=== PATIENT | male | born 1955 | race African-American/Black ===

== ENCOUNTER 2017-06-19 03:17 | Inpatient (IN) | payer SELFPAY ==
[2017-06-19 04:22] LABS: #Lymphocytes 0.8 thou/uL (1.20-3.40); #Monocytes 0.4 thou/uL (0.11-0.59); %Eosinophils 0.3 % (0.0-10.0); %Lymphocytes 8.3 % (21.0-51.0); %Monocytes 4.1 % (0.0-10.0); %Neutrophils 87.2 % (42.0-75.0); ALT (SGPT) 41 U/L (8-55); AST (SGOT) 44 U/L (5-34); Alkaline Phosphatase 149 U/L (40-150); Anion Gap 12 mmol/L (10-20); BUN (Urea Nitrogen) 23 mg/dL (8.4-25.7); Bilirubin, Total 0.5 mg/dL (0.2-1.2); CK (CPK) 186 U/L (30-200); Calc. Creatinine Clearance 0 mL/min (70-130); Calcium 9.4 mg/dL (7.8-10.44); Carbon Dioxide 27 mmol/L (23-31); Chloride 103 mmol/L (98-107); Estimated GFR-MDRD 59; Globulin 3.4 g/dL (2.4-3.5); Glucose 117 mg/dL (80-115); Lipase 28 U/L (8-78); MDiff Complete? YES; Macrocytosis MODERATE=16-30 cells (100X) (0-5/hpf); Mean Corpuscular HGB CONC 33.3 g/dL (32.0-36.0); Mean Platelet Volume 7.5 fL (7.4-10.4); PLT Morphology Comment Appears Adequate; Platelet Count 161 thou/uL (130-400); Protein, Total 7.4 g/dL (5.8-8.1); Red Blood Cell (RBC) Count 4.29 mill/uL (4.70-6.10); Sodium 138 mmol/L (136-145); White Blood Cell (WBC) Count 9.2 thou/uL (4.8-10.8)
[2017-06-19 04:25] LABS: CKMB 5.1 ng/mL (0-6.6); Troponin I 0.044 ng/mL (< 0.028)
--- NOTE | 2017-06-19 07:33 | RAD ---
SINGLE VIEW OF THE CHEST: COMPARISON: 09/21/15. HISTORY: Chest pain and hypertension. FINDINGS: A single view of the chest shows a normal-size cardiomediastinal silhouette. Increased interstitial lung markings are stable. There is no evidence of consolidation, mass, or pleural effusion. IMPRESSION: Stable chronic interstitial lung disease without acute cardiopulmonary process. POS: OFF
[2017-06-19] MEDS ORDERED: Furosemide 40 MG/4 ML VIAL ONE (08:06)
[2017-06-19] MEDS ORDERED: Acetaminophen 325 MG TAB PO PRN (08:38)
[2017-06-19] MEDS ORDERED: Acetaminophen 650 MG Suppository PR PRN (08:38)
[2017-06-19] MEDS ORDERED: Nitroglycerin 0.4 MG TAB (25 Tab Bottle) PO PRN (08:38)
[2017-06-19] MEDS ORDERED: Enoxaparin Sodium 40 MG/0.4 ML SYRINGE SC SCH (09:00)
[2017-06-19] MEDS ORDERED: Enoxaparin Sodium 40 MG/0.4 ML SYRINGE ONE (09:53)
[2017-06-19 10:31] LABS: Troponin I 0.053 ng/mL (< 0.028)
[2017-06-19] MEDS ORDERED: hydrALAZINE 20 MG/ML VIAL ONE (10:52)
--- NOTE | 2017-06-19 11:31 | HP ---
PRIMARY CARE PHYSICIAN: None. CHIEF COMPLAINT: Chest pain. HISTORY OF PRESENT ILLNESS: Mr. Treviño is a pleasant 62-year-old gentleman who was seen at [facility] on 06/19/2017. He reports that he was watching television with a friend and then subsequently rode his bike home. He reports that it was an approximately 8 minute ride. While riding, he had palpitations. He also reports left-sided chest discomfort that was sharp, nonradiatin g, 5/10, on and off, no known aggravating or relieving factors, not accompanied by shortness of breat h, but accompanied by lightheadedness and nausea. He denies any cough, fevers or chills. He denies any abdominal pain. He denies any similar pain in the past. REVIEW OF SYSTEMS: The following complete review of systems was negative, unless otherwise mentioned in the HPI or below: Constitutional: Weight loss or gain, ability to conduct usual activities. Skin: Rash, itching. Eyes: Double vision, pain. ENT/Mouth: Nose bleeding, neck stiffness, pain, tenderness. Cardiovascular: Palpitations, dyspnea on exertion, orthopnea. Respiratory: Shortness of breath, wheezing, cough, hemoptysis, fever or night sweats. Gastrointestinal: Poor appetite, abdominal pain, heartburn, nausea, vomiting, constipation, or diarr hea. Genitourinary: Urgency, frequency, dysuria, nocturia. Musculoskeletal: Pain, swelling. Neurologic/Psychiatric: Anxiety, depression. Allergy/Immunologic: Skin rash, bleeding tendency. PAST MEDICAL HISTORY: Significant for hypertension. He reports that he is on 2 different medication s for hypertension, but he is unable to recall their names. He is also unable to tell me who prescri bed his medications. PAST SURGICAL HISTORY: Significant for tonsillectomy. SOCIAL HISTORY: The patient drinks alcohol on 4 days out of 7 days in the week. He smokes half pack of cigarettes a day. He denies any cocaine use. He reports occasional marijuana use. FAMILY HISTORY: His father from heart attack when he was 44 years old. ALLERGIES: No known drug allergies. CURRENT MEDICATIONS: Unknown. PHYSICAL EXAMINATION: GENERAL: Mr. Treviño is awake and alert, not in acute distress. VITAL SIGNS: Blood pressure is 187/135, pulse is 85, he is breathing at rate of 15 and saturating 10 0% on room air. He is afebrile. EYES: No scleral icterus. No conjunctival pallor. ENT: Moist mucosal membranes, no oropharyngeal erythema or exudates. NECK: Supple, nontender, normal range of movement. Trachea is midline. RESPIRATORY: Accessory muscles of breathing are not active. Chest wall movements are symmetrical bi laterally. LUNGS: Clear to auscultation without wheezes, rhonchi or crepitations. CARDIOVASCULAR: S1 and S2 are heard, regular. Peripheral pulses are palpable. No carotid bruit, no pericardial rub. ABDOMEN: Soft, nontender, bowel sounds are heard, no hepatomegaly, no splenomegaly. SKIN: No rashes or subcutaneous nodules. MUSCULOSKELETAL: Power is 5/5 in all 4 extremities. He has bilateral lower extremity edema. NEUROLOGIC: Cranial nerves II through XII are intact. Deep tendon reflexes are 2+. PSYCHIATRIC: Normal mood and normal affect, patient is oriented to person, place, and time. LABORATORY DATA: Mr. Gates's labs and investigations were reviewed. I reviewed his electrocardiogram , which shows T-wave inversions and ST depressions in the lateral leads. He also has T-wave flatteni ng in the inferior leads. I also reviewed his chest x-ray, which does not show any pulmonary infiltr ates. Laboratory investigation show normal white count, normal hemoglobin, normal platelet count, no rmal electrolytes, elevated creatinine of 1.47, last known creatinine 1.60 on 09/21/2015, unremarkab le liver profile except for a slightly elevated AST of 44, indeterminate troponin I of 0.044 and elev ated BNP of 2565. ASSESSMENT AND PLAN: Mr. Treviño is a pleasant 62-year-old gentleman who was seen at [facility] on 06/19/2017. His problem list includes: 1. Chest pain: Mr. Treviño is presenting with chest pain. We will admit him to the hospital to rule out acute coronary syndrome. We will cycle cardiac enzymes. We will monitor on telemetry. We will start him on aspirin. 2. Congestive heart failure: Chronicity is unclear. Type of congestive heart failure is also uncle ar. We will request 2D echocardiogram to evaluate cardiac function. The patient has received Lasix, we will continue. 3. Acute hypoxic respiratory failure: His room air oxygen saturations were 82%. We will provide fu rosemide for congestive heart failure and oxygen as needed. 4. Tobacco abuse: Patient has been counseled regarding tobacco cessation. We will start him on yary otine replacement therapy. 5. Hypertension: The patient's blood pressure is high in the emergency room. We will start him on p.r.n. antihypertensives and monitor vital signs and titrate antihypertensives as needed. Many thanks for allowing me to participate in your patient's care. Please feel free to contact me wi th any questions or concerns. LEVEL OF RISK: High. LEVEL OF COMPLEXITY: High.
[2017-06-19 13:26] LABS: Troponin I 0.054 ng/mL (< 0.028)
[2017-06-19] MEDS: Aspirin 325 MG TAB PO SCH (14:15)
[2017-06-19] MEDS: Nicotine 14 MG PATCH TD SCH (17:08)
[2017-06-19] MEDS ORDERED: FLU VACC QS2017-18 36 mo. & older 0.5 ML SYRINGE IM ONE (18:00)
[2017-06-19] MEDS ORDERED: Communication Order-Pharmacy FS SCH (18:00)
--- NOTE | 2017-06-19 18:16 | CON ---
DATE OF CONSULTATION: 06/19/2017. CARDIOLOGY CONSULTATION REASON FOR CONSULTATION: Chest pain and shortness of breath. HISTORY OF PRESENT ILLNESS: Mr. Treviño is a very pleasant 62-year-old gentleman who comes to the hospital for chest pain. He was at a friend 's house watching TV and he states he rides his bike everywhere for miles at a time. Yesterday, when he was riding home, which was about an 8-minute ride, he had a sudden onset of palpitations and left-sided chest pain. He decided to stop, felt really worried about it and decided to come in for further evaluation. Here in the hospital, he was admitted for his chest pain. He had ST changes as well as mildly elevated troponin, so Cardiology was consulted for this. His BNP was 2500. He received 1 dose of IV Lasix and he is breathing much better now. He has not had any more pain since the episode with his bike. PAST MEDICAL HISTORY: Hypertension. PAST SURGICAL HISTORY: Tonsillectomy. SOCIAL HISTORY: Drinks alcohol on 4 out of 7 days, smokes half a pack of cigarettes a day, occasional marijuana use. FAMILY HISTORY: Father from an CA at age 45. OUTPATIENT MEDICATIONS: Two blood pressure medications, but he is unsure of the names. He tells me he has not seen a physician in a long, long time. REVIEW OF SYSTEMS: A 12-point review of systems was done and is all negative unless stated in the history of present illness below: He tells me that for the last 6 months, he had a couple of episodes where he was riding his bike and felt presyncopal. He also has been noticing increased shortness of breath in the last 6 months while riding his bicycle and has had to slow down some. PHYSICAL EXAMINATION: VITAL SIGNS: Temperature 98.0, pulse 105, respiratory rate 18, satting 95% on room air, blood pressure 140/95. GENERAL: Awake, alert, oriented x3, in no distress. HEENT: Normocephalic, atraumatic. NECK: Supple. LUNGS: Clear. CARDIOVASCULAR: S1, S2. No S3 or S4. Grade 3/6 systolic murmur at right upper sternal border, no rubs. ABDOMEN: Soft, positive bowel sounds. EXTREMITIES: No edema. SKIN: Warm and dry. LABORATORY WORK: Reviewed. White count of 9.2, hemoglobin of 15, hematocrit of 45, platelet count of 161,000. Coags, D-dimer was high at 0.89. Chemistry, creatinine was 1.47, GFR was 59, otherwise unremarkable. Troponins were 0.04, 0.05, 0.05. BNP was 2565. Albumin of 4, lipase of 28. Chest x-ray was reviewed. He had chronic interstitial lung disease without an acute cardiopulmonary process. Echocardiogram was reviewed and shows normal LV function at 50%-55%. There is inferolateral and anterolateral hypokinesis with grade 2/3 diastolic dysfunction and LVH. There are mildly elevated pulmonary pressures and aortic valve is heavily calcified with severe aortic valve stenosis, valve area of 0.48 cm2, max velocity of 4.9 meters per second and a mean gradient of 55.8 mmHg. EKG was reviewed, normal sinus rhythm, anterolateral ischemic changes. ASSESSMENT: 1. Critical aortic valve stenosis. 2. Possible coronary artery disease, anterolateral changes on both EKG and echo. 3. Acute on chronic diastolic heart failure, most likely related to severe aortic stenosis. 4. Tobacco abuse. 5. Alcohol use. PLAN: 1. He has critical aortic valve stenosis and would require aortic valve replacement for therapies. At this time, I spoke with him at length about possibly doing this and he is willing to do whatever needs to be done to get his heart better. 2. We will plan on doing a left heart catheterization. I spoke with him at length about the risks and benefits of the procedure. The risks include, but not limited to stroke, CA, , bleeding and need for blood transfusion, limb loss, organ loss and he agrees to proceed. We will get that done in preparation for possible surgery in the next coming weeks. 3. I would hold off on any more Lasix at this time. We will do very gentle hydration overnight and plan on doing this catheterization early in the morning for evaluation of possible bypass on top of his valve needs. 4. Thank you for letting us to participate in the care of your patient. We will follow. SHANEL
[2017-06-20 05:40] LABS: #Eosinphils 0.1 thou/uL (0.0-0.7); #Lymphocytes 1.4 thou/uL (1.20-3.40); #Monocytes 0.4 thou/uL (0.11-0.59); #Neutrophils 3.3 thou/uL (1.40-6.50); %Basophils 0.8 % (0.0-1.0); %Eosinophils 2.6 % (0.0-10.0); %Lymphocytes 27.4 % (21.0-51.0); %Monocytes 7.1 % (0.0-10.0); %Neutrophils 62.1 % (42.0-75.0); Hemoglobin 14.3 g/dL (14.0-18.0); Mean Corpuscular Hemoglobin 34.4 pg (27.0-31.0); Platelet Count 170 thou/uL (130-400); RBC Distribution Width 13.1 % (11.5-14.5); Red Blood Cell (RBC) Count 4.16 mill/uL (4.70-6.10); White Blood Cell (WBC) Count 5.3 thou/uL (4.8-10.8)
[2017-06-20] MEDS ORDERED: Sodium Chloride 0.9% 1,000 ML IV SCH ×2 (06:00→11:45)
[2017-06-20 06:29] LABS: Anion Gap 12 mmol/L (10-20); BUN (Urea Nitrogen) 29 mg/dL (8.4-25.7); Calc. Creatinine Clearance 48 mL/min (70-130); Calcium 9.3 mg/dL (7.8-10.44); Carbon Dioxide 27 mmol/L (23-31); Chloride 104 mmol/L (98-107); Estimated GFR-MDRD 54; Glucose 104 mg/dL (80-115); Potassium 4.1 mmol/L (3.5-5.1); Sodium 139 mmol/L (136-145)
[2017-06-20] MEDS ORDERED: Lidocaine 1% (PF) 30 ML VIAL ONE (10:28)
[2017-06-20] MEDS ORDERED: Verapamil 5 MG/2 ML VIAL ONE (11:07)
[2017-06-20] MEDS ORDERED: Heparin 10,000 UNITS/1 ML VIAL ONE (11:07)
[2017-06-20] MEDS ORDERED: Nitroglycerin 100MG/250ML BOT 250 ML ONE (11:07)
[2017-06-20] MEDS ORDERED: Fentanyl 100 MCG/2 ML VIAL ONE (11:13)
[2017-06-20] MEDS ORDERED: Midazolam HCl 2 mg/2 ml Vial ONE (11:13)
[2017-06-20] MEDS ORDERED: Acetaminophen/Codeine 30-300mg Tablet PO PRN (11:33)
[2017-06-20] MEDS ORDERED: traMADol HCl 50 MG TAB PO PRN (11:33)
[2017-06-20] MEDS ORDERED: Sodium Chloride 0.9% 200 ML IV SCH (11:45)
[2017-06-20] MEDS: Nicotine 14 MG PATCH TD SCH (12:02)
[2017-06-20] MEDS: Aspirin 325 MG TAB PO SCH (12:03)
[2017-06-20] MEDS: hydrALAZINE 20 MG/ML VIAL SLOW IVP PRN (12:18)
--- NOTE | 2017-06-20 12:48 | PDOC.PN ---
- Subjective Encounter Start Date: 06/20/17 Encounter Start Time: 07:00 Pt seen for followup re: CHF exacerbation. Denies chest pain. Shortness of breath is better. - Objective MAR Reviewed: Yes Vital Signs & Weight: Vital Signs (12 hours) Temp Pulse Resp BP BP Pulse Ox 06/20/17 12:18 90 182/128 H 06/20/17 11:33 90 18 182/128 H 06/20/17 08:00 98.4 F 99 16 06/20/17 07:50 98.4 F 99 16 187/120 H 94 L 06/20/17 04:25 97.8 F 102 H 16 169/109 H 95 Weight Weight 154 lb 15.759 oz I&O: 06/19/17 06/20/17 06/21/17 06:59 06:59 06:59 Intake Total 850 Output Total 1250 Balance -400 Result Diagrams: 06/20/17 05:25 06/20/17 05:25 EKG Reviewed by me: Yes (Tele: NSR) Phys Exam - Physical Examination Constitutional: NAD HEENT: PERRLA, moist MMs, sclera anicteric, oral pharynx no lesions Neck: no nodes, no JVD, supple, full ROM Respiratory: no wheezing, no rales, no rhonchi, clear to auscultation bilateral Cardiovascular: RRR, no rub Gastrointestinal: soft, non-tender, no distention, positive bowel sounds Musculoskeletal: edema present Neurological: moves all 4 limbs Psychiatric: normal affect Dx/Plan (1) CHF exacerbation Code(s): I50.9 - HEART FAILURE, UNSPECIFIED Status: Acute (2) Critical aortic valve stenosis Code(s): I35.0 - NONRHEUMATIC AORTIC (VALVE) STENOSIS Status: Chronic (3) HTN (hypertension) Code(s): I10 - ESSENTIAL (PRIMARY) HYPERTENSION Status: Chronic (4) CKD (chronic kidney disease) Code(s): N18.9 - CHRONIC KIDNEY DISEASE, UNSPECIFIED Status: Chronic - Plan * . Cath today. Likely for surgery next week. Monitor vital signs, titrate antihypertensives as needed. CKD stable. Review of Systems - Review of Systems Constitutional: negative: fever, chills, sweats, weakness, malaise Respiratory: SOB with Excertion. negative: Cough, Dry, Shortness of Breath, Hemoptysis, Pleuritic Pain, Sputum, Wheezing Cardiovascular: negative: chest pain, palpitations, orthopnea, paroxysmal nocturnal dyspnea, edema, light headedness Gastrointestinal: negative: Nausea, Vomiting, Abdominal Pain, Diarrhea, Constipation, Melena, Hematochezia Genitourinary: negative: Dysuria, Frequency, Incontinence, Hematuria, Retention - Medications/Allergies Allergies/Adverse Reactions: Allergies Allergy/AdvReac Type Severity Reaction Status Date / Time No Known Drug Allergies Allergy Verified 06/19/17 08:38 Medications: Current Medications Acetaminophen (Tylenol) 650 mg PO Q4H PRN PRN Reason: Headache/Fever or Pain Acetaminophen (Tylenol) 650 mg [place] Q4H PRN PRN Reason: Headache/Fever or Pain Acetaminophen/Codeine Phosphate (Tylenol #3) 1 tab PO Q4H PRN PRN Reason: Mild Pain (1-3) Aspirin (Aspirin) 325 mg PO DAILY [facility] Last Admin: 06/20/17 12:03 Dose: 325 mg Hydralazine HCl (Apresoline) 10 mg SLOW IVP Q6H PRN PRN Reason: SBP Greater Than 170 Last Admin: 06/20/17 12:18 Dose: 10 mg Sodium Chloride (Normal Saline 0.9%) 1,000 mls @ 50 mls/hr IV .Q20H [facility] Stop: 06/20/17 16:45 Last Admin: 06/20/17 12:03 Dose: 1,000 mls Nicotine (Nicoderm Patch) 14 mg TD Q24HR [facility] Last Admin: 06/20/17 12:02 Dose: 14 mg Tramadol HCl (Ultram) 50 mg PO Q6H PRN PRN Reason: Moderate Pain (4-6)
[2017-06-20] MEDS ORDERED: Iopamidol 370 76% 100 ML VIAL ONE (12:57)
[2017-06-20] MEDS ORDERED: hydrALAZINE 20 MG/ML VIAL SLOW IVP SCH (13:00)
--- NOTE | 2017-06-20 15:50 | CON ---
DATE OF CONSULTATION: 06/20/2017 REASON FOR CONSULTATION: Evaluate patient for aortic valve replacement. ATTENDING PHYSICIAN: Dr. Iglesia Sotelo. CONSULTING PHYSICIAN: Same. Chart reviewed/patient examined/films reviewed. HISTORY OF PRESENT ILLNESS: Mr. Treviño is a 62-year-old gentleman who was admitted with fatigue, shor tness of breath and increasing levels of chest pain with exercise. He came through the emergency dep artment. He had ST changes laterally. Troponin was mildly elevated. Echocardiogram shows severe ao rtic stenosis with an aortic valve area of 0.48 cm and a gradient of 50 cm. Ejection fraction is 55% . He was taken for cardiac catheterization today which shows no significant coronary disease. I hav e been asked to see him to discuss aortic valve replacement. PAST MEDICAL HISTORY: Hypertension. PAST SURGICAL HISTORY: Tonsillectomy. CURRENT MEDICATIONS: Current medications at home are 2 unknown antihypertensives. ALLERGIES: None. SOCIAL HISTORY: The patient occasionally smokes and uses marijuana. REVIEW OF SYSTEMS: Ten point review of systems is performed and is negative except as above. PHYSICAL EXAMINATION: GENERAL: Well-developed, well-nourished man, in no distress, resting comfortably in bed without ches t pain or shortness of breath post-catheterization. VITAL SIGNS: Height 5 feet 11 inches, weight 154 pounds, pulse is 90 and regular, blood pressures 14 9/91, temperature is 98.4. HEENT: Sclerae nonicteric. Pupils equal, round bilaterally. NECK: Supple without adenopathy. There are transmitted bruits bilaterally. CHEST: Clear bilaterally. HEART: Rhythm is regular. He has a harsh systolic murmur. ABDOMEN: Soft and nontender. EXTREMITIES: No edema. VASCULAR: Palpable carotid, radial, femoral, dorsalis pedis pulses bilaterally. PSYCHIATRIC: The patient is awake, alert, and oriented to person, place, and time. ASSESSMENT AND PLAN: This is a pleasant 62-year-old gentleman with severe aortic stenosis by echocar diogram which is symptomatic. His coronaries are clean. I have discussed aortic valve replacement w ith him. We will get a CT scan of his chest to further evaluate his aorta and aortic valve annulus. He may be a minimally invasive candidate. We will also get a carotid ultrasound since he has transm itted bruits.
--- NOTE | 2017-06-20 17:38 | CT ---
EXAM: CHEST CT WITHOUT CONTRAST 06/20/17 HISTORY: Aortic valve replacement. Evaluate the size of the aorta. COMPARISON: None. TECHNIQUE: Noncontrast chest CT is performed in the axial plane. Coronal reformatted images are submitted for in terpretation. FINDINGS: Limited evaluation of the mediastinal structures due to the lack of IV contrast. No mediastinal mass, lymphadenopathy, or hematoma. Heart size is within normal limits. No significant pericardial fluid. Visualized upper solid organs are grossly unremarkable. Note, there appears to be atrophy of the left kidney which is presumed to be chronic. There is contrast in the right intrarenal collecting system secondary to recent cardiac catheterization. Extensive emphysematous changes with large bulla in both upper lobes. Linear areas in the left and ri ght lower lobe may represent scar or atelectasis. Trachea and central bronchi are patent. There is ca lcification of the aortic valve. Atherosclerosis of the aortic arch is noted. Based upon the coronal reformatted images, the root of the aorta measures 3.6 cm in the mediolateral dimension. On the axial images, the root of the aorta measures 3.2 x 3.0 cm. the ascending thoracic aorta measures 3.7 x 3.2 cm. Descending thoracic aorta measures 3.0 x 2.8 cm. There are no lytic or blastic lesions in the os seous structures. IMPRESSION: 1. Extensive emphysematous/bullous change. 2. Aorta dimensions as above. POS: [facility]
--- NOTE | 2017-06-20 18:22 | ULT ---
CAROTID DOPPLER: 06/20/17 Ultrasound doppler study is performed of the extracranial carotid arteries. Color doppler with spectr al analysis and velocity recordings obtained. HISTORY: Syncope. Ultrasound images show mild echogenic plaque and mild intimal thickening bilaterally. Velocity recordings are within normal range. No evidence of hemodynamically significant stenosis. The vertebral arteries show antegrade flow. IMPRESSION: 1. Mild intimal thickening with echogenic plaque seen in the bulbs bilaterally. 2. No evidence of significant stenosis. POS: [facility]
[2017-06-21] MEDS: Aspirin 325 MG TAB PO SCH (09:14)
[2017-06-21] MEDS: Nicotine 14 MG PATCH TD SCH (09:14)
--- NOTE | 2017-06-21 11:57 | PRG ---
DATE OF SERVICE: 06/21/2017 SUBJECTIVE: Mr. Treviño is resting comfortably, no complaints. OBJECTIVE: VITAL SIGNS: Blood pressure is variable, earlier 148/72, then 164/115; and his pulse 68. LUNGS: Clear. CARDIAC: Normal S1, normal S2 with a soft murmur. ASSESSMENT: 1. Aortic stenosis. 2. Hypertension. PLAN: Proceed to valve replacement early next week.
--- NOTE | 2017-06-21 12:11 | PDOC.PN ---
- Subjective Encounter Start Date: 06/21/17 Encounter Start Time: 07:00 Pt seen for followup re: CHF exacerbation. No complaints today. - Objective MAR Reviewed: Yes Vital Signs & Weight: Vital Signs (12 hours) Temp Pulse Resp BP BP Pulse Ox 06/21/17 08:00 97.5 F L 68 16 93 L 06/21/17 07:13 98.2 F 94 18 164/115 H 93 L 06/21/17 04:00 97.5 F L 68 16 148/72 H 96 06/21/17 00:16 98.2 F 16 148/101 H 96 Weight Weight 154 lb 15.759 oz I&O: 06/20/17 06/21/17 06/22/17 06:59 06:59 06:59 Intake Total 850 Output Total 1250 1350 Balance -400 -1350 Result Diagrams: 06/20/17 05:25 06/20/17 05:25 EKG Reviewed by me: Yes (Tele: NSR) Phys Exam - Physical Examination Constitutional: NAD HEENT: moist MMs Neck: supple Respiratory: clear to auscultation bilateral Cardiovascular: RRR Gastrointestinal: soft Neurological: moves all 4 limbs Psychiatric: normal affect Dx/Plan (1) CHF exacerbation Code(s): I50.9 - HEART FAILURE, UNSPECIFIED Status: Acute (2) Critical aortic valve stenosis Code(s): I35.0 - NONRHEUMATIC AORTIC (VALVE) STENOSIS Status: Chronic (3) HTN (hypertension) Code(s): I10 - ESSENTIAL (PRIMARY) HYPERTENSION Status: Chronic (4) CKD (chronic kidney disease) Code(s): N18.9 - CHRONIC KIDNEY DISEASE, UNSPECIFIED Status: Chronic - Plan out of bed/ambulate * . Awaiting surgery for aortic valve stenosis. Cath report noted. Carotid dopplers showed minimal disease. Monitor vital signs, titrate antihypertensives as needed. Continue nicotine replacement treatment. Review of Systems - Review of Systems Respiratory: negative: Cough, Dry, Shortness of Breath, Hemoptysis, SOB with Excertion, Pleuritic Pain, Sputum, Wheezing Cardiovascular: negative: chest pain, palpitations, orthopnea, paroxysmal nocturnal dyspnea, edema, light headedness - Medications/Allergies Allergies/Adverse Reactions: Allergies Allergy/AdvReac Type Severity Reaction Status Date / Time No Known Drug Allergies Allergy Verified 06/19/17 08:38 Medications: Current Medications Acetaminophen (Tylenol) 650 mg PO Q4H PRN PRN Reason: Headache/Fever or Pain Acetaminophen (Tylenol) 650 mg IN Q4H PRN PRN Reason: Headache/Fever or Pain Acetaminophen/Codeine Phosphate (Tylenol #3) 1 tab PO Q4H PRN PRN Reason: Mild Pain (1-3) Aspirin (Aspirin) 325 mg PO DAILY [facility] Last Admin: 06/21/17 09:14 Dose: 325 mg Hydralazine HCl (Apresoline) 10 mg SLOW IVP Q6H PRN PRN Reason: SBP Greater Than 170 Last Admin: 06/20/17 12:18 Dose: 10 mg Nicotine (Nicoderm Patch) 14 mg TD Q24HR [facility] Last Admin: 06/21/17 09:14 Dose: 14 mg Tramadol HCl (Ultram) 50 mg PO Q6H PRN PRN Reason: Moderate Pain (4-6)
[2017-06-22 05:12] LABS: #Eosinphils 0.2 thou/uL (0.0-0.7); #Lymphocytes 1.3 thou/uL (1.20-3.40); #Monocytes 0.6 thou/uL (0.11-0.59); #Neutrophils 2.8 thou/uL (1.40-6.50); %Basophils 0.3 % (0.0-1.0); %Eosinophils 3.5 % (0.0-10.0); %Lymphocytes 26.6 % (21.0-51.0); %Monocytes 12.9 % (0.0-10.0); %Neutrophils 56.7 % (42.0-75.0); Mean Corpuscular HGB CONC 32.8 g/dL (32.0-36.0); Mean Corpuscular Hemoglobin 34.4 pg (27.0-31.0); Platelet Count 173 thou/uL (130-400); RBC Distribution Width 13.1 % (11.5-14.5); Red Blood Cell (RBC) Count 4.08 mill/uL (4.70-6.10)
[2017-06-22 05:15] LABS: Anion Gap 10 mmol/L (10-20); BUN (Urea Nitrogen) 33 mg/dL (8.4-25.7); Calc. Creatinine Clearance 57 mL/min (70-130); Calcium 8.7 mg/dL (7.8-10.44); Carbon Dioxide 24 mmol/L (23-31); Chloride 108 mmol/L (98-107); Estimated GFR-MDRD 66; Glucose 96 mg/dL (80-115); Potassium 4.6 mmol/L (3.5-5.1); Sodium 137 mmol/L (136-145)
[2017-06-22] MEDS: Sodium Chloride 0.9% 1,000 ML IV SCH ×2 (07:53→09:00)
[2017-06-22] MEDS: hydrALAZINE 20 MG/ML VIAL SLOW IVP PRN (08:59)
[2017-06-22] MEDS: Aspirin 325 MG TAB PO SCH (08:59)
[2017-06-22] MEDS: Enoxaparin Sodium 40 MG/0.4 ML SYRINGE SC SCH (08:59)
[2017-06-22] MEDS: Nicotine 14 MG PATCH TD SCH (08:59)
--- NOTE | 2017-06-22 11:46 | PDOC.PN ---
- Subjective Encounter Start Date: 06/22/17 Encounter Start Time: 07:00 Pt seen for followup re: CHF. No complaints, feels well. - Objective MAR Reviewed: Yes Vital Signs & Weight: Vital Signs (12 hours) Temp Pulse Resp BP BP Pulse Ox 06/22/17 11:20 98.4 F 108 H 20 151/97 H 95 06/22/17 08:59 90 178/120 H 06/22/17 08:00 98.3 F 90 18 178/120 H 97 06/22/17 04:00 97.7 F 102 H 16 167/107 H 98 06/22/17 00:00 97.5 F L 108 H 18 152/99 H 97 Weight Weight 154 lb 15.759 oz I&O: 06/21/17 06/22/17 06/23/17 06:59 06:59 06:59 Intake Total 1080 120 Output Total 1350 5 150 Balance -1350 1075 -30 Result Diagrams: 06/22/17 04:22 06/22/17 04:22 EKG Reviewed by me: Yes (Tele: NSR) Phys Exam - Physical Examination Constitutional: NAD HEENT: moist MMs Neck: supple Respiratory: clear to auscultation bilateral Cardiovascular: RRR Gastrointestinal: soft Musculoskeletal: edema present Neurological: moves all 4 limbs Psychiatric: normal affect Dx/Plan (1) CHF exacerbation Code(s): I50.9 - HEART FAILURE, UNSPECIFIED Status: Acute (2) Critical aortic valve stenosis Code(s): I35.0 - NONRHEUMATIC AORTIC (VALVE) STENOSIS Status: Chronic (3) HTN (hypertension) Code(s): I10 - ESSENTIAL (PRIMARY) HYPERTENSION Status: Chronic (4) CKD (chronic kidney disease) Code(s): N18.9 - CHRONIC KIDNEY DISEASE, UNSPECIFIED Status: Chronic - Plan out of bed/ambulate * . Creatinine improved, stop IV fluids. Discharge plan depends on CV surgery plan for aortic valve replacement ( Inpatient vs. outpatient). Add amlodipine. Monitor vital signs. Continue Nicotine patch. Review of Systems - Review of Systems Constitutional: negative: fever, chills, sweats, weakness, malaise Cardiovascular: negative: chest pain, palpitations, orthopnea, paroxysmal nocturnal dyspnea, edema, light headedness Gastrointestinal: negative: Nausea, Vomiting, Abdominal Pain, Diarrhea, Constipation, Melena, Hematochezia - Medications/Allergies Allergies/Adverse Reactions: Allergies Allergy/AdvReac Type Severity Reaction Status Date / Time No Known Drug Allergies Allergy Verified 06/19/17 08:38 Medications: Current Medications Acetaminophen (Tylenol) 650 mg PO Q4H PRN PRN Reason: Headache/Fever or Pain Acetaminophen (Tylenol) 650 mg [place] Q4H PRN PRN Reason: Headache/Fever or Pain Acetaminophen/Codeine Phosphate (Tylenol #3) 1 tab PO Q4H PRN PRN Reason: Mild Pain (1-3) Aspirin (Aspirin) 325 mg PO DAILY [facility] Last Admin: 06/22/17 08:59 Dose: 325 mg Enoxaparin Sodium (Lovenox) 40 mg SC 0900 [facility] Last Admin: 06/22/17 08:59 Dose: 40 mg Hydralazine HCl (Apresoline) 10 mg SLOW IVP Q6H PRN PRN Reason: SBP Greater Than 170 Last Admin: 06/22/17 08:59 Dose: 10 mg Sodium Chloride (Normal Saline 0.9%) 1,000 mls @ 50 mls/hr IV .Q20H [facility] Last Admin: 06/22/17 09:00 Dose: 1,000 mls Nicotine (Nicoderm Patch) 14 mg TD Q24HR [facility] Last Admin: 06/22/17 08:59 Dose: 14 mg Tramadol HCl (Ultram) 50 mg PO Q6H PRN PRN Reason: Moderate Pain (4-6)
[2017-06-22] MEDS ORDERED: Amlodipine 5 MG TAB PO SCH (12:30)
[2017-06-23 05:31] LABS: #Eosinphils 0.1 thou/uL (0.0-0.7); #Lymphocytes 1.1 thou/uL (1.20-3.40); #Monocytes 0.4 thou/uL (0.11-0.59); #Neutrophils 2.4 thou/uL (1.40-6.50); %Basophils 0.4 % (0.0-1.0); %Eosinophils 3.1 % (0.0-10.0); %Lymphocytes 26.4 % (21.0-51.0); %Monocytes 10.6 % (0.0-10.0); %Neutrophils 59.5 % (42.0-75.0); Hemoglobin 15.1 g/dL (14.0-18.0); Mean Corpuscular HGB CONC 33.6 g/dL (32.0-36.0); Mean Corpuscular Hemoglobin 35.2 pg (27.0-31.0); Platelet Count 184 thou/uL (130-400); White Blood Cell (WBC) Count 4.1 thou/uL (4.8-10.8)
[2017-06-23 05:40] LABS: Anion Gap 10 mmol/L (10-20); BUN (Urea Nitrogen) 27 mg/dL (8.4-25.7); Calc. Creatinine Clearance 53 mL/min (70-130); Carbon Dioxide 23 mmol/L (23-31); Chloride 108 mmol/L (98-107); Estimated GFR-MDRD 66; Glucose 152 mg/dL (80-115); Potassium 4.4 mmol/L (3.5-5.1); Sodium 137 mmol/L (136-145)
[2017-06-23] MEDS: Enoxaparin Sodium 40 MG/0.4 ML SYRINGE SC SCH (08:24)
[2017-06-23] MEDS: Nicotine 14 MG PATCH TD SCH (08:25)
[2017-06-23] MEDS: Aspirin 325 MG TAB PO SCH (08:25)
[2017-06-23] MEDS ORDERED: Amlodipine 5 MG TAB PO SCH (09:00)
[2017-06-23] MEDS: Sodium Chloride 0.9% 1,000 ML IV SCH (12:20)
[2017-06-23] MEDS ORDERED: Communication Order-Pharmacy FS ONE (12:35)
[2017-06-23] MEDS ORDERED: Diazepam 5 MG TAB PO PRN (12:35)
--- NOTE | 2017-06-23 12:59 | PDOC.PN ---
- Subjective Encounter Start Date: 06/23/17 Encounter Start Time: 07:00 Pt seen for followup re: CHF. Feels well, no complaints. - Objective Vital Signs & Weight: Vital Signs (12 hours) Temp Pulse Resp BP BP Pulse Ox 06/23/17 11:38 98.1 F 106 H 16 131/104 H 99 06/23/17 08:25 103 H 158/115 H 06/23/17 08:00 98 F 105 H 18 158/115 H 95 06/23/17 03:46 98.4 F 96 14 168/108 H 96 06/23/17 02:41 97 Weight Weight 143 lb 4.8 oz I&O: 06/22/17 06/23/17 06/24/17 06:59 06:59 06:59 Intake Total 1080 3312 240 Output Total 5 1300 Balance 1072011 240 Result Diagrams: 06/23/17 05:10 06/23/17 05:10 Phys Exam - Physical Examination Constitutional: NAD HEENT: moist MMs Neck: supple Respiratory: clear to auscultation bilateral Cardiovascular: RRR Gastrointestinal: soft Musculoskeletal: edema present Neurological: moves all 4 limbs Dx/Plan (1) CHF exacerbation Code(s): I50.9 - HEART FAILURE, UNSPECIFIED Status: Acute (2) Critical aortic valve stenosis Code(s): I35.0 - NONRHEUMATIC AORTIC (VALVE) STENOSIS Status: Chronic (3) HTN (hypertension) Code(s): I10 - ESSENTIAL (PRIMARY) HYPERTENSION Status: Chronic (4) CKD (chronic kidney disease) Code(s): N18.9 - CHRONIC KIDNEY DISEASE, UNSPECIFIED Status: Chronic - Plan * . DC IV fluids, renal function improved. Monitor vital signs, titrate antihypertensives as needed. For aortic valve surgery tomorrow. Review of Systems - Review of Systems Respiratory: negative: Cough, Dry, Shortness of Breath, Hemoptysis, SOB with Excertion, Pleuritic Pain, Sputum, Wheezing Cardiovascular: negative: chest pain, palpitations, orthopnea, paroxysmal nocturnal dyspnea, edema, light headedness Gastrointestinal: negative: Nausea, Vomiting, Abdominal Pain, Diarrhea, Constipation, Melena, Hematochezia - Medications/Allergies Allergies/Adverse Reactions: Allergies Allergy/AdvReac Type Severity Reaction Status Date / Time No Known Drug Allergies Allergy Verified 06/19/17 08:38 Medications: Current Medications Acetaminophen (Tylenol) 650 mg PO Q4H PRN PRN Reason: Headache/Fever or Pain Stop: 06/24/17 08:59 Acetaminophen (Tylenol) 650 mg [place] Q4H PRN PRN Reason: Headache/Fever or Pain Stop: 06/24/17 08:59 Acetaminophen/Codeine Phosphate (Tylenol #3) 1 tab PO Q4H PRN PRN Reason: Mild Pain (1-3) Stop: 06/24/17 08:59 Amlodipine Besylate (Norvasc) 5 mg PO DAILY [facility] Stop: 06/24/17 08:59 Last Admin: 06/23/17 08:25 Dose: 5 mg Aspirin (Aspirin) 325 mg PO DAILY [facility] Stop: 06/24/17 08:59 Last Admin: 06/23/17 08:25 Dose: 325 mg Diazepam (Valium) 5 mg PO HSPRN PRN PRN Reason: Insomnia Enoxaparin Sodium (Lovenox) 40 mg SC 0900 [facility] Stop: 06/24/17 08:59 Last Admin: 06/23/17 08:24 Dose: 40 mg Hydralazine HCl (Apresoline) 10 mg SLOW IVP Q6H PRN PRN Reason: SBP Greater Than 170 Stop: 06/24/17 08:59 Last Admin: 06/22/17 08:59 Dose: 10 mg Nicotine (Nicoderm Patch) 14 mg TD Q24HR [facility] Stop: 06/24/17 08:59 Last Admin: 06/23/17 08:25 Dose: 14 mg Tramadol HCl (Ultram) 50 mg PO Q6H PRN PRN Reason: Moderate Pain (4-6) Stop: 06/24/17 08:59
--- NOTE | 2017-06-23 17:21 | PDOC.CTH ---
Cardiology Progress Note - Subjective He is doing well. He is scheduled to have valve replacement tomorrow. - Objective Vital Signs Temp Pulse Resp BP BP Pulse Ox 06/23/17 16:00 98.0 F 108 H 16 143/114 H 98 06/23/17 11:38 98.1 F 106 H 16 131/104 H 99 06/23/17 08:25 103 H 158/115 H 06/23/17 08:00 98 F 105 H 18 158/115 H 95 Weight 143 lb 4.8 oz 06/22/17 06/23/17 06/24/17 06:59 06:59 06:59 Intake Total 1080 3312 480 Output Total 5 1300 Balance 1075 2012 480 - Physical Examination General/Neuro: alert & oriented x3, NAD Neck: no JVD present Lungs: CTA, unlabored respirations Heart: RRR Abdomen: NT/ND Extremities: other: (no edema.) - Telemetry Telemetry Rhythm: NSR - Labs Result Diagrams: 06/23/17 05:10 06/23/17 05:10 Troponin/CKMB CK-MB (CK-2) 5.1 ng/mL (0-6.6) 06/19/17 03:51 Troponin I 0.054 ng/mL (< 0.028) H 06/19/17 12:54 - Assessment/Plan 1. Critical AV stenosis. 2. Normal coronaries. 3. Emphysematous changes on CT chest. 4. Tobacco abuse. PLAN: - Proceed with AVR tomorrow. - Will follow.
[2017-06-24] MEDS ORDERED: Dexmedetomidine 200 MCG/2 ML VIAL ONE (05:47)
[2017-06-24] MEDS ORDERED: Vecuronium 10 MG VIAL ONE ×3 (05:47→15:53)
[2017-06-24] MEDS ORDERED: Midazolam HCl 5 mg/5 ml Vial ONE (05:47)
[2017-06-24] MEDS ORDERED: Fentanyl 100 MCG/2 ML VIAL ONE ×3 (05:47→15:45)
[2017-06-24] MEDS ORDERED: Heparin 30,000 UNITS in Sodium Chloride 0.9% 1,000 ML SC SCH (06:30)
[2017-06-24] MEDS ORDERED: Albumin 5% 500 ML ONE (06:40)
[2017-06-24] MEDS ORDERED: Iothalamate Meglumine 60% 50 ML VIAL FS ONE ×2 (06:40→08:40)
[2017-06-24] MEDS ORDERED: CEFAZOLIN/Water 2 GM/20 ML SYRINGE ONE (06:58)
[2017-06-24] MEDS: Nicotine 14 MG PATCH TD SCH (10:16)
[2017-06-24] MEDS ORDERED: Bupivacaine HCl 0.5%/Epinephrine 1:200,000/PF 30 ml Vial ONE (12:18)
--- NOTE | 2017-06-24 12:59 | OP ---
DATE OF PROCEDURE: 06/24/2017 PREOPERATIVE DIAGNOSES: Aortic stenosis. POSTOPERATIVE DIAGNOSES: Aortic stenosis. PROCEDURE: MICS Aortic valve replacement with #25 Intuity bioprosthetic valve via a right anterior thoracotomy. SURGEONS: Dr. Dale Ortez/Dr. Marco Floyd/Dr. Duran Judd. ANESTHESIA: General endotracheal, Dr. Earnest Min. PUMP TIME: 76 minutes. CROSS-CLAMP TIME: 57 minutes. LOW CORE TEMPERATURE: 32 degrees Celsius. BALLISTICS TESTER: Cayla Mann. DRAINS: 24-English chest tubes x2. DRIPS: None. TRANSFUSIONS: None. PROCEDURE IN DETAIL: After consent was obtained, the patient was brought to the operating room and placed in supine position on the operating room table. Appropriate anesthetic monitor was placed and general endotracheal anesthesia induced. Chest, abdomen, and legs were prepped and draped in usual sterile fashion. A transverse incision was made over the left groin. Common femoral vein and artery were carefully dissected free from the surrounding tissues. 4- 0 Prolene pursestrings were placed in both the artery and vein for later cannulation. Right anterior thoracotomy was made in the second interspace. Dissection down through the muscle fibers of the pectoralis was made with electrocautery. The third rib was carefully dissected free from surrounding tissues. The right internal mammary artery and vein were divided between clips. The third rib was divided at its costal cartilage. The Denny soft tissue retractor was then placed. Thoracotomy retractor was then placed to further open the thoracotomy. Incision was made along the right border of the pericardium exposing the aorta , right atrium and right ventricle. Pericardial stay sutures were placed. The patient was systemically heparinized. A 24 fr drain was brought through a separate stab incision to infuse CO2. After adequate heparinization, the venous cannula was placed over a Bentsen guidewire through the left femoral vein using fluoroscopic guidance into the superior vena cava. The arterial cannula was then placed into the left femoral artery in a similar fashion. Pursestrings were secured with Rumel tourniquets. The patient underwent retrograde prime. After adequate heparinization, the patient was placed on cardiopulmonary bypass. Aortic cross-clamp was applied and antegrade sanguinous cardioplegic arrest obtained. One liter of antegrade [place] cardioplegia was given. A transverse hockey stick aortotomy was performed. The aortic valve was inspected. It was a three leaflet valve. The right and left valve leaflets were fused. The valve was heavily calcified and immobile. The valve leaflets were debrided. Annulus was decalcified. Valve was measured to be 25. A 25 Intuity was then washed. 2-0 Ethibond simple sutures were placed at the ileana of each valve cusp. These sutures were then passed through the valve sewing ring. The valve was seated. The valve was held in place with Rumel tourniquets. The Rumel tourniquets and sutures were all noted at the exit point above the annulus. The valve balloon was inflated to 5 atmospheres for 10 seconds. Balloon was deflated and the balloon deployment device removed. Valve was inspected. There was no fuzzy cloth above the annulus. The valve was seated nicely with good apposition in the LVOT. The aortotomy was closed in 2-layer fashion with running 4-0 Prolene suture. De -airing maneuvers were performed of both through the aortic root and through the pulmonary sump drain. After adequate deairing, the ventricular pacing wires were placed and brought to the skin and the patient was paced. The aortic cross-clamp was removed. CO2 infusion was terminated. This drain was left in the right chest. A second 24 English drain was placed within the pericardium. The patient was warmed and weaned from cardiopulmonary bypass. After resumption of sinus rhythm, good hemodynamics and temperature greater than 36.5, bypass was discontinued. Decannulation from the groin was performed and pursestring sutures secured. Hemostasis was ensured in the groins. Protamine was administered. Groin incision was closed in layers. After adequate hemostasis had been obtained, the 3rd rib was reapproximated with 0 Vicryl suture. Pericostal sutures were placed. The pectoralis was reapproximated and then wound closed in layers. Dermabond was applied to the skin. The patient was transferred to the intensive care unit in stable, but critical condition. Needle, sponge, and instrument counts were all reported correct at the end of the procedure. [facility]
[2017-06-24 13:10] LABS: CO2 Tension 48.8 mmHg (35.0-45.0)
[2017-06-24 13:11] LABS: Actual Bicarbonate (HCO3a) 23.5 mEq/L (22-26); Base Excess (BEa) -3.1 mEq/L (0 (+/-) 2.5); Calcium, Ionized 1.2 mmol/L (1.12-1.30); Hematocrit-ABG 35.4 % (42.0-52.0); Hemoglobin (Hb) 11.7 g/dL (14.0-18.0); O2 Tension (PaO2) 69.8 mmHg (80.0-100.0); Puncture Site LINE
[2017-06-24] MEDS ORDERED: Potassium Chloride 20 MEQ/100 ML PREMIX BAG IVPB PRN (13:30)
[2017-06-24] MEDS ORDERED: Bisacodyl 10 MG SUPP PR PRN (13:30)
[2017-06-24] MEDS ORDERED: Mag-Al 1200 mg/1200 mg/30 ML UDCUP PO PRN (13:30)
[2017-06-24] MEDS ORDERED: Norepinephrine 8 MG/0.9% NS 250 ML IVPB PRN (13:30)
[2017-06-24] MEDS ORDERED: Promethazine HCl 25 MG/ML VIAL IM PRN (13:30)
[2017-06-24] MEDS ORDERED: Bisacodyl 5 MG TAB PO PRN (13:30)
[2017-06-24] MEDS ORDERED: Hetastarch 6% 500 ML 500 ML IVPB PRN (13:30)
[2017-06-24] MEDS ORDERED: Post-Op Insulin Drip Protocol IVPB ONE (13:30)
[2017-06-24] MEDS ORDERED: Acetaminophen 325 MG TAB PO PRN (13:30)
[2017-06-24] MEDS ORDERED: Nitroglycerin 50 MG/250 ML BOT 250 ML IVPB PRN (13:30)
[2017-06-24] MEDS ORDERED: HYDROcodone/Acetaminophen 5/325 mg Tablet PO PRN (13:30)
[2017-06-24] MEDS ORDERED: Ondansetron HCl/PF 4 MG/2 ML Vial IVP PRN (13:30)
[2017-06-24] MEDS ORDERED: Fentanyl 100 MCG/2 ML VIAL SLOW IVP PRN ×2 (13:30)
[2017-06-24] MEDS ORDERED: Guaifenesin DM 100-10/5 ML UDCUP PO PRN (13:30)
[2017-06-24] MEDS ORDERED: D5 1/2 NS w/20 mEq KCL 1,000 ML IV SCH (13:30)
[2017-06-24] MEDS ORDERED: Magnesium 2 GM/NS 0.9% 100 ML 2 GM in Premix Bag 1 BAG IVPB SCH ×2 (13:30→13:45)
[2017-06-24] MEDS ORDERED: Dextrose 5% in Water 1,000 ML IV PRN (13:41)
[2017-06-24] MEDS ORDERED: Dextrose 50% Abboject 50 ML SYRINGE SLOW IVP PRN (13:41)
[2017-06-24] MEDS ORDERED: Ketorolac Tromethamine 30 MG/ML VIAL IVP SCH (13:45)
[2017-06-24 13:49] LABS: INR-International Normal Ratio 1.5; PTT 36.1 SEC (22.9-36.1); Prothrombin Time 18.6 SEC (12.0-14.7)
[2017-06-24 13:53] LABS: Anion Gap 7 mmol/L (10-20); BUN (Urea Nitrogen) 23 mg/dL (8.4-25.7); Calc. Creatinine Clearance 62 mL/min (70-130); Calcium 7.6 mg/dL (7.8-10.44); Carbon Dioxide 24 mmol/L (23-31); Chloride 112 mmol/L (98-107); Estimated GFR-MDRD 79; Glucose 137 mg/dL (80-115); Potassium 5.2 mmol/L (3.5-5.1); Sodium 138 mmol/L (136-145)
[2017-06-24 13:59] LABS: #Lymphocytes 1.4 thou/uL (1.20-3.40); #Monocytes 0.8 thou/uL (0.11-0.59); #Neutrophils 12.4 thou/uL (1.40-6.50); %Basophils 0.1 % (0.0-1.0); %Eosinophils 0.3 % (0.0-10.0); %Lymphocytes 9.4 % (21.0-51.0); %Monocytes 5.3 % (0.0-10.0); %Neutrophils 84.9 % (42.0-75.0); Hemoglobin 12.1 g/dL (14.0-18.0); Mean Corpuscular HGB CONC 33.1 g/dL (32.0-36.0); Mean Corpuscular Hemoglobin 34.4 pg (27.0-31.0); Platelet Count 109 thou/uL (130-400); RBC Distribution Width 13.2 % (11.5-14.5); Red Blood Cell (RBC) Count 3.53 mill/uL (4.70-6.10); White Blood Cell (WBC) Count 14.6 thou/uL (4.8-10.8)
[2017-06-24 14:07] LABS: PLT Morphology Comment Appears Decreased; RBC Morphology Normal
[2017-06-24 14:19] LABS: Hemoglobin 11.6 g/dL (14.0-18.0)
[2017-06-24] MEDS ORDERED: Morphine 2 MG/ML SYRINGE SLOW IVP PRN (14:19)
[2017-06-24] MEDS ORDERED: Lorazepam 2 MG/ML VIAL SLOW IVP PRN (14:19)
[2017-06-24] MEDS ORDERED: Fentanyl BOLUS 250 ML IVPB PRN (14:19)
[2017-06-24] MEDS ORDERED: DISCONTINUE PREVIOUS NARCOTIC PAIN MEDICATIONS AND BENZODIAZEPINES FS SCH (14:19)
[2017-06-24] MEDS ORDERED: Propofol 1,000 MG/100 ML VIAL IV PRN (14:19)
[2017-06-24] MEDS ORDERED: fentaNYL Citrate/PF 2,000 MCG in Sodium Chloride 0.9% 60 ML IV SCH (14:20)
[2017-06-24 14:23] LABS: Actual Bicarbonate (HCO3a) 21.4 mEq/L (22-26); Base Excess (BEa) -3.8 mEq/L (0 (+/-) 2.5); CO2 Tension 39.1 mmHg (35.0-45.0); O2 Tension (PaO2) 69.5 mmHg (80.0-100.0); pH, Arterial 7.36 (7.35-7.45)
[2017-06-24 14:24] LABS: ALV-art Gradient 309.425 (0-20); Calcium, Ionized 1.1 mmol/L (1.12-1.30); Hematocrit-ABG 32.8 % (42.0-52.0); Hemoglobin (Hb) 10.9 g/dL (14.0-18.0); Puncture Site LINE
[2017-06-24] MEDS: CEFAZOLIN/Water 2 GM/20 ML SYRINGE SLOW IVP SCH ×2 (14:26→22:55)
[2017-06-24] MEDS ORDERED: Protamine Sulfate 50 MG/5 ML VIAL SLOW IVP SCH (14:30)
[2017-06-24] MEDS: Insulin Regular 300 UNITS/3 ML VIAL SC PRN ×2 (14:39→19:59)
[2017-06-24] MEDS ORDERED: DOBUTamine 500 mg/250 ml 0 ML ONE (15:45)
[2017-06-24] MEDS ORDERED: Phenylephrine HCL 10 MG/ML VIAL ONE (15:45)
[2017-06-24] MEDS ORDERED: Midazolam HCl 2 mg/2 ml Vial ONE (15:45)
[2017-06-24] MEDS ORDERED: Nitroglycerin 50 MG/250 ML BOT 250 ML ONE (15:45)
[2017-06-24] MEDS ORDERED: Norepinephrine 8 MG/0.9% NS 0 ML ONE (15:45)
[2017-06-24] MEDS ORDERED: Protamine Sulfate 250 MG/25 ML VIAL ONE (15:53)
[2017-06-24] MEDS ORDERED: Magnesium 5 GM/10 ML VIAL ONE (15:53)
[2017-06-24] MEDS ORDERED: Heparin 5,000 UNITS/ML VIAL ONE (15:53)
[2017-06-24] MEDS ORDERED: Sodium Bicarb 50 MEQ/50 ML VIAL ONE (15:53)
[2017-06-24] MEDS ORDERED: Lidocaine 2% PF 100 mg/5 ml Syringe ONE (15:53)
[2017-06-24] MEDS ORDERED: Norepinephrine 4 MG/4 ML VIAL ONE (15:53)
[2017-06-24] MEDS ORDERED: Calcium Chloride 1 GM/10 ML Abboject SYRINGE ONE (15:53)
[2017-06-24] MEDS ORDERED: Lidocaine 1% PF 5 ML VIAL ONE (15:53)
[2017-06-24] MEDS ORDERED: Nitroglycerin 50 MG/250 ML BOT ONE (15:53)
[2017-06-24] MEDS ORDERED: DOPamine 400 MG/10 ML VIAL ONE (15:53)
[2017-06-24] MEDS ORDERED: PHENYLEPHRINE-NS 100 MCG/ML 10 ML SYRINGE ONE (15:53)
[2017-06-24] MEDS ORDERED: Aminocaproic Acid 5 GM/20 ML VIAL ONE (15:53)
[2017-06-24] MEDS ORDERED: Heparin 30,000 units/30 ml VIAL ONE (15:53)
[2017-06-24] MEDS ORDERED: Potassium Chloride 60 MEQ/30 ML VIAL ONE (15:53)
--- NOTE | 2017-06-24 16:01 | RAD ---
PORTABLE CHEST: Date: 06-24-17 History: Post op sternotomy open heart. FINDINGS: Supine film obtained. ET and NG tube are in place. There is now evidence of prosthetic stent in the a ortic outflow at the aortic valve. There are bilateral perihilar infiltrates suggesting bilateral edema. No confluent consolidation. Roseanne us changes in both upper lungs have been previously noted on chest CT. Drainage catheters are noted. There are two jugular catheters on the right, one overlying the upper SVC and the other overlying the mid SVC in the upper chest. IMPRESSION: Post-operative changes. Bilateral perihilar densities may represent edema. POS: OFF
[2017-06-24] MEDS ORDERED: Rocuronium Bromide 50 MG/5 ML VIAL ONE (17:06)
--- NOTE | 2017-06-24 17:34 | PDOC.EVN ---
Event Note - Event Note Event Note: Pt was in surgery most of the day. Could not assess patient.
[2017-06-24 19:04] LABS: #Lymphocytes 0.8 thou/uL (1.20-3.40); #Monocytes 0.7 thou/uL (0.11-0.59); #Neutrophils 12.5 thou/uL (1.40-6.50); %Basophils 0.1 % (0.0-1.0); %Eosinophils 0.1 % (0.0-10.0); %Neutrophils 88.8 % (42.0-75.0); Hemoglobin 11.1 g/dL (14.0-18.0); Mean Corpuscular Hemoglobin 33.2 pg (27.0-31.0); Mean Platelet Volume 6.5 fL (7.4-10.4); Platelet Count 163 thou/uL (130-400); RBC Distribution Width 14.7 % (11.5-14.5); Red Blood Cell (RBC) Count 3.33 mill/uL (4.70-6.10)
[2017-06-24] MEDS ORDERED: Furosemide 40 MG/4 ML VIAL ONE (19:15)
[2017-06-24 19:17] LABS: Actual Bicarbonate (HCO3a) 23.2 mEq/L (22-26); Base Excess (BEa) -4.8 mEq/L (0 (+/-) 2.5); O2 Tension (PaO2) 57.2 mmHg (80.0-100.0); pH, Arterial 7.22 (7.35-7.45)
[2017-06-24 19:18] LABS: Calcium, Ionized 1.1 mmol/L (1.12-1.30); Hematocrit-ABG 35.3 % (42.0-52.0); Hemoglobin (Hb) 10.7 g/dL (14.0-18.0); Puncture Site LINE
[2017-06-24 19:24] LABS: Anion Gap 11 mmol/L (10-20); BUN (Urea Nitrogen) 23 mg/dL (8.4-25.7); Calc. Creatinine Clearance 55 mL/min (70-130); Calcium 7.8 mg/dL (7.8-10.44); Carbon Dioxide 23 mmol/L (23-31); Chloride 109 mmol/L (98-107); Estimated GFR-MDRD 69; Glucose 198 mg/dL (80-115); Potassium 6.3 mmol/L (3.5-5.1); Sodium 137 mmol/L (136-145)
[2017-06-24] MEDS ORDERED: Furosemide 40 MG/4 ML VIAL SLOW IVP SCH (19:45)
[2017-06-24] MEDS: Ketorolac Tromethamine 30 MG/ML VIAL IVP SCH ×2 (19:53→23:55)
--- NOTE | 2017-06-24 20:12 | RAD ---
CHEST ONE VIEW 06/24/17 HISTORY: Chest surgery. COMPARISON: Earlier exam on the same date. FINDINGS: The cardiac silhouette is magnified and upper limits of normal in size. Pulmonary vasculature is slig htly engorged but improved compared to the previous exam. Mediastinum is midline with postoperative c hanges. two right thoracostomy tubes overlie the right hemithorax. They have changed in position sinc e the prior study, each coiled over the mid right chest on the current exam. Small residual right pne umothorax is suspected. Bibasilar infiltrates are less pronounced than on the prior study. Postoperat rashid changes of mediastinum are apparent. Nasogastric tube is no longer visible. IMPRESSION: 1. Additional postoperative changes of mediastinum. 2. Improved aeration of the lung bases. 3. Right thoracostomy tubes have changed in position. Nasogastric tube has now been placed. Smal l residual right pneumothorax. POS: [facility]
[2017-06-24] MEDS ORDERED: DOPamine 400 MG/D5W 250 ML 250 ML IVPB PRN (20:26)
[2017-06-24] MEDS: Vancomycin HCl 1 GM in Premix Bag 1 BAG IVPB SCH (20:31)
[2017-06-24] MEDS: Famotidine/PF 20 mg/2ml Vial SLOW IVP SCH (20:32)
[2017-06-24 20:36] LABS: pH, Arterial 7.36 (7.35-7.45)
[2017-06-24 20:37] LABS: Actual Bicarbonate (HCO3a) 22.9 mEq/L (22-26); Base Excess (BEa) -2.4 mEq/L (0 (+/-) 2.5); CO2 Tension 41.5 mmHg (35.0-45.0); Calcium, Ionized 1.1 mmol/L (1.12-1.30); Hematocrit-ABG 33.7 % (42.0-52.0); Hemoglobin (Hb) 10.6 g/dL (14.0-18.0); O2 Tension (PaO2) 101.1 mmHg (80.0-100.0); Puncture Site LINE
[2017-06-24 20:38] LABS: ALV-art Gradient 310.475 (0-20)
[2017-06-24] MEDS: Sodium Chloride 0.9% 1,000 ML IV SCH (20:49)
--- NOTE | 2017-06-24 23:43 | OP ---
DATE OF PROCEDURE: 06/24/2017 PREOPERATIVE DIAGNOSIS: Post-aortic valve replacement, bleeding. POSTOPERATIVE DIAGNOSIS: Post-aortic valve replacement, bleeding. PROCEDURES: 1) Re-exploration via right anterior thoracotomy of the operative site without being able to localize source of the bleeding; therefore, sternotomy was performed with bleeding localized at the pacing wire site. 2) Therapeutic bronchoscopy SURGEON: Dale Ortez M.D. ANESTHESIA: General endotracheal. ESTIMATED BLOOD LOSS: 300 mL. DESCRIPTION OF PROCEDURE: The patient was urgently brought back from the Intensive Care Unit to the operating room. The patient was placed under general anesthesia. Chest was prepped and draped in usual sterile fashion. The right chest anterior thoracotomy was reopened. The ribs were re-spread. There was a very small amount of blood within the pericardium at this time. There is no blood within the pleural space. We could not get good single lung isolation so the double lumen tube was interrogated with bronchoscopy. Positioning was adequate, but there was a large amount of thick secretions and plugging bilaterally. The double lumen tube was exchanged for a single lumen tube. Therapeutic bronchoscopy was performed clearing all bronchi of secretions and plugs. Thoracoscope was inserted and all the port sites were inspected and there was no bleeding. Lung was packed and retracted with a egg beater retractor to ecpose the chest wall. I reinspect the pericardium and there was probably 100 mL of blood within the pericardium at this time. The aortic cannulation site for cardioplegia was hemostatic. The aortic suture line was hemostatic. I could not see the pacing wire site; therefore, sternotomy was performed. The sternum was spread and the pericardium opened anteriorly. One of the pacing wires was bleeding with a small arterial bleed which was controlled with 5-0 Prolene suture. The patient was given 10 units of platelets and 4 units of FFP. There was no further bleeding from within the pericardium. The anterior pericardium was reapproximated with 2-0 Vicryl. Sternum was closed with #7 wire. The sternal incision was then closed in layers. The thoracotomy was then reopened. There was no further bleeding noted. The rib was reapproximated with 0 Vicryl suture. Wound was then closed in layers and Dermabond applied to the skin. The patient tolerated the procedure remarkably well, and was transferred back to the Intensive Care Unit in stable, but guarded condition. [facility]
--- NOTE | 2017-06-25 01:41 | CON ---
DATE OF CONSULTATION: 06/24/2017 PULMONARY CONSULTATION HISTORY OF PRESENT ILLNESS: Mr. Treviño is a 62-year-old male with isolated aortic stenosis. He under went aortic valve replacement, was transferred to the Critical Care Unit mechanically ventilated. He was still sedated from anesthetics when I evaluated him. PAST MEDICAL HISTORY: 1. Remarkable for hypertension. 2. Cardiac catheterization showing no significant coronary disease. 3. History of tonsillectomy. SOCIAL HISTORY: He is a smoker, occasionally uses marijuana. He is not a daily drinker. ALLERGIES: He has no drug allergies reported. FAMILY HISTORY: Negative for lung disease in early age. REVIEW OF SYSTEMS: Not obtainable because of mechanical ventilation. PHYSICAL EXAMINATION: VITAL SIGNS: We have seen just after 3:00, his blood pressure was 115/58, heart rate was 86, respira tory rate per mechanical ventilation, oximetry is 100%. HEENT: His pupils are equal. Sclerae is anicteric. Extraocular movements appear to be full. NECK: Supple. LUNGS: Clear anteriorly. HEART: Regular rhythm. ABDOMEN: Soft, without guarding or masses. EXTREMITIES: Without clubbing, cyanosis, or edema. NEUROLOGIC: He was sedated, so good neurological exam cannot be performed. LABORATORY AND X-RAY FINDINGS: White count 14.6, hemoglobin 12.1, platelets 109,000. Repeat hemoglo bin 30 minutes later is 11.6 (he drained 500 mL of blood out of his chest tube.) Sodium 138, potassium 5.2, chloride 112, bicarbonate 24, BUN 23, creatinine 1.14. A pH was 7.36, CO2 is 39, pO2 is 69. He ended up going back to the OR for bleeding. He was transferred back to the Critical Care Unit. F irst blood gas showed pH 7.22, CO2 of 58, pO2 of 57. His ventilator will have to be adjusted. His potassium should correct dramatically with hyperventilation. He will not wean as per protocol to night. We will reassess him in the morning, hopefully he will have no bleeding issues. CRITICAL CARE TIME: Forty minutes.
[2017-06-25 02:36] LABS: #Lymphocytes 0.9 thou/uL (1.20-3.40); #Monocytes 0.8 thou/uL (0.11-0.59); #Neutrophils 8.2 thou/uL (1.40-6.50); %Basophils 0.1 % (0.0-1.0); %Eosinophils 0.2 % (0.0-10.0); %Monocytes 7.9 % (0.0-10.0); %Neutrophils 82.9 % (42.0-75.0); Hemoglobin 9.8 g/dL (14.0-18.0); Mean Corpuscular HGB CONC 33.5 g/dL (32.0-36.0); Mean Corpuscular Hemoglobin 33.4 pg (27.0-31.0); Mean Corpuscular Volume 99.8 fl (80.0-94.0); Mean Platelet Volume 7.7 fL (7.4-10.4); Platelet Count 148 thou/uL (130-400); RBC Distribution Width 14.9 % (11.5-14.5); Red Blood Cell (RBC) Count 2.92 mill/uL (4.70-6.10); White Blood Cell (WBC) Count 9.9 thou/uL (4.8-10.8)
[2017-06-25 02:59] LABS: Anion Gap 11 mmol/L (10-20); BUN (Urea Nitrogen) 24 mg/dL (8.4-25.7); Calc. Creatinine Clearance 52 mL/min (70-130); Carbon Dioxide 25 mmol/L (23-31); Chloride 108 mmol/L (98-107); Estimated GFR-MDRD 64; Glucose 125 mg/dL (80-115); Potassium 4.1 mmol/L (3.5-5.1); Sodium 140 mmol/L (136-145)
[2017-06-25] MEDS: Ketorolac Tromethamine 30 MG/ML VIAL IVP SCH ×4 (05:10→23:56)
[2017-06-25] MEDS: CEFAZOLIN/Water 2 GM/20 ML SYRINGE SLOW IVP SCH (06:01)
[2017-06-25] MEDS: Vancomycin HCl 1 GM in Premix Bag 1 BAG IVPB SCH (06:03)
[2017-06-25 07:23] LABS: Actual Bicarbonate (HCO3a) 23.5 mEq/L (22-26); Base Excess (BEa) -0.8 mEq/L (0 (+/-) 2.5); CO2 Tension 37.5 mmHg (35.0-45.0); Hematocrit-ABG 30.3 % (42.0-52.0); O2 Tension (PaO2) 89.5 mmHg (80.0-100.0); pH, Arterial 7.42 (7.35-7.45)
[2017-06-25 07:24] LABS: ALV-art Gradient 111.425 (0-20); Calcium, Ionized 1.1 mmol/L (1.12-1.30); Hemoglobin (Hb) 9.7 g/dL (14.0-18.0); Puncture Site RB
[2017-06-25] MEDS: NS IVPB SCH (08:58)
[2017-06-25] MEDS: MAGNESIUM IVPB SCH (08:58)
[2017-06-25] MEDS: Aspirin 325 MG TAB PO SCH (08:59)
[2017-06-25] MEDS: HYDROcodone/Acetaminophen 5/325 mg Tablet PO PRN ×2 (08:59→20:22)
[2017-06-25] MEDS: Famotidine/PF 20 mg/2ml Vial SLOW IVP SCH ×2 (09:00→20:23)
--- NOTE | 2017-06-25 09:18 | RAD ---
PORTABLE CHEST: History: Respiratory distress post CABG. Comparison: 06-24-17 FINDINGS: Heart size appears slightly enlarged. Post op sternotomy changes are seen. There is valve replacement noted. Right sided central line is noted. Endotracheal tube is in satisfactory position. Right chest tubes are in place. Bullous emphysematous change is seen in the right upper lobe and to a lesser ext ent the left upper lobe. Perihilar parenchymal markings are stable. IMPRESSION: Essentially stable exam. POS: OFF
[2017-06-25] MEDS: Insulin Regular 300 UNITS/3 ML VIAL SC PRN (12:31)
--- NOTE | 2017-06-25 15:33 | PRG ---
DATE OF SERVICE: 06/25/2017 SUBJECTIVE: Ton Treviño is extubated per protocol this morning and he did well. PHYSICAL EXAMINATION: VITAL SIGNS: Heart rate 72, blood pressure 136/86, respiratory rate is 15, oximetry is 100%. LUNGS: Clear. HEART: Regular rhythm. ABDOMEN: Soft. IMAGING DATA: Chest radiograph shows hyperinflation with bullous changes at his apices. IMPRESSION: 1. Status post aortic valve replacement. 2. Bullous emphysema. I have explained to him that if he does not start taking care of him, he will not be around very long. He wanted to know if we put a big valve or small valve in his heart. Also wanted to know if I was the surgeon. I will defer these questions to Dr. Ortez. He is stable curre ntly at this time. He has had no recurrent bleeding issues.
--- NOTE | 2017-06-25 17:24 | PDOC.CTH ---
Cardiology Progress Note - Subjective He is doing well. He had his surgery yesterday , minimally invasive AVR. He is in good spirits and with no complaints except sore chest. - Objective Vital Signs Temp Pulse Resp BP Pulse Ox 06/25/17 12:24 108 H 17 97 06/25/17 08:00 100.2 F H 102 H 22 H 97 06/25/17 06:44 102 H 130/85 06/25/17 06:00 24 H 06/25/17 05:36 98.5 F Weight 147 lb 12.8 oz 06/24/17 06/25/17 06/26/17 06:59 06:59 06:59 Intake Total 2430 1774.4 1060 Output Total 1250 4650 560 Balance 1180 -2875.6 500 - Physical Examination General/Neuro: alert & oriented x3, NAD Neck: no JVD present Lungs: unlabored respirations Heart: RRR Abdomen: NT/ND Extremities: other: (no edema) - Telemetry Telemetry Rhythm: S Tach - Labs Result Diagrams: 06/25/17 02:30 06/25/17 02:30 Troponin/CKMB CK-MB (CK-2) 5.1 ng/mL (0-6.6) 06/19/17 03:51 Troponin I 0.054 ng/mL (< 0.028) H 06/19/17 12:54 - Assessment/Plan 1. Critical AV stenosis, s/p AVR, bioprosthetic. 2. Normal coronaries. 3. Emphysematous changes on CT chest. 4. Tobacco abuse. PLAN: - Aspirin for life. - Continue post op care. - Tobacco cessation counseling.
--- NOTE | 2017-06-25 17:25 | PDOC.PN ---
- Subjective Encounter Start Date: 06/25/17 Encounter Start Time: 09:00 Pt seen for followup re: CHF. Awake and alert. Reports chest soreness but no other complaints. - Objective MAR Reviewed: Yes Vital Signs & Weight: Vital Signs (12 hours) Temp Pulse Resp BP Pulse Ox 06/25/17 12:24 108 H 17 97 06/25/17 08:00 100.2 F H 102 H 22 H 97 06/25/17 06:44 102 H 130/85 06/25/17 06:00 24 H 06/25/17 05:36 98.5 F Weight Weight 147 lb 12.8 oz Most Recent Monitor Data Heart Rate from ECG 101 NIBP 136/83 NIBP BP-Mean 98 Respiration from ECG 17 SpO2 97 I&O: 06/24/17 06/25/17 06/26/17 06:59 06:59 06:59 Intake Total 2430 1774.4 1060 Output Total 1250 4650 560 Balance 1180 -2875.6 500 Result Diagrams: 06/25/17 02:30 06/25/17 02:30 Additional Labs: Accuchecks 06/25/17 06/25/17 06/25/17 16:24 12:32 10:41 POC Glucose 117 H 171 H 115 H 06/25/17 06/24/17 00:04 19:18 POC Glucose 114 H 155 H EKG Reviewed by me: Yes (Tele: NSR) Phys Exam - Physical Examination Constitutional: NAD HEENT: moist MMs Neck: supple Respiratory: clear to auscultation bilateral Cardiovascular: RRR Gastrointestinal: soft Musculoskeletal: edema present Neurological: moves all 4 limbs Psychiatric: normal affect Deviation from normal: chest dressings Dx/Plan (1) CHF exacerbation Code(s): I50.9 - HEART FAILURE, UNSPECIFIED Status: Acute (2) Critical aortic valve stenosis Code(s): I35.0 - NONRHEUMATIC AORTIC (VALVE) STENOSIS Status: Chronic (3) HTN (hypertension) Code(s): I10 - ESSENTIAL (PRIMARY) HYPERTENSION Status: Chronic (4) CKD (chronic kidney disease) Code(s): N18.9 - CHRONIC KIDNEY DISEASE, UNSPECIFIED Status: Chronic - Plan out of bed/ambulate * . Monitor vital signs, titrate antihypertensives as needed. Monitor volume status. Review of Systems - Review of Systems Respiratory: negative: Cough, Dry, Shortness of Breath, Hemoptysis, SOB with Excertion, Pleuritic Pain, Sputum, Wheezing Cardiovascular: chest pain. negative: palpitations, orthopnea, paroxysmal nocturnal dyspnea, edema, light headedness - Medications/Allergies Allergies/Adverse Reactions: Allergies Allergy/AdvReac Type Severity Reaction Status Date / Time No Known Drug Allergies Allergy Verified 06/19/17 08:38 Medications: Current Medications Acetaminophen (Tylenol) 650 mg PO Q6H PRN PRN Reason: Headache/Fever Or Mild Pain Hydrocodone Bitart/Acetaminophen ([place] 5/325) 1 tab PO Q4H PRN PRN Reason: Moderate Pain (4-6) Hydrocodone Bitart/Acetaminophen ([place] 5/325) 2 tab PO Q4H PRN PRN Reason: Severe Pain (7-10) Last Admin: 06/25/17 08:59 Dose: 2 tab Al Hydroxide/Mg Hydroxide (Maalox) 30 ml PO Q4H PRN PRN Reason: Indigestion Albuterol/Ipratropium (Duoneb) 3 ml NEB [id number] [facility] Last Admin: 06/25/17 12:24 Dose: 3 ml Aspirin (Aspirin) 325 mg PO DAILY [facility] Last Admin: 06/25/17 08:59 Dose: 325 mg Bisacodyl (Dulcolax) 10 mg PO Q12H PRN PRN Reason: Constipation Bisacodyl (Dulcolax) 10 mg AK Q12H PRN PRN Reason: Constipation Dextrose/Water (Dextrose 50%) 25 gm SLOW IVP PRN PRN PRN Reason: PER HYPOGLYCEMIC PROTOCOL Famotidine (Pepcid) 20 mg SLOW IVP Q12HR [facility] Last Admin: 06/25/17 09:00 Dose: 20 mg Glucagon (Glucagon) 1 mg SC PRN PRN PRN Reason: PER HYPOGLYCEMIC PROTOCOL Guaifenesin/Dextromethorphan (Robitussin Dm) 15 ml PO Q4H PRN PRN Reason: Cough Hydralazine HCl (Apresoline) 10 mg SLOW IVP Q6H PRN PRN Reason: To Maintain SBP< 140mmHG Norepinephrine Bitartrate (Levophed) 250 mls @ 0 mls/hr IVPB PRN PRN; Protocol ; Titrate PRN Reason: To maintain SBP > 90 mmHG Last Admin: 06/24/17 14:15 Dose: 250 mls Magnesium Sulfate 1 gm/ Device 50 mls @ 100 mls/hr IVPB QAM MARY LOU Stop: 06/26/17 09:59 Last Admin: 06/25/17 08:58 Dose: 50 mls Nicardipine HCl 25 mg/ Sodium (Chloride) 260 mls @ 0 mls/hr IVPB INF PRN; Protocol; Titrate PRN Reason: To Maintain SBP< 140mmHG Nitroglycerin/Dextrose (Nitroglycerin 50 Mg/250 Ml Bot) 250 mls @ 0 mls/hr IVPB PRN PRN; Protocol; Titrate PRN Reason: To Maintain SBP< 140mmHG Last Admin: 06/24/17 20:37 Dose: 250 mls Insulin Human Regular 100 (units/ Sodium Chloride) 101 mls @ 0 mls/hr IVPB INF MARY LOU; As Directed PRN Reason: Protocol Dextrose/Water (D5w) 1,000 mls @ 0 mls/hr IV INF PRN; As Directed PRN Reason: PRN HYPOGLYCEMIC PROTOCOL Fentanyl Citrate (Fentanyl Bolus) 250 mls @ 0 mls/hr IVPB PRN PRN; As Directed PRN Reason: Breakthrough pain Stop: 07/24/17 14:19 Fentanyl Citrate 2,000 mcg/ (Sodium Chloride) 100 mls @ 0 mls/hr IV INF MARY LOU; Per Protocol PRN Reason: Protocol Stop: 07/24/17 14:20 Sodium Chloride (Normal Saline 0.9%) 1,000 mls @ 40 mls/hr IV .Q24H [facility] Last Admin: 06/24/17 20:49 Dose: 1,000 mls Dopamine HCl/Dextrose (Dopamine/D5w) 250 mls @ 0 mls/hr IVPB PRN PRN; As Directed PRN Reason: Blood Pressure Insulin Human Regular (Humulin R) 0 units SC Q4H PRN; Protocol PRN Reason: POST OP SLIDING SCALE Last Admin: 06/25/17 12:31 Dose: 4 unit Ketorolac Tromethamine (Toradol) 15 mg IVP Q6HR [facility] Stop: 06/27/17 18:01 Last Admin: 06/25/17 12:26 Dose: 15 mg Lorazepam (Ativan) 2 mg SLOW IVP Q2H PRN PRN Reason: Anxiety to achieve [place] 2-3 Stop: 07/24/17 14:19 Morphine Sulfate (Morphine) 2 mg SLOW IVP Q15MIN PRN PRN Reason: Severe Pain (7-10) Last Admin: 06/25/17 03:15 Dose: 2 mg Morphine Sulfate (Morphine) 2 mg SLOW IVP Q2H PRN PRN Reason: Breakthrough pain Stop: 07/24/17 14:19 Discontinue Previous Narcotic Pain Medications And Benzodiazepines 1 each FS .ONE MARY LOU Stop: 07/24/17 14:19 Ondansetron HCl (Zofran) 4 mg IVP Q6H PRN PRN Reason: Nausea/Vomiting Potassium Chloride (Kcl) 20 meq IVPB PRN PRN PRN Reason: K level </= 4.0 Promethazine HCl (Phenergan) 6.25 mg IM Q4H PRN PRN Reason: Nausea/Vomiting Propofol (Diprivan) 1,000 mg IV INF PRN; Protocol PRN Reason: TO ACHIEVE SAWYER SCORE 2-3 Stop: 07/24/17 14:19
[2017-06-25] MEDS ORDERED: BEER 1 CAN PO SCH (18:45)
--- NOTE | 2017-06-25 18:48 | EKG ---
Test Reason : S/P AVR Blood Pressure : / mmHG Vent. Rate : 101 BPM Atrial Rate : 101 BPM P-R Int : 138 ms QRS Dur : 152 ms QT Int : 444 ms P-R-T Axes : 034 -56 124 degrees QTc Int : 575 ms Sinus tachycardia Left axis deviation Left bundle branch block peaked T waves suggest lyte disorder Abnormal ECG When compared with ECG of 19-JUN-2017 10:38, (Unconfirmed) Left bundle branch block is now Present Confirmed by DR. Austyn CLINTON ([id number]) on 06/25/2017 6:48:04 PM Referred By: QUINTEN ALLISON Confirmed By:DR. Austyn CLINTON
--- NOTE | 2017-06-25 18:56 | EKG ---
Test Reason : STAT Blood Pressure : / mmHG Vent. Rate : 071 BPM Atrial Rate : 047 BPM P-R Int : 000 ms QRS Dur : 170 ms QT Int : 504 ms P-R-T Axes : 067 -55 128 degrees QTc Int : 547 ms Predominantly paced rhythm LBBB pattern Abnormal ECG When compared with ECG of 24-JUN-2017 13:47, (Unconfirmed) Electronic demand pacing is now Present Fusion complexes are now Present Premature ventricular complexes are now Present T wave inversion now evident in Anterior leads Confirmed by DR. Austyn CLINTON ([id number]) on 06/25/2017 6:56:22 PM Referred By: ESTEFANY Confirmed By:DR. Austyn CLINTON
[2017-06-25] MEDS: Sodium Chloride 0.9% 1,000 ML IV SCH (21:35)
[2017-06-26] MEDS: HYDROcodone/Acetaminophen 5/325 mg Tablet PO PRN (00:36)
[2017-06-26 05:04] LABS: #Eosinphils 0.1 thou/uL (0.0-0.7); #Lymphocytes 0.7 thou/uL (1.20-3.40); #Monocytes 0.5 thou/uL (0.11-0.59); #Neutrophils 4.6 thou/uL (1.40-6.50); %Basophils 0.3 % (0.0-1.0); %Eosinophils 1.5 % (0.0-10.0); %Lymphocytes 12.4 % (21.0-51.0); %Neutrophils 76.9 % (42.0-75.0); Mean Corpuscular HGB CONC 32.9 g/dL (32.0-36.0); Mean Corpuscular Hemoglobin 33.5 pg (27.0-31.0); Mean Platelet Volume 7.6 fL (7.4-10.4); Platelet Count 123 thou/uL (130-400); RBC Distribution Width 14.8 % (11.5-14.5)
[2017-06-26 05:15] LABS: Anion Gap 7 mmol/L (10-20); BUN (Urea Nitrogen) 25 mg/dL (8.4-25.7); Calc. Creatinine Clearance 58 mL/min (70-130); Calcium 8.2 mg/dL (7.8-10.44); Carbon Dioxide 28 mmol/L (23-31); Chloride 105 mmol/L (98-107); Estimated GFR-MDRD 72; Glucose 119 mg/dL (80-115); Sodium 136 mmol/L (136-145)
[2017-06-26] MEDS: Ketorolac Tromethamine 30 MG/ML VIAL IVP SCH ×4 (05:32→23:50)
[2017-06-26] MEDS: Potassium Chloride 20 MEQ TAB PO SCH (07:45)
[2017-06-26] MEDS: Aspirin 325 MG TAB PO SCH (07:45)
[2017-06-26] MEDS: Furosemide 40 MG TAB PO SCH ×2 (07:45→13:09)
[2017-06-26] MEDS: NS IVPB SCH (07:46)
[2017-06-26] MEDS: Famotidine 20 MG TAB PO SCH ×2 (07:46→21:04)
[2017-06-26] MEDS: MAGNESIUM IVPB SCH (07:46)
[2017-06-26] MEDS: BEER 1 CAN PO SCH ×3 (08:56→18:53)
--- NOTE | 2017-06-26 09:00 | RAD ---
PORTABLE AP CHEST RADIOGRAPH: Date: 06-26-17 History: Post open heart surgery. Follow up evaluation. Comparison: 06-25-17 FINDINGS: Endotracheal tube has been removed. Post-surgical change related to median sternotomy and cardiac jair ve replacement are again noted. The right and left thoracotomy tubes are unchanged in position. There is linear and parenchymal changes at the right lung base which are stable from prior study and could be related to atelectasis. No obvious pneumothorax is present. Cardiac silhouette is magnified by pr ojection but does appear enlarged. Other prominent increased interstitial densities are seen in the l eft hilar region, but markings in the left perihilar region have improved. Right internal jugular vei n central venous catheters are again seen and unchanged. Subcutaneous emphysema along the right later al chest is again present. IMPRESSION: Interval removal of endotracheal tube with mild improvement in the patchy parenchymal changes in the left perihilar region. Chest is otherwise stable. POS: [facility]
[2017-06-26] MEDS ORDERED: Morphine 4 MG/ML Carpuject SLOW IVP PRN (11:00)
--- NOTE | 2017-06-26 11:16 | PRG ---
DATE OF SERVICE: 06/26/2017 SUBJECTIVE: Mr. Treviño has done well overnight. OBJECTIVE: VITAL SIGNS: His heart is 105, blood pressure is 125/80, respiratory rate is 14 and oximetry is 97%. LUNGS: Clear. HEART: Regular rhythm. S1 and S2 are audible. ABDOMEN: Soft. LABORATORY DATA: White count 6, hemoglobin 9 and platelets 123,000. Electrolytes were unremarkable. Intake and output is positive 1599. He was given Lasix this morning. His chest tube drainage is decreasing. It is anticipated that maybe the chest tubes will come out later today. IMPRESSION AND PLAN: 1. Status post aortic valve replacement. 2. Blood loss anemia. 3. Severe bullous emphysema. He is doing amazingly well in spite of having a sternotomy given the s everity of his upper lobe lung disease. We will continue with chest tube drainage for Cardiothoracic Surgery and removal of tubes and then eventual ambulation. Not convinced he will be compliant with smoking cessation or alcohol cessation.
[2017-06-26] MEDS: hydrALAZINE 20 MG/ML VIAL SLOW IVP PRN (16:52)
--- NOTE | 2017-06-26 17:41 | PDOC.PN ---
- Subjective Encounter Start Date: 06/26/17 Encounter Start Time: 09:00 Pt seen for followup re: CHF. No complaints. - Objective MAR Reviewed: Yes Vital Signs & Weight: Vital Signs (12 hours) Temp Pulse Resp Pulse Ox 06/26/17 16:52 114 H 06/26/17 16:00 100 06/26/17 13:18 114 H 20 97 06/26/17 12:00 98.3 F 06/26/17 08:03 98 06/26/17 08:01 103 H 22 H 98 06/26/17 08:00 98.3 F 103 H 22 H 97 Weight Weight 161 lb 2.526 oz Most Recent Monitor Data Heart Rate from ECG 106 NIBP 137/88 NIBP BP-Mean 99 Respiration from ECG 14 SpO2 98 I&O: 06/25/17 06/26/17 06/27/17 06:59 06:59 06:59 Intake Total 1774.4 3189.7 630 Output Total 4650 1590 470 Balance -2875.6 1599.7 160 Result Diagrams: 06/26/17 04:20 06/26/17 04:20 Additional Labs: Accuchecks 06/24/17 06/24/17 06/24/17 17:31 16:11 11:56 POC Glucose 161 H 143 H 151 H 06/24/17 06/24/17 06/24/17 11:31 10:48 10:20 POC Glucose 158 H 133 H 146 H 06/24/17 09:39 POC Glucose 118 H EKG Reviewed by me: Yes (Tele: NSR) Phys Exam - Physical Examination Constitutional: NAD HEENT: moist MMs Neck: supple Respiratory: clear to auscultation bilateral Cardiovascular: RRR Gastrointestinal: soft Neurological: moves all 4 limbs Psychiatric: normal affect Deviation from normal: chest dressings Dx/Plan (1) CHF exacerbation Code(s): I50.9 - HEART FAILURE, UNSPECIFIED Status: Acute (2) Critical aortic valve stenosis Code(s): I35.0 - NONRHEUMATIC AORTIC (VALVE) STENOSIS Status: Chronic (3) HTN (hypertension) Code(s): I10 - ESSENTIAL (PRIMARY) HYPERTENSION Status: Chronic (4) CKD (chronic kidney disease) Code(s): N18.9 - CHRONIC KIDNEY DISEASE, UNSPECIFIED Status: Chronic - Plan * . s/p aortic valve replacement. Currently in CCU. Cardiology, CTVS and PCCM following Review of Systems - Review of Systems Respiratory: negative: Cough, Dry, Shortness of Breath, Hemoptysis, SOB with Excertion, Pleuritic Pain, Sputum, Wheezing Cardiovascular: negative: chest pain, palpitations, orthopnea, paroxysmal nocturnal dyspnea, edema, light headedness - Medications/Allergies Allergies/Adverse Reactions: Allergies Allergy/AdvReac Type Severity Reaction Status Date / Time No Known Drug Allergies Allergy Verified 06/19/17 08:38 Medications: Current Medications Acetaminophen (Tylenol) 650 mg PO Q6H PRN PRN Reason: Headache/Fever Or Mild Pain Hydrocodone Bitart/Acetaminophen ([place] 5/325) 1 tab PO Q4H PRN PRN Reason: Moderate Pain (4-6) Hydrocodone Bitart/Acetaminophen ([place] 5/325) 2 tab PO Q4H PRN PRN Reason: Severe Pain (7-10) Last Admin: 06/26/17 00:36 Dose: 2 tab Al Hydroxide/Mg Hydroxide (Maalox) 30 ml PO Q4H PRN PRN Reason: Indigestion Albuterol/Ipratropium (Duoneb) 3 ml NEB [id number] [facility] Last Admin: 06/26/17 13:18 Dose: 3 ml Aspirin (Aspirin) 325 mg PO DAILY [facility] Last Admin: 06/26/17 07:45 Dose: 325 mg Beer (Beer) 2 each PO TID-WM [facility] Last Admin: 06/26/17 11:56 Dose: Not Given Bisacodyl (Dulcolax) 10 mg PO Q12H PRN PRN Reason: Constipation Bisacodyl (Dulcolax) 10 mg [place] Q12H PRN PRN Reason: Constipation Dextrose/Water (Dextrose 50%) 25 gm SLOW IVP PRN PRN PRN Reason: PER HYPOGLYCEMIC PROTOCOL Famotidine (Pepcid) 20 mg PO BID [facility] Last Admin: 06/26/17 07:46 Dose: 20 mg Furosemide (Lasix) 40 mg PO 0900,1400 [facility] Last Admin: 06/26/17 13:09 Dose: 40 mg Glucagon (Glucagon) 1 mg [place] PRN PRN PRN Reason: PER HYPOGLYCEMIC PROTOCOL Guaifenesin/Dextromethorphan (Robitussin Dm) 15 ml PO Q4H PRN PRN Reason: Cough Hydralazine HCl (Apresoline) 10 mg SLOW IVP Q6H PRN PRN Reason: To Maintain SBP< 140mmHG Last Admin: 06/26/17 16:52 Dose: 10 mg Hydralazine HCl (Apresoline) 10 mg SLOW IVP Q6H PRN PRN Reason: to keep sbp <160 Dextrose/Water (D5w) 1,000 mls @ 0 mls/hr IV INF PRN; As Directed PRN Reason: PRN HYPOGLYCEMIC PROTOCOL Sodium Chloride (Normal Saline 0.9%) 1,000 mls @ 40 mls/hr IV .Q24H [facility] Last Admin: 06/25/17 21:35 Dose: Not Given Dopamine HCl/Dextrose (Dopamine/D5w) 250 mls @ 0 mls/hr IVPB PRN PRN; As Directed PRN Reason: Blood Pressure Insulin Human Regular (Humulin R) 0 units [place] Q4H PRN; Protocol PRN Reason: POST OP SLIDING SCALE Last Admin: 06/25/17 12:31 Dose: 4 unit Ketorolac Tromethamine (Toradol) 15 mg IVP Q6HR [facility] Stop: 06/27/17 18:01 Last Admin: 06/26/17 16:51 Dose: 15 mg Ondansetron HCl (Zofran) 4 mg IVP Q6H PRN PRN Reason: Nausea/Vomiting Potassium Chloride (Kcl) 20 meq IVPB PRN PRN PRN Reason: K level </= 4.0 Last Admin: 06/26/17 05:33 Dose: 20 meq Potassium Chloride (K-Dur) 20 meq PO [facility] Last Admin: 06/26/17 07:45 Dose: 20 meq Promethazine HCl (Phenergan) 6.25 mg IM Q4H PRN PRN Reason: Nausea/Vomiting
--- NOTE | 2017-06-26 19:27 | PDOC.CTH ---
Cardiology Progress Note - Subjective His doing better today. He is passing gas. - Objective Vital Signs Temp Pulse Resp Pulse Ox 06/26/17 18:08 109 H 20 99 06/26/17 16:52 114 H 06/26/17 16:00 100 06/26/17 13:18 114 H 20 97 06/26/17 12:00 98.3 F 06/26/17 08:03 98 06/26/17 08:01 103 H 22 H 98 06/26/17 08:00 98.3 F 103 H 22 H 97 Weight 161 lb 2.526 oz 06/25/17 06/26/17 06/27/17 06:59 06:59 06:59 Intake Total 1774.4 3189.7 630 Output Total 4650 1590 470 Balance -2875.6 1599.7 160 - Physical Examination General/Neuro: alert & oriented x3, NAD Neck: no JVD present Lungs: unlabored respirations Heart: RRR Abdomen: NT/ND Extremities: other: (no edema) - Telemetry Telemetry Rhythm: NSR - Labs Result Diagrams: 06/26/17 04:20 06/26/17 04:20 Troponin/CKMB CK-MB (CK-2) 5.1 ng/mL (0-6.6) 06/19/17 03:51 Troponin I 0.054 ng/mL (< 0.028) H 06/19/17 12:54 - Assessment/Plan 1. Critical AV stenosis, s/p AVR, bioprosthetic. 2. Normal coronaries. 3. Emphysematous changes on CT chest. 4. Tobacco abuse. 5. Alcohol withdrawal. PLAN: - Aspirin for life. - Continue post op care. - Tobacco cessation counseling.
[2017-06-26] MEDS: Sodium Chloride 0.9% 1,000 ML IV SCH (21:06)
[2017-06-27] MEDS: hydrALAZINE 20 MG/ML VIAL SLOW IVP PRN (03:06)
[2017-06-27 04:28] LABS: #Eosinphils 0.1 thou/uL (0.0-0.7); #Lymphocytes 1.1 thou/uL (1.20-3.40); #Monocytes 0.5 thou/uL (0.11-0.59); #Neutrophils 4.1 thou/uL (1.40-6.50); %Basophils 0.3 % (0.0-1.0); %Eosinophils 1.8 % (0.0-10.0); %Lymphocytes 18.9 % (21.0-51.0); %Monocytes 9.1 % (0.0-10.0); %Neutrophils 69.9 % (42.0-75.0); Hemoglobin 9.2 g/dL (14.0-18.0); Mean Corpuscular HGB CONC 32.8 g/dL (32.0-36.0); Mean Corpuscular Hemoglobin 32.8 pg (27.0-31.0); Platelet Count 141 thou/uL (130-400); RBC Distribution Width 14.3 % (11.5-14.5); Red Blood Cell (RBC) Count 2.79 mill/uL (4.70-6.10); White Blood Cell (WBC) Count 5.8 thou/uL (4.8-10.8)
[2017-06-27 04:48] LABS: Anion Gap 11 mmol/L (10-20); BUN (Urea Nitrogen) 33 mg/dL (8.4-25.7); Calc. Creatinine Clearance 61 mL/min (70-130); Calcium 8.7 mg/dL (7.8-10.44); Carbon Dioxide 25 mmol/L (23-31); Chloride 104 mmol/L (98-107); Estimated GFR-MDRD 68; Glucose 106 mg/dL (80-115); Potassium 4.2 mmol/L (3.5-5.1); Sodium 136 mmol/L (136-145)
[2017-06-27] MEDS: Ketorolac Tromethamine 30 MG/ML VIAL IVP SCH ×3 (05:32→18:00)
--- NOTE | 2017-06-27 08:55 | RAD ---
FRONTA LRADIOGRAPH CHEST: DATE: 06/27/17. COMPARISON: 06/26/17. HISTORY: Reevaluate chest following open heart surgery. FINDINGS: Metallic material overlies the medial aspect of the cardiac silhouette on the left, evidence of aorti c valve surgery. Stable midline sternotomy wires. There is small volume subcutaneous emphysema asso ciated with the right chest wall. Right-sided drainage catheter present on the prior exam has been r emoved. No discrete pneumothorax. There is perihilar interstitial prominence, right greater than left, with focal areas of airspace dis ease/volume loss in right lung base. These opacities were similar when compared to prior imaging. IMPRESSION: Bilateral perihilar interstitial opacity with airspace disease in the right lung base, nonspecific. Followup advised. POS: [facility]
[2017-06-27] MEDS: Furosemide 40 MG TAB PO SCH ×2 (09:06→13:27)
[2017-06-27] MEDS: Famotidine 20 MG TAB PO SCH ×2 (09:06→20:27)
[2017-06-27] MEDS: Aspirin 325 MG TAB PO SCH (09:06)
[2017-06-27] MEDS: Potassium Chloride 20 MEQ TAB PO SCH (09:07)
[2017-06-27] MEDS: BEER 1 CAN PO SCH ×4 (09:25→16:24)
[2017-06-27] MEDS ORDERED: Guaifenesin DM 100-10/5 ML UDCUP PO PRN (12:04)
[2017-06-27] MEDS ORDERED: Zolpidem Tartrate 5 MG TAB PO PRN (12:04)
[2017-06-27] MEDS ORDERED: diphenhydrAMINE 25 MG CAP PO PRN (12:04)
[2017-06-27] MEDS ORDERED: Bisacodyl 10 MG SUPP PR PRN (12:04)
[2017-06-27] MEDS ORDERED: Mineral Oil ENEMA PR PRN (12:04)
[2017-06-27] MEDS ORDERED: Mag-Al 1200 mg/1200 mg/30 ML UDCUP PO PRN (12:04)
[2017-06-27] MEDS ORDERED: Artificial Tears 18 DROP/0.9 ML EA EYE PRN (12:04)
[2017-06-27] MEDS ORDERED: Bisacodyl 5 MG TAB PO PRN (12:04)
--- NOTE | 2017-06-27 12:12 | PDOC.CTH ---
Cardiology Progress Note - Subjective He is doing better, Chest tubes are out and he is doing well. - Objective Vital Signs Temp Pulse Resp BP BP Pulse Ox 06/27/17 12:00 98.5 F 109 H 14 146/84 H 96 06/27/17 08:00 98.3 F 106 H 23 H 92 L 06/27/17 07:42 93 L 06/27/17 07:40 106 H 23 H 93 L 06/27/17 07:00 98.2 F 06/27/17 03:06 115 H 167/101 H 06/27/17 03:00 99.4 F Weight 154 lb 8.705 oz 06/26/17 06/27/17 06/28/17 06:59 06:59 06:59 Intake Total 3189.7 1290 360 Output Total 1590 1605 200 Balance 1599.7 -315 160 - Physical Examination General/Neuro: alert & oriented x3, NAD Neck: no JVD present Lungs: unlabored respirations Heart: RRR Abdomen: NT/ND Extremities: other: (no edema) - Telemetry Telemetry Rhythm: NSR - Labs Result Diagrams: 06/27/17 04:12 06/27/17 04:12 Troponin/CKMB CK-MB (CK-2) 5.1 ng/mL (0-6.6) 06/19/17 03:51 Troponin I 0.054 ng/mL (< 0.028) H 06/19/17 12:54 - Assessment/Plan 1. Critical AV stenosis, s/p AVR, bioprosthetic. 2. Normal coronaries. 3. Emphysematous changes on CT chest. 4. Tobacco abuse. 5. Alcohol withdrawal. PLAN: - Aspirin for life. - Tobacco cessation counseling. - Increase PT as tolerated.
[2017-06-27] MEDS ORDERED: Aspirin 325 mg Enteric Coated Tablet PO SCH (12:15)
[2017-06-27] MEDS ORDERED: Metoprolol Tartrate 25 MG TAB PO SCH ×3 (12:15→21:00)
--- NOTE | 2017-06-27 12:18 | PRG ---
DATE OF SERVICE: 06/27/2017 SUBJECTIVE: Mr. Treviño says he is feeling better. His tubes are out. OBJECTIVE: VITAL SIGNS: Heart rate is 110, blood pressure 145/76, respiratory rate is 18. GENERAL: He is in no distress. LUNGS: Clear. HEART: Regular rhythm. ABDOMEN: Soft and nontender. He has not had a bowel movement yet. LABORATORY AND IMAGING DATA: Chest radiograph shows haziness in both lung bases. White count 5.8, hemoglobin 9.2 and platelets 141. Sodium 136, potassium 4.2, chloride 104, bicarbonate 25, BUN 33 and creatinine 1.29. Intake and output is negative 315. IMPRESSION: 1. Status post aortic valve replacement. 2. Status post postop bleeding, but no localizable source of bleeding with exploration through the i nitial operative site. It was eventually determined that pacing wire insertion sites were bleeding. 3. History of heavy alcohol use. 4. Bullous emphysema with no bronchospasm at this time, is very impressive chest CT. 5. History of hypertension. 6. History of marijuana use, admitted. PLAN: Continue with cardiac rehabilitation and physical therapy as well as wound care. He appears t o be stable at this time.
--- NOTE | 2017-06-27 12:45 | PDOC.PN ---
- Subjective Encounter Start Date: 06/27/17 Encounter Start Time: 10:20 Pt seen for followup re: CHF. No complaints. - Objective Vital Signs & Weight: Vital Signs (12 hours) Temp Pulse Resp BP BP Pulse Ox 06/27/17 12:00 98.5 F 109 H 14 146/84 H 96 06/27/17 08:00 98.3 F 106 H 23 H 92 L 06/27/17 07:42 93 L 06/27/17 07:40 106 H 23 H 93 L 06/27/17 07:00 98.2 F 06/27/17 03:06 115 H 167/101 H 06/27/17 03:00 99.4 F Weight Weight 154 lb 8.705 oz Most Recent Monitor Data Heart Rate from ECG 111 NIBP 125/76 NIBP BP-Mean 89 Respiration from ECG 15 SpO2 92 I&O: 06/26/17 06/27/17 06/28/17 06:59 06:59 06:59 Intake Total 3189.7 1290 360 Output Total 1590 1605 200 Balance 1599.7 -315 160 Result Diagrams: 06/27/17 04:12 06/27/17 04:12 Phys Exam - Physical Examination Constitutional: NAD HEENT: moist MMs Neck: supple Respiratory: clear to auscultation bilateral Cardiovascular: RRR Gastrointestinal: soft Musculoskeletal: edema present Neurological: moves all 4 limbs Lymphatic: no nodes Psychiatric: normal affect Skin: no rash Dx/Plan (1) CHF exacerbation Code(s): I50.9 - HEART FAILURE, UNSPECIFIED Status: Acute (2) Critical aortic valve stenosis Code(s): I35.0 - NONRHEUMATIC AORTIC (VALVE) STENOSIS Status: Chronic (3) HTN (hypertension) Code(s): I10 - ESSENTIAL (PRIMARY) HYPERTENSION Status: Chronic (4) CKD (chronic kidney disease) Code(s): N18.9 - CHRONIC KIDNEY DISEASE, UNSPECIFIED Status: Chronic - Plan out of bed/ambulate * . Pt transfered to tele floor. Monitor on telemetry. Review of Systems - Review of Systems Cardiovascular: negative: chest pain, palpitations, orthopnea, paroxysmal nocturnal dyspnea, edema, light headedness, other Gastrointestinal: negative: Nausea, Vomiting, Abdominal Pain, Diarrhea, Constipation, Melena, Hematochezia - Medications/Allergies Allergies/Adverse Reactions: Allergies Allergy/AdvReac Type Severity Reaction Status Date / Time No Known Drug Allergies Allergy Verified 06/19/17 08:38 Medications: Current Medications Acetaminophen (Tylenol) 650 mg PO Q6H PRN PRN Reason: Headache/Fever Or Mild Pain Hydrocodone Bitart/Acetaminophen ([place] 5/325) 1 tab PO Q4H PRN PRN Reason: Moderate Pain (4-6) Hydrocodone Bitart/Acetaminophen ([place] 5/325) 2 tab PO Q4H PRN PRN Reason: Severe Pain (7-10) Last Admin: 06/26/17 00:36 Dose: 2 tab Al Hydroxide/Mg Hydroxide (Maalox) 30 ml PO Q4H PRN PRN Reason: Indigestion Albuterol/Ipratropium (Duoneb) 3 ml NEB [id number] [facility] Last Admin: 06/27/17 07:40 Dose: 3 ml Albuterol/Ipratropium (Duoneb) 3 ml NEB [id number] PRN PRN Reason: Respiratory Distress Artificial Tears (Tears Naturale) 0 drop EA EYE PRN PRN PRN Reason: Dry Eyes Aspirin (Ecotrin) 325 mg PO DAILY [facility] Aspirin (Ecotrin) 325 mg PO NOW [facility] Stop: 06/27/17 14:15 Beer (Beer) 2 each PO TID-[facility] Last Admin: 06/27/17 11:28 Dose: Not Given Bisacodyl (Dulcolax) 10 mg PO Q12H PRN PRN Reason: Constipation Bisacodyl (Dulcolax) 10 mg [place] Q12H PRN PRN Reason: Constipation Diphenhydramine HCl (Benadryl) 25 mg PO Q6H PRN PRN Reason: Itching & Insomnia or Seth Delvis Famotidine (Pepcid) 20 mg PO BID [facility] Last Admin: 06/27/17 09:06 Dose: 20 mg Furosemide (Lasix) 40 mg PO 0900,1400 [facility] Last Admin: 06/27/17 09:06 Dose: 40 mg Guaifenesin/Dextromethorphan (Robitussin Dm) 15 ml PO Q4H PRN PRN Reason: Cough Hydralazine HCl (Apresoline) 10 mg SLOW IVP Q6H PRN PRN Reason: To Maintain SBP< 140mmHG Last Admin: 06/27/17 03:06 Dose: 10 mg Hydralazine HCl (Apresoline) 10 mg SLOW IVP Q6H PRN PRN Reason: to keep sbp <160 Ketorolac Tromethamine (Toradol) 15 mg IVP Q6HR [facility] Stop: 06/27/17 18:01 Last Admin: 06/27/17 11:34 Dose: 15 mg Metoprolol Tartrate (Lopressor) 12.5 mg PO BID [facility] Metoprolol Tartrate (Lopressor) 12.5 mg PO NOW [facility] Stop: 06/27/17 14:15 Mineral Oil (Fleet Mineral Oil) 133 ml [place] DAILYPRN PRN PRN Reason: Constipation Ondansetron HCl (Zofran) 4 mg IVP Q6H PRN PRN Reason: Nausea/Vomiting Potassium Chloride (Kcl) 20 meq IVPB PRN PRN PRN Reason: K level </= 4.0 Last Admin: 06/26/17 05:33 Dose: 20 meq Potassium Chloride (K-Dur) 20 meq PO [facility] Last Admin: 06/27/17 09:07 Dose: 20 meq Promethazine HCl (Phenergan) 6.25 mg IM Q4H PRN PRN Reason: Nausea/Vomiting Sodium Chloride (Flush - Normal Saline) 10 ml IVF PRN PRN PRN Reason: Saline Flush Zolpidem Tartrate (Ambien) 5 mg PO HSPRN PRN PRN Reason: Insomnia
[2017-06-28] MEDS: hydrALAZINE 20 MG/ML VIAL SLOW IVP PRN ×4 (04:27→23:52)
[2017-06-28] MEDS: Aspirin 325 mg Enteric Coated Tablet PO SCH (08:59)
[2017-06-28] MEDS: Famotidine 20 MG TAB PO SCH ×2 (08:59→21:11)
[2017-06-28] MEDS: Potassium Chloride 20 MEQ TAB PO SCH (08:59)
[2017-06-28] MEDS: Metoprolol Tartrate 50 MG TAB PO SCH ×2 (08:59→21:11)
[2017-06-28] MEDS: Furosemide 40 MG TAB PO SCH ×2 (08:59→14:40)
[2017-06-28] MEDS: BEER 1 CAN PO SCH ×3 (09:16→16:37)
--- NOTE | 2017-06-28 13:18 | PDOC.PN ---
- Subjective Encounter Start Date: 06/28/17 Encounter Start Time: 09:00 Pt seen for followup re: CHF exacerbation. Denies chest pain, shortness of breath, fevers or chills. - Objective MAR Reviewed: Yes Vital Signs & Weight: Vital Signs (12 hours) Temp Pulse Resp BP BP Pulse Ox 06/28/17 11:28 98.7 F 98 18 164/96 H 92 L 06/28/17 08:55 98.1 F 105 H 18 163/89 H 90 L 06/28/17 08:00 98.1 F 105 H 18 90 L 06/28/17 07:08 102 H 20 92 L 06/28/17 04:27 101 H 181/93 H 06/28/17 04:00 99.0 F 74 18 134/66 97 Weight Weight 154 lb 12.8 oz Most Recent Monitor Data Heart Rate from ECG 111 NIBP 125/76 NIBP BP-Mean 89 Respiration from ECG 15 SpO2 92 I&O: 06/27/17 06/28/17 06/29/17 06:59 06:59 06:59 Intake Total 1290 360 Output Total 1605 200 Balance -315 160 Result Diagrams: 06/27/17 04:12 06/27/17 04:12 EKG Reviewed by me: Yes (Tele: NSR) Phys Exam - Physical Examination Constitutional: NAD HEENT: moist MMs Neck: supple Respiratory: clear to auscultation bilateral Cardiovascular: RRR Gastrointestinal: soft Neurological: moves all 4 limbs Psychiatric: normal affect Skin: no rash Dx/Plan (1) CHF exacerbation Code(s): I50.9 - HEART FAILURE, UNSPECIFIED Status: Acute (2) Critical aortic valve stenosis Code(s): I35.0 - NONRHEUMATIC AORTIC (VALVE) STENOSIS Status: Chronic (3) HTN (hypertension) Code(s): I10 - ESSENTIAL (PRIMARY) HYPERTENSION Status: Chronic (4) CKD (chronic kidney disease) Code(s): N18.9 - CHRONIC KIDNEY DISEASE, UNSPECIFIED Status: Chronic - Plan out of bed/ambulate * . Continue aspirin, beta oj, furosemide. Review of Systems - Review of Systems Cardiovascular: negative: chest pain, palpitations, orthopnea, paroxysmal nocturnal dyspnea, edema, light headedness, other Skin: negative: Rash, Lesions, Dion, Bruising - Medications/Allergies Allergies/Adverse Reactions: Allergies Allergy/AdvReac Type Severity Reaction Status Date / Time No Known Drug Allergies Allergy Verified 06/19/17 08:38 Medications: Current Medications Acetaminophen (Tylenol) 650 mg PO Q6H PRN PRN Reason: Headache/Fever Or Mild Pain Last Admin: 06/28/17 04:27 Dose: 650 mg Hydrocodone Bitart/Acetaminophen ([place] 5/325) 1 tab PO Q4H PRN PRN Reason: Moderate Pain (4-6) Hydrocodone Bitart/Acetaminophen ([place] 5/325) 2 tab PO Q4H PRN PRN Reason: Severe Pain (7-10) Last Admin: 06/26/17 00:36 Dose: 2 tab Al Hydroxide/Mg Hydroxide (Maalox) 30 ml PO Q4H PRN PRN Reason: Indigestion Albuterol/Ipratropium (Duoneb) 3 ml NEB [id number] [facility] Last Admin: 06/28/17 07:08 Dose: 3 ml Albuterol/Ipratropium (Duoneb) 3 ml NEB [id number] PRN PRN Reason: Respiratory Distress Aspirin (Ecotrin) 325 mg PO DAILY [facility] Last Admin: 06/28/17 08:59 Dose: 325 mg Beer (Beer) 2 each PO TID-WM [facility] Last Admin: 06/28/17 09:16 Dose: Not Given Bisacodyl (Dulcolax) 10 mg PO Q12H PRN PRN Reason: Constipation Bisacodyl (Dulcolax) 10 mg [place] Q12H PRN PRN Reason: Constipation Diphenhydramine HCl (Benadryl) 25 mg PO Q6H PRN PRN Reason: Itching & Insomnia or Seth Delvis Last Admin: 06/27/17 21:40 Dose: 25 mg Famotidine (Pepcid) 20 mg PO BID [facility] Last Admin: 06/28/17 08:59 Dose: 20 mg Furosemide (Lasix) 40 mg PO 0900,1400 [facility] Last Admin: 06/28/17 08:59 Dose: 40 mg Guaifenesin/Dextromethorphan (Robitussin Dm) 15 ml PO Q4H PRN PRN Reason: Cough Hydralazine HCl (Apresoline) 10 mg SLOW IVP Q6H PRN PRN Reason: To Maintain SBP< 140mmHG Last Admin: 06/28/17 12:02 Dose: 10 mg Hydralazine HCl (Apresoline) 10 mg SLOW IVP Q6H PRN PRN Reason: to keep sbp <160 Metoprolol Tartrate (Lopressor) 50 mg PO BID [facility] Last Admin: 06/28/17 08:59 Dose: 50 mg Mineral Oil (Fleet Mineral Oil) 133 ml [place] DAILYPRN PRN PRN Reason: Constipation Ondansetron HCl (Zofran) 4 mg IVP Q6H PRN PRN Reason: Nausea/Vomiting Potassium Chloride (K-Dur) 20 meq PO QAM-WM [facility] Last Admin: 06/28/17 08:59 Dose: 20 meq Promethazine HCl (Phenergan) 6.25 mg IM Q4H PRN PRN Reason: Nausea/Vomiting Sodium Chloride (Flush - Normal Saline) 10 ml IVF PRN PRN PRN Reason: Saline Flush Zolpidem Tartrate (Ambien) 5 mg PO HSPRN PRN PRN Reason: Insomnia
--- NOTE | 2017-06-28 15:01 | PDOC.CTH ---
<Nichole Elizondo - Last Filed: 06/28/17 15:07> Cardiology Progress Note - Subjective The pt seen and examined. No overnight events. No cardiac complaints. - Objective Vital Signs Temp Pulse Resp BP BP Pulse Ox 06/28/17 14:36 97 18 94 L 06/28/17 11:28 98.7 F 98 18 164/96 H 92 L 06/28/17 08:55 98.1 F 105 H 18 163/89 H 90 L 06/28/17 08:00 98.1 F 105 H 18 90 L 06/28/17 07:08 102 H 20 92 L 06/28/17 04:27 101 H 181/93 H 06/28/17 04:00 99.0 F 74 18 134/66 97 Weight 154 lb 12.8 oz 06/27/17 06/28/17 06/29/17 06:59 06:59 06:59 Intake Total 1290 360 Output Total 1605 200 Balance -315 160 - Physical Examination General/Neuro: alert & oriented x3 Neck: no JVD present Lungs: CTA (diminished at bases) Heart: RRR Abdomen: soft Extremities: other: (No edema) - Telemetry Telemetry Rhythm: SR 90s - Labs Result Diagrams: 06/27/17 04:12 06/27/17 04:12 Troponin/CKMB CK-MB (CK-2) 5.1 ng/mL (0-6.6) 06/19/17 03:51 Troponin I 0.054 ng/mL (< 0.028) H 06/19/17 12:54 - Assessment/Plan 1. Critical AV stenosis, s/p AVR w/ bioprosthetic on 06/24/17 - Stable; on ASA 325mg; cont. to monitor 2. Acute on Chronic diastolic HF - Grade 2/3 diastolic HF; stable with Lasix, BBlocker, but no TERA due to hx of CKD 3. HTN - Metoprolol was increased from 25mg to 50mg BID; cont to monitor 4. CKD - stable 5. Tobacco abuse - Smoking cessation education given 6. Alcohol withdrawal - stable; on beer 2 can/day MAR reviewed Review of Systems - Review of Systems Constitutional: reports: no symptoms reported EENTM: reports: no symptoms reported Respiratory: reports: no symptoms reported Cardiac (ROS): reports: no symptoms reported ABD/GI: reports: no symptoms reported : reports: no symptoms reported Musculoskeletal: reports: no symptoms reported Skin: reports: no symptoms reported <Vernell Arora - Last Filed: 06/28/17 16:12> Cardiology Progress Note - Objective Vital Signs Temp Pulse Resp BP BP Pulse Ox 06/28/17 14:36 97 18 94 L 06/28/17 11:28 98.7 F 98 18 164/96 H 92 L 06/28/17 08:55 98.1 F 105 H 18 163/89 H 90 L 06/28/17 08:00 98.1 F 105 H 18 90 L 06/28/17 07:08 102 H 20 92 L 06/28/17 04:27 101 H 181/93 H Weight 154 lb 12.8 oz 06/27/17 06/28/17 06/29/17 06:59 06:59 06:59 Intake Total 1290 360 Output Total 1605 200 Balance -315 160 - Labs Result Diagrams: 06/27/17 04:12 06/27/17 04:12 Troponin/CKMB CK-MB (CK-2) 5.1 ng/mL (0-6.6) 06/19/17 03:51 Troponin I 0.054 ng/mL (< 0.028) H 06/19/17 12:54 - Assessment/Plan Pt. seen and eval. by me. I agree with the A/P by the RELAY WORKER. Chest clear. RRR.
--- NOTE | 2017-06-28 23:02 | PRG ---
DATE OF SERVICE: 06/28/2017 SERVICE: Pulmonary Medicine. INTERVAL HISTORY: The patient is doing fantastic from a respiratory standpoint. He is on room air. He denies any shortness of breath, fevers or chills. He has a little bit of a cough, but does not b ring up anything. Otherwise, he feels much improved. PHYSICAL EXAMINATION: VITAL SIGNS: T-max 99.9, pulse 107, blood pressure 172/93, respirations 18, saturations 99% on room air. GENERAL: The patient is awake and alert, in no apparent distress. LUNGS: Decent air entry. There is no prolonged expiratory phase, wheezing, rhonchi or crackles. HEART: Normal rate, regular. ABDOMEN: Soft, nontender, nondistended. Bowel sounds are positive. MUSCULOSKELETAL: No cyanosis or clubbing. No pitting in the bilateral lower extremities. NEUROLOGIC: Grossly nonfocal. LABORATORY DATA: WBC 5.8, hemoglobin 9.2, platelets 141,000 and improving. Neutrophil count has ret urned to normal. Basic metabolic profile is essentially unremarkable from the second with a creatini ne of 1.29. ASSESSMENT: 1. Alcohol abuse. 2. Emphysema, with severe bullous disease, but no acute exacerbation. 3. Alcohol abuse. 4. Marijuana abuse. 5. Aortic valve replacement with postoperative bleed and exploration without identified source. PLAN: Supportive care will be continued. We will continue mobilizing the patient as tolerated. Fro m my perspective, the patient remains stable. We will watch for increasing signs of sepsis. If he r uns a true fever, lucia culture, and chest x-ray will be performed. We will continue to follow intermi ttently during this hospital stay. Dr. Cardenas will resume care on Friday. Please call sooner if any acute issues.
[2017-06-29] MEDS: Metoprolol Tartrate 50 MG TAB PO SCH ×2 (09:45→20:57)
[2017-06-29] MEDS: Famotidine 20 MG TAB PO SCH ×2 (09:45→20:57)
[2017-06-29] MEDS: Aspirin 325 mg Enteric Coated Tablet PO SCH (09:46)
[2017-06-29] MEDS: Potassium Chloride 20 MEQ TAB PO SCH (09:46)
[2017-06-29] MEDS: Furosemide 40 MG TAB PO SCH (09:49)
[2017-06-29] MEDS: BEER 1 CAN PO SCH ×3 (10:26→16:29)
--- NOTE | 2017-06-29 11:28 | PDOC.PN ---
- Subjective Encounter Start Date: 06/29/17 Encounter Start Time: 08:40 Patient seen and examined. No new complaints. No overnight events - Objective MAR Reviewed: Yes Vital Signs & Weight: Vital Signs (12 hours) Temp Pulse Resp BP BP Pulse Ox 06/29/17 06:33 101 H 20 93 L 06/29/17 06:04 96.8 F L 103 H 18 169/99 H 95 06/29/17 00:55 102 H 18 94 L 06/28/17 23:52 98 166/102 H 06/28/17 23:30 99.0 F 98 17 166/102 H 90 L Weight Weight 142 lb 6.4 oz Most Recent Monitor Data Heart Rate from ECG 111 NIBP 125/76 NIBP BP-Mean 89 Respiration from ECG 15 SpO2 92 I&O: 06/28/17 06/29/17 06/30/17 06:59 06:59 06:59 Intake Total 360 1920 Output Total 200 3600 Balance 160 -1680 Result Diagrams: 06/27/17 04:12 06/27/17 04:12 EKG Reviewed by me: Yes Phys Exam - Physical Examination Constitutional: NAD HEENT: PERRLA, moist MMs, sclera anicteric Neck: no JVD, supple Respiratory: no wheezing, no rales, no rhonchi Cardiovascular: RRR, no significant murmur, no rub Gastrointestinal: soft, non-tender, no distention, positive bowel sounds Musculoskeletal: no edema, pulses present Neurological: non-focal, normal sensation Psychiatric: normal affect, A&O x 3 Skin: no rash, normal turgor Dx/Plan (1) Acute on chronic diastolic (congestive) heart failure Code(s): I50.33 - ACUTE ON CHRONIC DIASTOLIC (CONGESTIVE) HEART FAILURE Status : Acute (2) S/P aortic valve replacement with porcine valve Code(s): Z95.3 - PRESENCE OF XENOGENIC HEART VALVE Status: Acute (3) Alcohol abuse Code(s): F10.10 - ALCOHOL ABUSE, UNCOMPLICATED Status: Chronic (4) CKD (chronic kidney disease) stage 2, GFR 60-89 ml/min Code(s): N18.2 - CHRONIC KIDNEY DISEASE, STAGE 2 (MILD) Status: Chronic (5) Critical aortic valve stenosis Code(s): I35.0 - NONRHEUMATIC AORTIC (VALVE) STENOSIS Status: Chronic (6) HTN (hypertension) Code(s): I10 - ESSENTIAL (PRIMARY) HYPERTENSION Status: Chronic (7) Macrocytic anemia Code(s): D53.9 - NUTRITIONAL ANEMIA, UNSPECIFIED Status: Chronic (8) Tobacco abuse Code(s): Z72.0 - TOBACCO USE Status: Chronic (9) Acute kidney failure Status: Resolved - Plan cont current plan of care * currently pt is stable and euvolemic * medication reviewed as below * symptomatic treatment * will repeat labs tomorrow * possible discharge tomorrow. Review of Systems - Review of Systems ENT: negative: Ear Pain, Ear Discharge, Nose Pain, Nose Discharge, Nose Congestion, Mouth Pain, Mouth Swelling, Throat Pain, Throat Swelling, Other Respiratory: negative: Cough, Dry, Shortness of Breath, Hemoptysis, SOB with Excertion, Pleuritic Pain, Sputum, Wheezing Cardiovascular: negative: chest pain, palpitations, orthopnea, paroxysmal nocturnal dyspnea, edema, light headedness, other Gastrointestinal: negative: Nausea, Vomiting, Abdominal Pain, Diarrhea, Constipation, Melena, Hematochezia, Other Genitourinary: negative: Dysuria, Frequency, Incontinence, Hematuria, Retention , Other Musculoskeletal: negative: Neck Pain, Shoulder Pain, Arm Pain, Back Pain, Hand Pain, Leg Pain, Foot Pain, Other - Medications/Allergies Allergies/Adverse Reactions: Allergies Allergy/AdvReac Type Severity Reaction Status Date / Time No Known Drug Allergies Allergy Verified 06/19/17 08:38 Medications: Current Medications Acetaminophen (Tylenol) 650 mg PO Q6H PRN PRN Reason: Headache/Fever Or Mild Pain Last Admin: 06/28/17 04:27 Dose: 650 mg Hydrocodone Bitart/Acetaminophen ([place] 5/325) 1 tab PO Q4H PRN PRN Reason: Moderate Pain (4-6) Hydrocodone Bitart/Acetaminophen ([place] 5/325) 2 tab PO Q4H PRN PRN Reason: Severe Pain (7-10) Last Admin: 06/26/17 00:36 Dose: 2 tab Al Hydroxide/Mg Hydroxide (Maalox) 30 ml PO Q4H PRN PRN Reason: Indigestion Albuterol/Ipratropium (Duoneb) 3 ml NEB [id number] PRN PRN Reason: Respiratory Distress Aspirin (Ecotrin) 325 mg PO DAILY MARY LOU Last Admin: 06/29/17 09:46 Dose: 325 mg Atorvastatin Calcium (Lipitor) 20 mg PO HS [facility] Beer (Beer) 2 each PO TID-WM [facility] Last Admin: 06/29/17 10:26 Dose: 2 each Bisacodyl (Dulcolax) 10 mg PO Q12H PRN PRN Reason: Constipation Bisacodyl (Dulcolax) 10 mg MA Q12H PRN PRN Reason: Constipation Famotidine (Pepcid) 20 mg PO BID [facility] Last Admin: 06/29/17 09:45 Dose: 20 mg Guaifenesin/Dextromethorphan (Robitussin Dm) 15 ml PO Q4H PRN PRN Reason: Cough Hydralazine HCl (Apresoline) 10 mg SLOW IVP Q6H PRN PRN Reason: to keep sbp <160 Last Admin: 06/28/17 23:52 Dose: 10 mg Lisinopril (Zestril) 5 mg PO BID [facility] Metoprolol Tartrate (Lopressor) 50 mg PO BID [facility] Last Admin: 06/29/17 09:45 Dose: 50 mg Mineral Oil (Fleet Mineral Oil) 133 ml [place] DAILYPRN PRN PRN Reason: Constipation Ondansetron HCl (Zofran) 4 mg IVP Q6H PRN PRN Reason: Nausea/Vomiting Sodium Chloride (Flush - Normal Saline) 10 ml IVF PRN PRN PRN Reason: Saline Flush
--- NOTE | 2017-06-29 12:19 | PDOC.CTH ---
<Nichole Elizondo - Last Filed: 06/29/17 12:20> Cardiology Progress Note - Subjective The pt seen and examined. No overnight events. No cardiac complaints. Per RN , the pt has coughed up bright bloody sputum for about 3 days, which is less this AM. Also he has not walked or exercised with PTs at all since he underwent the surgery. - Objective Vital Signs Temp Pulse Resp BP Pulse Ox 06/29/17 08:05 99.2 F 107 H 16 97 06/29/17 08:00 99.2 F 107 H 16 166/101 H 97 06/29/17 06:33 101 H 20 93 L 06/29/17 06:04 96.8 F L 103 H 18 169/99 H 95 06/29/17 00:55 102 H 18 94 L Weight 142 lb 6.4 oz 06/28/17 06/29/17 06/30/17 06:59 06:59 06:59 Intake Total 360 1920 Output Total 200 3600 Balance 160 -1680 - Physical Examination General/Neuro: alert & oriented x3 Neck: no JVD present Lungs: CTA Heart: RRR Abdomen: soft Extremities: other: - Telemetry Telemetry Rhythm: ST 100s - Labs Result Diagrams: 06/27/17 04:12 06/27/17 04:12 Troponin/CKMB CK-MB (CK-2) 5.1 ng/mL (0-6.6) 06/19/17 03:51 Troponin I 0.054 ng/mL (< 0.028) H 06/19/17 12:54 - Assessment/Plan 1. Critical AV stenosis, s/p AVR w/ bioprosthetic on 06/24/17 - Stable; on ASA 325mg; cont. to monitor 2. Acute on Chronic diastolic HF - Grade 2/3 diastolic HF; stable with TERA and BBlocker. Lasix was d/jaron today. cont. to monitor. 3. HTN - Increase Lisinopril from 5mg to 10mg BID; cont to monitor 4. CKD - stable 5. Tobacco abuse - Smoking cessation education given 6. Alcohol withdrawal - stable; on beer 2 can/day MAR reviewed Review of Systems - Review of Systems Constitutional: reports: no symptoms reported EENTM: reports: no symptoms reported Respiratory: reports: no symptoms reported Cardiac (ROS): reports: no symptoms reported ABD/GI: reports: no symptoms reported : reports: no symptoms reported Musculoskeletal: reports: other <Vernell Arora - Last Filed: 07/01/17 11:09> Cardiology Progress Note - Objective Admit Weight 154 lb 15.759 oz Weight 142 lb 4.8 oz 06/30/17 07/01/17 07/02/17 06:59 06:59 06:59 Intake Total 2280 Output Total 1100 Balance 1180 - Labs Result Diagrams: 06/30/17 04:59 06/30/17 04:59 Troponin/CKMB CK-MB (CK-2) 5.1 ng/mL (0-6.6) 06/19/17 03:51 Troponin I 0.054 ng/mL (< 0.028) H 06/19/17 12:54 - Assessment/Plan Pt. seen and eval. by me. I agree with the A/P by the [employer].Doing well s/p AVR.
[2017-06-29] MEDS ORDERED: Lisinopril 5 MG TAB PO SCH ×2 (12:30→21:00)
[2017-06-29] MEDS: hydrALAZINE 20 MG/ML VIAL SLOW IVP PRN (16:25)
[2017-06-29] MEDS: Lisinopril 10 MG TAB PO SCH (20:57)
[2017-06-29] MEDS ORDERED: Atorvastatin Calcium 20 MG TAB PO SCH (21:00)
[2017-06-30 05:29] LABS: #Eosinphils 0.2 thou/uL (0.0-0.7); #Lymphocytes 1.3 thou/uL (1.20-3.40); #Monocytes 0.9 thou/uL (0.11-0.59); #Neutrophils 4.3 thou/uL (1.40-6.50); %Eosinophils 2.4 % (0.0-10.0); %Lymphocytes 18.8 % (21.0-51.0); %Monocytes 13.9 % (0.0-10.0); %Neutrophils 64.9 % (42.0-75.0); Hemoglobin 10.4 g/dL (14.0-18.0); Mean Corpuscular HGB CONC 32.8 g/dL (32.0-36.0); Mean Corpuscular Hemoglobin 32.6 pg (27.0-31.0); Mean Corpuscular Volume 99.5 fl (80.0-94.0); Mean Platelet Volume 6.4 fL (7.4-10.4); Platelet Count 290 thou/uL (130-400); RBC Distribution Width 14.1 % (11.5-14.5); Red Blood Cell (RBC) Count 3.17 mill/uL (4.70-6.10); White Blood Cell (WBC) Count 6.7 thou/uL (4.8-10.8)
[2017-06-30 06:08] LABS: Anion Gap 11 mmol/L (10-20); BUN (Urea Nitrogen) 30 mg/dL (8.4-25.7); Calc. Creatinine Clearance 52 mL/min (70-130); Carbon Dioxide 24 mmol/L (23-31); Chloride 106 mmol/L (98-107); Estimated GFR-MDRD 65; Glucose 102 mg/dL (80-115); Potassium 4.1 mmol/L (3.5-5.1); Sodium 137 mmol/L (136-145)
--- NOTE | 2017-06-30 06:35 | DIS ---
DIAGNOSES: 1. Aortic stenosis. 2. Hypertension. 3. Multi-substance abuse. PROCEDURES: 1. Cardiac catheterization. 2. Aortic valve replacement with a #25 Intuity bioprosthetic valve via a right anterior thoracotomy. DESCRIPTION OF HOSPITAL STAY: Mr. Treviño was admitted with severe shortness of breath, fatigue, and c hest pain. He was worked up appropriately undergoing cardiac catheterization revealing no significan t coronary artery disease. Echocardiogram revealed severe aortic stenosis. He was taken to the oper ating room and underwent the above procedure on 06/19/2017. He had to be returned that evening for b leeding which was coming from a pacemaker wire. The remainder of his hospital stay has been spent re covering from surgery. At the time of discharge he is ambulatory, tolerating a regular diet, having good bowel and bladder function. Incisions are clean and dry without infection. DISCHARGE MEDICATIONS: 1. Aspirin 325 mg every day. 2. Lopressor 50 mg b.i.d. 3. Lisinopril 10 mg b.i.d. 4. Lipitor 20 mg at bedtime. 5. [place] 5/325 1-2 q.6 hours p.r.n. pain. FOLLOWUP: Follow up is with me in 2-[address] Sotelo in a month.
[2017-06-30] MEDS ORDERED: Furosemide 40 MG TAB PO SCH (07:30)
[2017-06-30] MEDS: BEER 1 CAN PO SCH ×2 (09:04→13:02)
[2017-06-30] MEDS: Famotidine 20 MG TAB PO SCH (09:06)
[2017-06-30] MEDS: Lisinopril 10 MG TAB PO SCH (09:06)
[2017-06-30] MEDS: Aspirin 325 mg Enteric Coated Tablet PO SCH (09:06)
[2017-06-30] MEDS: Metoprolol Tartrate 50 MG TAB PO SCH (09:06)
--- NOTE | 2017-06-30 10:23 | PDOC.PN ---
- Subjective Encounter Start Date: 06/30/17 Encounter Start Time: 08:30 Patient seen and examined. No new complaints. No overnight events - Objective MAR Reviewed: Yes Vital Signs & Weight: Vital Signs (12 hours) Temp Pulse Resp BP Pulse Ox 06/30/17 09:00 99.0 F 108 H 16 156/87 H 100 06/30/17 03:48 98.9 F 99 16 156/88 H 96 Weight Weight 142 lb 4.8 oz Most Recent Monitor Data Heart Rate from ECG 111 NIBP 125/76 NIBP BP-Mean 89 Respiration from ECG 15 SpO2 92 I&O: 06/29/17 06/30/17 07/01/17 06:59 06:59 06:59 Intake Total 1920 2280 Output Total 3600 1100 Balance -1680 1180 Result Diagrams: 06/30/17 04:59 06/30/17 04:59 EKG Reviewed by me: Yes Phys Exam - Physical Examination Constitutional: NAD HEENT: PERRLA, moist MMs, sclera anicteric Neck: no JVD, supple Respiratory: no wheezing, no rales, no rhonchi Cardiovascular: RRR, no significant murmur, no rub Gastrointestinal: soft, non-tender, no distention, positive bowel sounds Musculoskeletal: no edema, pulses present Neurological: non-focal, normal sensation, moves all 4 limbs Psychiatric: normal affect, A&O x 3 Skin: no rash, normal turgor Dx/Plan (1) Acute on chronic diastolic (congestive) heart failure Code(s): I50.33 - ACUTE ON CHRONIC DIASTOLIC (CONGESTIVE) HEART FAILURE Status : Acute (2) S/P aortic valve replacement with porcine valve Code(s): Z95.3 - PRESENCE OF XENOGENIC HEART VALVE Status: Acute (3) Alcohol abuse Code(s): F10.10 - ALCOHOL ABUSE, UNCOMPLICATED Status: Chronic (4) CKD (chronic kidney disease) stage 2, GFR 60-89 ml/min Code(s): N18.2 - CHRONIC KIDNEY DISEASE, STAGE 2 (MILD) Status: Chronic (5) Critical aortic valve stenosis Code(s): I35.0 - NONRHEUMATIC AORTIC (VALVE) STENOSIS Status: Chronic (6) HTN (hypertension) Code(s): I10 - ESSENTIAL (PRIMARY) HYPERTENSION Status: Chronic (7) Macrocytic anemia Code(s): D53.9 - NUTRITIONAL ANEMIA, UNSPECIFIED Status: Chronic (8) Tobacco abuse Code(s): Z72.0 - TOBACCO USE Status: Chronic (9) Acute kidney failure Status: Resolved - Plan cont current plan of care * medication reviewed as below * Symptomatic treatment * see discharge eva for details.. Review of Systems - Review of Systems ENT: negative: Ear Pain, Ear Discharge, Nose Pain, Nose Discharge, Nose Congestion, Mouth Pain, Mouth Swelling, Throat Pain, Throat Swelling, Other Respiratory: negative: Cough, Dry, Shortness of Breath, Hemoptysis, SOB with Excertion, Pleuritic Pain, Sputum, Wheezing Cardiovascular: negative: chest pain, palpitations, orthopnea, paroxysmal nocturnal dyspnea, edema, light headedness, other Gastrointestinal: negative: Nausea, Vomiting, Abdominal Pain, Diarrhea, Constipation, Melena, Hematochezia, Other Genitourinary: negative: Dysuria, Frequency, Incontinence, Hematuria, Retention , Other Musculoskeletal: negative: Neck Pain, Shoulder Pain, Arm Pain, Back Pain, Hand Pain, Leg Pain, Foot Pain, Other - Medications/Allergies Allergies/Adverse Reactions: Allergies Allergy/AdvReac Type Severity Reaction Status Date / Time No Known Drug Allergies Allergy Verified 06/19/17 08:38 Medications: Current Medications Acetaminophen (Tylenol) 650 mg PO Q6H PRN PRN Reason: Headache/Fever Or Mild Pain Last Admin: 06/28/17 04:27 Dose: 650 mg Hydrocodone Bitart/Acetaminophen ([place] 5/325) 1 tab PO Q4H PRN PRN Reason: Moderate Pain (4-6) Hydrocodone Bitart/Acetaminophen ([place] 5/325) 2 tab PO Q4H PRN PRN Reason: Severe Pain (7-10) Last Admin: 06/26/17 00:36 Dose: 2 tab Al Hydroxide/Mg Hydroxide (Maalox) 30 ml PO Q4H PRN PRN Reason: Indigestion Albuterol/Ipratropium (Duoneb) 3 ml NEB [id number] PRN PRN Reason: Respiratory Distress Aspirin (Ecotrin) 325 mg PO DAILY MARY LOU Last Admin: 06/30/17 09:06 Dose: 325 mg Atorvastatin Calcium (Lipitor) 20 mg PO HS MARYL OU Last Admin: 06/29/17 20:57 Dose: 20 mg Beer (Beer) 2 each PO TID-WM [facility] Last Admin: 06/30/17 09:04 Dose: 2 each Bisacodyl (Dulcolax) 10 mg PO Q12H PRN PRN Reason: Constipation Bisacodyl (Dulcolax) 10 mg [place] Q12H PRN PRN Reason: Constipation Famotidine (Pepcid) 20 mg PO BID [facility] Last Admin: 06/30/17 09:06 Dose: 20 mg Guaifenesin/Dextromethorphan (Robitussin Dm) 15 ml PO Q4H PRN PRN Reason: Cough Hydralazine HCl (Apresoline) 10 mg SLOW IVP Q6H PRN PRN Reason: to keep sbp <160 Last Admin: 06/29/17 16:25 Dose: 10 mg Lisinopril (Zestril) 10 mg PO BID [facility] Last Admin: 06/30/17 09:06 Dose: 10 mg Metoprolol Tartrate (Lopressor) 50 mg PO BID [facility] Last Admin: 06/30/17 09:06 Dose: 50 mg Mineral Oil (Fleet Mineral Oil) 133 ml [place] DAILYPRN PRN PRN Reason: Constipation Ondansetron HCl (Zofran) 4 mg IVP Q6H PRN PRN Reason: Nausea/Vomiting Sodium Chloride (Flush - Normal Saline) 10 ml IVF PRN PRN PRN Reason: Saline Flush
--- NOTE | 2017-06-30 11:39 | DIS ---
DATE OF ADMISSION: 06/19/2017 DATE OF DISCHARGE: 06/30/2017 PRIMARY CARE PHYSICIAN: [facility] call admission. DISCHARGE DISPOSITION: Home. PRIMARY DISCHARGE DIAGNOSES: Critical aortic stenosis, status post aortic valve replacement with bio prosthetic valve, acute on chronic diastolic congestive heart failure, acute kidney failure. SECONDARY DISCHARGE DIAGNOSES: Tobacco abuse disorder, macrocytic anemia, hypertension, critical aor tic valve stenosis, chronic kidney disease stage 3, alcohol abuse. PRIMARY PROCEDURE/OPERATION: Cardiac catheterization, aortic valve replacement with bioprosthetic va lve. RADIOLOGIC INVESTIGATION: Chest x-ray, CT chest, carotid Doppler, echocardiography. SIGNIFICANT LABORATORY DATA: Hemoglobin 10.4, INR 1.5, creatinine 1.34. DISCHARGE MEDICATIONS: Aspirin 325 mg p.o. daily, Lipitor 20 mg p.o. bedtime, [place] 5 one or two tab lets q.4 hourly p.r.n., lisinopril 10 mg p.o. b.i.d., metoprolol 50 mg p.o. b.i.d.. CONTRAINDICATIONS: None. CODE STATUS: FULL CODE. INPATIENT CONSULTANTS: Dr. Pérez Hunter did the surgery. Dr. Sotelo was following while in [facility]. TEST RESULTS PENDING ON DISCHARGE: None. ALLERGIES: No known drug allergy. DISCHARGE PLAN: Post hospital, patient will follow up with Dr. Pérez Hunter in 2-3 weeks. The ifeanyi ent will follow up with [facility] on 07/04/2017 at 10:20 a.m. The patient will make appointment with Dr. Sotelo as instructed and the patient will follow with cardiac rehabilitation. HOSPITAL COURSE: A 62-year-old male who was admitted by Dr. Smith on 06/19/2017. Please see his H&P for further detail. This patient was having chest pain and patient had serial cardiac enzymes while in hospital. He has underlying chronic diastolic heart failure as well as chronic aortic stenosis o n this admission, he was found with critical aortic stenosis required aortic valve replacement with b ioprosthetic valve. Before valve replacement, patient underwent cardiac catheterization and subseque ntly patient underwent aortic valve replacement. On admission, the patient also had acute hypoxic re spiratory failure that was improved with treatment of CHF. While in hospital, we provided counseling to avoid tobacco and alcohol abuse. At this point, patient did very well after surgery and he is no w euvolemic on room air and tolerating p.o. well and ambulatory. Patient will follow up with consult ant as above. The patient is seen and examined at bedside today. Please see my progress note from mandy kelley for further detail.
[2017-06-30 13:01] VITALS: BP 149/90; TEMP 98.8
[2017-06-30 14:58] VITALS: BMI 19.5
--- NOTE | 2017-07-05 18:19 | EKG ---
Test Reason : CP, HYPOXIA Blood Pressure : / mmHG Vent. Rate : 101 BPM Atrial Rate : 101 BPM P-R Int : 132 ms QRS Dur : 088 ms QT Int : 394 ms P-R-T Axes : 067 011 -58 degrees QTc Int : 510 ms Sinus tachycardia Possible Left atrial enlargement Abnormal ECG Confirmed by LEILANI HOOKS ([id number]), associate editor ALF GERARD ([id number]) on 07/05/2017 6:18:45 PM Referred By: Confirmed By:LEILANI HOOKS
[2017-07-16 10:51] LABS: CO2 Tension 43.2 mmHg (35.0-45.0); pH, Arterial 7.34 (7.35-7.45)
[2017-07-16 10:52] LABS: Actual Bicarbonate (HCO3a) 22.7 mEq/L (22-26); Base Excess (BEa) -3.1 mEq/L (0 (+/-) 2.5); Hematocrit-ABG 39.9 % (42.0-52.0); Hemoglobin (Hb) 13.4 g/dL (14.0-18.0); O2 Tension (PaO2) 548.1 mmHg (80.0-100.0)
[2017-07-16 10:53] LABS: Analyzer IN Cardio OR; Calcium, Ionized 1.1 mmol/L (1.12-1.30); Puncture Site ALINE
[2017-07-16 10:54] LABS: Actual Bicarbonate (HCO3a) 22.4 mEq/L (22-26); Base Excess (BEa) -3.6 mEq/L (0 (+/-) 2.5); CO2 Tension 44.2 mmHg (35.0-45.0); Calcium, Ionized 1.1 mmol/L (1.12-1.30); Hematocrit-ABG 38.7 % (42.0-52.0); Hemoglobin (Hb) 12.9 g/dL (14.0-18.0); O2 Tension (PaO2) 350.8 mmHg (80.0-100.0); pH, Arterial 7.32 (7.35-7.45)
[2017-07-16 10:55] LABS: Analyzer IN Cardio OR; Puncture Site ALINE
[2017-07-16 10:55] LABS: Actual Bicarbonate (HCO3a) 21.2 mEq/L (22-26); CO2 Tension 43.2 mmHg (35.0-45.0); Hematocrit-ABG 37.7 % (42.0-52.0); O2 Tension (PaO2) 82.5 mmHg (80.0-100.0); pH, Arterial 7.31 (7.35-7.45)
[2017-07-16 10:56] LABS: Hemoglobin (Hb) 12.7 g/dL (14.0-18.0)
[2017-07-16 10:57] LABS: Analyzer IN Cardio OR; Puncture Site ALINE
[2017-07-16 10:57] LABS: Actual Bicarbonate (HCO3a) 23.9 mEq/L (22-26); Base Excess (BEa) -2.5 mEq/L (0 (+/-) 2.5); CO2 Tension 48.8 mmHg (35.0-45.0); Hematocrit-ABG 28.5 % (42.0-52.0); Hemoglobin (Hb) 9.6 g/dL (14.0-18.0); O2 Tension (PaO2) 315.7 mmHg (80.0-100.0); pH, Arterial 7.31 (7.35-7.45)
[2017-07-16 10:58] LABS: Analyzer IN Cardio OR; Calcium, Ionized 0.9 mmol/L (1.12-1.30); Puncture Site ALINE
[2017-07-16 10:58] LABS: Analyzer IN Cardio OR
[2017-07-16 11:00] LABS: Actual Bicarbonate (HCO3v) 26 mEq/L (22-26); Base Excess -1.4 mEq/L (0 (+/- 2.5)); Hematocrit-VBG 27.6 % (39-50); Hemoglobin (Hb) 9.6 g/dL (13.1-17.2); Potassium - ABG Lab 6.1 mmol/L (3.70-5.30); Sodium 135.9 mmol/L (133-146); pH (venous) 7.25 (7.35-7.45)
[2017-07-16 11:01] LABS: Actual Bicarbonate (HCO3a) 22.2 mEq/L (22-26); Base Excess (BEa) -3.5 mEq/L (0 (+/-) 2.5); CO2 Tension 42.9 mmHg (35.0-45.0); Hematocrit-ABG 27.9 % (42.0-52.0); Hemoglobin (Hb) 9.5 g/dL (14.0-18.0); O2 Tension (PaO2) 415.3 mmHg (80.0-100.0); pH, Arterial 7.33 (7.35-7.45)
[2017-07-16 11:01] LABS: Calcium, Ionized 0.96 mmol/L (1.16-1.32); Chloride (ABG LAB) 104 mmol/L (98-106)
[2017-07-16 11:02] LABS: Analyzer IN Cardio OR; Puncture Site ALINE
[2017-07-16 11:02] LABS: Actual Bicarbonate (HCO3v) 23 mEq/L (22-26); Analyzer IN Cardio OR; Base Excess -3.5 mEq/L (0 (+/- 2.5)); pH (venous) 7.31 (7.35-7.45)
[2017-07-16 11:03] LABS: Calcium, Ionized 1.26 mmol/L (1.16-1.32); Chloride (ABG LAB) 107 mmol/L (98-106); Hematocrit-VBG 24.4 % (39-50); Hemoglobin (Hb) 8.3 g/dL (13.1-17.2); Potassium - ABG Lab 5.8 mmol/L (3.70-5.30); Sodium 138.2 mmol/L (133-146)
[2017-07-16 11:04] LABS: Actual Bicarbonate (HCO3a) 23.8 mEq/L (22-26); Base Excess (BEa) -3.4 mEq/L (0 (+/-) 2.5); CO2 Tension 53.4 mmHg (35.0-45.0); Hemoglobin (Hb) 10.4 g/dL (14.0-18.0); O2 Tension (PaO2) 100.7 mmHg (80.0-100.0); pH, Arterial 7.27 (7.35-7.45)
[2017-07-16 11:05] LABS: Analyzer IN Cardio OR; Calcium, Ionized 1.2 mmol/L (1.12-1.30); Puncture Site ALINE
[2017-07-16 11:41] LABS: pH, Arterial 7.19 (7.35-7.45)
[2017-07-16 11:42] LABS: Actual Bicarbonate (HCO3a) 22.6 mEq/L (22-26); Base Excess (BEa) -5.9 mEq/L (0 (+/-) 2.5); CO2 Tension 60.3 mmHg (35.0-45.0); Hematocrit-ABG 31.2 % (42.0-52.0); Hemoglobin (Hb) 10.4 g/dL (14.0-18.0); O2 Tension (PaO2) 140.8 mmHg (80.0-100.0)
[2017-07-16 11:43] LABS: Base Excess (BEa) -5.9 mEq/L (0 (+/-) 2.5); CO2 Tension 47.2 mmHg (35.0-45.0); O2 Tension (PaO2) 296.4 mmHg (80.0-100.0); pH, Arterial 7.27 (7.35-7.45)
[2017-07-16 11:43] LABS: Analyzer IN Cardio OR; Calcium, Ionized 1.1 mmol/L (1.12-1.30); Puncture Site ALINE
[2017-07-16 11:44] LABS: Analyzer IN Cardio OR; Hematocrit-ABG 32.6 % (42.0-52.0); Hemoglobin (Hb) 10.8 g/dL (14.0-18.0); Puncture Site ALINE
== END 2017-06-30 16:45 | disposition home or self-care (01) | DRG 216 ==
LOC: ERS 03:17 → ERHOLD 09:18 → 2SE 13:01 → CCU 06-24 07:30 → 2NO 06-27 10:59
PROVIDERS: ADMIT Internal Medicine; ATTEND Internal Medicine
PROC: B2111ZZ Fluoroscopy of Multiple Coronary Arteries using Low Osmolar Contrast (ICD-10-PCS; 2017-06-20)
PROC: 02RF08Z Replacement of Aortic Valve with Zooplastic Tissue, Open Approach (ICD-10-PCS; principal; 2017-06-24)
PROC: 0W3D0ZZ Control Bleeding in Pericardial Cavity, Open Approach (ICD-10-PCS; 2017-06-24)
PROC: 0WCQ8ZZ Extirpation of Matter from Respiratory Tract, Via Natural or Artificial Opening Endoscopic (ICD-10-PCS; 2017-06-24)
PROC: 30233N1 Transfusion of Nonautologous Red Blood Cells into Peripheral Vein, Percutaneous Approach (ICD-10-PCS; 2017-06-24)
DX: I35.0 Nonrheumatic aortic (valve) stenosis (principal); J96.01 Acute respiratory failure with hypoxia; I50.33 Acute on chronic diastolic (congestive) heart failure; N17.9 Acute kidney failure, unspecified; J43.9 Emphysema, unspecified; N18.3 Chronic kidney disease, stage 3 (moderate); D50.0 Iron deficiency anemia secondary to blood loss (chronic); D53.9 Nutritional anemia, unspecified; F12.10 Cannabis abuse, uncomplicated; I13.0 Hypertensive heart and chronic kidney disease with heart failure and stage 1 through stage 4 chronic kidney disease, or unspecified chronic kidney disease; F10.230 Alcohol dependence with withdrawal, uncomplicated; I97.618 Postprocedural hemorrhage of a circulatory system organ or structure following other circulatory system procedure; F17.210 Nicotine dependence, cigarettes, uncomplicated; D63.1 Anemia in chronic kidney disease; F19.10 Other psychoactive substance abuse, uncomplicated
CPT/HCPCS: 36415; 36416; 36430; 71045; 71250; 76000; 80048; 80053; 82553; 82805; 83690; 83880; 84484; 85025; 85379; 85610; 85730; 86850; 86900; 86901; 93005; 93010; 93306; 93454; 93798; 93880; 94002; 94003; 94150; 94640; 94760; 96372; 96374; 96375; 99152; 99406; C1769; J0360; J0670; J1250; J1265; J1642; J1644; J1650; J1815; J1885; J1940; J2001; J2250; J2270; J2370; J2720; J3010; J3370; J3475; J3480; J7050; J7620; P9016; P9035; P9045; P9059; Q9961; S0017; S0028

== ENCOUNTER 2017-11-06 21:00 | Emergency (ER) | payer SELFPAY ==
[~2017-11-06 21:00] MED LIST: ISOVUE-370 76%-LOCM 1 ML ONE
--- NOTE | 2017-11-06 21:43 | RAD ---
FRONTAL RADIOGRAPH CHEST 11/06/17 COMPARISON: 06/27/17 HISTORY: Right sided chest pain. FINDINGS: There are severe upper lobe emphysematous changes, right greater than left. No consolidation or alveo lar edema. Heart and mediastinal contours are stable. The marked paucity of lung markings within both upper lobes, right greater than left, limits assessme nt for subtle pneumothorax. No obvious pneumothorax is seen. IMPRESSION: Prominent upper lobe emphysematous changes as described above, limiting assessment for subtle pneumot horax. No large pneumothorax, pleural fluid or focal consolidation seen. POS: [facility]
[2017-11-06 21:51] LABS: #Basophils 0.1 thou/uL (0.0-0.2); #Eosinphils 0.1 thou/uL (0.0-0.7); #Lymphocytes 1.2 thou/uL (1.20-3.40); #Monocytes 0.4 thou/uL (0.11-0.59); #Neutrophils 3.1 thou/uL (1.40-6.50); %Basophils 1.1 % (0.0-1.0); %Eosinophils 2.3 % (0.0-10.0); %Lymphocytes 25.2 % (21.0-51.0); %Monocytes 7.6 % (0.0-10.0); %Neutrophils 63.8 % (42.0-75.0); Mean Corpuscular HGB CONC 32.1 g/dL (32.0-36.0); Mean Corpuscular Hemoglobin 31.6 pg (27.0-31.0); Mean Corpuscular Volume 98.3 fL (78.0-98.0); Mean Platelet Volume 7.1 fL (7.4-10.4); Platelet Count 169 thou/uL (130-400); RBC Distribution Width 15.7 % (11.5-14.5); Red Blood Cell (RBC) Count 4.45 mill/uL (4.70-6.10); White Blood Cell (WBC) Count 4.9 thou/uL (4.8-10.8)
[2017-11-06 22:18] LABS: ALT (SGPT) 8 U/L (8-55); AST (SGOT) 16 U/L (5-34); Albumin 3.7 g/dL (3.4-4.8); Alkaline Phosphatase 119 U/L (40-150); Anion Gap 12 mmol/L (10-20); BUN (Urea Nitrogen) 21 mg/dL (8.4-25.7); Bilirubin, Total 0.4 mg/dL (0.2-1.2); CK (CPK) 56 U/L (30-200); Calc. Creatinine Clearance 0 mL/min (70-130); Carbon Dioxide 24 mmol/L (23-31); Chloride 109 mmol/L (98-107); Estimated GFR-MDRD 49; Glucose 116 mg/dL (80-115); Potassium 3.9 mmol/L (3.5-5.1); Protein, Total 6.7 g/dL (5.8-8.1); Sodium 141 mmol/L (136-145)
[2017-11-06 22:19] LABS: CKMB 1.6 ng/mL (0-6.6); Troponin I Less than 0.010 ng/mL (< 0.028)
--- NOTE | 2017-11-06 23:47 | CT ---
CT ANGIOGRAM CHEST 11/06/17 COMPARISON: 06/20/17. HISTORY: Right sided chest pain. TECHNIQUE: Serial axial CT imaging obtained at 2.5 mm intervals from thoracic inlet through upper abdomen with I V contrast using a CT angiogram protocol. Coronal and sagittal 3D reformatted imaging obtained. FINDINGS: Midline sternotomy wires are present. No lymphadenopathy is seen within the axillary, mediastinal or hilar regions. There is marked atrophy of the left kidney, only partially imaged. Upper abdomen is gr ossly unremarkable otherwise. No significant pleural, pericardial or mediastinal fluid. There is athe rosclerotic calcification of the aortic arch. There is a mechanical aortic valve present. There is no filling defect seen to suggest the presence of acute pulmonary embolism. There is severe emphysematous changes within bilateral lungs with an upper lobe predominance, right g reater than left. There is no pneumothorax noted on either side. No focal area of pulmonary parenchymal consolidation. No discrete pulmonary parenchymal mass lesion or nodule noted. Review of the osseous structures demon strates no worrisome lytic or blastic lesion. IMPRESSION: No evidence of acute pulmonary embolism. POS: [facility]
[2017-11-06] MEDS ORDERED: Ketorolac Tromethamine 30 MG/ML VIAL ONE (23:59)
== END 2017-11-07 00:31 | disposition home or self-care (01) ==
LOC: ERS 21:00
DX: R07.89 Other chest pain (principal); I10 Essential (primary) hypertension; F17.210 Nicotine dependence, cigarettes, uncomplicated
CPT/HCPCS: 36415; 71045; 71275; 80053; 82553; 84484; 85025; 93005; 96372; J1885

== ENCOUNTER 2018-06-06 16:18 | Emergency (ER) | payer SELFPAY ==
[2018-06-06] MEDS ORDERED: Nitroglycerin 0.4 MG TAB 1 EACH ONE (16:31)
--- NOTE | 2018-06-06 16:41 | RAD ---
CHEST ONE VIEW: 06/06/18 HISTORY: Chest pain. COMPARISON: Radiograph 11/06/17. FINDINGS: There is extensive scarring in both lower lobes. Large bulla in the upper lobes. No pneumothorax. IMPRESSION: No acute intrathoracic abnormality. POS: [facility]
[2018-06-06 16:57] LABS: #Basophils 0.1 thou/uL (0.0-0.2); #Eosinphils 0.1 thou/uL (0.0-0.7); #Lymphocytes 1.6 thou/uL (1.20-3.40); #Monocytes 0.4 thou/uL (0.11-0.59); %Eosinophils 1.1 % (0.0-10.0); %Lymphocytes 22.5 % (21.0-51.0); %Monocytes 5.2 % (0.0-10.0); %Neutrophils 70.3 % (42.0-75.0); Hemoglobin 17.2 g/dL (14.0-18.0); Mean Corpuscular HGB CONC 34.4 g/dL (32.0-36.0); Mean Corpuscular Hemoglobin 35.4 pg (27.0-31.0); Mean Platelet Volume 6.8 fL (7.4-10.4); Platelet Count 191 thou/uL (130-400); RBC Distribution Width 12.8 % (11.5-14.5); Red Blood Cell (RBC) Count 4.86 mill/uL (4.70-6.10); White Blood Cell (WBC) Count 7.1 thou/uL (4.8-10.8)
[2018-06-06 17:19] LABS: ALT (SGPT) 9 U/L (8-55); AST (SGOT) 18 U/L (5-34); Albumin 4.3 g/dL (3.4-4.8); Alkaline Phosphatase 110 U/L (40-150); Anion Gap 18 mmol/L (10-20); BUN (Urea Nitrogen) 16 mg/dL (8.4-25.7); Bilirubin, Total 0.7 mg/dL (0.2-1.2); CK (CPK) 141 U/L (30-200); Calc. Creatinine Clearance 0 mL/min (70-130); Calcium 9.8 mg/dL (7.8-10.44); Carbon Dioxide 23 mmol/L (23-31); Chloride 104 mmol/L (98-107); Estimated GFR-MDRD 68; Globulin 3.5 g/dL (2.4-3.5); Glucose 89 mg/dL (80-115); Lipase 21 U/L (8-78); Potassium 3.8 mmol/L (3.5-5.1); Protein, Total 7.8 g/dL (5.8-8.1); Sodium 141 mmol/L (136-145)
--- NOTE | 2018-06-06 18:12 | CT ---
CT ANGIOGRAM CHEST WITH CONTRAST: 06/06/18 HISTORY: Elevated D-dimer. Chest pain. Palpitations. COMPARISON: CT angiogram chest 11/06/17. TECHNIQUE: CT angiogram chest performed after the intravenous administration of contrast. 3D rendering provided. FINDINGS: There is no proximal segmental pulmonary arterial filling defect. Prior aortic valve replacement. Severe bulla formation in the upper lobes. Severe background emphysema. No suspicious pulmonary mass. Scarring in both lower lobes. No pneumothorax or effusion. No pericardial effusion. No aneurysmal dilatation of the aorta. There is stranding around the left kidney which is small, a finding which is relatively similar to th e 2018 examination. No thoracic spine compression fracture. Sternum and manubrium are intact with multiple midline sterno shabnam wires. Similar appearance to the peripheral lucency of the cortex with peripheral sclerosis rimma uring 8 mm right lateral 6th rib. Likely a small bone cyst or due to prior trauma. No suspicious lyti c or blastic lesions. IMPRESSION: 1. No proximal segmental pulmonary arterial filling defect. 2. No significant inflammatory process of the chest. 3. Emphysema. 4. Atrophic left kidney. POS: [facility]
== END 2018-06-06 20:38 | disposition home or self-care (01) ==
LOC: ERS 16:18
DX: I16.0 Hypertensive urgency (principal); R07.9 Chest pain, unspecified; F17.210 Nicotine dependence, cigarettes, uncomplicated; I10 Essential (primary) hypertension; Z91.19 Patient's noncompliance with other medical treatment and regimen
CPT/HCPCS: 36415; 71045; 71275; 80053; 82550; 83690; 83880; 84484; 85025; 85379; 93005; 96360; Q9966

== ENCOUNTER 2018-06-07 04:08 | Emergency (ER) | payer SELFPAY ==
[2018-06-07] MEDS ORDERED: Ketorolac Tromethamine 60 MG/2 ML VIAL ONE (05:54)
== END 2018-06-07 07:51 | disposition home or self-care (01) ==
LOC: ERS 04:08
DX: R07.89 Other chest pain (principal); I10 Essential (primary) hypertension; F17.210 Nicotine dependence, cigarettes, uncomplicated
CPT/HCPCS: 36415; 84484; 93005; 96372; J1885

== ENCOUNTER 2018-06-08 10:09 | Observation (INO) | payer SELFPAY ==
--- NOTE | 2018-06-08 11:12 | RAD ---
PA AND LATERAL VIEWS OF CHEST: Date: 06/08/18 HISTORY: Chest pain. FINDINGS: Comparison made with exam of 06/06/18. There are changes of median sternotomy and valvular replacement are again seen. The heart size is nor mal. The aorta is tortuous. The lungs are expanded with stable chronic changes. No focal areas of con solidation, pneumothoraces, or pleural effusions are seen. No acute osseous abnormalities are identif ied. IMPRESSION: No radiographic evidence of acute cardiopulmonary process. POS: [facility]
[2018-06-08 11:40] LABS: #Eosinphils 0.1 thou/uL (0.0-0.7); #Lymphocytes 1.1 thou/uL (1.20-3.40); #Monocytes 0.3 thou/uL (0.11-0.59); #Neutrophils 2.6 thou/uL (1.40-6.50); %Basophils 0.5 % (0.0-1.0); %Eosinophils 1.6 % (0.0-10.0); %Lymphocytes 26.2 % (21.0-51.0); %Monocytes 8.2 % (0.0-10.0); %Neutrophils 63.5 % (42.0-75.0); Hemoglobin 14.3 g/dL (14.0-18.0); Mean Corpuscular HGB CONC 32.6 g/dL (32.0-36.0); Mean Platelet Volume 6.6 fL (7.4-10.4); Platelet Count 184 thou/uL (130-400); RBC Distribution Width 12.9 % (11.5-14.5); Red Blood Cell (RBC) Count 4.21 mill/uL (4.70-6.10); White Blood Cell (WBC) Count 4.1 thou/uL (4.8-10.8)
[2018-06-08 12:06] LABS: ALT (SGPT) 9 U/L (8-55); AST (SGOT) 18 U/L (5-34); Albumin 3.6 g/dL (3.4-4.8); Alkaline Phosphatase 87 U/L (40-150); Anion Gap 10 mmol/L (10-20); BUN (Urea Nitrogen) 19 mg/dL (8.4-25.7); Bilirubin, Total 0.6 mg/dL (0.2-1.2); CK (CPK) 115 U/L (30-200); Calc. Creatinine Clearance 0 mL/min (70-130); Calcium 8.9 mg/dL (7.8-10.44); Carbon Dioxide 26 mmol/L (23-31); Chloride 105 mmol/L (98-107); Estimated GFR-MDRD 60; Glucose 73 mg/dL (80-115); Protein, Total 6.6 g/dL (5.8-8.1); Sodium 137 mmol/L (136-145)
[2018-06-08] MEDS ORDERED: Aspirin Chewable 81 MG TAB ONE (13:30)
--- NOTE | 2018-06-08 13:41 | PDOC.FPRHP ---
- History of Present Illness Chief Complaint: Chest Pain History of Present Illness: Mr Treviño is a 63yo male with pmh of HFpEF, Severe aortic valve stenosis s/p porcine valve replacement presenting with chest pain. He reports the CP has been present on and off since his Aortic valve replacement surgery and is sharp in nature. Located over scar over right 2nd intercoastal space. It only lasts a few seconds when it occurs, does not radiate, not a/w SOB or diaphoresis. Denies orthopnea, Paroxysmal nocturnal dysnea. He is very active and walks long distances without pain. Reports pain does occur when walking up stairs. Relieved with rest. Has been out of his medications for ~2 months. Does not know what meds he takes. Hx of father with valvular disease and IN. Normal CTA . ED Course: ASA - Allergies/Adverse Reactions Allergies Allergy/AdvReac Type Severity Reaction Status Date / Time No Known Drug Allergies Allergy Verified 06/08/18 15:50 - Home Medications Medication Instructions Recorded Confirmed Type Amlodipine [Norvasc] 5 mg PO DAILY #0 tab 06/09/18 Rx Aspirin [Ecotrin Regular Strength] 325 mg PO DAILY tab 06/09/18 Rx Atorvastatin Calcium [Lipitor] 20 mg PO HS tab 06/09/18 Rx Carvedilol [Coreg] 6.25 mg PO BID-WM tab 06/09/18 Rx - History PMHx: HTN, Tobacco abuse, alcohol abuse, CKD, HFpEF PSHx: Porcine aortic valve replacement 05/2017, tonsillectomy FHx: Father of [place] age 45 Social: Smokes 2-3 cigarettes per day. Hx of 46yr hx <1ppd. Drinks alcohol on weekends, beer and liquor - never daily drinker. Uses marijuana. - Review of Systems General: denies: fever/chills, weight/appetite/sleep changes, fatigue Eyes: denies: eye pain, vision changes ENT: denies: nasal congestion, rhinorrhea Respiratory: denies: cough, congestion, shortness of breath Cardiovascular: reports: chest pain Gastrointestinal: denies: diarrhea, constipation Genitourinary: denies: dysuria, polyuria Skin: denies: rashes, lesions Musculoskeletal: denies: pain, swelling Neurological: denies: weakness - Vital signs BP: 177/111 HR: 74 RR: 15 Tmax: 97.9 Pox: 98% on RA Wt: 74.84kg - Physical Exam Constitutional: NAD, awake, alert and oriented, well developed HEENT: normocephalic and atraumatic, no scleral icterus, MMM, other (poor dentition) Neck: supple, trachea midline, no JVD, no bruits Chest: other (sternotomy scar and transvere incision scar over right 2nd intercoastal space) Heart: RRR, no murmurs/rubs/gallops Lungs: CTAB, no respiratory distress, no wheezing Abdomen: soft, non-tender, bowel sounds present Musculoskeletal: normal structure, normal tone, ROM grossly normal Neurological: no focal deficit Skin: no rash/lesions, capillary refill <2 seconds Psychiatric: normal mood and affect, good judgment and insight, intact recent and remote memory FMR H&P: Results - Labs Result Diagrams: 06/08/18 11:20 06/08/18 11:20 Lab results: WBC 4.1 thou/uL (4.8-10.8) L 06/08/18 11:20 Hgb 14.3 g/dL (14.0-18.0) 06/08/18 11:20 Hct 43.9 % (42.0-52.0) 06/08/18 11:20 MCV 104.0 fL (78.0-98.0) H 06/08/18 11:20 Plt Count 184 thou/uL (130-400) 06/08/18 11:20 Neutrophils % 63.5 % (42.0-75.0) 06/08/18 11:20 Sodium 137 mmol/L (136-145) 06/08/18 11:20 Potassium 4.0 mmol/L (3.5-5.1) 06/08/18 11:20 Chloride 105 mmol/L (98-107) 06/08/18 11:20 Carbon Dioxide 26 mmol/L (23-31) 06/08/18 11:20 BUN 19 mg/dL (8.4-25.7) 06/08/18 11:20 Creatinine 1.44 mg/dL (0.7-1.3) H 06/08/18 11:20 Glucose 73 mg/dL (80-115) L 06/08/18 11:20 Calcium 8.9 mg/dL (7.8-10.44) 06/08/18 11:20 Total Bilirubin 0.6 mg/dL (0.2-1.2) 06/08/18 11:20 AST 18 U/L (5-34) 06/08/18 11:20 ALT 9 U/L (8-55) 06/08/18 11:20 Alkaline Phosphatase 87 U/L (40-150) 06/08/18 11:20 Creatine Kinase 115 U/L (30-200) 06/08/18 11:20 Serum Total Protein 6.6 g/dL (5.8-8.1) 06/08/18 11:20 Albumin 3.6 g/dL (3.4-4.8) 06/08/18 11:20 - EKG Interpretation EKG: EKG shows normal sinus rhythm, Rate (beats per minute): 72, Similar to old EKG, T waves, T wave abnormality, consider lateral ischemia, [place], left, possible L atrial enlargement, no change from 06/07/18. - Radiology Interpretation Chest x-ray Status: report reviewed by me Additional comment: No acute process FMR H&P: A/P - Problem List (1) Atypical chest pain Current Visit: Yes Status: Acute Code(s): R07.89 - OTHER CHEST PAIN (2) Acute on chronic diastolic (congestive) heart failure Current Visit: No Status: Acute Code(s): I50.33 - ACUTE ON CHRONIC DIASTOLIC (CONGESTIVE) HEART FAILURE (3) S/P aortic valve replacement with porcine valve Current Visit: No Status: Acute Code(s): Z95.3 - PRESENCE OF XENOGENIC HEART VALVE (4) CKD (chronic kidney disease) stage 2, GFR 60-89 ml/min Current Visit: No Status: Chronic Code(s): N18.2 - CHRONIC KIDNEY DISEASE, STAGE 2 (MILD) (5) HTN (hypertension) Current Visit: No Status: Chronic Code(s): I10 - ESSENTIAL (PRIMARY) HYPERTENSION (6) Tobacco abuse Current Visit: No Status: Chronic Code(s): Z72.0 - TOBACCO USE - Plan Mr Treviño is a 63yo male with pmh of HFpEF, Severe aortic valve stenosis s/p bioprosthetic valve replacement and CAD s/p CABG 03/2019 presenting with chest pain. Atypical Chest Pain - Trop neg x1, will continue to trend - CXR wnl, EKG no ST segment changes - Cath normal - HEART score: 3 - FLP in AM - CT on 06/06 with no acute inflammatory process, no evidence of PE - ASA daily - Admit to tele obs Severe Aortic Stenosis s/p bioprosthetic Valve replacement - Per op report 05/2017 pt had incision over 2nd right intercoastal space (where pain is present) - Afterwards there was postop complication of bleeding where he went to the OR and ultimately needed sternotomy to control bleed. - Reported hx of CABG but he had nml cath 05/2017, this may have been confused by his sternotomy scar HFpEF - Echo 05/2017: EF 2/3 diastolic dysfunction - Ordered Echo - Currently on no medications, noncompliance - Strict I&Os, daily weights, HH diet - Will restart medications and switch from metoprolol to Coreg due to pts HTN HTN - Will start Amlodipine for HTN, holding off on starting Lisinopril due to high risk for loss to f/u, no way to monitor labs - Will start Coreg in place of Lopressor - Labetalol PRN for SBP >180 CKD2, stable - Continue to monitor Tobacco Abuse - Encourage cessation Alcohol Abuse - Encourage cessation - No concern for withdrawal based on hx Marijuana abuse - Encourage cessation Code Status: FULL DVT ppx: Lovenox PCP: None FMR H&P: Upper Level - Pertinent findings PHYSICAL EXAM: GEN: NAD CARDIO: RRR, no MRG LUNGS: lungs CTAB, no wheezes, ronchi MSK: MAEW, no edema, pulses present and strong. CXR: no acute abnormality CT 06/06: Bullous lung parenchymal changes related to emphysema, No chest wall abnormality seen outside of scarring. - Plan Date/Time: 06/08/18 1340 Earnest Walls, have evaluated this patient and agree with findings/plan as outlined by manager internet retails sales resident. Pertinent changes/additions are listed here. 63 y/o M with CAD 2018 admitted for chest pain. 1. Atypical chest pain Pain reproducible on R upper ribs consistent with his history and in the same area as his incision from surgery in 2018. Troponin negative x1, trend x3; EKG w/o acute changes, and pain has now resolved in the ED. Will Rx NSAIDS PRN. Cath in May 2017, and will hold off on stress test. 2. HTN Has not been taking medications, will start CCB.BB as he has poor f/u, but would benefit from TERA therapy. Asymptomatic. 3. Hx/o aortic valve replacement- no acute issues, admits to not following up with physician after surgery in 2018. 4. COPD No acute issues, not reportedly on any medications. Smoker and counseled on cessation. 5. Hx/o ETOH Abuse: Drinks on weekends. Will monitor for signs or symptoms of withdrawal. 6. Cannabis/Tobacco Abuse Counseled to discontinue use. 7. HFpEF: ECHO 05/2018, will repeat. Dispo: anticipate discharge in 1day. Addendum - Attending - Attending Attestation Date/Time: 06/09/18 8508 I personally evaluated the patient and discussed the management with Dr. Lopez on 06/08/2018 I agree with the History, Examination, Assessment and Plan documented above with any addition or exceptions noted below- Mr Treviño is a 63yo male with pmh of HFpEF, Severe aortic valve stenosis s/p biosynthetic valve replacement presenting with chest pain. He reports the CP has been present on and off since his Aortic valve replacement surgery and is sharp in nature. Located over scar over right 2nd intercoastal space. It only lasts a few seconds when it occurs, does not radiate, not a/w SOB or diaphoresis. Denies orthopnea, Paroxysmal nocturnal dysnea. He is very active and walks long distances without pain. PMH/ PSH/Meds/SH reviewed and agree with resident's documentation. Afebrile P75 BP172/99 94%RA Exam repeated by me and agree with resident's findings including reproducible chest pain over right chest wall near sternum. LABS: trop I neg x 2. EKG- NSR, no ST changes. A/P: 1) Atypical chest pain- place in obs. Serial cardiac enzymes. 2) HTN- restart BP medications.
[2018-06-08] MEDS ORDERED: Labetalol HCl 100 MG/20 ML VIAL SLOW IVP PRN (15:47)
[2018-06-08 15:53] VITALS: BMI 23.0
[2018-06-08 16:28] LABS: Troponin I Less than 0.010 ng/mL (< 0.028)
[2018-06-08] MEDS: Carvedilol 6.25 MG TAB PO SCH (16:41)
[2018-06-08 19:41] LABS: Troponin I Less than 0.010 ng/mL (< 0.028)
[2018-06-08] MEDS ORDERED: Lisinopril 10 MG TAB PO SCH (21:00)
[2018-06-08] MEDS ORDERED: Metoprolol Tartrate 50 MG TAB PO SCH (21:00)
[2018-06-08] MEDS ORDERED: Atorvastatin Calcium 20 MG TAB PO SCH (21:00)
[2018-06-09 06:04] LABS: Cardiac Risk 3.1 (Less than 4.5)
--- NOTE | 2018-06-09 06:34 | PDOC.FM ---
- Subjective Subjective: Feeling well this morning. Denies chest pain, shortness of breath. Lives with sister. Unemployed. Reports noncompliance is due to inability to afford copay for PCP and medications. - Objective MAR Reviewed: Yes Vital Signs & Weight: Vital Signs (12 hours) Temp Pulse Resp BP BP Pulse Ox 06/09/18 02:58 98 F 76 16 160/99 H 93 L 06/08/18 19:15 98.5 F 82 12 123/78 93 L Weight Weight 74.843 kg I&O: 06/07/18 06/08/18 06/09/18 06:59 06:59 06:59 Intake Total 400 Output Total 200 Balance 200 Result Diagrams: 06/08/18 11:20 06/08/18 11:20 Phys Exam - Physical Examination Constitutional: NAD HEENT: moist MMs Neck: supple Respiratory: no wheezing, clear to auscultation bilateral Cardiovascular: RRR, no significant murmur Gastrointestinal: soft, non-tender, positive bowel sounds Musculoskeletal: no edema, pulses present Neurological: non-focal, moves all 4 limbs Psychiatric: normal affect, A&O x 3 Skin: cap refill <2 seconds Dx/Plan (1) Atypical chest pain Code(s): R07.89 - OTHER CHEST PAIN Status: Acute (2) Acute on chronic diastolic (congestive) heart failure Code(s): I50.33 - ACUTE ON CHRONIC DIASTOLIC (CONGESTIVE) HEART FAILURE Status : Acute (3) S/P aortic valve replacement with porcine valve Code(s): Z95.3 - PRESENCE OF XENOGENIC HEART VALVE Status: Acute (4) CKD (chronic kidney disease) stage 2, GFR 60-89 ml/min Code(s): N18.2 - CHRONIC KIDNEY DISEASE, STAGE 2 (MILD) Status: Chronic (5) HTN (hypertension) Code(s): I10 - ESSENTIAL (PRIMARY) HYPERTENSION Status: Chronic (6) Tobacco abuse Code(s): Z72.0 - TOBACCO USE Status: Chronic - Plan Plan: Mr Treviño is a 63yo male with pmh of HFpEF, Severe aortic valve stenosis s/p bioprosthetic valve replacement and CAD s/p CABG 03/2019 presenting with chest pain. Atypical Chest Pain - Trop neg x3 - CXR wnl, EKG no ST segment changes - Cath no CAD 05/2017 - HEART score: 3 - CT on 06/06 with no acute inflammatory process, no evidence of PE - Continue ASA - FLP wnl - Echo today Severe Aortic Stenosis s/p bioprosthetic Valve replacement - Per op report 05/2017 pt had incision over 2nd right intercoastal space (where pain is present) - Afterwards there was postop complication of bleeding where he went to the OR and ultimately needed sternotomy to control bleed. - Reported hx of CABG but he had nml cath 05/2017, this may have been confused by his sternotomy scar HFpEF - Echo 05/2017: EF 2/3 diastolic dysfunction - Strict I&Os, daily weights, HH diet - Echo today - Continue Coreg HTN - Continue Coreg and Amlodipine - Labetalol PRN for SBP >180 CKD2, stable - Continue to monitor Tobacco Abuse - Encourage cessation Alcohol Abuse - Encourage cessation - No concern for withdrawal based on hx Marijuana abuse - Encourage cessation Medication Noncompliance - CM consulted Code Status: FULL DVT ppx: Lovenox PCP: None Addendum - Attending - Attending Attestation Date/Time: 06/09/18 1900 I personally evaluated the patient and discussed the management with Dr. Demetra Lopez I agree with the History, Examination, Assessment and Plan documented above with any addition or exceptions noted below.Need to optimize BP control Echocardiogram today . Note normal heart catherization within 2 years
[2018-06-09] MEDS ORDERED: Enoxaparin Sodium 40 MG/0.4 ML SYRINGE SC SCH (09:00)
[2018-06-09] MEDS ORDERED: Aspirin 325 mg Enteric Coated Tablet PO SCH (09:00)
[2018-06-09] MEDS ORDERED: Amlodipine 5 MG TAB PO SCH (09:00)
[2018-06-09] MEDS: Carvedilol 6.25 MG TAB PO SCH ×2 (09:33→17:46)
[2018-06-09 16:30] VITALS: TEMP 98.2
[2018-06-09 17:46] VITALS: BP 158/88
--- NOTE | 2018-06-10 11:25 | DIS ---
DATE OF ADMISSION: 06/08/2018 DATE OF DISCHARGE: 06/09/2018 RESIDENT: Aissatou Lopez MD, PGY-1. ADMITTING ATTENDING: Patti Corea MD DISCHARGE ATTENDING: Alok Sinclair MD CONSULT: None. PROCEDURES: 1. Chest x-ray: No evidence of acute cardiopulmonary process. 2. Echo, ejection fraction of 50% to 55%. Grade 1/3 diastolic dysfunction. 3. They actually did do an abdominal ultrasound to look for liver pathology on [place]. PRIMARY DIAGNOSIS: Atypical chest pain. SECONDARY DIAGNOSES: 1. Aortic stenosis, status by bioprosthetic valve replacement. 2. Heart failure with preserved ejection fraction. 3. Hypertension. 4. Chronic kidney disease 2, stable. 5. Tobacco abuse. 6. Alcohol abuse. 7. Marijuana abuse. 8. Medication noncompliance. DISCHARGE MEDICATIONS: 1. Aspirin 325 mg daily. 2. Atorvastatin 40 mg daily. 3. Amlodipine 5 mg daily. 4. Carvedilol 6.25 mg b.i.d. DISCONTINUED MEDICATIONS: None. HISTORY OF PRESENT ILLNESS/HOSPITAL COURSE: Mr. Treviño is a 63-year-old male with past medical history of heart failure and severe aortic valve stenosis, status post porcine valve replacement, presenting with atypical chest pain, nonexertional with EKG showed no ST-segment changes. Troponins were negative x3. Normal CTA performed on 06/06/2018. Catheterization by Dr. Sotelo showed no evidence of CAD. He received aspirin and was chest pain free at admission and continued to be throughout the course of hospitalization. It was found that he had social concerns of homelessness. Case management was consulted and they arranged transportation for him and provided education on the homeless alf in [facility]. For his severe aortic stenosis, this is stable and likely the incision is a source of his pain. He did report having a CABG, but looking through his records, there is no evidence of him having a CABG or stent placement. He does have a sternotomy scar, but this is secondary to a postop complication after his valve placement, where he went to the OR and procedure converted to sternotomy to control bleed. He has heart failure with preserved ejection fraction, echo was performed and the patient showing grade 1/3 diastolic dysfunction. He is noncompliant with his medications those were started this hospitalization, but was switched from metoprolol to Coreg for better control of the patient's hypertension. Hypertension. We did not choose to restart lisinopril because of the patient's lack to follow up for electrolyte evaluations. He was started instead on amlodipine and Coreg in place of the Lopressor he had been taking. His CKD 2 was stable. For his tobacco abuse, alcohol abuse, and marijuana abuse, we encouraged cessation. DISPOSITION: Stable. DISCHARGE INSTRUCTIONS: 1. Location: [facility]. 2. Diet: Heart healthy. 3. Activity: No restrictions. FOLLOWUP: Follow up with [facility] within 1 week of discharge. Job ID: [id number] [facility]
== END 2018-06-09 18:04 | disposition home or self-care (01) ==
LOC: ERS 10:09 → ERHOLD 13:34 → 2SW 15:28
PROVIDERS: ADMIT Family Medicine; ATTEND Family Medicine
DX: R07.89 Other chest pain (principal); I35.0 Nonrheumatic aortic (valve) stenosis; I13.0 Hypertensive heart and chronic kidney disease with heart failure and stage 1 through stage 4 chronic kidney disease, or unspecified chronic kidney disease; N18.2 Chronic kidney disease, stage 2 (mild); I50.30 Unspecified diastolic (congestive) heart failure; Z59.0 Homelessness; Z91.14 Patient's other noncompliance with medication regimen; Z95.4 Presence of other heart-valve replacement
CPT/HCPCS: 36415; 71046; 80053; 80061; 82550; 84484; 85025; 90471; 90686; 90732; 93005; 93306; 96372; G0008; G0009; G0378; J1650

== ENCOUNTER 2018-06-10 02:54 | Observation (INO) | payer SELFPAY ==
[2018-06-10 03:31] LABS: Mean Corpuscular HGB CONC 32.6 g/dL (32.0-36.0); Mean Corpuscular Hemoglobin 33.8 pg (27.0-31.0); Platelet Count 177 thou/uL (130-400); RBC Distribution Width 12.7 % (11.5-14.5); Red Blood Cell (RBC) Count 4.73 mill/uL (4.70-6.10); White Blood Cell (WBC) Count 5.9 thou/uL (4.8-10.8)
[2018-06-10 03:49] LABS: ALT (SGPT) 9 U/L (8-55); AST (SGOT) 16 U/L (5-34); Albumin 3.8 g/dL (3.4-4.8); Alkaline Phosphatase 104 U/L (40-150); Anion Gap 14 mmol/L (10-20); BUN (Urea Nitrogen) 17 mg/dL (8.4-25.7); Bilirubin, Total 0.9 mg/dL (0.2-1.2); Calc. Creatinine Clearance 0 mL/min (70-130); Calcium 9.4 mg/dL (7.8-10.44); Carbon Dioxide 27 mmol/L (23-31); Chloride 102 mmol/L (98-107); Estimated GFR-MDRD 58; Globulin 3.4 g/dL (2.4-3.5); Glucose 99 mg/dL (80-115); Lipase 20 U/L (8-78); Potassium 4.5 mmol/L (3.5-5.1); Protein, Total 7.2 g/dL (5.8-8.1); Sodium 138 mmol/L (136-145)
[2018-06-10 03:51] LABS: Lymphocytes 11 % (21-51); MDiff Complete? YES; Macrocytosis SLIGHT = 6-15 cells (100X) (0-5/hpf); Monocytes 2 % (0-10); Neutrophil 87 % (42-75); Platelet Morphology Comment Appears Adequate
[2018-06-10] MEDS ORDERED: Nitroglycerin 0.4 MG TAB 1 EACH ONE (04:06)
[2018-06-10] MEDS ORDERED: Aspirin 325 MG TAB ONE (04:06)
[2018-06-10] MEDS ORDERED: Ondansetron PF 4 MG/2 ML Vial IVP PRN (06:08)
[2018-06-10] MEDS ORDERED: Ondansetron ODT 4 MG TAB PO PRN (06:09)
--- NOTE | 2018-06-10 06:17 | PDOC.FPRHP ---
- History of Present Illness Chief Complaint: chest pain History of Present Illness: 63 yo M with PMH HFpEF, severe aortic stenosis s/p porcine valve replacement presents with CC chest pain. Patient was discharged yesterday afternoon, went to a friend's house then around midnight began to have R sided chest pain over previous incision again. No aggravating or alleviating factors. No radiation, N/ V, SOB. Pain is intermittent, reproducible to palpation and the same as before. Pain has improved but still mild. Pt has not eaten for >8 hrs. Patient denies any home medications. Says he is unaware where he could follow up in clinic. ED Course: RUQ US negative - Allergies/Adverse Reactions Allergies Allergy/AdvReac Type Severity Reaction Status Date / Time No Known Drug Allergies Allergy Verified 06/10/18 06:18 - Home Medications Medication Instructions Recorded Confirmed Type Amlodipine [Norvasc] 1 tab PO DAILY 06/10/18 06/10/18 History Aspirin 1 tab PO DAILY 06/10/18 06/10/18 History Atorvastatin Calcium [Lipitor] 1 tab PO DAILY 06/10/18 06/10/18 History Carvedilol 6.25 mg PO BID 06/10/18 06/10/18 History - History PMHx: HTN, tobacco abuse, alcohol abuse, CKD, HFpEF PSHx: porcine aortic valve replacement 05/2017, tonsillectomy FHx:father of [place] at age 45 Social: smokes 4 cigarettes a day for 46 years. Drinks approx a pint of vodka a week, uses marijuana occasionally - Review of Systems General: denies: fever/chills, weight/appetite/sleep changes Eyes: denies: eye pain, vision changes ENT: denies: nasal congestion, rhinorrhea Respiratory: denies: cough, congestion, shortness of breath Cardiovascular: reports: chest pain. denies: palpitation, orthopnea Gastrointestinal: denies: nausea, vomiting, diarrhea, constipation, abdominal pain Genitourinary: denies: dysuria, polyuria Skin: denies: rashes, lesions Musculoskeletal: denies: pain, arthritis/arthralgias Neurological: reports: numbness. denies: syncope, seizure Psychological: denies: anxiety, depression - Vital signs BP: [149/97] HR: [71] RR: [18] Tmax: [97.8] Pox: [99]% on [RA] Wt: [74.8 kg] - Physical Exam HEENT: normocephalic and atraumatic, PERRLA, EOMI, conjunctiva clear, no scleral icterus, MMM, oropharynx clear Neck: supple, FROM, trachea midline -Chest: tender to palpation over sternum and scar from valve replacement Heart: RRR, normal S1/S2, no murmurs/rubs/gallops Lungs: CTAB, no respiratory distress, good air movement, no rales/rhonchi, no wheezing Abdomen: soft, non-tender, bowel sounds present Musculoskeletal: normal structure, ROM grossly normal Neurological: no focal deficit, CN II-XII intact Skin: no rash/lesions Heme/Lymphatic: no purpura, no petechia Psychiatric: normal mood and affect -Psychiatric: patient seems unaware of what medical tests have recently been performed on him FMR H&P: Results - Labs Result Diagrams: 06/10/18 03:22 06/10/18 03:22 Lab results: WBC 5.9 thou/uL (4.8-10.8) 06/10/18 03:22 Hgb 16.0 g/dL (14.0-18.0) 06/10/18 03:22 Hct 49.1 % (42.0-52.0) 06/10/18 03:22 MCV 104.0 fL (78.0-98.0) H 06/10/18 03:22 Plt Count 177 thou/uL (130-400) 06/10/18 03:22 Sodium 138 mmol/L (136-145) 06/10/18 03:22 Potassium 4.5 mmol/L (3.5-5.1) 06/10/18 03:22 Chloride 102 mmol/L (98-107) 06/10/18 03:22 Carbon Dioxide 27 mmol/L (23-31) 06/10/18 03:22 BUN 17 mg/dL (8.4-25.7) 06/10/18 03:22 Creatinine 1.48 mg/dL (0.7-1.3) H 06/10/18 03:22 Glucose 99 mg/dL (80-115) 06/10/18 03:22 Lactic Acid 1.2 mmol/L (0.5-2.2) 06/10/18 03:22 Calcium 9.4 mg/dL (7.8-10.44) 06/10/18 03:22 Total Bilirubin 0.9 mg/dL (0.2-1.2) 06/10/18 03:22 AST 16 U/L (5-34) 06/10/18 03:22 ALT 9 U/L (8-55) 06/10/18 03:22 Alkaline Phosphatase 104 U/L (40-150) 06/10/18 03:22 Serum Total Protein 7.2 g/dL (5.8-8.1) 06/10/18 03:22 Albumin 3.8 g/dL (3.4-4.8) 06/10/18 03:22 Lipase 20 U/L (8-78) 06/10/18 03:22 FMR H&P: A/P - Problem List (1) Atypical chest pain Current Visit: Yes Status: Acute Code(s): R07.89 - OTHER CHEST PAIN (2) (HFpEF) heart failure with preserved ejection fraction Current Visit: Yes Status: Acute Code(s): I50.30 - UNSPECIFIED DIASTOLIC ( CONGESTIVE) HEART FAILURE (3) S/P aortic valve replacement with porcine valve Current Visit: Yes Status: Acute Code(s): Z95.3 - PRESENCE OF XENOGENIC HEART VALVE (4) Alcohol abuse Current Visit: Yes Status: Chronic Code(s): F10.10 - ALCOHOL ABUSE, UNCOMPLICATED (5) CKD (chronic kidney disease) stage 2, GFR 60-89 ml/min Current Visit: Yes Status: Chronic Code(s): N18.2 - CHRONIC KIDNEY DISEASE, STAGE 2 (MILD) (6) HTN (hypertension) Current Visit: Yes Status: Chronic Code(s): I10 - ESSENTIAL (PRIMARY) HYPERTENSION (7) Tobacco abuse Current Visit: Yes Status: Chronic Code(s): Z72.0 - TOBACCO USE (8) Marijuana abuse Current Visit: Yes Status: Acute Code(s): F12.10 - CANNABIS ABUSE, UNCOMPLICATED - Plan Atypical chest pain, likely MSK - Heart score 3, Has hx cath in 05/2017 showing no CAD. Patient has had multiple presentations to ED. - tylenol prn pain - trop neg x1, continue to trend. - EKG showed t wave inversions, however unchanged compared to previous admission - plan for stress test today. HTN - patient denies home medications. Hold home carvedilol, continue home amlodipine. HLD - continue home atorvastatin CKD2 - at baseline HFpEF - echo done yesterday ago confirming diagnosis s/p aortic valve replacement 05/2017 Substance abuse - reports tobacco, alcohol, drug use - UDS pending Ppx: Lovenox Diet: NPO Dispo: admit to telemetry for observation, likely d/c home later today FMR H&P: Upper Level - Pertinent history 63 yr old male with PMH of severe aortic stenosis s/p TAVR in 05/2017 who presents with c/o chest pain. Chest pain started at rest and says it feels like his muscle is tightening. The pain is present just beneath his scar from the TAVR. It does not radiate and is not associated with nausea, vomiting, diaphoresis, movement. He states it was made better after he was given medicine here. He was given an aspirin and a dose of nitro SL. He has been seen for similar chest pain the last 3 days and admitted yesterday for it. An ECHO was performed showing grade 1/3 diastolic dysfunction with EF 50-55%. He had a cath 1 year ago in 05/2017 which showed no CAD. At that time he was having symptomatic aortic stenosis and subsequently underwent TAVR. - Pertinent findings Gen: no acute distress, heart: RRR, no M/R/G Lungs: CTAB, no wheezing, rhales, rhonchi Abd: +BS, non tender to palpation Ext: no LE edema EKG: no ST sesgment change, inverted T waves in V5-6. - Plan Date/Time: 06/10/18 0617 I, [Delicia Mathews], have evaluated this patient and agree with findings/plan as outlined by internet database specialist resident. Pertinent changes/additions are listed here. 63 yr old male with PMH of aortic valve stenosis atypical chest pain -trop neg x1 at time of admission -neg cath a year ago however due to patient's high utilization of ER, will stress this AM HFpEF -grade 1 diastolic dysfunction on ECHO yesterday HTN -medication noncompliance likely due to patient's financial status hx of severe aortic stenosis s/p TAVR see internet database specialist note for remainder of chronic medical and social problems PCP: none, CC Code status: FULL Addendum - Attending - Attending Attestation Date/Time: 06/10/18 1780 I personally evaluated the patient and discussed the management with Dr. Hodges I agree with the History, Examination, Assessment and Plan documented above with any addition or exceptions noted below. 63 yo male with recent admission with atypical CP felt to be musculoskeletal after evaluation echocardiogram done and trended troponins and had serial EKGs. Patient s/p TAVR May 2017 Dr Pérez Elizabeth and Heart cath 06/20/2017 Dr Deepak Elizabeth notable for normal Coronary arteries. Patient will be placed back in observation and extend workup with stress test and formal Cardiology consultation . Will use this observation time for further opportunity via consultation with case management associate to attempt to find housing options for this currently homeless gentleman.
[2018-06-10 06:26] VITALS: BMI 21.7
--- NOTE | 2018-06-10 07:51 | ULT ---
PRELIMINARY REPORT/[facility]/EMERGENT[facility] AFTER-HOURS PROCEDURE US Abdomen Limited, Right Upper Quadrant EXAM DATE/TIME: 06/10/2018 3:28 AM CLINICAL HISTORY: 63 years old, male; Pain and signs and symptoms; Nausea and other: Diarrhea; Abdominal pain; Localize d; Right upper quadrant (ruq) TECHNIQUE: Real-time ultrasound of the abdomen with image documentation. Examination was focused on the right up per quadrant. COMPARISON: No relevant prior studies available. FINDINGS: Liver: Normal. No masses. Gallbladder: Normal. No gallstones. There is no gallbladder wall thickening. A negative sonographic M urphy sign is reported. Common bile duct: Normal. No stones. No dilation. Pancreas: Visualized pancreas is unremarkable. Right kidney: Normal. No mass. No hydronephrosis. Measures 11.3 x 4.9 x 4.8 cm. IMPRESSION: No acute findings. Thank you for allowing us to participate in the care of your patient. Dictated and Authenticated by: Bg Smith MD 06/10/2018 4:28 AM Central Time ([place] & [place]) FINAL REPORT GALLBLADDER ULTRASOUND: HISTORY: Right upper quadrant pain. COMPARISON: None. TECHNIQUE: Utilizing a multihertz transducer, sonographic imaging of the right upper quadrant is performed in th e longitudinal and transverse plane. FINDINGS: This report is in agreement with the preliminary report by [facility]. No sonographic evidence of cholelith iasis. POS: SHERIDAN
--- NOTE | 2018-06-10 08:08 | RAD ---
SINGLE VIEW OF THE CHEST: COMPARISON: 06/06/2018. FINDINGS: A single view of the chest shows a normal-size cardiomediastinal silhouette. The patient is status p ost sternotomy. There is no evidence of consolidation, mass, or pleural effusion. A lucency is seen in the right apex which likely represents either emphysematous change or a large bullae in the right apex. IMPRESSION: No evidence of acute cardiopulmonary disease. POS: SHERIDANH
[2018-06-10] MEDS ORDERED: Atorvastatin Calcium 20 MG TAB PO SCH (09:00)
[2018-06-10] MEDS ORDERED: Amlodipine 5 MG TAB PO SCH (09:00)
[2018-06-10] MEDS ORDERED: Aspirin Chewable 81 MG TAB PO SCH (09:00)
[2018-06-10] MEDS ORDERED: ADENOSINE 60 MG/20 ML VIAL ONE (10:49)
--- NOTE | 2018-06-10 12:14 | PDOC.EVN ---
Event Note - Event Note Event Note: Patient with 4 ED visits within 4 days and 2 admissions within 2 days. He had a cath that showed no evidence of CAD 05/2017. CTA was neg 06/06/18 ruling out PE, Aortic dissection. No evidence of tamponade or pericarditis on echo 06/09/18. Pt denies vomiting, melena. No concern for esophageal perforation. Vital signs have been stable. Will obtain stress test today. Physical exam reveals reproducible chest wall pain most consistent with msk pain after heart surgery. Pt with many social concerns including homelessness. Will work with CM today for safe discharge.
[2018-06-10] MEDS: Aspirin Chewable 81 MG TAB PO SCH (12:42)
[2018-06-10] MEDS: Atorvastatin Calcium 20 MG TAB PO SCH (12:42)
[2018-06-10] MEDS: Amlodipine 5 MG TAB PO SCH (12:43)
[2018-06-10] MEDS: Enoxaparin Sodium 40 MG/0.4 ML SYRINGE SC SCH (12:49)
--- NOTE | 2018-06-10 13:03 | NM ---
NUCLEAR MEDICINE MYOCARDIAL PERFUSION EVALUATION: RADIOPHARMACEUTICAL: 31 mCi and 11 mCi Technetium 99m sestamibi IV administered at stress and rest. INDICATION: ACS, chest pain. FINDINGS: Evaluation of the stress and rest imaging reveals no significant ischemia or scar within the left cindy tricular jacobsen. Gated imaging demonstrates wall motion and contractility of the left ventricle. Th ere is a normal LVEF calculated at 61%. IMPRESSION: 1. Normal myocardial perfusion evaluation without evidence of ischemia or scar. 2. Normal left ventricular systolic function. POS: [facility]
[2018-06-10 13:25] LABS: Amphetamine Not Detected (NotDetected); Barbiturates Screen Not Detected (NotDetected); Benzodiazepine Screen Not Detected (NotDetected); Cocaine Metabolite Screen Not Detected (NotDetected); Medtox Control Line Valid? VALID (VALID); Medtox Reader # READER 4; Methadone Not Detected (NotDetected); Methamphetamine Not Detected (NotDetected); Opiate Screen Not Detected (NotDetected); Oxycodone Screen Not Detected (NotDetected); Phencyclidine (PCP) Not Detected (NotDetected); THC/Cannabinoid Screen Detected (NotDetected); Tricyclic Screen Not Detected (NotDetected)
[2018-06-10] MEDS: Acetaminophen 325 MG TAB PO PRN (18:06)
[2018-06-10] MEDS: Atorvastatin Calcium 40 MG TAB PO SCH (21:13)
[2018-06-11] MEDS: Acetaminophen 325 MG TAB PO PRN ×4 (01:27→21:47)
[2018-06-11 01:30] LABS: HIV (1/2) Antibody/Antigen Non-Reactive (NonReactive)
--- NOTE | 2018-06-11 06:28 | PDOC.FM ---
- Subjective Subjective: Fever overnight to 102, spiked 2nd temp of 101 after dose of Tylenol. Denies chills, cough, SOB, palpitations - Objective MAR Reviewed: Yes Vital Signs & Weight: Vital Signs (12 hours) Temp Pulse Resp BP Pulse Ox 06/11/18 04:00 99.9 F H 95 18 123/75 95 06/11/18 00:00 102.0 F H 104 H 18 133/81 96 06/10/18 20:00 98.4 F 96 18 152/95 H 98 Weight Weight 70.76 kg I&O: 06/09/18 06/10/18 06/11/18 06:59 06:59 06:59 Intake Total 1377 Output Total 100 Balance 1277 Result Diagrams: 06/11/18 07:42 06/10/18 03:22 Phys Exam - Physical Examination Constitutional: NAD HEENT: moist MMs no signs of oral abscess Neck: no nodes, supple, full ROM no nuchal rigidity Respiratory: no wheezing, clear to auscultation bilateral Cardiovascular: RRR, no significant murmur Can hear heart valve from replacement Gastrointestinal: soft, non-tender, positive bowel sounds mild RLQ tenderness Musculoskeletal: no edema Neurological: non-focal Lymphatic: no nodes Psychiatric: normal affect, A&O x 3 Skin: no rash, normal turgor Deviation from normal: No sores or lesions Dx/Plan (1) Atypical chest pain Code(s): R07.89 - OTHER CHEST PAIN Status: Acute (2) (HFpEF) heart failure with preserved ejection fraction Code(s): I50.30 - UNSPECIFIED DIASTOLIC (CONGESTIVE) HEART FAILURE Status: Chronic (3) Marijuana abuse Code(s): F12.10 - CANNABIS ABUSE, UNCOMPLICATED Status: Chronic (4) S/P aortic valve replacement with porcine valve Code(s): Z95.3 - PRESENCE OF XENOGENIC HEART VALVE Status: Chronic (5) Alcohol abuse Code(s): F10.10 - ALCOHOL ABUSE, UNCOMPLICATED Status: Chronic (6) CKD (chronic kidney disease) stage 2, GFR 60-89 ml/min Code(s): N18.2 - CHRONIC KIDNEY DISEASE, STAGE 2 (MILD) Status: Chronic (7) HTN (hypertension) Code(s): I10 - ESSENTIAL (PRIMARY) HYPERTENSION Status: Chronic (8) Tobacco abuse Code(s): Z72.0 - TOBACCO USE Status: Chronic - Plan Plan: Mr Treviño is a 63yo male presenting with atypical chest pain Atypical chest pain, likely MSK - Patient with 4 ED visits within 4 days and 2 admissions within 2 days. He had a cath that showed no evidence of CAD 05/2017. CTA was neg 06/06/18 ruling out PE, Aortic dissection. No evidence of tamponade or pericarditis on echo 06/09/18. Pt denies vomiting, melena. No concern for esophageal perforation. Vital signs have been stable. Stress test neg 06/11. Physical exam reveals reproducible chest wall pain most consistent with msk pain after heart surgery. - Trop neg x2, EKG with t-wave inversions, unchanged compared to previous admission - Heart score 3 - Tylenol prn pain Fever - Will obtain RPR, HIV, Hep panel and CBC - Tylenol PRN - Asymptomatic, normal physical exam with exception of mild RLQ tenderness - Fevers again will order CXR, Blood cultures, UA. HFpEF - Echo 06/16/2017: EF 50-55%, 1/3 diastolic dysfunction - Strict I&Os, daily weights, HH diet - Continue Coreg HTN - Continue Coreg and Amlodipine HLD - Continue Atorvastatin CKD2, stable s/p aortic valve replacement 05/2017 - Per op report 05/2017 pt had incision over 2nd right intercoastal space (where pain is present) - Afterwards there was postop complication of bleeding where he went to the OR and ultimately needed sternotomy to control bleed. - Reported hx of CABG but he had nml cath 05/2017, this may have been confused by his sternotomy scar Substance abuse - reports tobacco, alcohol, drug use - UDS positive for cannabis Medication Noncompliance - CM consulted Code Status: FULL DVT ppx: Lovenox Dispo: Discharge today Addendum - Attending - Attending Attestation Date/Time: 06/11/18 [id number] I personally evaluated the patient and discussed the management with Dr. Lopez I agree with the History, Examination, Assessment and Plan documented above with any addition or exceptions noted below.Note fever will continue observation w/u if recurrent temp spike exam no source fever no new murmurs no adenopathy no c/o pain. Note had 2 immunization yesterday.
[2018-06-11 07:55] LABS: #Lymphocytes 0.8 thou/uL (1.20-3.40); #Monocytes 0.8 thou/uL (0.11-0.59); #Neutrophils 6.9 thou/uL (1.40-6.50); %Basophils 0.2 % (0.0-1.0); %Eosinophils 0.5 % (0.0-10.0); %Lymphocytes 8.8 % (21.0-51.0); %Monocytes 9.2 % (0.0-10.0); %Neutrophils 81.2 % (42.0-75.0); Hemoglobin 14.5 g/dL (14.0-18.0); Mean Corpuscular HGB CONC 32.6 g/dL (32.0-36.0); Mean Corpuscular Hemoglobin 33.5 pg (27.0-31.0); Mean Platelet Volume 6.8 fL (7.4-10.4); Platelet Count 164 thou/uL (130-400); RBC Distribution Width 12.6 % (11.5-14.5); Red Blood Cell (RBC) Count 4.33 mill/uL (4.70-6.10); White Blood Cell (WBC) Count 8.5 thou/uL (4.8-10.8)
[2018-06-11 08:36] LABS: Syphilis Antibody Nonreactive (Nonreactive); Syphilis Antibody Index 0.05 S/CO (<1.00 Non-Reactive)
[2018-06-11 08:39] LABS: HBCM Index 0.07 S/CO (0-0.79); HBSAg Index 0.24 S/CO (0-0.99); Hep B Surf Ag Non-Reactive S/CO (NonReactive); Hep C IgG Ab Non-Reactive (NonReactive); Hep C Index 0.08 S/CO (0-0.79); Hepatitis B Core IgM Abs Non-Reactive (NonReactive)
[2018-06-11 08:42] LABS: HBSAB Concentration 46.83 mIU/mL; Hep B Surf AB Reactive (NonReactive)
[2018-06-11] MEDS: Enoxaparin Sodium 40 MG/0.4 ML SYRINGE SC SCH (09:09)
[2018-06-11] MEDS: Aspirin Chewable 81 MG TAB PO SCH (09:09)
[2018-06-11] MEDS: Atorvastatin Calcium 20 MG TAB PO SCH (09:09)
[2018-06-11] MEDS: Amlodipine 5 MG TAB PO SCH (09:09)
[2018-06-11] MEDS: Atorvastatin Calcium 40 MG TAB PO SCH (21:47)
[2018-06-12] MEDS ORDERED: Labetalol HCl 100 MG/20 ML VIAL SLOW IVP PRN (05:53)
--- NOTE | 2018-06-12 05:57 | PDOC.FM ---
- Subjective Subjective: Feeling well this morning. Chest pain free, reports he has mild pain when he presses on his upper right chest. Denies SOB, chills, cough, dysuria. Is going to call his brother to see if he can pick him up later this afternoon. - Objective MAR Reviewed: Yes Vital Signs & Weight: Vital Signs (12 hours) Temp Pulse Resp BP Pulse Ox 06/12/18 04:00 98.4 F 83 16 187/98 H 93 L 06/11/18 22:00 99.0 F 06/11/18 20:00 100.7 F H 94 22 H 131/82 97 06/11/18 18:06 99.1 F Weight Weight 70.76 kg I&O: 06/10/18 06/11/18 06/12/18 06:59 06:59 06:59 Intake Total 1377 1920 Output Total 100 Balance 1277 1920 Result Diagrams: 06/12/18 07:24 06/10/18 03:22 Phys Exam - Physical Examination Constitutional: NAD HEENT: moist MMs Neck: supple Respiratory: no wheezing, clear to auscultation bilateral Cardiovascular: RRR, no significant murmur Gastrointestinal: soft, non-tender Musculoskeletal: no edema Neurological: non-focal, moves all 4 limbs Psychiatric: normal affect, A&O x 3 Skin: no rash Dx/Plan (1) Atypical chest pain Code(s): R07.89 - OTHER CHEST PAIN Status: Acute (2) (HFpEF) heart failure with preserved ejection fraction Code(s): I50.30 - UNSPECIFIED DIASTOLIC (CONGESTIVE) HEART FAILURE Status: Chronic (3) Marijuana abuse Code(s): F12.10 - CANNABIS ABUSE, UNCOMPLICATED Status: Chronic (4) S/P aortic valve replacement with porcine valve Code(s): Z95.3 - PRESENCE OF XENOGENIC HEART VALVE Status: Chronic (5) Alcohol abuse Code(s): F10.10 - ALCOHOL ABUSE, UNCOMPLICATED Status: Chronic (6) CKD (chronic kidney disease) stage 2, GFR 60-89 ml/min Code(s): N18.2 - CHRONIC KIDNEY DISEASE, STAGE 2 (MILD) Status: Chronic (7) HTN (hypertension) Code(s): I10 - ESSENTIAL (PRIMARY) HYPERTENSION Status: Chronic (8) Tobacco abuse Code(s): Z72.0 - TOBACCO USE Status: Chronic - Plan Plan: Mr Treviño is a 63yo male presenting with atypical chest pain Atypical chest pain, likely MSK - Patient with 4 ED visits within 4 days and 2 admissions within 2 days. He had a cath that showed no evidence of CAD 05/2017. CTA was neg 06/06/18 ruling out PE, Aortic dissection. No evidence of tamponade or pericarditis on echo 06/09/18. Pt denies vomiting, melena. No concern for esophageal perforation. Vital signs have been stable. Stress test neg 06/11. Physical exam reveals reproducible chest wall pain most consistent with msk pain after heart surgery. - Trop neg x2, EKG with t-wave inversions, unchanged compared to previous admission - Heart score 3 - Tylenol prn pain Fever - RPR/HIV/Hep panel neg - Tylenol PRN - Asymptomatic, normal physical exam - Likely result of flu/pneumonia vaccine at admission HFpEF - Echo 06/16/2017: EF 50-55%, 1/3 diastolic dysfunction - Strict I&Os, daily weights, HH diet - Continue Coreg HTN - Continue Coreg and Amlodipine HLD - Continue Atorvastatin CKD2, stable s/p aortic valve replacement 05/2017 - Per op report 05/2017 pt had incision over 2nd right intercoastal space (where pain is present) - Afterwards there was postop complication of bleeding where he went to the OR and ultimately needed sternotomy to control bleed. - Reported hx of CABG but he had nml cath 05/2017, this may have been confused by his sternotomy scar Substance abuse - reports tobacco, alcohol, drug use - UDS positive for cannabis Medication Noncompliance - CM consulted Code Status: FULL DVT ppx: Lovenox Dispo: Discharge today Addendum - Attending - Attending Attestation Date/Time: 06/12/18 [id number] I personally evaluated the patient and discussed the management with Dr. Lopez I agree with the History, Examination, Assessment and Plan documented above with any addition or exceptions noted below.
[2018-06-12 08:07] LABS: #Eosinphils 0.1 thou/uL (0.0-0.7); #Monocytes 0.9 thou/uL (0.11-0.59); #Neutrophils 8.6 thou/uL (1.40-6.50); %Basophils 0.2 % (0.0-1.0); %Eosinophils 0.7 % (0.0-10.0); %Lymphocytes 9.5 % (21.0-51.0); %Monocytes 8.5 % (0.0-10.0); %Neutrophils 81.2 % (42.0-75.0); Hemoglobin 14.4 g/dL (14.0-18.0); Mean Corpuscular HGB CONC 32.9 g/dL (32.0-36.0); Mean Corpuscular Hemoglobin 34.2 pg (27.0-31.0); Mean Platelet Volume 6.8 fL (7.4-10.4); Platelet Count 178 thou/uL (130-400); RBC Distribution Width 12.6 % (11.5-14.5); Red Blood Cell (RBC) Count 4.22 mill/uL (4.70-6.10); White Blood Cell (WBC) Count 10.6 thou/uL (4.8-10.8)
[2018-06-12 08:25] LABS: Hepatitis A IgM ABS Negative (Negative); Hepatitis A Total ABS Positive (Negative)
[2018-06-12] MEDS: Aspirin Chewable 81 MG TAB PO SCH (09:03)
[2018-06-12] MEDS: Enoxaparin Sodium 40 MG/0.4 ML SYRINGE SC SCH (09:03)
[2018-06-12] MEDS: Atorvastatin Calcium 20 MG TAB PO SCH (09:03)
[2018-06-12] MEDS: Amlodipine 5 MG TAB PO SCH (09:03)
[2018-06-12 11:51] VITALS: BP 120/75; TEMP 98.4
--- NOTE | 2018-06-16 08:03 | DIS ---
DATE OF ADMISSION: 06/10/2018 DATE OF DISCHARGE: 06/12/2018 RESIDENT: Aissatou Lopez MD, PGY-1. ADMITTING ATTENDING: Alok Sinclair MD DISCHARGE ATTENDING: Alok Sinclair MD CONSULTS: None. PROCEDURES: 1. Chest x-ray, no evidence of acute cardiopulmonary disease. 2. Abdominal ultrasound, no acute finding. PRIMARY DIAGNOSES: 1. Musculoskeletal chest pain. 2. Fever. SECONDARY DIAGNOSES: 1. Heart failure with preserved ejection fraction. 2. Hypertension. 3. Hyperlipidemia. 4. Chronic kidney disease stage 2, stable. 5. Status post aortic valve replacement. 6. Substance abuse. 7. Medication noncompliance. DISCHARGE MEDICATIONS: 1. Amlodipine 10 mg daily. 2. Aspirin 81 mg daily. 3. Atorvastatin 40 mg daily. 4. Carvedilol 6.25 mg b.i.d. DISCONTINUED MEDICATIONS: None. HISTORY OF PRESENT ILLNESS/HOSPITAL COURSE: Mr. Treviño is a 63-year-old male with past medical history of heart failure with preserved ejection fraction, severe aortic stenosis status post valve replacement, presenting with chest pain. This was his fourth presentation to the ED within 4 days and second admission. The patient had normal cath procedure in May 2017 that showed no evidence of coronary artery disease. The patient had a CTA that was negative, 06/16/2018, ruling out pulmonary embolism and aortic dissection. Echocardiogram was performed on June 09, 2018, showing no evidence of tamponade or pericarditis. The patient had no other symptoms such as vomiting or melena, anything to suggest esophageal perforation. Vital signs were stable with exception of mild hypertension. Stress test was negative. Chest wall pain was reproducible over incision scar from prior surgery, 1 year ago. He has multiple social concerns including homelessness, medication noncompliance, and lost to followup. Case Management was consulted, who provided the patient with resources for safe place to stay and recommended following up with [facility] or [facility] for [facility]. The patient also developed fever on the second day of admission. RPR, HIV, hep panel were negative. The patient was given Tylenol p.r.n. Thorough physical exam was unremarkable and patient had received the flu and pneumonia vaccine today prior to the fever. It was felt that this was likely a result of that as he was continued to be asymptomatic and had no leukocytosis. Other medical problems of heart failure with preserved ejection fraction, hypertension, hyperlipidemia, CKD stage 2 were stable with home medication for his substance abuse. UDS was obtained that was positive for cannabis. DISPOSITION: Stable. DISCHARGE INSTRUCTIONS: 1. Location: To his brother's house. 2. Diet: Heart healthy. 3. Activity: No restrictions. 4. Followup: Follow up with [facility] or [facility], a card was provided , within 3 to 7 days. Job ID: [id number]
== END 2018-06-12 13:19 | disposition home or self-care (01) ==
LOC: ERS 02:54 → 2SE 05:55
PROVIDERS: ADMIT Family Medicine; ATTEND Family Medicine
DX: R07.89 Other chest pain (principal); R50.9 Fever, unspecified; E78.5 Hyperlipidemia, unspecified; I13.0 Hypertensive heart and chronic kidney disease with heart failure and stage 1 through stage 4 chronic kidney disease, or unspecified chronic kidney disease; N18.2 Chronic kidney disease, stage 2 (mild); I50.30 Unspecified diastolic (congestive) heart failure; F12.10 Cannabis abuse, uncomplicated; F17.210 Nicotine dependence, cigarettes, uncomplicated; F10.10 Alcohol abuse, uncomplicated; Z91.14 Patient's other noncompliance with medication regimen; Z59.0 Homelessness; Z95.3 Presence of xenogenic heart valve; Z79.82 Long term (current) use of aspirin; Z79.899 Other long term (current) drug therapy
CPT/HCPCS: 36415; 71045; 76705; 78452; 80053; 80306; 83605; 83690; 84484; 85025; 86705; 86706; 86709; 86780; 86803; 87340; 87389; 87804; 90471; 90686; 90732; 93005; 93017; 94760; 96366; 96372; A9500; G0008; G0009; G0378; J0153; J1650

== ENCOUNTER 2018-06-13 16:47 | Emergency (ER) | payer SELFPAY ==
--- NOTE | 2018-06-13 17:10 | RAD ---
PORTABLE CHEST ONE VIEW: 06/13/18 at 3:58 p.m. HISTORY: Sudden onset chest pain. FINDINGS/IMPRESSION: Comparison made with exam of 06/10/18. There are changes of median sternotomy. The heart seize is normal. The aorta is tortuous. Emphysemato us bullous changes in the right lung with scarring are again seen. No lobar consolidation, pneumotho races, or pleural effusions are identified. There is a fracture of the right 6th rib. POS: [facility]
[2018-06-13 17:23] LABS: Hemoglobin 15.8 g/dL (14.0-18.0); Mean Corpuscular HGB CONC 33.5 g/dL (32.0-36.0); Mean Corpuscular Hemoglobin 35.2 pg (27.0-31.0); Mean Platelet Volume 6.8 fL (7.4-10.4); Platelet Count 204 thou/uL (130-400); RBC Distribution Width 12.6 % (11.5-14.5); White Blood Cell (WBC) Count 5.9 thou/uL (4.8-10.8)
[2018-06-13 17:41] LABS: ALT (SGPT) 7 U/L (8-55); AST (SGOT) 15 U/L (5-34); Albumin 3.9 g/dL (3.4-4.8); Alkaline Phosphatase 96 U/L (40-150); Anion Gap 14 mmol/L (10-20); BUN (Urea Nitrogen) 17 mg/dL (8.4-25.7); Bilirubin, Total 0.5 mg/dL (0.2-1.2); CK (CPK) 55 U/L (30-200); Calc. Creatinine Clearance 0 mL/min (70-130); Calcium 9.9 mg/dL (7.8-10.44); Carbon Dioxide 24 mmol/L (23-31); Chloride 104 mmol/L (98-107); Estimated GFR-MDRD 70; Globulin 3.6 g/dL (2.4-3.5); Glucose 88 mg/dL (80-115); Potassium 4.3 mmol/L (3.5-5.1); Protein, Total 7.5 g/dL (5.8-8.1); Sodium 138 mmol/L (136-145)
[2018-06-13 17:50] LABS: #Eosinphils 0.1 thou/uL (0.0-0.7); #Lymphocytes 1.1 thou/uL (1.20-3.40); #Monocytes 0.4 thou/uL (0.11-0.59); #Neutrophils 4.3 thou/uL (1.40-6.50); %Basophils 0.4 % (0.0-1.0); %Eosinophils 1.6 % (0.0-10.0); %Lymphocytes 18.1 % (21.0-51.0); %Monocytes 6.7 % (0.0-10.0); %Neutrophils 73.2 % (42.0-75.0); Platelet Morphology Comment Appears Adequate; RBC Morphology Normal
== END 2018-06-13 18:36 | disposition home or self-care (01) ==
LOC: ERS 16:47
DX: R07.82 Intercostal pain (principal); I10 Essential (primary) hypertension; F17.210 Nicotine dependence, cigarettes, uncomplicated
CPT/HCPCS: 36415; 71045; 80053; 82550; 84484; 85025; 93005

== ENCOUNTER 2018-08-29 19:31 | Emergency (ER) | payer SELFPAY ==
--- NOTE | 2018-08-29 20:01 | RAD ---
Portable frontal chest radiograph: 08/29/2018 COMPARISON: 06/13/2018 HISTORY: Chest pain FINDINGS: There is severe bullous change in bilateral lung apices, right greater than left, similar w hen compared to the prior exam. Stable midline sternotomy wires. Stable increased linear interstitial density in both lung bases. No focal consolidation or alveolar edema. IMPRESSION: Stable appearance of the chest.
[2018-08-29 20:32] LABS: ALT (SGPT) 10 U/L (8-55); AST (SGOT) 15 U/L (5-34); Alkaline Phosphatase 111 U/L (40-150); Anion Gap 13 mmol/L (10-20); BUN (Urea Nitrogen) 10 mg/dL (8.4-25.7); Bilirubin, Total 0.4 mg/dL (0.2-1.2); CK (CPK) 64 U/L (30-200); Calc. Creatinine Clearance 0 mL/min (70-130); Calcium 9.4 mg/dL (7.8-10.44); Carbon Dioxide 24 mmol/L (23-31); Chloride 106 mmol/L (98-107); Estimated GFR-MDRD 53; Globulin 3.1 g/dL (2.4-3.5); Glucose 69 mg/dL (80-115); Potassium 3.2 mmol/L (3.5-5.1); Protein, Total 7.1 g/dL (5.8-8.1); Sodium 140 mmol/L (136-145)
[2018-08-29 20:35] LABS: #Basophils 0.1 thou/uL (0.0-0.2); #Lymphocytes 2.1 thou/uL (1.20-3.40); #Monocytes 0.4 thou/uL (0.11-0.59); %Basophils 1.4 % (0.0-1.0); %Eosinophils 0.8 % (0.0-10.0); %Lymphocytes 37.4 % (21.0-51.0); %Neutrophils 53.3 % (42.0-75.0); Hemoglobin 16.5 g/dL (14.0-18.0); Mean Corpuscular HGB CONC 33.2 g/dL (32.0-36.0); Mean Corpuscular Hemoglobin 34.6 pg (27.0-31.0); Mean Platelet Volume 7.2 fL (7.4-10.4); Platelet Count 164 thou/uL (130-400); RBC Distribution Width 12.8 % (11.5-14.5); Red Blood Cell (RBC) Count 4.76 mill/uL (4.70-6.10); White Blood Cell (WBC) Count 5.6 thou/uL (4.8-10.8)
== END 2018-08-29 23:42 | disposition home or self-care (01) ==
LOC: ERS 19:31
DX: R07.9 Chest pain, unspecified (principal); I10 Essential (primary) hypertension; F17.210 Nicotine dependence, cigarettes, uncomplicated
CPT/HCPCS: 36415; 71045; 80053; 82550; 84484; 85025; 93005

== ENCOUNTER 2018-09-25 18:08 | Emergency (ER) | payer SELFPAY ==
[2018-09-25 18:33] LABS: #Eosinphils 0.1 thou/uL (0.0-0.7); #Lymphocytes 1.8 thou/uL (1.20-3.40); #Monocytes 0.3 thou/uL (0.11-0.59); #Neutrophils 2.4 thou/uL (1.40-6.50); %Basophils 0.9 % (0.0-1.0); %Eosinophils 1.8 % (0.0-10.0); %Lymphocytes 39.7 % (21.0-51.0); %Monocytes 6.4 % (0.0-10.0); %Neutrophils 51.1 % (42.0-75.0); Hemoglobin 14.6 g/dL (14.0-18.0); Mean Corpuscular HGB CONC 33.5 g/dL (32.0-36.0); Mean Corpuscular Hemoglobin 34.6 pg (27.0-31.0); Mean Platelet Volume 6.7 fL (7.4-10.4); Platelet Count 155 thou/uL (130-400); RBC Distribution Width 12.3 % (11.5-14.5); Red Blood Cell (RBC) Count 4.22 mill/uL (4.70-6.10); White Blood Cell (WBC) Count 4.6 thou/uL (4.8-10.8)
--- NOTE | 2018-09-25 18:36 | RAD ---
EXAM: Single view of the chest HISTORY: Chest pain COMPARISON: 08/29/2018 FINDINGS: Single view of the chest shows a normal sized cardiomediastinal silhouette. The patient is status post sternotomy. The patient is status post cardiac valve repair. Emphysematous changes are seen in the lung apices. There is no evidence of consolidation, mass, or pleural effusion. The bones are unremarkable. IMPRESSION: No evidence of acute cardiopulmonary disease
[2018-09-25 18:54] LABS: ALT (SGPT) 10 U/L (8-55); AST (SGOT) 14 U/L (5-34); Albumin 3.6 g/dL (3.4-4.8); Alkaline Phosphatase 87 U/L (40-150); Anion Gap 12 mmol/L (10-20); BUN (Urea Nitrogen) 11 mg/dL (8.4-25.7); Bilirubin, Total 0.8 mg/dL (0.2-1.2); CK (CPK) 55 U/L (30-200); Calc. Creatinine Clearance 0 mL/min (70-130); Calcium 8.7 mg/dL (7.8-10.44); Carbon Dioxide 25 mmol/L (23-31); Chloride 106 mmol/L (98-107); Estimated GFR-MDRD 56; Globulin 2.3 g/dL (2.4-3.5); Glucose 97 mg/dL (80-115); Potassium 3.6 mmol/L (3.5-5.1); Protein, Total 5.9 g/dL (5.8-8.1); Sodium 139 mmol/L (136-145)
[2018-09-25 22:16] LABS: Troponin I 0.011 ng/mL (< 0.028)
== END 2018-09-25 23:10 | disposition home or self-care (01) ==
LOC: ERS 18:08
DX: R07.2 Precordial pain (principal); I10 Essential (primary) hypertension
CPT/HCPCS: 36415; 71045; 80053; 82550; 83880; 84484; 85025; 93005; 94760

== ENCOUNTER 2018-11-02 22:20 | Emergency (ER) | payer SELFPAY ==
[2018-11-02 22:54] LABS: #Eosinphils 0.1 thou/uL (0.0-0.7); #Lymphocytes 1.6 thou/uL (1.20-3.40); #Monocytes 0.3 thou/uL (0.11-0.59); #Neutrophils 2.8 thou/uL (1.40-6.50); %Basophils 0.7 % (0.0-1.0); %Eosinophils 1.6 % (0.0-10.0); %Lymphocytes 33.8 % (21.0-51.0); %Monocytes 6.8 % (0.0-10.0); Hemoglobin 14.5 g/dL (14.0-18.0); Mean Corpuscular HGB CONC 33.6 g/dL (32.0-36.0); Mean Platelet Volume 7.8 fL (7.4-10.4); Platelet Count 143 thou/uL (130-400); RBC Distribution Width 12.3 % (11.5-14.5); Red Blood Cell (RBC) Count 4.16 mill/uL (4.70-6.10); White Blood Cell (WBC) Count 4.9 thou/uL (4.8-10.8)
--- NOTE | 2018-11-02 23:08 | RAD ---
PORTABLE CHEST ONE VIEW: 11/02/2018 10:38 p.m. HISTORY: Chest pain. COMPARISON: 09/25/2018 FINDINGS: Changes of median sternotomy are again seen. The heart size is normal. The aorta is tortuous. Post op changes of aortic valve repair are again seen. Chronic changes in the lung lozano are redemonstra little. No lobar consolidation, pneumothoraces, or pleural effusions are seen. IMPRESSION: No acute process. POS: [facility]
[2018-11-02 23:15] LABS: ALT (SGPT) 12 U/L (8-55); AST (SGOT) 25 U/L (5-34); Albumin 3.7 g/dL (3.4-4.8); Alkaline Phosphatase 92 U/L (40-150); Anion Gap 12 mmol/L (10-20); BUN (Urea Nitrogen) 18 mg/dL (8.4-25.7); Bilirubin, Total 0.5 mg/dL (0.2-1.2); Calc. Creatinine Clearance 0 mL/min (70-130); Calcium 8.8 mg/dL (7.8-10.44); Carbon Dioxide 24 mmol/L (23-31); Chloride 109 mmol/L (98-107); Estimated GFR-MDRD 50; Globulin 2.8 g/dL (2.4-3.5); Glucose 93 mg/dL (80-115); Potassium 4.2 mmol/L (3.5-5.1); Protein, Total 6.5 g/dL (5.8-8.1); Sodium 141 mmol/L (136-145)
== END 2018-11-03 00:05 | disposition home or self-care (01) ==
LOC: ERS 22:20
DX: R07.9 Chest pain, unspecified (principal); I10 Essential (primary) hypertension
CPT/HCPCS: 36415; 71045; 80053; 84484; 85025; 93005

== ENCOUNTER 2018-11-03 02:05 | Emergency (ER) | payer SELFPAY ==
[2018-11-03] MEDS ORDERED: cloNIDine 0.1 MG TAB ONE (05:32)
== END 2018-11-03 07:35 | disposition home or self-care (01) ==
LOC: ERS 02:05
DX: R07.89 Other chest pain (principal); I10 Essential (primary) hypertension
CPT/HCPCS: 36415; 84484; 93005

== ENCOUNTER 2018-11-16 22:13 | Emergency (ER) | payer SELFPAY ==
[2018-11-16] MEDS ORDERED: Bacitracin 1 PK ONE (22:32)
--- NOTE | 2018-11-16 22:57 | RAD ---
Portable chest: HISTORY: Syncope COMPARISON: 11/02/2018 FINDINGS:Chronic lung parenchymal changes again noted. Postop sternotomy changes with prosthetic hear t valve. No significant interval change. IMPRESSION: No acute finding
[2018-11-16] MEDS ORDERED: Adacel (T-DAP) 0.5 ML SYRINGE ONE (23:02)
--- NOTE | 2018-11-16 23:12 | CT ---
CT head without contrast: Multiple axial tomograms obtained through the head without IV enhancement. INDICATIONS: Fall with injury COMPARISON: None FINDINGS: Ventricles have normal size and position. No evidence of intracranial mass, hemorrhage, edema, or infarct. Moderately severe chronic ischemic white matter change. Visualized sinuses and mastoids appear clear. Bony calvarium appears unremarkable. IMPRESSION: No acute finding
== END 2018-11-17 06:40 | disposition home or self-care (01) ==
LOC: ERS 22:13
DX: S00.83XA Contusion of other part of head, initial encounter (principal); F10.129 Alcohol abuse with intoxication, unspecified; I10 Essential (primary) hypertension; F17.210 Nicotine dependence, cigarettes, uncomplicated; Z23 Encounter for immunization; W18.09XA Striking against other object with subsequent fall, initial encounter
CPT/HCPCS: 36415; 70450; 71045; 80307; 90471; 90715; 93005

== ENCOUNTER 2018-12-25 12:29 | Emergency (ER) | payer SELFPAY ==
[2018-12-25] MEDS ORDERED: ISOVUE-370 76%-LOCM 1 ML ONE (12:48)
[2018-12-25 13:25] LABS: #Eosinphils 0.1 thou/uL (0.0-0.7); #Lymphocytes 1.7 thou/uL (1.20-3.40); #Monocytes 0.5 thou/uL (0.11-0.59); #Neutrophils 4.1 thou/uL (1.40-6.50); %Basophils 0.4 % (0.0-1.0); %Eosinophils 1.3 % (0.0-10.0); %Lymphocytes 26.1 % (21.0-51.0); %Monocytes 7.2 % (0.0-10.0); Hemoglobin 15.9 g/dL (14.0-18.0); Mean Corpuscular HGB CONC 34.4 g/dL (32.0-36.0); Mean Corpuscular Hemoglobin 35.7 pg (27.0-31.0); Mean Platelet Volume 7.1 fL (7.4-10.4); Platelet Count 145 thou/uL (130-400); Red Blood Cell (RBC) Count 4.45 mill/uL (4.70-6.10); White Blood Cell (WBC) Count 6.4 thou/uL (4.8-10.8)
--- NOTE | 2018-12-25 13:25 | RAD ---
Chest AP view INDICATION: Chest pain COMPARISON: November 16, 2018 FINDINGS: Lungs:Bullous emphysematous changes stable Cardiac silhouette:Stable post CABG change and aortic valvular replacement. Pulmonary vasculature:Normal Pleural spaces:No pleural effusion or pneumothorax is demonstrated. Upper abdomen:No abnormality seen. Osseous structures: No acute osseous abnormality. Additional findings:None. IMPRESSION: No acute cardiopulmonary abnormality.
[2018-12-25 13:47] LABS: ALT (SGPT) 18 U/L (8-55); AST (SGOT) 19 U/L (5-34); Albumin 3.9 g/dL (3.4-4.8); Alkaline Phosphatase 89 U/L (40-150); Anion Gap 12 mmol/L (10-20); BUN (Urea Nitrogen) 21 mg/dL (8.4-25.7); Bilirubin, Total 0.5 mg/dL (0.2-1.2); Calc. Creatinine Clearance 0 mL/min (70-130); Calcium 9.1 mg/dL (7.8-10.44); Carbon Dioxide 24 mmol/L (23-31); Chloride 103 mmol/L (98-107); Estimated GFR-MDRD 64; Globulin 2.6 g/dL (2.4-3.5); Glucose 83 mg/dL (80-115); Lipase 28 U/L (8-78); Potassium 4.8 mmol/L (3.5-5.1); Protein, Total 6.5 g/dL (5.8-8.1); Sodium 134 mmol/L (136-145)
[2018-12-25 14:04] LABS: Acetaminophen Less than 6.0 mcg/mL (10.0-30.0); Alcohol Less than 10 mg/dL (Less than 10); Salicylate Less than 8.0 mg/dL (15.0-30.0)
[2018-12-25 14:33] LABS: Amphetamine Not Detected (NotDetected); Barbiturates Screen Not Detected (NotDetected); Benzodiazepine Screen Not Detected (NotDetected); Cocaine Metabolite Screen Detected (NotDetected); Medtox Control Line Valid? VALID (VALID); Medtox Reader # READER 4; Methadone Not Detected (NotDetected); Methamphetamine Not Detected (NotDetected); Opiate Screen Not Detected (NotDetected); Oxycodone Screen Not Detected (NotDetected); Phencyclidine (PCP) Not Detected (NotDetected); THC/Cannabinoid Screen Not Detected (NotDetected); Tricyclic Screen Not Detected (NotDetected)
--- NOTE | 2018-12-25 14:44 | CT ---
CTA Angio Chest W WO Con 12/25/2018 2:10 PM Indication: Chest pain with elevated d-dimer Technique: Multiple CTA images were obtained of the thorax with IV contrast. 3D reformatted images were constructed from the raw data. Comparison: June 06, 2018 Findings: Pulmonary arteries: No central or segmental pulmonary embolus is evident. Heart and Great Vessels: There is stable postsurgical change of a aortic valvular replacement. There are vascular consultation involving the thoracic aorta. No enlarged lymph nodes are evident. Lungs:There is stable severe bullous emphysema with areas of subsegmental volume loss involving both lower lobes. Pleural space: Clear. Upper Abdomen: Stable atrophic left kidney. Osseous Structures: No acute osseous abnormality. There is scattered degenerative and osteoarthritic change present. Impression: No central or segmental pulmonary embolus. Stable bullous emphysema.
== END 2018-12-25 16:08 | disposition home or self-care (01) ==
LOC: ERS 12:29
DX: R07.9 Chest pain, unspecified (principal); I10 Essential (primary) hypertension
CPT/HCPCS: 36415; 71045; 71275; 80053; 80306; 80307; 83690; 84484; 85025; 85379; 93005; Q9966

== ENCOUNTER 2018-12-25 19:14 | Observation (INO) | payer SELFPAY ==
[2018-12-25] MEDS ORDERED: Nitroglycerin 2% Ointment 1 INCH/1 GM Packet ONE (19:43)
--- NOTE | 2018-12-25 20:03 | RAD ---
CHEST ONE VIEW: 12/25/18 HISTORY: Chest pain. COMPARISON: 12/25/17 earlier study. Prominent bullous emphysema changes noted bilaterally in the upper lung zones worse on the right side with some linear parenchymal changes in the right mid and lower lung zone probably related to chroni c change and/or subsegmental atelectasis. No confluent pneumonia, overt edema, or pleural effusion. IMPRESSION: Extensive bullous emphysema changes greater on the right side. Chronic lung changes in the mid and lo wer lung zones. Appearance is stable. POS: [facility]
[2018-12-25 20:05] LABS: #Eosinphils 0.1 thou/uL (0.0-0.7); #Lymphocytes 1.6 thou/uL (1.20-3.40); #Monocytes 0.4 thou/uL (0.11-0.59); #Neutrophils 3.3 thou/uL (1.40-6.50); %Basophils 0.9 % (0.0-1.0); %Lymphocytes 29.8 % (21.0-51.0); %Monocytes 7.3 % (0.0-10.0); Hemoglobin 15.4 g/dL (14.0-18.0); Mean Corpuscular HGB CONC 34.8 g/dL (32.0-36.0); Mean Corpuscular Hemoglobin 35.9 pg (27.0-31.0); Platelet Count 137 thou/uL (130-400); Red Blood Cell (RBC) Count 4.28 mill/uL (4.70-6.10); White Blood Cell (WBC) Count 5.4 thou/uL (4.8-10.8)
[2018-12-25 20:24] LABS: ALT (SGPT) 16 U/L (8-55); AST (SGOT) 18 U/L (5-34); Albumin 3.8 g/dL (3.4-4.8); Alkaline Phosphatase 87 U/L (40-150); Anion Gap 10 mmol/L (10-20); BUN (Urea Nitrogen) 22 mg/dL (8.4-25.7); Bilirubin, Total 0.5 mg/dL (0.2-1.2); Calc. Creatinine Clearance 0 mL/min (70-130); Calcium 8.9 mg/dL (7.8-10.44); Carbon Dioxide 23 mmol/L (23-31); Chloride 105 mmol/L (98-107); Estimated GFR-MDRD 64; Globulin 2.5 g/dL (2.4-3.5); Glucose 88 mg/dL (80-115); Potassium 4.4 mmol/L (3.5-5.1); Protein, Total 6.3 g/dL (5.8-8.1); Sodium 134 mmol/L (136-145)
[2018-12-25] MEDS ORDERED: Labetalol HCl 100 MG/20 ML VIAL ONE (20:48)
[2018-12-25 22:34] VITALS: BMI 20.5
[2018-12-25] MEDS ORDERED: Acetaminophen 325 MG TAB PO PRN (22:38)
[2018-12-25] MEDS ORDERED: Ondansetron PF 4 MG/2 ML Vial IVP PRN (22:38)
[2018-12-25] MEDS ORDERED: Ondansetron ODT 4 MG TAB SL PRN (22:38)
[2018-12-25] MEDS ORDERED: Sodium Chloride 0.9% 1,000 ML IV SCH (22:45)
[2018-12-25 23:49] LABS: Troponin I 0.011 ng/mL (< 0.028)
--- NOTE | 2018-12-26 00:25 | PDOC.HHP ---
Hospitalist HPI - History of Present Illness Chest pain History of Present Illness: Mr. Treviño is a 63 year old male with a history of hypertension, and diastolic heart failure. He presents to the ER with complaints of chest pain on the left side of his chest which he characterizes as sharp. It started while he was sitting on the bench at [employer], watching people go by. He rated it a 7/10, and non- radiating. He denies any shortness of breath, nausea vomiting or diaphoresis. He denies any palpiattions, and denies PND or Orthopnea. He says the pain lasted a few minutes. He came to the ER yesterday with similar complaints. UDS was positive for cocoaine. He denies using any. He was treated and released. He admist he has not seen a Physician since his last hospitalization, and never got any prescriptions when he left. He has not been on any medications since then. Hospitalist ROS - Review of Systems Constitutional: denies: fever, chills, sweats, weakness, malaise, other Eyes: denies: pain, vision change, conjunctivae inflammation, eyelid inflammation, redness, other ENT: denies: ear pain, ear discharge, nose pain, nose discharge, nose congestion , mouth pain, mouth swelling, throat pain, throat swelling, other Cardiovascular: reports: chest pain (as per HPI) Gastrointestinal: reports: diarrhea (Occasional diarrhea, no blood no melena). denies: nausea, vomitting, abdominal pain, constipation, melena, hematochezia , other Musculoskeletal: denies: neck pain, shoulder pain, arm pain, back pain, hand pain, leg pain, foot pain, other Skin: denies: rash, lesions, luann, bruising, other Neurological: denies: weakness, numbness, incoordination, change in speech, confusion, seizures, other - Medication Medications: None currently Hospitalist History - Past Medical History Cardiac: reports: CAD, HTN - Past Surgical History Past Surgical History: reports: Tonsillectomy, Other (Porcine Aortic Valve replacement) - Family History Family History: reports: cardiac disorder (Father of [place] at age 55, brother and cousin with CAD) - Social History Smoking Status: Current every day smoker Alcohol: reports: Occassional Drugs: reports: cocaine Living Situation: Alone Domestic Violence: Negative Activity level: wheelchair bound (Full Code ALLERGIES- NKDA) - Exam General Appearance: NAD Eye: PERRL, anicteric sclera ENT: normocephalic atraumatic, no oropharyngeal lesions Neck: supple, symmetric, no JVD, no thyromegaly, no lymphadenopathy, no carotid bruit Heart: RRR, no murmur, no gallops, no rubs, normal peripheral pulses Respiratory: CTAB, no wheezes, no rales, no ronchi, normal chest expansion, no tachypnea, normal percussion Gastrointestinal: soft, non-tender, non-distended, normal bowel sounds, no palpable masses, no hepatomegaly, no splenomegaly, no guarding, no rigidity Extremities: no cyanosis, no clubbing, no edema Skin: normal turgor, no lesions, no rashes Neurological: CN's grossly intact, normal sensation to touch, no weakness, no focal deficits, no new deficit Musculoskeletal: normal tone, normal strength, no muscle wasting Psychiatric: normal affect, normal behavior, A&O x 3 Hospitalist Results - Labs Result Diagrams: 12/25/18 19:57 12/25/18 19:57 Lab results: WBC 5.4 thou/uL (4.8-10.8) 12/25/18 19:57 Hgb 15.4 g/dL (14.0-18.0) 12/25/18 19:57 Hct 44.3 % (42.0-52.0) 12/25/18 19:57 MCV 103.0 fL (78.0-98.0) H 12/25/18 19:57 Plt Count 137 thou/uL (130-400) 12/25/18 19:57 Neutrophils % 60.0 % (42.0-75.0) 12/25/18 19:57 Sodium 134 mmol/L (136-145) L 12/25/18 19:57 Potassium 4.4 mmol/L (3.5-5.1) 12/25/18 19:57 Chloride 105 mmol/L (98-107) 12/25/18 19:57 Carbon Dioxide 23 mmol/L (23-31) 12/25/18 19:57 BUN 22 mg/dL (8.4-25.7) 12/25/18 19:57 Creatinine 1.35 mg/dL (0.7-1.3) H 12/25/18 19:57 Glucose 88 mg/dL (80-115) 12/25/18 19:57 Calcium 8.9 mg/dL (7.8-10.44) 12/25/18 19:57 Total Bilirubin 0.5 mg/dL (0.2-1.2) 12/25/18 19:57 AST 18 U/L (5-34) 12/25/18 19:57 ALT 16 U/L (8-55) 12/25/18 19:57 Alkaline Phosphatase 87 U/L (40-150) 12/25/18 19:57 Troponin I 0.011 ng/mL (< 0.028) 12/25/18 23:19 Serum Total Protein 6.3 g/dL (5.8-8.1) 12/25/18 19:57 Albumin 3.8 g/dL (3.4-4.8) 12/25/18 19:57 Hospitalist H&P A/P - Problem (1) Chest pain Code(s): R07.9 - CHEST PAIN, UNSPECIFIED Status: Acute (2) Cocaine abuse Code(s): F14.10 - COCAINE ABUSE, UNCOMPLICATED Status: Acute (3) HTN (hypertension) Code(s): I10 - ESSENTIAL (PRIMARY) HYPERTENSION Status: Chronic (4) S/P aortic valve replacement with porcine valve Code(s): Z95.3 - PRESENCE OF XENOGENIC HEART VALVE Status: Chronic (5) Chronic diastolic heart failure Code(s): I50.32 - CHRONIC DIASTOLIC (CONGESTIVE) HEART FAILURE Status: Acute (6) Tobacco abuse Code(s): Z72.0 - TOBACCO USE Status: Chronic - Plan Plan: * Chest pain- probable due to cocaine abuse, but will monitor on telemetry overnight, continue to trend troponins, and check an Echo in the AM * Cocaine abuse- patient denies- offered brief counseling * HTN- will need to re-start medications, based on his previous hospitalization , and titrate * Chronic diastolic heart failure- again re-start home medications, and will await Echo results * Likely home tomorrow afternoon- pending Echo
[2018-12-26] MEDS ORDERED: hydrALAZINE 20 MG/ML VIAL SLOW IVP PRN (00:45)
[2018-12-26] MEDS ORDERED: Ondansetron PF 4 MG/2 ML Vial IVP PRN ×2 (00:45)
[2018-12-26] MEDS ORDERED: Ondansetron ODT 4 MG TAB PO PRN ×2 (00:45)
[2018-12-26] MEDS ORDERED: Acetaminophen 325 MG TAB PO PRN (00:45)
[2018-12-26] MEDS ORDERED: Nitroglycerin 0.4 MG TAB (25 Tab Bottle) PO PRN (00:45)
[2018-12-26 02:54] LABS: #Eosinphils 0.2 thou/uL (0.0-0.7); #Lymphocytes 1.7 thou/uL (1.20-3.40); #Monocytes 0.4 thou/uL (0.11-0.59); #Neutrophils 3.3 thou/uL (1.40-6.50); %Basophils 0.5 % (0.0-1.0); %Eosinophils 2.8 % (0.0-10.0); %Lymphocytes 29.8 % (21.0-51.0); %Monocytes 7.4 % (0.0-10.0); %Neutrophils 59.5 % (42.0-75.0); Hemoglobin 15.1 g/dL (14.0-18.0); Mean Corpuscular HGB CONC 34.2 g/dL (32.0-36.0); Mean Corpuscular Hemoglobin 35.8 pg (27.0-31.0); Mean Platelet Volume 7.1 fL (7.4-10.4); Platelet Count 151 thou/uL (130-400); RBC Distribution Width 12.1 % (11.5-14.5); White Blood Cell (WBC) Count 5.6 thou/uL (4.8-10.8)
[2018-12-26 03:18] LABS: Troponin I Less than 0.010 ng/mL (< 0.028)
[2018-12-26 03:21] LABS: Anion Gap 12 mmol/L (10-20); BUN (Urea Nitrogen) 21 mg/dL (8.4-25.7); Calc. Creatinine Clearance 56 mL/min (70-130); Calcium 8.9 mg/dL (7.8-10.44); Carbon Dioxide 22 mmol/L (23-31); Cardiac Risk 2.9 (Less than 4.5); Chloride 108 mmol/L (98-107); Cholesterol 135 mg/dl (< 200 Desired); Estimated GFR-MDRD 69; Glucose 86 mg/dL (80-115); HDL Cholesterol 47 mg/dL (>60 Neg Risk); LDL Cholesterol, Calculated 75 mg/dL; Potassium 4.3 mmol/L (3.5-5.1); Sodium 138 mmol/L (136-145); Triglycerides 66 mg/dL (Less than 150)
[2018-12-26] MEDS: Nitroglycerin 2% Ointment 1 INCH/1 GM Packet TOP SCH ×2 (06:05→14:02)
[2018-12-26] MEDS ORDERED: Carvedilol 6.25 MG TAB PO SCH (08:00)
[2018-12-26] MEDS ORDERED: Enoxaparin Sodium 40 MG/0.4 ML SYRINGE SC SCH (09:00)
[2018-12-26] MEDS ORDERED: Isosorbide Mononitrate (ER) 30 MG TAB PO SCH (09:00)
[2018-12-26 12:01] VITALS: BP 131/87; TEMP 97.2
--- NOTE | 2018-12-26 15:34 | PDOC.EVN ---
Event Note - Event Note Event Note: Disharged home. Discharge summary dictated. #[id number]
--- NOTE | 2018-12-26 16:12 | DIS ---
DATE OF ADMISSION: 12/25/2018 DATE OF DISCHARGE: 12/26/2018 PRIMARY CARE PHYSICIAN: None. DISCHARGE DIAGNOSES: 1. Atypical chest pain. 2. Cocaine abuse. 3. Hypertension. 4. Chronic diastolic heart failure. 5. Status post aortic valve replacement. 6. Noncompliance. 7. Tobacco abuse disorder. HOSPITAL COURSE: A 63-year-old male with known history of hypertension, diastolic heart failure, and cocaine abuse, who was admitted due to acute onset of chest pain. Acute myocardial infarction was ruled out with serial troponin. The patient who is not on any medication currently was restarted on antihypertensives with improvement in blood pressure control. The patient was further evaluated with echocardiogram, which showed preserved systolic function. Of note, the patient had stress test in May 2018, which was negative for reversible ischemia. The patient remained stable with resolution of symptoms and was subsequently discharged to home. He was advised to abstain from tobacco and cocaine. Prescription for antihypertensives and statin was provided for the patient. PHYSICAL EXAMINATION: VITAL SIGNS: Temperature 97.2, pulse 76, respiratory rate 20, SpO2 of 98% on room air, blood pressure is 131/87. GENERAL: Middle-aged male, in no distress. Afebrile. Anicteric. Acyanotic. HEENT: Normocephalic and atraumatic. CARDIOVASCULAR: Regular rhythm and rate with normal heart sounds 1 and 2. RESPIRATORY: Fair air entry bilateral with some transmitted sounds. GI: Full, soft, nontender, nondistended with normal bowel sounds. EXTREMITIES: Grossly normal looking, atraumatic with no edema or erythema. 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 DISCHARGE DISPOSITION: Home. DISCHARGE CONDITION: Improved. FOLLOWUP: The patient was advised to follow up with primary care provider of his choice. Resources of [employer] were provided to the patient to pick from them and follow up with the primary care provider within a week of discharge. DISCHARGE MEDICATIONS: 1. Nitroglycerin 0.4 mg q.5 p.r.n. 2. Lipitor 20 mg p.o. at bedtime. 3. Carvedilol 6.25 mg p.o. b.i.d. 4. Isosorbide mononitrate 30 mg p.o. daily. Job ID: [id number]
[2018-12-26] MEDS ORDERED: Atorvastatin Calcium 20 MG TAB PO SCH (21:00)
== END 2018-12-26 15:43 | disposition home or self-care (01) ==
LOC: ERS 19:14 → 2SW 20:45
PROVIDERS: ADMIT Internal Medicine; ATTEND Internal Medicine
DX: R07.89 Other chest pain (principal); F14.10 Cocaine abuse, uncomplicated; I11.0 Hypertensive heart disease with heart failure; I50.32 Chronic diastolic (congestive) heart failure; I25.10 Atherosclerotic heart disease of native coronary artery without angina pectoris; F17.210 Nicotine dependence, cigarettes, uncomplicated; F12.10 Cannabis abuse, uncomplicated; Z95.1 Presence of aortocoronary bypass graft; Z95.2 Presence of prosthetic heart valve; Z91.19 Patient's noncompliance with other medical treatment and regimen
CPT/HCPCS: 36415; 71045; 80048; 80061; 84484; 85025; 93005; 93306; 94760; 96361; 96372; 96374; 99406; G0378; J1650

== ENCOUNTER 2018-12-28 09:11 | Observation (INO) | payer SELFPAY ==
[2018-12-28] MEDS ORDERED: Metoprolol Tartrate 5 MG/5 ML VIAL ONE (09:38)
[2018-12-28 09:51] LABS: #Monocytes 0.4 thou/uL (0.11-0.59); #Neutrophils 2.7 thou/uL (1.40-6.50); %Basophils 0.3 % (0.0-1.0); %Eosinophils 1.2 % (0.0-10.0); %Lymphocytes 24.8 % (21.0-51.0); %Monocytes 8.6 % (0.0-10.0); %Neutrophils 65.2 % (42.0-75.0); Hemoglobin 16.3 g/dL (14.0-18.0); Mean Corpuscular HGB CONC 33.7 g/dL (32.0-36.0); Mean Corpuscular Hemoglobin 35.5 pg (27.0-31.0); Mean Platelet Volume 7.3 fL (7.4-10.4); Platelet Count 138 thou/uL (130-400); RBC Distribution Width 12.1 % (11.5-14.5); Red Blood Cell (RBC) Count 4.59 mill/uL (4.70-6.10); White Blood Cell (WBC) Count 4.1 thou/uL (4.8-10.8)
--- NOTE | 2018-12-28 09:53 | RAD ---
EXAM: Chest one view: HISTORY: Chest pain COMPARISON: 12/25/2018 FINDINGS: Marked bilateral bullous emphysema changes in the upper lung zones greater on the right side with santos ear interstitial stable subsegmental atelectatic or scarring changes in the mid lung zones. Heart size: Within normal limits. Lungs: Clear of acute process. No evidence for pneumonia, pleural effusion, acute edema, or pneumothorax, or other significant acute process. IMPRESSION: No significant acute intrathoracic disease. Extensive bullous emphysema and chronic changes, stable.
[2018-12-28 10:24] LABS: ALT (SGPT) 17 U/L (8-55); AST (SGOT) 16 U/L (5-34); Albumin 3.6 g/dL (3.4-4.8); Alkaline Phosphatase 85 U/L (40-150); Anion Gap 12 mmol/L (10-20); BUN (Urea Nitrogen) 15 mg/dL (8.4-25.7); Bilirubin, Total 0.3 mg/dL (0.2-1.2); CK (CPK) 38 U/L (30-200); Calc. Creatinine Clearance 0 mL/min (70-130); Calcium 8.9 mg/dL (7.8-10.44); Carbon Dioxide 26 mmol/L (23-31); Chloride 106 mmol/L (98-107); Estimated GFR-MDRD 55; Globulin 2.5 g/dL (2.4-3.5); Glucose 103 mg/dL (80-115); Lipase 26 U/L (8-78); Potassium 4.5 mmol/L (3.5-5.1); Protein, Total 6.1 g/dL (5.8-8.1); Sodium 139 mmol/L (136-145)
[2018-12-28 10:46] LABS: Acetaminophen Less than 6.0 mcg/mL (10.0-30.0); Alcohol Less than 10 mg/dL (Less than 10); Salicylate Less than 8.0 mg/dL (15.0-30.0)
[2018-12-28] MEDS ORDERED: Nitroglycerin 0.4 MG TAB (25 Tab Bottle) SL PRN (11:40)
[2018-12-28] MEDS ORDERED: Ondansetron PF 4 MG/2 ML Vial IVP PRN (11:42)
[2018-12-28] MEDS ORDERED: Ondansetron ODT 4 MG TAB PO PRN (11:42)
[2018-12-28] MEDS ORDERED: Acetaminophen 325 MG TAB PO PRN (11:42)
[2018-12-28 13:03] LABS: Troponin I Less than 0.010 ng/mL (< 0.028)
[2018-12-28 14:14] VITALS: BMI 21.0
[2018-12-28] MEDS: Nicotine 14 MG PATCH TD SCH (14:26)
[2018-12-28] MEDS: cloNIDine 0.1 MG TAB PO PRN ×2 (15:44→23:41)
[2018-12-28] MEDS: Carvedilol 6.25 MG TAB PO SCH (15:44)
[2018-12-28 16:14] LABS: Troponin I Less than 0.010 ng/mL (< 0.028)
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
[2018-12-28] MEDS ORDERED: Atorvastatin Calcium 20 MG TAB PO SCH (21:00)
[2018-12-28] MEDS: Famotidine 20 MG TAB PO SCH (21:19)
[2018-12-29 06:23] LABS: #Basophils 0.1 thou/uL (0.0-0.2); #Eosinphils 0.1 thou/uL (0.0-0.7); #Lymphocytes 1.7 thou/uL (1.20-3.40); #Monocytes 0.5 thou/uL (0.11-0.59); #Neutrophils 2.9 thou/uL (1.40-6.50); %Basophils 1.4 % (0.0-1.0); %Lymphocytes 31.3 % (21.0-51.0); %Neutrophils 55.4 % (42.0-75.0); Mean Corpuscular HGB CONC 34.4 g/dL (32.0-36.0); Mean Corpuscular Hemoglobin 35.9 pg (27.0-31.0); Mean Platelet Volume 7.2 fL (7.4-10.4); Platelet Count 137 thou/uL (130-400); RBC Distribution Width 11.9 % (11.5-14.5); Red Blood Cell (RBC) Count 4.18 mill/uL (4.70-6.10); White Blood Cell (WBC) Count 5.3 thou/uL (4.8-10.8)
[2018-12-29 06:33] LABS: Anion Gap 10 mmol/L (10-20); BUN (Urea Nitrogen) 22 mg/dL (8.4-25.7); Calc. Creatinine Clearance 51 mL/min (70-130); Carbon Dioxide 26 mmol/L (23-31); Chloride 105 mmol/L (98-107); Estimated GFR-MDRD 61; Potassium 4.1 mmol/L (3.5-5.1); Sodium 137 mmol/L (136-145)
[2018-12-29 06:34] LABS: Glucose 115 mg/dL (80-115)
[2018-12-29] MEDS: Carvedilol 6.25 MG TAB PO SCH (07:56)
[2018-12-29] MEDS: Famotidine 20 MG TAB PO SCH (07:56)
[2018-12-29] MEDS ORDERED: Enoxaparin Sodium 40 MG/0.4 ML SYRINGE SC SCH (09:00)
[2018-12-29] MEDS ORDERED: Isosorbide Mononitrate (ER) 30 MG TAB PO SCH (09:00)
[2018-12-29] MEDS: Nicotine 14 MG PATCH TD SCH (11:23)
[2018-12-29 12:19] VITALS: BP 135/95; TEMP 97.9
--- NOTE | 2018-12-30 05:36 | DIS ---
DATE OF ADMISSION: 12/28/2018 DATE OF DISCHARGE: 12/29/2018 ADMISSION DIAGNOSES: 1. Chest pain. 2. Uncontrolled hypertension. 3. Cocaine abuse. 4. Noncompliance. 5. Homeless. DISCHARGE DIAGNOSES: 1. Chest pain. 2. Uncontrolled hypertension. 3. Cocaine abuse. 4. Noncompliance. 5. Homeless. HISTORY OF PRESENT ILLNESS: A 63-year-old black male with a history of hypertension, noncompliance, cocaine abuse, marijuana abuse, comes in with a complaint of left-sided chest pain. On arrival, his blood pressure was more than 200 and was treated with nitroglycerin paste. With a decrease in the blood pressure to the systolics of 160s, the chest pain resolved. The serial troponin on admission was negative. The patient was treated with antihypertensives and his blood pressure was under control. The patient was discharged 2 days ago with a prescription for his antihypertensives, which he has not filled as he has no financial means to afford these medications. Case Management has been consulted to help the patient with the medications and also to give the information for [facility] in the [facility]. The patient is discharged to follow up with the [facility] in the [facility]. PHYSICAL EXAMINATION: HEENT: No abnormalities detected. CVS: Regular rate and rhythm. No murmurs, no rubs. CHEST: CTA, no wheezes, no rhonchi. ABDOMEN: Soft, NT, ND. DISCHARGE INSTRUCTIONS: 1. Please follow up with [facility]. 2. Please take medications as prescribed. 3. Please stop cocaine and marijuana. 4. Heart-healthy diet and exercise. Job ID: [id number]
--- NOTE | 2019-01-02 23:17 | EKG ---
Test Reason : Blood Pressure : / mmHG Vent. Rate : 078 BPM Atrial Rate : 078 BPM P-R Int : 138 ms QRS Dur : 092 ms QT Int : 378 ms P-R-T Axes : 056 -49 132 degrees QTc Int : 430 ms Normal sinus rhythm Possible Left atrial enlargement Left anterior fascicular block Abnormal ECG Confirmed by VICTOR MANUEL ORDONEZ ([id number]), editor managing director ALF GERARD ([id number] on 01/02/2019 11:16:48 PM Referred By: Confirmed By:VICTOR MANUEL ORDONEZ
== END 2018-12-29 12:53 | disposition home or self-care (01) ==
LOC: ERS 09:11 → 2SW 10:27
PROVIDERS: ADMIT Family Medicine; ATTEND Family Medicine
DX: R07.9 Chest pain, unspecified (principal); I16.0 Hypertensive urgency; I11.0 Hypertensive heart disease with heart failure; I50.32 Chronic diastolic (congestive) heart failure; F17.210 Nicotine dependence, cigarettes, uncomplicated; F14.10 Cocaine abuse, uncomplicated; F12.10 Cannabis abuse, uncomplicated; Z91.14 Patient's other noncompliance with medication regimen; Z59.0 Homelessness; Z95.2 Presence of prosthetic heart valve
CPT/HCPCS: 36415; 71045; 80048; 80053; 80307; 82550; 83690; 84484; 85025; 93005; 94760; 96372; 96374; G0378; J1650

== ENCOUNTER 2019-01-02 14:00 | Observation (INO) | payer SELFPAY ==
[2019-01-02 14:17] LABS: #Eosinphils 0.1 thou/uL (0.0-0.7); #Lymphocytes 1.9 thou/uL (1.20-3.40); #Monocytes 0.6 thou/uL (0.11-0.59); #Neutrophils 4.3 thou/uL (1.40-6.50); %Basophils 0.5 % (0.0-1.0); %Eosinophils 1.9 % (0.0-10.0); %Lymphocytes 27.6 % (21.0-51.0); Mean Corpuscular Hemoglobin 35.8 pg (27.0-31.0); Platelet Count 164 thou/uL (130-400); RBC Distribution Width 12.2 % (11.5-14.5); Red Blood Cell (RBC) Count 4.46 mill/uL (4.70-6.10); White Blood Cell (WBC) Count 6.9 thou/uL (4.8-10.8)
--- NOTE | 2019-01-02 14:27 | RAD ---
EXAM: XR Chest 1 View Portable PROVIDED CLINICAL HISTORY: Chest pain COMPARISON: 12/28/2018 FINDINGS: Cardiac and mediastinal silhouette is unchanged in appearance. Median sternotomy changes and cardiac valve replacement are again noted. Prominent emphysematous changes with relative increased density of the mid to lower lung zones is again noted. No definite focal consolidation, pleural fluid or pneu mothorax apparent. IMPRESSION: Stable radiographic chest.
[2019-01-02 14:36] LABS: ALT (SGPT) 20 U/L (8-55); AST (SGOT) 20 U/L (5-34); Albumin 3.9 g/dL (3.4-4.8); Alkaline Phosphatase 91 U/L (40-150); Anion Gap 13 mmol/L (10-20); BUN (Urea Nitrogen) 24 mg/dL (8.4-25.7); Bilirubin, Total 0.3 mg/dL (0.2-1.2); CK (CPK) 39 U/L (30-200); Calc. Creatinine Clearance 0 mL/min (70-130); Calcium 9.5 mg/dL (7.8-10.44); Carbon Dioxide 25 mmol/L (23-31); Chloride 104 mmol/L (98-107); Estimated GFR-MDRD 57; Globulin 2.8 g/dL (2.4-3.5); Glucose 109 mg/dL (80-115); Lipase 33 U/L (8-78); Potassium 4.3 mmol/L (3.5-5.1); Protein, Total 6.7 g/dL (5.8-8.1); Sodium 138 mmol/L (136-145)
[2019-01-02 14:40] LABS: MDiff Complete? YES; Macrocytosis SLIGHT = 6-15 cells (100X) (0-5/hpf); Platelet Morphology Comment Appears Adequate
[2019-01-02] MEDS ORDERED: Aspirin Chewable 81 MG TAB ONE (15:47)
[2019-01-02] MEDS ORDERED: Nitroglycerin 2% Ointment 1 INCH/1 GM Packet ONE (16:04)
[2019-01-02] MEDS ORDERED: Ondansetron PF 4 MG/2 ML Vial IVP PRN (16:36)
[2019-01-02] MEDS ORDERED: Senokot S 8.6-50 MG TAB PO PRN (16:36)
[2019-01-02] MEDS ORDERED: Acetaminophen 325 MG TAB PO PRN (16:36)
[2019-01-02] MEDS ORDERED: Bisacodyl 5 MG TAB PO PRN (16:36)
[2019-01-02] MEDS ORDERED: Ondansetron ODT 4 MG TAB PO PRN (16:36)
[2019-01-02] MEDS ORDERED: hydrALAZINE 20 MG/ML VIAL SLOW IVP PRN (16:38)
[2019-01-02] MEDS ORDERED: Docusate 100 MG CAP PO PRN (16:38)
[2019-01-02] MEDS ORDERED: diphenhydrAMINE 25 MG CAP PO PRN (16:38)
[2019-01-02] MEDS ORDERED: Morphine 2 MG/ML SYRINGE SLOW IVP PRN (16:39)
[2019-01-02] MEDS ORDERED: Nitroglycerin 0.4 MG TAB (25 Tab Bottle) SL PRN (16:39)
--- NOTE | 2019-01-02 16:57 | PDOC.HHP ---
Hospitalist HPI - History of Present Illness Chest pain History of Present Illness: 63 year old with PMHx of CAD with CABG, HTN, HLD, and non compliance presents with chest pain. Started having chest pain last night. No diaphoresis, nausea, vomiting, palpitations, syncope. Patient thinks it may have to do with people in the car with him who were "smoking weed". Denies any illicit substance use. States that he drinks beer occasionally. Has not been taking his medications as directed. 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 Hospitalist ROS - Review of Systems All other systems reviewed; all pertinent +/- noted in HPI/Subj Hospitalist History - Past Medical History Cardiac: reports: CAD, HTN, [place] Pulmonary: reports: heart attack, high cholesterol. 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 denies: Chronic renal failure - Past Surgical History Past Surgical History: reports: CABG, Tonsillectomy, Other (Porcine Aortic Valve replacement) - Family History Family History: reports: hyperlipidemia, hypertension, Other (CAD - dad). denies: diabetes mellitus - Social History Smoking Status: Former smoker Alcohol: reports: Occassional Drugs: reports: cocaine (Currently denies) - Exam General Appearance: NAD Eye: PERRL, anicteric sclera Eye - other findings: EOMI ENT: no oropharyngeal lesions, moist mucosa Neck: supple, symmetric, no JVD Heart: no murmur, no gallops, no rubs Heart - other findings: S1 and S2 present Respiratory: no rales, no ronchi, normal chest expansion, wheezes (mild) Gastrointestinal: soft, non-tender, non-distended, no guarding, no rigidity Extremities: no edema Skin: no lesions, no rashes Neurological: CN's grossly intact, no focal deficits, no new deficit Musculoskeletal: no muscle wasting Psychiatric: normal affect, A&O x 3 Hospitalist Results - Labs Result Diagrams: 01/02/19 14:07 01/02/19 14:07 Lab results: WBC 6.9 thou/uL (4.8-10.8) 01/02/19 14:07 Hgb 16.0 g/dL (14.0-18.0) 01/02/19 14:07 Hct 47.0 % (42.0-52.0) 01/02/19 14:07 MCV 106.0 fL (78.0-98.0) H 01/02/19 14:07 Plt Count 164 thou/uL (130-400) 01/02/19 14:07 Neutrophils % 62.0 % (42.0-75.0) 01/02/19 14:07 Sodium 138 mmol/L (136-145) 01/02/19 14:07 Potassium 4.3 mmol/L (3.5-5.1) 01/02/19 14:07 Chloride 104 mmol/L (98-107) 01/02/19 14:07 Carbon Dioxide 25 mmol/L (23-31) 01/02/19 14:07 BUN 24 mg/dL (8.4-25.7) 01/02/19 14:07 Creatinine 1.50 mg/dL (0.7-1.3) H 01/02/19 14:07 Glucose 109 mg/dL (80-115) 01/02/19 14:07 Calcium 9.5 mg/dL (7.8-10.44) 01/02/19 14:07 Total Bilirubin 0.3 mg/dL (0.2-1.2) 01/02/19 14:07 AST 20 U/L (5-34) 01/02/19 14:07 ALT 20 U/L (8-55) 01/02/19 14:07 Alkaline Phosphatase 91 U/L (40-150) 01/02/19 14:07 Creatine Kinase 39 U/L (30-200) 01/02/19 14:07 Troponin I Less than 0.010 ng/mL (< 0.028) 01/02/19 14:07 Serum Total Protein 6.7 g/dL (5.8-8.1) 01/02/19 14:07 Albumin 3.9 g/dL (3.4-4.8) 01/02/19 14:07 Lipase 33 U/L (8-78) 01/02/19 14:07 - Radiology Interpretation Chest x-ray Status: image reviewed by sd Hospitalist H&P A/P - Problem (1) Chest pain Code(s): R07.9 - CHEST PAIN, UNSPECIFIED Status: Acute (2) Chronic diastolic heart failure Code(s): I50.32 - CHRONIC DIASTOLIC (CONGESTIVE) HEART FAILURE Status: Acute (3) Cocaine abuse Code(s): F14.10 - COCAINE ABUSE, UNCOMPLICATED Status: Acute (4) (HFpEF) heart failure with preserved ejection fraction Code(s): I50.30 - UNSPECIFIED DIASTOLIC (CONGESTIVE) HEART FAILURE Status: Chronic (5) CKD (chronic kidney disease) stage 2, GFR 60-89 ml/min Code(s): N18.2 - CHRONIC KIDNEY DISEASE, STAGE 2 (MILD) Status: Chronic (6) Critical aortic valve stenosis Code(s): I35.0 - NONRHEUMATIC AORTIC (VALVE) STENOSIS Status: Chronic (7) HTN (hypertension) Code(s): I10 - ESSENTIAL (PRIMARY) HYPERTENSION Status: Chronic (8) Macrocytic anemia Code(s): D53.9 - NUTRITIONAL ANEMIA, UNSPECIFIED Status: Chronic (9) Marijuana abuse Code(s): F12.10 - CANNABIS ABUSE, UNCOMPLICATED Status: Chronic (10) Tobacco abuse Code(s): Z72.0 - TOBACCO USE Status: Chronic - Plan Plan: Plan: Admit to med/ tel NM stress test to rule out reversible ischemia Morphine, nitrates, ASA, O2 Continue home medications, except beta oj with concern for acute cocaine use Needs improved compliance with medical regimen and PCP/ cardiology Recent Echo with preserved EF Replace electrolytes as needed GI and DVT PPX
[2019-01-02] MEDS ORDERED: Carvedilol 6.25 MG TAB PO SCH (17:00)
[2019-01-02 17:38] LABS: Troponin I 0.013 ng/mL (< 0.028)
[2019-01-02 18:16] VITALS: BMI 20.9
[2019-01-02] MEDS: HYDROcodone/Acetaminophen 5/325 mg Tablet PO PRN (19:57)
[2019-01-02] MEDS: Atorvastatin Calcium 20 MG TAB PO SCH (19:58)
[2019-01-02] MEDS: Famotidine 20 MG TAB PO SCH (19:58)
[2019-01-02 20:37] LABS: Troponin I Less than 0.010 ng/mL (< 0.028)
[2019-01-02 21:55] LABS: Bacteria/HPF None Seen HPF (None Seen); Bilirubin Negative (Negative); Blood, Urine Negative (Negative); Clarity Clear (Clear); Glucose, Urine (Dipstick) Normal (Negative); Leukocyte Negative Leu/uL (Negative); Nitrite Negative (Negative); Protein, Urine (Dipstick) 10 mg/dL (Neg-Trace); RBC/HPF 0-3 HPF (0-3); Squamous Epithelial None Seen HPF (0-3); Urobilinogen Normal mg/dL (Less than 2); WBC/HPF 0-3 HPF (0-3)
[2019-01-02 22:03] LABS: Amphetamine Not Detected (NotDetected); Benzodiazepine Screen Not Detected (NotDetected); Cocaine Metabolite Screen Not Detected (NotDetected); Medtox Reader # READER 4; Methadone Not Detected (NotDetected); Methamphetamine Not Detected (NotDetected); Opiate Screen Not Detected (NotDetected); Phencyclidine (PCP) Not Detected (NotDetected); THC/Cannabinoid Screen Detected (NotDetected); Tricyclic Screen Not Detected (NotDetected)
[2019-01-02 22:04] LABS: Barbiturates Screen Not Detected (NotDetected); Medtox Control Line Valid? VALID (VALID); Oxycodone Screen Not Detected (NotDetected)
[2019-01-03 06:53] LABS: #Eosinphils 0.1 thou/uL (0.0-0.7); #Lymphocytes 1.5 thou/uL (1.20-3.40); #Monocytes 0.5 thou/uL (0.11-0.59); #Neutrophils 2.8 thou/uL (1.40-6.50); %Basophils 0.7 % (0.0-1.0); %Eosinophils 2.7 % (0.0-10.0); %Lymphocytes 29.8 % (21.0-51.0); %Monocytes 9.6 % (0.0-10.0); %Neutrophils 57.2 % (42.0-75.0); Hemoglobin 15.4 g/dL (14.0-18.0); Mean Corpuscular HGB CONC 33.9 g/dL (32.0-36.0); Mean Corpuscular Hemoglobin 35.6 pg (27.0-31.0); Mean Platelet Volume 7.3 fL (7.4-10.4); Platelet Count 147 thou/uL (130-400); RBC Distribution Width 12.2 % (11.5-14.5); Red Blood Cell (RBC) Count 4.32 mill/uL (4.70-6.10); White Blood Cell (WBC) Count 4.9 thou/uL (4.8-10.8)
[2019-01-03 07:12] LABS: Anion Gap 10 mmol/L (10-20); BUN (Urea Nitrogen) 22 mg/dL (8.4-25.7); Calc. Creatinine Clearance 54 mL/min (70-130); Carbon Dioxide 24 mmol/L (23-31); Chloride 107 mmol/L (98-107); Estimated GFR-MDRD 65; Glucose 97 mg/dL (80-115); Potassium 4.3 mmol/L (3.5-5.1); Sodium 137 mmol/L (136-145)
[2019-01-03] MEDS: Carvedilol 3.125 MG TAB PO SCH ×2 (08:29→15:23)
[2019-01-03] MEDS: Famotidine 20 MG TAB PO SCH ×2 (08:34→20:39)
[2019-01-03] MEDS: Lisinopril 10 MG TAB PO SCH (08:34)
[2019-01-03] MEDS ORDERED: Isosorbide Mononitrate (ER) 30 MG TAB PO SCH (09:00)
[2019-01-03] MEDS ORDERED: ADENOSINE 60 MG/20 ML VIAL ONE (09:52)
--- NOTE | 2019-01-03 14:18 | NM ---
EXAM: NM Cardiac Stress W EF WF PROVIDED CLINICAL HISTORY: Chest pain COMPARISON: None RADIOPHARMACEUTICAL: 30.5 millicuries technetium 99m labeled sestamibi IV stress 10.2 millicuries technetium 99m labeled sestamibi IV rest FINDINGS: There is normal, homogeneous distribution of radiotracer throughout the left ventricular myocardium. Gated data demonstrate septal hypokinesis with calculated LVEF 58%. Calculated TID is 0.95. IMPRESSION: 1. No scintigraphic evidence for ischemia. 2. Calculated LVEF 58%.
--- NOTE | 2019-01-03 14:57 | PDOC.HOSPP ---
- Subjective Subjective: Seen and examined. Denies chest pain this AM. Hungry as he is NPO for stress test. No palpitations. BP still not controlled. No other acute complaints. - Objective Vital Signs & Weight: Vital Signs (12 hours) Temp Pulse Resp BP BP Pulse Ox 01/03/19 14:46 175/98 H 01/03/19 08:08 97.5 F L 71 15 171/100 H 98 01/03/19 05:20 97.9 F 71 18 146/100 H 98 Weight Weight 150 lb 1 oz I&O: 01/02/19 01/03/19 01/04/19 06:59 06:59 06:59 Intake Total 720 Output Total 400 Balance 320 Result Diagrams: 01/03/19 06:45 01/03/19 06:45 Radiology Reviewed by me: Yes (Stress test) Hospitalist ROS - Review of Systems All other systems reviewed; all pertinent +/- noted in HPI/Subj - Medication Medications: Active Medications Generic Name Dose Route Start Last Admin Trade Name Freq PRN Reason Stop Dose Admin Hydrocodone Bitart/Acetaminophen 1 tab 01/02/19 16:36 01/02/19 19:57 Berkey 5/325 PO 1 tab Q4H PRN Administration Moderate Pain (4-6) Atorvastatin Calcium 20 mg 01/02/19 21:00 01/02/19 19:58 Lipitor PO 20 mg HS MARY LOU Administration Carvedilol 3.125 mg 01/03/19 08:00 01/03/19 08:29 Coreg PO Not Given BID- MARY LOU Famotidine 20 mg 01/02/19 21:00 01/03/19 08:34 Pepcid PO 20 mg BID MARY LOU Administration Lisinopril 10 mg 01/03/19 09:00 01/03/19 08:34 Zestril PO 10 mg DAILY MARY LOU Administration Sodium Chloride 10 ml 01/02/19 21:00 01/03/19 08:35 Flush - Normal Saline IVF 10 ml Q12HR MARY LOU Administration - Exam General Appearance: NAD Eye: anicteric sclera Eye - other findings: EOMI ENT: no oropharyngeal lesions, moist mucosa Neck: supple, symmetric, no lymphadenopathy Heart: no murmur, no gallops, no rubs Heart - other findings: S1 and S2 present Respiratory: CTAB, no wheezes, no rales, no ronchi, normal chest expansion Gastrointestinal: soft, non-tender, non-distended, normal bowel sounds, no palpable masses, no guarding, no rigidity Extremities: no edema Skin: no lesions, no rashes Neurological: CN's grossly intact, normal sensation to touch Musculoskeletal: no muscle wasting Psychiatric: normal affect, A&O x 3 Hosp A/P (1) Chest pain Code(s): R07.9 - CHEST PAIN, UNSPECIFIED Status: Acute (2) Chronic diastolic heart failure Code(s): I50.32 - CHRONIC DIASTOLIC (CONGESTIVE) HEART FAILURE Status: Acute (3) Cocaine abuse Code(s): F14.10 - COCAINE ABUSE, UNCOMPLICATED Status: Acute (4) (HFpEF) heart failure with preserved ejection fraction Code(s): I50.30 - UNSPECIFIED DIASTOLIC (CONGESTIVE) HEART FAILURE Status: Chronic (5) CKD (chronic kidney disease) stage 2, GFR 60-89 ml/min Code(s): N18.2 - CHRONIC KIDNEY DISEASE, STAGE 2 (MILD) Status: Chronic (6) Critical aortic valve stenosis Code(s): I35.0 - NONRHEUMATIC AORTIC (VALVE) STENOSIS Status: Chronic (7) HTN (hypertension) Code(s): I10 - ESSENTIAL (PRIMARY) HYPERTENSION Status: Chronic (8) Macrocytic anemia Code(s): D53.9 - NUTRITIONAL ANEMIA, UNSPECIFIED Status: Chronic (9) Marijuana abuse Code(s): F12.10 - CANNABIS ABUSE, UNCOMPLICATED Status: Chronic (10) Tobacco abuse Code(s): Z72.0 - TOBACCO USE Status: Chronic - Plan Plan: Med/ tel NM stress test negative for reversible ischemia Uncontolled HTN likely causing chest discomfort Recent negative CTA chest restart Coreg Start Lisinopril Need to change BP regimen to medications that he can afford Recent Echo with preserved EF Replace electrolytes GI and DVT PPX Likely D/c in the next 24 hours once BP is controlled
[2019-01-03] MEDS: Atorvastatin Calcium 20 MG TAB PO SCH (20:39)
[2019-01-04] MEDS: HYDROcodone/Acetaminophen 5/325 mg Tablet PO PRN (07:19)
[2019-01-04] MEDS: Lisinopril 10 MG TAB PO SCH (09:47)
[2019-01-04] MEDS: Carvedilol 3.125 MG TAB PO SCH (09:47)
[2019-01-04] MEDS: Famotidine 20 MG TAB PO SCH (09:47)
[2019-01-04 11:51] VITALS: BP 157/92; TEMP 97.8
--- NOTE | 2019-01-05 01:36 | DIS ---
DATE OF ADMISSION: 01/02/2019 DATE OF DISCHARGE: 01/04/2019 REASON FOR HOSPITALIZATION: Chest pain. 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 SPECIFIC PROCEDURES PERFORMED AND TREATMENTS RENDERED: The patient had nuclear medicine stress test, which ruled out reversible ischemia. The patient had daily adjustment of blood pressure medications with improvement of blood pressure and resolution of chest pain. CONDITION ON DISCHARGE: Stable. SPECIFIC INSTRUCTIONS FOR THE PATIENT/FAMILY: 1. The patient is recommended to take all medications as directed. 2. The patient is recommended to keep a blood pressure log and take blood pressure readings 3-4 times per week and follow up with primary care physician and graphic arts instructor for blood pressure adjustments. 3. The patient is recommended to stop all illicit substances including marijuana and cocaine. 4. The patient is recommended to return to acute care hospital immediately if signs or symptoms return, worsen, or any other new symptoms occur. DISCHARGE MEDICATIONS: Please see full medication list for details with the following changes. 1. Lisinopril 10 mg one tablet p.o. daily. 2. Carvedilol 6.25 mg one tablet p.o. b.i.d. 3. All other home medications continued without changes. HOSPITAL COURSE: Mr. Treviño is a 63-year-old gentleman with past medical history of coronary artery disease status post coronary artery bypass grafting in 2018. The patient has had frequent hospitalizations for chest pain. This being his third, returned to the emergency department. The patient with recent CT angiography of the chest, which was negative for acute cardiothoracic pathology and no pulmonary embolism. The patient again returns to emergency department with chest pain on 01/02/2019 with chest pain. The patient recommended for nuclear medicine stress test, please see full report for details. Nuclear medicine stress test was negative for reversible ischemia. 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 With better blood pressure control, the patient's chest pain resolved. I recommended to the patient that he take control of his medical problems including his blood pressure and follow up with his primary care physician and graphic arts instructor more frequently for blood pressure adjustments as needed. The patient recommended safe for discharge with close followup in the outpatient setting. Efforts were made with Case Management to help provide the patient's medications to him at zero cost to better insure compliance and lower his likelihood to return to acute care hospital. I recommended to the patient that he stop all illicit substances including marijuana and cocaine as these are known to worsen cardiac pathology. I recommended the patient not consume excessive amounts of alcohol and take better control of his medical problems. The patient is recommended to follow up with primary care physician in the next 5 to 7 days or return to acute care hospital immediately. The patient is recommended to follow up with Cardiology in the next 1 to 2 weeks or return to acute care hospital immediately for reevaluation. The patient is recommended to return to acute care hospital immediately if signs or symptoms return, worsen, or any other new symptoms occur. Greater than 39 minutes spent coordinating care and discharge process on this patient. Job ID: [id number] MTDD
--- NOTE | 2019-01-09 13:22 | EKG ---
Test Reason : Blood Pressure : / mmHG Vent. Rate : 078 BPM Atrial Rate : 078 BPM P-R Int : 134 ms QRS Dur : 094 ms QT Int : 372 ms P-R-T Axes : 058 -51 128 degrees QTc Int : 424 ms Normal sinus rhythm Left atrial enlargement Left anterior fascicular block Abnormal ECG Left ventricular hypertrophy Left atrial enlargement Confirmed by ROSSY LEONE, LISBETH Mcleod ([id number]), editor trade journal [employer]URN[employer] HINTON ([id number]) on 01/09/2019 1:22:07 PM Referred By: Confirmed By:LISBETH BLAIR MD
== END 2019-01-04 15:56 | disposition home or self-care (01) ==
LOC: ERS 14:00 → 2SW 18:03
PROVIDERS: ADMIT Internal Medicine; ATTEND Internal Medicine
DX: R07.9 Chest pain, unspecified (principal); I11.0 Hypertensive heart disease with heart failure; I50.32 Chronic diastolic (congestive) heart failure; I25.10 Atherosclerotic heart disease of native coronary artery without angina pectoris; E78.5 Hyperlipidemia, unspecified; Z87.891 Personal history of nicotine dependence; Z91.19 Patient's noncompliance with other medical treatment and regimen; Z95.1 Presence of aortocoronary bypass graft
CPT/HCPCS: 36415; 71045; 78452; 80048; 80053; 80306; 81001; 82550; 83690; 84484; 85025; 93005; 93017; 96374; A9500; G0378; J0153; J0360

== ENCOUNTER 2019-01-06 16:56 | Emergency (ER) | payer SELFPAY ==
[2019-01-06 17:29] LABS: #Basophils 0.1 thou/uL (0.0-0.2); #Eosinphils 0.2 thou/uL (0.0-0.7); #Lymphocytes 1.6 thou/uL (1.20-3.40); #Monocytes 0.5 thou/uL (0.11-0.59); #Neutrophils 3.2 thou/uL (1.40-6.50); %Eosinophils 2.7 % (0.0-10.0); %Lymphocytes 29.3 % (21.0-51.0); %Monocytes 9.1 % (0.0-10.0); %Neutrophils 57.9 % (42.0-75.0); Hemoglobin 15.4 g/dL (14.0-18.0); Mean Corpuscular HGB CONC 34.1 g/dL (32.0-36.0); Mean Corpuscular Hemoglobin 35.3 pg (27.0-31.0); Platelet Count 159 thou/uL (130-400); Red Blood Cell (RBC) Count 4.36 mill/uL (4.70-6.10); White Blood Cell (WBC) Count 5.6 thou/uL (4.8-10.8)
[2019-01-06 17:50] LABS: ALT (SGPT) 21 U/L (8-55); AST (SGOT) 21 U/L (5-34); Albumin 3.9 g/dL (3.4-4.8); Alkaline Phosphatase 94 U/L (40-150); Anion Gap 12 mmol/L (10-20); BUN (Urea Nitrogen) 23 mg/dL (8.4-25.7); Bilirubin, Total 0.6 mg/dL (0.2-1.2); CK (CPK) 59 U/L (30-200); Calc. Creatinine Clearance 0 mL/min (70-130); Calcium 9.4 mg/dL (7.8-10.44); Carbon Dioxide 26 mmol/L (23-31); Chloride 105 mmol/L (98-107); Estimated GFR-MDRD 53; Globulin 2.8 g/dL (2.4-3.5); Glucose 99 mg/dL (80-115); Potassium 4.3 mmol/L (3.5-5.1); Protein, Total 6.7 g/dL (5.8-8.1); Sodium 139 mmol/L (136-145)
--- NOTE | 2019-01-09 15:27 | EKG ---
Test Reason : Blood Pressure : / mmHG Vent. Rate : 080 BPM Atrial Rate : 080 BPM P-R Int : 136 ms QRS Dur : 096 ms QT Int : 390 ms P-R-T Axes : 062 -50 122 degrees QTc Int : 449 ms Normal sinus rhythm Possible Left atrial enlargement Left anterior fascicular block T wave abnormality, consider lateral ischemia Abnormal ECG Confirmed by CHRISTIAN LEONE, JAS ([id number]), makeup editor [employer]URN[employer] HINTON ([id number]) on 01/09/2019 3:27:23 PM Referred By: Confirmed By:JAS GONZALES MD
== END 2019-01-06 23:21 | disposition home or self-care (01) ==
LOC: ERS 16:56
DX: I20.8 Other forms of angina pectoris (principal); I10 Essential (primary) hypertension; Z79.82 Long term (current) use of aspirin; Z79.899 Other long term (current) drug therapy
CPT/HCPCS: 36415; 80053; 82550; 84484; 85025; 93005

== ENCOUNTER 2019-02-24 13:04 | Emergency (ER) | payer SELFPAY ==
[2019-02-24 14:15] LABS: #Eosinphils 0.1 thou/uL (0.0-0.7); #Lymphocytes 1.2 thou/uL (1.20-3.40); #Monocytes 0.4 thou/uL (0.11-0.59); #Neutrophils 3.5 thou/uL (1.40-6.50); %Basophils 0.3 % (0.0-1.0); %Eosinophils 1.4 % (0.0-10.0); %Lymphocytes 22.7 % (21.0-51.0); %Monocytes 6.9 % (0.0-10.0); %Neutrophils 68.7 % (42.0-75.0); Hemoglobin 17.4 g/dL (14.0-18.0); Mean Corpuscular HGB CONC 33.2 g/dL (32.0-36.0); Mean Corpuscular Hemoglobin 34.8 pg (27.0-31.0); Mean Platelet Volume 7.1 fL (7.4-10.4); Platelet Count 160 thou/uL (130-400); RBC Distribution Width 12.2 % (11.5-14.5); Red Blood Cell (RBC) Count 5.01 mill/uL (4.70-6.10); White Blood Cell (WBC) Count 5.1 thou/uL (4.8-10.8)
--- NOTE | 2019-02-24 14:27 | RAD ---
EXAM: Chest one view: HISTORY: Chest pain COMPARISON: 01/02/2019 FINDINGS: Stable hyperinflation particularly in the right upper lobe and scattered mostly linear and interstiti al chronic changes. Postop sternotomy and valvular replacement Heart size: Within normal limits. Lungs: Clear of acute process. No evidence for pneumonia, pleural effusion, acute edema, or pneumothorax, or other significant acute process. IMPRESSION: No significant acute intrathoracic disease. Stable exam.
[2019-02-24 14:36] LABS: MDiff Complete? YES; Macrocytosis MODERATE=16-30 cells (100X) (0-5/hpf); Ovalocytes SLIGHT = 2-5 cells (100X) (0-1/hpf); Platelet Morphology Comment Appears Adequate; Polychromasia SLIGHT = 2-3 cells (100X) (0-2/hpf)
[2019-02-24 14:41] LABS: ALT (SGPT) 12 U/L (8-55); AST (SGOT) 23 U/L (5-34); Albumin 3.9 g/dL (3.4-4.8); Alkaline Phosphatase 98 U/L (40-110); Anion Gap 13 mmol/L (10-20); BUN (Urea Nitrogen) 22 mg/dL (8.4-25.7); Bilirubin, Total 0.6 mg/dL (0.2-1.2); Calc. Creatinine Clearance 0 mL/min (70-130); Calcium 8.8 mg/dL (7.8-10.44); Carbon Dioxide 24 mmol/L (23-31); Chloride 106 mmol/L (98-107); Estimated GFR-MDRD 56; Globulin 3.1 g/dL (2.4-3.5); Glucose 118 mg/dL (80-115); Lipase 34 U/L (8-78); Potassium 4.8 mmol/L (3.5-5.1); Sodium 138 mmol/L (136-145)
[2019-02-24] MEDS ORDERED: Ibuprofen 200 MG TAB ONE (15:28)
== END 2019-02-24 15:37 | disposition home or self-care (01) ==
LOC: ERS 13:04
DX: R07.9 Chest pain, unspecified (principal); I10 Essential (primary) hypertension; Z79.899 Other long term (current) drug therapy
CPT/HCPCS: 71045; 80053; 83690; 84484; 85025; 93005

== ENCOUNTER 2019-02-25 20:25 | Emergency (ER) | payer SELFPAY ==
--- NOTE | 2019-02-25 20:58 | RAD ---
Chest AP view INDICATION: Chest pain COMPARISON: February 24, 2019 FINDINGS: Lungs:Chronic lung changes are stable Cardiac silhouette:Postprocedural change of an aortic valvular replacement is stable. Heart size is n ormal. Pulmonary vasculature:Normal Pleural spaces:No pleural effusion or pneumothorax is demonstrated. Upper abdomen:No abnormality seen. Osseous structures: No acute osseous abnormality. Additional findings:None. IMPRESSION: No acute cardiopulmonary abnormality.
[2019-02-25 21:03] LABS: #Eosinphils 0.1 thou/uL (0.0-0.7); #Lymphocytes 1.4 thou/uL (1.20-3.40); #Monocytes 0.5 thou/uL (0.11-0.59); #Neutrophils 4.2 thou/uL (1.40-6.50); %Basophils 0.2 % (0.0-1.0); %Eosinophils 1.2 % (0.0-10.0); %Lymphocytes 22.1 % (21.0-51.0); %Monocytes 8.5 % (0.0-10.0); Hemoglobin 15.5 g/dL (14.0-18.0); Mean Corpuscular HGB CONC 34.6 g/dL (32.0-36.0); Mean Corpuscular Hemoglobin 35.6 pg (27.0-31.0); Mean Platelet Volume 6.9 fL (7.4-10.4); Platelet Count 157 thou/uL (130-400); RBC Distribution Width 11.9 % (11.5-14.5); Red Blood Cell (RBC) Count 4.35 mill/uL (4.70-6.10); White Blood Cell (WBC) Count 6.2 thou/uL (4.8-10.8)
[2019-02-25 21:26] LABS: ALT (SGPT) 11 U/L (8-55); AST (SGOT) 17 U/L (5-34); Albumin 3.7 g/dL (3.4-4.8); Alkaline Phosphatase 88 U/L (40-110); Anion Gap 14 mmol/L (10-20); BUN (Urea Nitrogen) 19 mg/dL (8.4-25.7); Bilirubin, Total 0.5 mg/dL (0.2-1.2); Calc. Creatinine Clearance 0 mL/min (70-130); Calcium 8.9 mg/dL (7.8-10.44); Carbon Dioxide 26 mmol/L (23-31); Chloride 103 mmol/L (98-107); Estimated GFR-MDRD 61; Globulin 2.9 g/dL (2.4-3.5); Glucose 141 mg/dL (80-115); Potassium 3.7 mmol/L (3.5-5.1); Protein, Total 6.6 g/dL (5.8-8.1); Sodium 139 mmol/L (136-145)
--- NOTE | 2019-02-25 21:45 | CT ---
CTA Angio Chest W WO Con 02/25/2019 9:21 PM Indication: Chest pain Technique: Multiple CTA images were obtained of the thorax with IV contrast. 3-D rendering: MIP hans nstructed images were created and reviewed. Comparison: Prior CT PE examination dated December 25, 2018 Findings: Pulmonary arteries: No central or segmental pulmonary embolus is evident. Heart and Aorta: Stable postprocedural change of an aortic valvular placement. There are moderate va scular calcifications seen involving the visualized vasculature. Mediastinum:Normal appearing. No enlarged lymph nodes. Lungs:Stable severe bullous emphysema Pleural space: Clear. Upper Abdomen: No acute abnormality. Osseous Structures: No acute osseous abnormality. Soft tissues:No abnormality. Other findings:None. Impression: No central or segmental pulmonary embolus.
[2019-02-25] MEDS ORDERED: Acetaminophen 500 MG TAB ONE (23:59)
[2019-02-26 00:31] LABS: Troponin I Less than 0.010 ng/mL (< 0.028)
== END 2019-02-26 00:54 | disposition home or self-care (01) ==
LOC: ERS 20:25
DX: R07.2 Precordial pain (principal); I10 Essential (primary) hypertension; Z79.899 Other long term (current) drug therapy
CPT/HCPCS: 36415; 71045; 71275; 80053; 83880; 84484; 85025; 85379; 93005

== ENCOUNTER 2019-02-26 02:10 | Emergency (ER) | payer SELFPAY | END 2019-02-26 03:19 | disposition home or self-care (01) | LOC: ERS 02:10 | DX: R07.89 Other chest pain (principal); I10 Essential (primary) hypertension; Z79.82 Long term (current) use of aspirin; Z79.899 Other long term (current) drug therapy | CPT/HCPCS: 93005 ==

== ENCOUNTER 2019-03-04 18:08 | Emergency (ER) | payer SELFPAY ==
--- NOTE | 2019-03-04 18:53 | RAD ---
EXAM: Chest 2 views: HISTORY: Chest pain COMPARISON: 06/08/2018 FINDINGS: There is a normal-sized cardiomediastinal silhouette. The patient is status post sternotomy for aort ic valve repair. There is no evidence of consolidation, mass, or pleural effusion. The bones are unremarkable. IMPRESSION: No evidence of acute cardiopulmonary disease
[2019-03-04 18:59] LABS: #Eosinphils 0.1 thou/uL (0.0-0.7); #Lymphocytes 1.5 thou/uL (1.20-3.40); #Monocytes 0.4 thou/uL (0.11-0.59); #Neutrophils 3.4 thou/uL (1.40-6.50); %Basophils 0.5 % (0.0-1.0); %Eosinophils 1.2 % (0.0-10.0); %Monocytes 8.2 % (0.0-10.0); %Neutrophils 63.2 % (42.0-75.0); Hemoglobin 16.4 g/dL (14.0-18.0); Mean Platelet Volume 6.8 fL (7.4-10.4); Platelet Count 177 thou/uL (130-400); RBC Distribution Width 12.1 % (11.5-14.5); Red Blood Cell (RBC) Count 4.68 mill/uL (4.70-6.10); White Blood Cell (WBC) Count 5.4 thou/uL (4.8-10.8)
[2019-03-04 19:15] LABS: ALT (SGPT) 11 U/L (8-55); AST (SGOT) 16 U/L (5-34); Albumin 4.1 g/dL (3.4-4.8); Alkaline Phosphatase 97 U/L (40-110); Anion Gap 13 mmol/L (10-20); BUN (Urea Nitrogen) 24 mg/dL (8.4-25.7); Bilirubin, Total 0.5 mg/dL (0.2-1.2); CK (CPK) 72 U/L (30-200); Calc. Creatinine Clearance 0 mL/min (70-130); Calcium 9.2 mg/dL (7.8-10.44); Carbon Dioxide 26 mmol/L (23-31); Chloride 104 mmol/L (98-107); Estimated GFR-MDRD 49; Globulin 2.6 g/dL (2.4-3.5); Glucose 100 mg/dL (80-115); Lipase 30 U/L (8-78); Potassium 4.2 mmol/L (3.5-5.1); Protein, Total 6.7 g/dL (5.8-8.1); Sodium 139 mmol/L (136-145)
[2019-03-04 19:23] LABS: MDiff Complete? YES; Macrocytosis SLIGHT = 6-15 cells (100X) (0-5/hpf); Platelet Morphology Comment Appears Adequate; Polychromasia SLIGHT = 2-3 cells (100X) (0-2/hpf)
[2019-03-05] MEDS ORDERED: Ibuprofen 800 MG TAB ONE (00:19)
== END 2019-03-04 22:13 | disposition home or self-care (01) ==
LOC: ERS 18:08
DX: R07.2 Precordial pain (principal); I10 Essential (primary) hypertension; Z79.82 Long term (current) use of aspirin; Z79.899 Other long term (current) drug therapy
CPT/HCPCS: 36415; 71046; 80053; 82550; 83690; 84484; 85025; 93005

== ENCOUNTER 2019-03-05 00:06 | Emergency (ER) | payer SELFPAY | END 2019-03-05 00:32 | disposition home or self-care (01) | LOC: ERS 00:06 | DX: R07.9 Chest pain, unspecified (principal); I10 Essential (primary) hypertension; Z79.899 Other long term (current) drug therapy; Z79.82 Long term (current) use of aspirin | CPT/HCPCS: 93005 ==

== ENCOUNTER 2019-03-12 09:59 | Emergency (ER) | payer SELFPAY ==
[2019-03-12 10:19] LABS: #Eosinphils 0.1 thou/uL (0.0-0.7); #Lymphocytes 1.5 thou/uL (1.20-3.40); #Monocytes 0.6 thou/uL (0.11-0.59); #Neutrophils 3.9 thou/uL (1.40-6.50); %Basophils 0.5 % (0.0-1.0); %Eosinophils 1.6 % (0.0-10.0); %Monocytes 9.9 % (0.0-10.0); %Neutrophils 64.1 % (42.0-75.0); Mean Corpuscular HGB CONC 33.1 g/dL (32.0-36.0); Mean Corpuscular Hemoglobin 35.2 pg (27.0-31.0); Mean Platelet Volume 6.7 fL (7.4-10.4); Platelet Count 174 thou/uL (130-400); RBC Distribution Width 12.1 % (11.5-14.5); Red Blood Cell (RBC) Count 4.54 mill/uL (4.70-6.10); White Blood Cell (WBC) Count 6.1 thou/uL (4.8-10.8)
[2019-03-12] MEDS ORDERED: Nitroglycerin 2% Ointment 1 INCH/1 GM Packet ONE (10:43)
[2019-03-12] MEDS ORDERED: Metoprolol Tartrate 5 MG/5 ML VIAL ONE (10:43)
[2019-03-12 10:44] LABS: ALT (SGPT) 11 U/L (8-55); AST (SGOT) 18 U/L (5-34); Alkaline Phosphatase 100 U/L (40-110); Anion Gap 8 mmol/L (10-20); BUN (Urea Nitrogen) 20 mg/dL (8.4-25.7); Bilirubin, Total 0.5 mg/dL (0.2-1.2); CK (CPK) 108 U/L (30-200); Calc. Creatinine Clearance 0 mL/min (70-130); Calcium 9.2 mg/dL (7.8-10.44); Carbon Dioxide 31 mmol/L (23-31); Chloride 100 mmol/L (98-107); Estimated GFR-MDRD 61; Globulin 2.6 g/dL (2.4-3.5); Potassium 4.2 mmol/L (3.5-5.1); Protein, Total 6.6 g/dL (5.8-8.1); Sodium 135 mmol/L (136-145)
[2019-03-12 10:47] LABS: Glucose 53 mg/dL (80-115)
--- NOTE | 2019-03-12 11:10 | RAD ---
SINGLE VIEW CHEST: Date: 03/12/19 COMPARISON: Chest x-ray 03/04/19 and CTA chest 02/25/19. HISTORY: Chest pain. FINDINGS: Single view of the chest shows normal sized cardiomediastinal silhouette. The patient is status post sternotomy. Emphysematous changes are seen in the lung apices. There is no evidence of consolidation, mass, or pleural effusion. IMPRESSION: No evidence of acute cardiopulmonary disease. POS: CET
[2019-03-12] MEDS ORDERED: Nitroglycerin 0.4 MG TAB 1 EACH ONE (13:53)
== END 2019-03-12 14:41 | disposition home or self-care (01) ==
LOC: ERS 09:59
DX: R07.9 Chest pain, unspecified (principal); I10 Essential (primary) hypertension; F17.210 Nicotine dependence, cigarettes, uncomplicated; Z79.82 Long term (current) use of aspirin; Z79.891 Long term (current) use of opiate analgesic; Z79.899 Other long term (current) drug therapy
CPT/HCPCS: 36415; 36416; 71045; 80053; 82550; 84484; 85025; 93005; 94760; 96374

== ENCOUNTER 2019-04-06 18:36 | Observation (INO) | payer SELFPAY ==
[2019-04-06 19:14] LABS: #Eosinphils 0.1 thou/uL (0.0-0.7); #Lymphocytes 1.5 thou/uL (1.20-3.40); #Monocytes 0.4 thou/uL (0.11-0.59); %Basophils 0.1 % (0.0-1.0); %Eosinophils 1.6 % (0.0-10.0); %Monocytes 8.1 % (0.0-10.0); %Neutrophils 60.2 % (42.0-75.0); Hemoglobin 16.6 g/dL (14.0-18.0); Mean Corpuscular Hemoglobin 34.9 pg (27.0-31.0); Platelet Count 170 thou/uL (130-400); RBC Distribution Width 12.1 % (11.5-14.5); Red Blood Cell (RBC) Count 4.74 mill/uL (4.70-6.10); White Blood Cell (WBC) Count 5.1 thou/uL (4.8-10.8)
[2019-04-06 19:35] LABS: ALT (SGPT) 13 U/L (8-55); AST (SGOT) 18 U/L (5-34); Albumin 4.1 g/dL (3.4-4.8); Alkaline Phosphatase 109 U/L (40-110); Anion Gap 11 mmol/L (10-20); BUN (Urea Nitrogen) 19 mg/dL (8.4-25.7); Bilirubin, Total 0.3 mg/dL (0.2-1.2); CK (CPK) 71 U/L (30-200); Calc. Creatinine Clearance 0 mL/min (70-130); Calcium 9.5 mg/dL (7.8-10.44); Carbon Dioxide 28 mmol/L (23-31); Chloride 103 mmol/L (98-107); Estimated GFR-MDRD 57; Globulin 3.2 g/dL (2.4-3.5); Glucose 93 mg/dL (80-115); Potassium 4.3 mmol/L (3.5-5.1); Protein, Total 7.3 g/dL (5.8-8.1); Sodium 138 mmol/L (136-145)
--- NOTE | 2019-04-06 19:35 | RAD ---
2 view chest: [04/06/2019] Comparison:03/04/2019 HISTORY: Chest pain FINDINGS: As seen on prior imaging, midline sternotomy wires and evidence of aortic valve surgery not ed. There are prominent emphysematous changes bilaterally, right greater than left, with pulmonary hyperinflation. No pneumothorax, lobar consolidation, or alveolar edema. IMPRESSION: Chronic findings as detailed above.
[2019-04-06] MEDS ORDERED: Aspirin Chewable 81 MG TAB ONE (21:53)
[2019-04-06] MEDS ORDERED: hydrALAZINE 20 MG/ML VIAL SLOW IVP PRN (23:15)
[2019-04-06] MEDS ORDERED: Metoprolol Tartrate 25 MG TAB ONE (23:30)
[2019-04-06] MEDS ORDERED: Metoprolol Tartrate 25 MG TAB PO SCH (23:30)
[2019-04-06 23:35] LABS: Troponin I 0.018 ng/mL (< 0.028)
--- NOTE | 2019-04-07 00:13 | PDOC.EVN ---
Event Note - Event Note Event Note: [id number] HP
--- NOTE | 2019-04-07 02:33 | HP ---
Assessment Acute Chest Pain CAD Hypertension CHIEF COMPLAINT: Chest pain. HISTORY OF PRESENT ILLNESS: Mr. Treviño is a 64-year-old male with past medical history of coronary artery bypass graft surgery back in March 2019, presents to the emergency room with chest pain that started yesterday, lasted about 15 to 20 minutes. The patient denies shortness of breath, but he has been having some coughing. Initial workup in the emergency room, his initial blood pressure was as high as 158/125, latest blood pressure 139/83. Workup in the emergency room, EKG, no acute finding. Troponin 0.036. Given the patient's presentation and risk factors, the patient is being admitted to hospital for further management. PAST MEDICAL HISTORY: 1. Hypertension. 2. Coronary artery disease. PAST SURGICAL HISTORY: Coronary artery bypass graft surgery. FAMILY HISTORY: Reviewed. ALLERGIES: NO KNOWN ALLERGIES. SOCIAL HISTORY: Smokes like half pack a day. Drinks alcohol socially. HOME MEDICATIONS: Please see home medication reconciliation form for updated medications. REVIEW OF SYSTEMS: Review of 14 systems negative except what is mentioned in present illness. PHYSICAL EXAMINATION: GENERAL: The patient is awake, alert, does not appear to be in acute distress. VITAL SIGNS: Blood pressure is 150/90, pulse is 83, respiratory rate is 14, temperature is 98.5. HEAD AND NECK: Normocephalic, atraumatic. NECK: Supple. No JVD. CHEST: Fair bilateral air entry. HEART: S1, S2. Regular. ABDOMEN: Soft, nontender. Bowel sounds present. NEUROLOGIC: Awake, alert, and oriented x3. PSYCHIATRIC: Normal mood. EXTREMITIES: No clubbing or cyanosis. LABORATORY DATA: Troponin 0.36, borderline elevated. BNP is 224, creatinine 1.4. CBC is unremarkable. Chest x-ray, chronic finding. PLAN: 1. Admit. 2. Telemetry monitoring. 3. Aspirin. 4. Monitor and control blood pressure. 5. Serial troponins. 6. Consult Cardiology in a.m. Patient has cardiac history with borderline elevated troponins. 7. We will keep the patient n.p.o. after midnight until the patient is seen and evaluated by Cardiology for evaluation and further management. 8. Consider stress testing in a.m. if troponins are negative. 9. Reconcile home medications. 10. DVT prophylaxis. Early ambulation. 11. Expected length of stay at least 1 midnight if patient is stable and further workup negative. Job ID: [id number] MTDD
[2019-04-07] MEDS ORDERED: Aspirin 325 mg Enteric Coated Tablet PO SCH (09:00)
[2019-04-07] MEDS ORDERED: Metoprolol Tartrate 25 MG TAB PO SCH (09:00)
[2019-04-07] MEDS ORDERED: Aspirin 325 MG TAB ONE (09:49)
[2019-04-07] MEDS ORDERED: hydrALAZINE 20 MG/ML VIAL ONE (09:49)
[2019-04-07 14:22] LABS: Amphetamine Not Detected (NotDetected); Barbiturates Screen Not Detected (NotDetected); Benzodiazepine Screen Not Detected (NotDetected); Cocaine Metabolite Screen Not Detected (NotDetected); Medtox Control Line Valid? VALID (VALID); Medtox Reader # READER 1; Methadone Not Detected (NotDetected); Methamphetamine Not Detected (NotDetected); Opiate Screen Not Detected (NotDetected); Oxycodone Screen Not Detected (NotDetected); Phencyclidine (PCP) Not Detected (NotDetected); THC/Cannabinoid Screen Detected (NotDetected); Tricyclic Screen Not Detected (NotDetected)
== END 2019-04-07 15:12 | disposition home or self-care (01) ==
LOC: ERS 18:36 → ERHOLD 22:48
PROVIDERS: ADMIT Internal Medicine; ATTEND Internal Medicine
DX: R07.9 Chest pain, unspecified (principal); I10 Essential (primary) hypertension; I25.10 Atherosclerotic heart disease of native coronary artery without angina pectoris; F17.210 Nicotine dependence, cigarettes, uncomplicated; Z79.82 Long term (current) use of aspirin; Z79.899 Other long term (current) drug therapy; Z95.1 Presence of aortocoronary bypass graft
CPT/HCPCS: 36415; 71046; 80053; 80306; 82550; 82553; 83880; 84484; 85025; 93005; 94760; J0360

== ENCOUNTER 2019-04-18 00:53 | Emergency (ER) | payer MEDICARE, SELFPAY ==
[2019-04-18 01:24] LABS: #Lymphocytes 1.6 thou/uL (1.20-3.40); #Monocytes 0.8 thou/uL (0.11-0.59); #Neutrophils 13.2 thou/uL (1.40-6.50); %Basophils 0.2 % (0.0-1.0); %Eosinophils 0.3 % (0.0-10.0); %Monocytes 5.1 % (0.0-10.0); %Neutrophils 84.5 % (42.0-75.0); Hemoglobin 16.1 g/dL (14.0-18.0); Mean Corpuscular HGB CONC 33.7 g/dL (32.0-36.0); Mean Corpuscular Hemoglobin 34.8 pg (27.0-31.0); Mean Platelet Volume 6.8 fL (7.4-10.4); Platelet Count 205 thou/uL (130-400); RBC Distribution Width 11.7 % (11.5-14.5); Red Blood Cell (RBC) Count 4.62 mill/uL (4.70-6.10); White Blood Cell (WBC) Count 15.6 thou/uL (4.8-10.8)
[2019-04-18 01:45] LABS: ALT (SGPT) 20 U/L (8-55); AST (SGOT) 37 U/L (5-34); Acetaminophen Less than 6.0 mcg/mL (10.0-30.0); Albumin 4.1 g/dL (3.4-4.8); Alcohol 158 mg/dL (Less than 10); Alkaline Phosphatase 98 U/L (40-110); Anion Gap 23 mmol/L (10-20); BUN (Urea Nitrogen) 17 mg/dL (8.4-25.7); Bilirubin, Total 0.5 mg/dL (0.2-1.2); Calc. Creatinine Clearance 0 mL/min (70-130); Carbon Dioxide 14 mmol/L (23-31); Chloride 106 mmol/L (98-107); Estimated GFR-MDRD 74; Potassium 3.7 mmol/L (3.5-5.1); Protein, Total 7.1 g/dL (5.8-8.1); Salicylate Less than 8.0 mg/dL (15.0-30.0); Sodium 139 mmol/L (136-145)
[2019-04-18 01:48] LABS: Glucose 59 mg/dL (80-115)
[2019-04-18] MEDS ORDERED: Metoprolol Tartrate 5 MG/5 ML VIAL ONE (05:34)
--- NOTE | 2019-04-18 08:05 | RAD ---
EXAM: XR Chest 1 View Portable PROVIDED CLINICAL HISTORY: Chest pain COMPARISON: 04/06/2019 FINDINGS: Cardiac and mediastinal silhouettes is unchanged in appearance. Median sternotomy changes are again s een. Severe emphysematous changes are again noted. No focal consolidation, pleural fluid or pneumothorax apparent. IMPRESSION: Severe emphysematous change without evidence for an acute cardiopulmonary process.
--- NOTE | 2019-04-20 14:07 | EKG ---
Test Reason : Blood Pressure : / mmHG Vent. Rate : 119 BPM Atrial Rate : 119 BPM P-R Int : 120 ms QRS Dur : 064 ms QT Int : 326 ms P-R-T Axes : 023 -61 268 degrees QTc Int : 458 ms Sinus tachycardia with Fusion complexes Left axis deviation Abnormal ECG Confirmed by NANCIE HERNANDEZ ([id number]), editor magazine [employer]URN[employer] HINTON ([id number]) on 04/20/2019 2:07:24 PM Referred By: Confirmed By:NANCIE HERNANDEZ
== END 2019-04-18 06:03 | disposition home or self-care (01) ==
LOC: ERS 00:53
DX: T68.XXXA Hypothermia, initial encounter (principal); R07.9 Chest pain, unspecified; F10.129 Alcohol abuse with intoxication, unspecified; G89.29 Other chronic pain; I10 Essential (primary) hypertension; Z79.82 Long term (current) use of aspirin; Z79.899 Other long term (current) drug therapy
CPT/HCPCS: 71045; 80053; 80307; 82962; 84484; 85025; 93005; Z7982; Z7989; 36415; 36416; 96361; 96374

== ENCOUNTER 2019-04-18 08:21 | Emergency (ER) | payer MEDICARE | END 2019-04-18 08:50 | disposition home or self-care (01) | LOC: ERS 08:21 | DX: R10.9 Unspecified abdominal pain (principal); I10 Essential (primary) hypertension | CPT/HCPCS: 99281 ==

== ENCOUNTER 2019-04-23 12:37 | Observation (INO) | payer MEDICARE ==
[2019-04-23 14:30] LABS: #Basophils 0.1 thou/uL (0.0-0.2); #Eosinphils 0.1 thou/uL (0.0-0.7); #Lymphocytes 1.4 thou/uL (1.20-3.40); #Monocytes 0.5 thou/uL (0.11-0.59); %Basophils 0.9 % (0.0-1.0); %Eosinophils 1.7 % (0.0-10.0); %Lymphocytes 23.7 % (21.0-51.0); %Monocytes 7.9 % (0.0-10.0); %Neutrophils 65.9 % (42.0-75.0); Hemoglobin 15.3 g/dL (14.0-18.0); Mean Corpuscular HGB CONC 33.9 g/dL (32.0-36.0); Mean Corpuscular Hemoglobin 35.2 pg (27.0-31.0); Mean Platelet Volume 7.1 fL (7.4-10.4); Platelet Count 169 thou/uL (130-400); RBC Distribution Width 11.5 % (11.5-14.5); Red Blood Cell (RBC) Count 4.35 mill/uL (4.70-6.10); White Blood Cell (WBC) Count 6.1 thou/uL (4.8-10.8)
[2019-04-23 14:51] LABS: ALT (SGPT) 19 U/L (8-55); AST (SGOT) 20 U/L (5-34); Albumin 3.5 g/dL (3.4-4.8); Alkaline Phosphatase 102 U/L (40-110); Anion Gap 13 mmol/L (10-20); BUN (Urea Nitrogen) 27 mg/dL (8.4-25.7); Bilirubin, Total 0.4 mg/dL (0.2-1.2); Calc. Creatinine Clearance 0 mL/min (70-130); Calcium 9.3 mg/dL (7.8-10.44); Carbon Dioxide 25 mmol/L (23-31); Chloride 105 mmol/L (98-107); Estimated GFR-MDRD 65; Glucose 79 mg/dL (80-115); Potassium 4.7 mmol/L (3.5-5.1); Protein, Total 6.5 g/dL (5.8-8.1); Sodium 138 mmol/L (136-145)
--- NOTE | 2019-04-23 15:03 | RAD ---
FRONTAL VIEW CHEST: INDICATION: Pain. COMPARISON: 04/18/2019 FINDINGS: The chest is similar appearing to exam from 04/18/2019, with persistent bilateral pulmonary parenchym al opacities. Relative lucency at the upper lung zones remains, indicative of pulmonary emphysema. IMPRESSION: Stable chest, with evidence of chronic obstructive pulmonary disease. POS: C
[2019-04-23] MEDS ORDERED: Nitroglycerin 0.4 MG TAB 1 EACH ONE (15:29)
[2019-04-23 17:40] LABS: Troponin I Less than 0.010 ng/mL (< 0.028)
[2019-04-23] MEDS ORDERED: Acetaminophen 325 MG TAB PO PRN (18:30)
[2019-04-23] MEDS ORDERED: Acetaminophen 650 MG Suppository PR PRN (18:30)
[2019-04-23] MEDS ORDERED: Sodium Chloride 0.9% 1,000 ML IV SCH (18:30)
[2019-04-23] MEDS ORDERED: Benzonatate 100 MG CAP PO PRN (18:31)
[2019-04-23] MEDS ORDERED: guaiFENesin 200 MG TAB PO PRN (18:32)
[2019-04-23] MEDS ORDERED: Sodium Chloride 0.65% Nasal 44 ML BOT EA NARE PRN (18:35)
--- NOTE | 2019-04-23 19:58 | HP ---
TIME OF ASSESSMENT: 1800. CHIEF COMPLAINT: Chest pain. HISTORY OF PRESENT ILLNESS: Mr. Treviño is a 64-year-old gentleman with a known history of coronary artery disease, who is status post a CABG done earlier this month in March 2019, who presents with complaints of chest pain for the last 2 days. The patient states that it is caused by the cough. He states that he feels a sharp discomfort along the incision to the right side of his chest. When he does not cough, he does not experience pain. He states that it is back tender insulation board to palpation, but has not noted any redness, swelling, or skin changes. He states that his cough has been notable for clear to green sputum and denies any associated difficulty breathing. Has not had any fevers, chills, or sweats. Reports nasal congestion and postnasal drip. He states that the pain settles within seconds. He has not tried taking anything for the pain. In the emergency department, he underwent an EKG, which demonstrated a normal sinus rhythm with a heart rate of 98. According to Dr. Salazar, she was concerned due to changes compared to previous EKG done on April 06, 2019. She states that there is any flipped T-wave. ST segments appeared normal and there was some T-wave inversion affecting leads aVL, V4, V5, and V6. He had a chest x-ray done, which showed stable findings with evidence of COPD. The patient does have a history of smoking and currently smokes up to 3 cigarettes a day. Laboratory studies were done and showed a normal white count of 6.1, hemoglobin 15.3, hematocrit 45.1, platelets 169, neutrophils 65.9. LFTs unremarkable. Potassium 4.7, sodium 138, BUN 27, creatinine 1.33, and GFR 65. Renal function slightly off from baseline. BNP elevated at 193 and troponin 0.014. Second troponin was negative. He has been given 1 L of normal saline and 0.4 mg of nitroglycerin. Per Dr. Salazar, the patient received aspirin in the ambulance. It is documented that he received 324 mg of aspirin and nitroglycerin x2. On initial presentation, his blood pressure was elevated at 173/106, however after nitroglycerin, it has improved to 166/98. PAST MEDICAL HISTORY: 1. Hypertension. 2. Coronary artery disease. 3. COPD. PAST SURGICAL HISTORY: 1. Tonsillectomy. 2. CABG in March 2019. SOCIAL HISTORY: He smokes 2 to 3 cigarettes a day. Denies alcohol consumption or illicit drug use. FAMILY HISTORY: Noncontributory. ALLERGIES: NO KNOWN DRUG ALLERGIES. CURRENT MEDICATIONS: 1. Lisinopril. 2. Carvedilol. 3. Aspirin. 4. Albuterol. PHYSICAL EXAMINATION: GENERAL: The patient appears thin, well developed, and in no acute distress. He is resting comfortably in a stretcher. VITAL SIGNS: Temperature 98.5, pulse 85, respirations 18, O2 saturation 98% on room air, and blood pressure 166/98. HEENT: Normocephalic and atraumatic. Pupils are equal, round, and reactive to light. Sclerae without icterus. Oropharynx is clear. NECK: Supple. No lymphadenopathy. LUNGS: Clear to auscultation bilaterally without wheezes, rales, or rhonchi. CARDIAC: Regular rate and rhythm. The patient with well-healed midsternal incision and a well-healed incision along the right side of his chest, which is minimally sensitive to palpation. No erythema, skin changes, or swelling. Normal chest wall expansion. ABDOMEN: Soft, nontender, and nondistended. Normoactive bowel sounds present. No guarding or rigidity. No renal angle tenderness. No lower extremity swelling or edema. NEUROLOGIC: Alert and oriented x3. No neuro deficits. SKIN: Without rash or jaundice. INVESTIGATIONS: As mentioned above in HPI. IMPRESSION AND PLAN: Mr. Treviño is a pleasant 64-year-old gentleman, who is status post coronary artery bypass graft earlier this month, presenting with chest pain, being admitted for management of the followin. Acute coronary syndrome, rule out. The patient reportedly with T-wave changes as compared to previous EKG done in March 2019. The patient is symptomatic at present. Troponin negative x2. His pain seems to be exacerbated by his cough only and pleuritic in nature. No pain with inspiration. No hemoptysis. No fevers or chills. Pain is nonradiating and does not seem to be cardiac in nature. It localized along the incision from his recent surgery and lasting only seconds. We will continue to trend troponins and admit the patient for continued cardiac monitoring. We will add magnesium and urine drug screen. The patient has been given aspirin. We will give ibuprofen for discomfort as per Dr. Brian's recommendation. 2. Cough/productive. The patient states that sputum is sometimes clear, sometimes greenish in color. No fevers. White count unremarkable. We will add lactic acid and procalcitonin. For now, we will give Tessalon and guaifenesin to help with symptoms as well as [place] nasal spray to help with nasal congestion. No indication for antibiotics at this time. 3. Hypertension. Monitor blood pressure. Resume home medications. 4. Gastrointestinal prophylaxis with famotidine. 5. Deep venous thrombosis prophylaxis with mechanical SCDs. 6. Code status full. The patient's surrogate decision maker is Charli Treviño. The patient's case was discussed with attending, who agrees with plan of care as described above. Job ID: [id number]
[2019-04-23 20:12] VITALS: BMI 21.7
[2019-04-23] MEDS: Famotidine/PF 20 mg/2ml Vial SLOW IVP SCH (20:35)
[2019-04-23] MEDS: hydrALAZINE 20 MG/ML VIAL SLOW IVP PRN (20:37)
[2019-04-23 21:10] LABS: Troponin I 0.021 ng/mL (< 0.028)
[2019-04-24] LABS: Amphetamine Not Detected (NotDetected); Barbiturates Screen Not Detected (NotDetected); Benzodiazepine Screen Not Detected (NotDetected); Cocaine Metabolite Screen Not Detected (NotDetected); Medtox Control Line Valid? VALID (VALID); Medtox Reader # READER 1; Methadone Not Detected (NotDetected); Methamphetamine Not Detected (NotDetected); Opiate Screen Not Detected (NotDetected); Oxycodone Screen Not Detected (NotDetected); Phencyclidine (PCP) Not Detected (NotDetected); THC/Cannabinoid Screen Detected (NotDetected); Tricyclic Screen Not Detected (NotDetected)
[2019-04-24] MEDS: hydrALAZINE 20 MG/ML VIAL SLOW IVP PRN (04:47)
[2019-04-24 05:47] LABS: #Eosinphils 0.1 thou/uL (0.0-0.7); #Lymphocytes 1.6 thou/uL (1.20-3.40); #Monocytes 0.4 thou/uL (0.11-0.59); %Basophils 0.1 % (0.0-1.0); %Eosinophils 2.5 % (0.0-10.0); %Monocytes 8.4 % (0.0-10.0); Hemoglobin 15.7 g/dL (14.0-18.0); Mean Corpuscular HGB CONC 34.5 g/dL (32.0-36.0); Mean Corpuscular Hemoglobin 35.8 pg (27.0-31.0); Platelet Count 159 thou/uL (130-400); RBC Distribution Width 11.5 % (11.5-14.5); Red Blood Cell (RBC) Count 4.39 mill/uL (4.70-6.10); White Blood Cell (WBC) Count 5.2 thou/uL (4.8-10.8)
[2019-04-24 06:10] LABS: Anion Gap 11 mmol/L (10-20); BUN (Urea Nitrogen) 17 mg/dL (8.4-25.7); Calc. Creatinine Clearance 65 mL/min (70-130); Calcium 8.7 mg/dL (7.8-10.44); Carbon Dioxide 24 mmol/L (23-31); Chloride 109 mmol/L (98-107); Estimated GFR-MDRD 76; Glucose 98 mg/dL (80-115); Potassium 3.7 mmol/L (3.5-5.1); Sodium 140 mmol/L (136-145)
[2019-04-24] MEDS ORDERED: FLU VACC TS2019-20(65YR UP)/PF 180 MCG/0.5 ML SYRINGE IM ONE (09:00)
[2019-04-24] MEDS ORDERED: Prevnar 13-Val Conj/PF 0.5 ML SYRINGE IM ONE (09:00)
[2019-04-24] MEDS ORDERED: PROVENTIL INHALER 6.7 G (200 INHALATIONS) INH PRN (09:06)
[2019-04-24] MEDS: Famotidine/PF 20 mg/2ml Vial SLOW IVP SCH (09:49)
[2019-04-24 12:12] VITALS: TEMP 97.7
[2019-04-24] MEDS ORDERED: Carvedilol 6.25 MG TAB PO SCH ×2 (12:45→21:00)
[2019-04-24] MEDS ORDERED: Lisinopril 10 MG TAB PO SCH (12:45)
--- NOTE | 2019-04-24 14:34 | PDOC.HOSPP ---
- Subjective Encounter Date: 04/24/19 Encounter Time: 14:32 Subjective: Mr. Treviño was seen today in follow-up of Chest pain. He tells me he feels much better. No new complaints. - Objective Vital Signs & Weight: Vital Signs (12 hours) Temp Pulse Resp BP BP Pulse Ox 04/24/19 12:58 176/107 H 04/24/19 11:30 97.7 F 89 14 176/107 H 99 04/24/19 08:40 97.9 F 91 16 165/97 H 99 04/24/19 05:15 158/92 H 04/24/19 04:47 88 04/24/19 04:41 97.9 F 88 18 183/103 H 99 Weight Weight 160 lb 9.6 oz I&O: 04/23/19 04/24/19 04/25/19 06:59 06:59 06:59 Intake Total 1025 2 Output Total 500 225 Balance 525 -223 Result Diagrams: 04/24/19 05:25 04/24/19 05:25 Hospitalist ROS - Medication Medications: Active Medications Generic Name Dose Route Start Last Admin Trade Name Freq PRN Reason Stop Dose Admin Carvedilol 6.25 mg 04/24/19 12:45 04/24/19 12:58 Coreg PO 04/24/19 14:45 6.25 mg NOW MARY LOU Administration Famotidine 20 mg 04/23/19 21:00 04/24/19 09:49 Pepcid SLOW IVP 20 mg Q12HR MARY LOU Administration Hydralazine HCl 10 mg 04/23/19 20:13 04/24/19 04:47 Apresoline SLOW IVP 10 mg Q4H PRN Administration SBP Greater Than 180 Sodium Chloride 1,000 mls @ 50 mls/hr 04/23/19 18:30 04/23/19 20:40 Normal Saline 0.9% IV 1,000 mls .Q20H MARY LOU Administration Lisinopril 10 mg 04/24/19 12:45 04/24/19 12:58 Zestril PO 04/24/19 14:45 10 mg NOW MARY LOU Administration - Exam Eye: PERRL Heart: RRR, no murmur, no gallops, no rubs, normal peripheral pulses Respiratory: CTAB, no wheezes, no rales, no ronchi, normal chest expansion, no tachypnea, normal percussion Gastrointestinal: soft, non-tender, non-distended, normal bowel sounds, no palpable masses, no hepatomegaly Extremities: no cyanosis, no edema Hosp A/P (1) Chest pain Code(s): R07.9 - CHEST PAIN, UNSPECIFIED Status: Acute (2) Chronic diastolic heart failure Code(s): I50.32 - CHRONIC DIASTOLIC (CONGESTIVE) HEART FAILURE Status: Chronic (3) HTN (hypertension) Code(s): I10 - ESSENTIAL (PRIMARY) HYPERTENSION Status: Chronic - Plan * Chest pain- clinically improved, and likely not cardiac * Troponins, are negative * Stable for discharge home
[2019-04-24 14:52] VITALS: BP 143/98
--- NOTE | 2019-04-24 16:00 | DIS ---
DATE OF ADMISSION: 04/23/2019 DATE OF DISCHARGE: 04/24/2019 DISCHARGE DISPOSITION: Back to alf. DISCHARGE DIAGNOSES: 1. Chest pain, probable, noncardiac. 2. History of coronary artery disease. 3. Hypertension. 4. Chronic obstructive pulmonary disease. DISCHARGE MEDICATIONS: There is no change in his medications and these include; 1. Lisinopril 10 mg daily. 2. Carvedilol 6.25 mg twice daily. 3. Aspirin 325 mg daily. 4. Albuterol inhaler q.6 as needed. CODE STATUS: Full code. ALLERGIES: NO KNOWN DRUG ALLERGIES. HOSPITAL COURSE: Mr. Treviño is a pleasant 64-year-old gentleman, who has a history of coronary artery disease. He is status post bypass surgery, which he said was done here. However, I was not able to see those records. I was able to see where he was here back in July, where he had what appears to be a valve replacement surgery. He did have a cardiac catheterization back in May of 2017, where he had a cardiac catheterization showing no coronary artery disease. Nevertheless, he claims he was here about a month ago and had bypass surgery and states that yesterday he started having pain in his chest. The pain description was more pleuritic in nature. He was ruled out and monitored overnight. There was no evidence of any ectopy on the heart monitor. The following day, the pain was improved. He is subsequently being discharged back to the custody of the [facility] and actually on , we will go ahead and increase the dose of his lisinopril from 10 to 20 mg daily due to elevated blood pressures. Job ID: [id number]
[2019-04-25] MEDS ORDERED: Aspirin 325 mg Enteric Coated Tablet PO SCH (09:00)
[2019-04-25] MEDS ORDERED: Lisinopril 10 MG TAB PO SCH (09:00)
== END 2019-04-24 15:25 ==
LOC: ERS 12:37 → 2SW 20:05
PROVIDERS: ADMIT Internal Medicine; ATTEND Internal Medicine
DX: R07.89 Other chest pain (principal); R05 Cough; I11.0 Hypertensive heart disease with heart failure; I50.32 Chronic diastolic (congestive) heart failure; I25.10 Atherosclerotic heart disease of native coronary artery without angina pectoris; F17.210 Nicotine dependence, cigarettes, uncomplicated; J44.9 Chronic obstructive pulmonary disease, unspecified; Z79.82 Long term (current) use of aspirin; Z79.899 Other long term (current) drug therapy; Z95.1 Presence of aortocoronary bypass graft
CPT/HCPCS: 71045; 80048; 80053; 80306; 82553; 83605; 83735; 83880; 84145; 84484 ×2; 85025 ×2; 90662; 93005; 96361 ×3; 96374; 96375; 96376; 99285; G0008; G0378 ×3; 36415; 90471; 96360; J0360; S0028

== ENCOUNTER 2019-06-10 13:35 | Observation (INO) | payer MEDICARE ==
[2019-06-10] MEDS ORDERED: Nitroglycerin 2% Ointment 1 INCH/1 GM Packet ONE (13:48)
--- NOTE | 2019-06-10 14:16 | RAD ---
PORTABLE CHEST: 06/10/19 HISTORY: Chest pain that started last night. COMPARISON: A 02/21/19 exam. Heart size is within normal limits. Postop sternotomy change and aortic stents are noted to be in lisa ce. Severe emphysematous changes of the right upper lobe are again demonstrated. There is some minima l atelectatic changes in the lung bases. IMPRESSION: Severe chronic lung change. Minimal subsegmental atelectatic change seen in the lung bases. POS: TPC
[2019-06-10 14:19] LABS: #Eosinphils 0.1 thou/uL (0.0-0.7); #Lymphocytes 1.6 thou/uL (1.20-3.40); #Monocytes 0.7 thou/uL (0.11-0.59); #Neutrophils 6.3 thou/uL (1.40-6.50); %Basophils 0.2 % (0.0-1.0); %Eosinophils 0.8 % (0.0-10.0); %Lymphocytes 18.8 % (21.0-51.0); %Monocytes 7.7 % (0.0-10.0); %Neutrophils 72.5 % (42.0-75.0); Hemoglobin 16.6 g/dL (14.0-18.0); Mean Corpuscular HGB CONC 33.1 g/dL (32.0-36.0); Mean Corpuscular Hemoglobin 33.5 pg (27.0-31.0); Mean Platelet Volume 7.3 fL (7.4-10.4); Platelet Count 190 thou/uL (130-400); RBC Distribution Width 11.1 % (11.5-14.5); Red Blood Cell (RBC) Count 4.96 mill/uL (4.70-6.10); White Blood Cell (WBC) Count 8.7 thou/uL (4.8-10.8)
[2019-06-10 15:00] LABS: ALT (SGPT) 13 U/L (8-55); AST (SGOT) 18 U/L (5-34); Albumin 4.1 g/dL (3.4-4.8); Alkaline Phosphatase 130 U/L (40-110); Anion Gap 19 mmol/L (10-20); BUN (Urea Nitrogen) 21 mg/dL (8.4-25.7); Bilirubin, Total 0.4 mg/dL (0.2-1.2); Calc. Creatinine Clearance 0 mL/min (70-130); Calcium 9.8 mg/dL (7.8-10.44); Carbon Dioxide 20 mmol/L (23-31); Chloride 103 mmol/L (98-107); Estimated GFR-MDRD 59; Globulin 3.4 g/dL (2.4-3.5); Glucose 89 mg/dL (80-115); Potassium 4.6 mmol/L (3.5-5.1); Protein, Total 7.5 g/dL (5.8-8.1); Sodium 137 mmol/L (136-145)
[2019-06-10] MEDS ORDERED: PROVENTIL INHALER 6.7 G (200 INHALATIONS) INH PRN (16:29)
[2019-06-10] MEDS ORDERED: hydrALAZINE 20 MG/ML VIAL SLOW IVP PRN (17:18)
[2019-06-10 17:58] VITALS: BMI 20.5
[2019-06-10 20:13] LABS: Troponin I 0.017 ng/mL (< 0.028)
[2019-06-10] MEDS ORDERED: Carvedilol 6.25 MG TAB PO SCH (21:00)
[2019-06-10] MEDS ORDERED: Atorvastatin Calcium 20 MG TAB PO SCH (21:00)
[2019-06-10] MEDS: Lisinopril 20 MG TAB PO SCH (21:48)
[2019-06-10] MEDS: Carvedilol 25 MG TAB PO SCH (21:48)
--- NOTE | 2019-06-10 21:50 | HP ---
CHIEF COMPLAINT: Chest pain. HISTORY OF PRESENT ILLNESS: This is a 64-year-old male with a recent history of CABG in March 2019, presenting with the chest pain, 10/10 in severity and relieved with aspirin, nitroglycerin as well as paste. He was a little hypertensive when he came in the ER with 160/100. After nitroglycerin paste, his blood pressure improved to 139/95. On his chest x-ray, cardiomegaly and sternotomy changes. His EKG showed left ventricular hypertrophy. Troponin is negative. BNP is in significant level. He is having lunch during my evaluation, states that his pain is 7/10, it is sitting there. He was not taking his medication as directed in the last 2 days. He did not have any shortness of breath, diaphoresis, or pain radiating features. REVIEW OF SYSTEMS: A 13-point review of systems reviewed with the patient. Pertinent addressed in the history of present illness. The rest of the record is negative including no fever, night sweats, chills, productive cough, orthopnea, PND, or lower extremity edema. No headache, blurriness, tingling, or numbness in his extremities. No polyuria or polydipsia. No nausea, vomiting, abdominal pain, constipation, diarrhea, hematuria, or dysuria. PAST MEDICAL HISTORY: Coronary artery disease status post CABG in 2019, tonsillectomy, and hypertension. SOCIAL HISTORY: He still smokes a pack a day. Occasional alcohol use. Uses cocaine, but not currently. FAMILY HISTORY: Significant for hypertension, hyperlipidemia, but not diabetic. ALLERGIES: HE HAS NO KNOWN DRUG ALLERGIES. HOME MEDICATIONS: 1. Lisinopril 10 mg daily. 2. Coreg 6.25 mg daily. 3. Aspirin 325 daily. 4. Proventil as needed 2 puffs every 6 hours. PHYSICAL EXAMINATION: VITAL SIGNS: Pending. He is afebrile. His blood pressure in the monitor showing 146/71. GENERAL: He is not in any acute distress. He has a nitroglycerin paste on the chest. HEENT: Pupils equal, round, reactive to light. Anicteric. Mucous membranes moist. CARDIOVASCULAR: Regular rate and rhythm without murmurs, rubs, or gallops. LUNGS: Clear to auscultation bilaterally without wheezing, rales, or rhonchi. ABDOMEN: Soft, nontender, nondistended. Good bowel sounds. EXTREMITIES: No pitting edema. LABORATORY DATA: CBC in the normal range except MCV of 101, platelets 190. Metabolic panel, normal range except creatinine 1.46. Chest x-ray did not show any new infiltrate, but severe chronic lung changes, minimal subsegmental atelectasis in the lung bases. Troponin is negative. EKG, left ventricular hypertrophy. IMPRESSION AND PLAN: A 64-year-old male with a history of recent CABG, presenting with chest pain. Partly due to noncompliance with his medications. We will rule out acute coronary syndrome with serial troponins. I am getting a fasting lipid panel. He is not on a statin, we will start him on a low dose and then he if his LDL is less than 70, we can discontinue. Otherwise, we will continue and give him prescription at the time of discharge. I am titrating his blood pressure medications. Blood pressure is high enough to up titrate his medications and monitor next 24 hours. The rest of the management based on clinical course. Job ID: [id number] MTDD
[2019-06-11 05:30] LABS: Anion Gap 9 mmol/L (10-20); BUN (Urea Nitrogen) 29 mg/dL (8.4-25.7); Calc. Creatinine Clearance 45 mL/min (70-130); Calcium 9.5 mg/dL (7.8-10.44); Carbon Dioxide 30 mmol/L (23-31); Cardiac Risk 3.5 (Less than 4.5); Chloride 102 mmol/L (98-107); Cholesterol 149 mg/dl (< 200 Desired); Estimated GFR-MDRD 54; Glucose 100 mg/dL (80-115); HDL Cholesterol 43 mg/dL (>60 Neg Risk); LDL Cholesterol, Calculated 89 mg/dL; Potassium 5.1 mmol/L (3.5-5.1); Sodium 136 mmol/L (136-145); Triglycerides 87 mg/dL (Less than 150)
[2019-06-11 06:28] LABS: #Eosinphils 0.2 thou/uL (0.0-0.7); #Monocytes 0.9 thou/uL (0.11-0.59); %Basophils 0.4 % (0.0-1.0); %Eosinophils 2.6 % (0.0-10.0); %Lymphocytes 27.9 % (21.0-51.0); %Monocytes 12.3 % (0.0-10.0); %Neutrophils 56.8 % (42.0-75.0); Hemoglobin 15.7 g/dL (14.0-18.0); Mean Corpuscular HGB CONC 34.1 g/dL (32.0-36.0); Mean Corpuscular Hemoglobin 34.6 pg (27.0-31.0); Mean Platelet Volume 7.3 fL (7.4-10.4); Platelet Count 171 thou/uL (130-400); RBC Distribution Width 11.4 % (11.5-14.5); Red Blood Cell (RBC) Count 4.54 mill/uL (4.70-6.10)
[2019-06-11] MEDS ORDERED: Aspirin 325 mg Enteric Coated Tablet PO SCH (09:00)
[2019-06-11] MEDS ORDERED: Lisinopril 10 MG TAB PO SCH (09:00)
[2019-06-11] MEDS: Lisinopril 20 MG TAB PO SCH (09:23)
[2019-06-11] MEDS: Carvedilol 25 MG TAB PO SCH (09:23)
[2019-06-11 11:41] VITALS: BP 118/74; TEMP 97.7
--- NOTE | 2019-06-11 14:23 | PDOC.HOSPP ---
- Subjective Encounter Date: 06/11/19 Encounter Time: 14:21 Subjective: Mr. Treviño was seen today in follow-up. He tells me he continues to have chest pain. He says it is worse when he coughs, and also when he lifts his right arm. - Objective Vital Signs & Weight: Vital Signs (12 hours) Temp Pulse Resp BP Pulse Ox 06/11/19 11:36 97.7 F 71 16 118/74 97 06/11/19 07:31 98.0 F 82 16 127/84 96 06/11/19 02:56 98.6 F 89 18 116/71 98 Weight Weight 150 lb 1.6 oz I&O: 06/10/19 06/11/19 06/12/19 06:59 06:59 06:59 Intake Total 1720 Balance 1720 Result Diagrams: 06/11/19 04:45 06/11/19 04:45 Hospitalist ROS - Medication Medications: Active Medications Generic Name Dose Route Start Last Admin Trade Name Freq PRN Reason Stop Dose Admin Aspirin 325 mg 06/11/19 09:00 06/11/19 09:23 Ecotrin PO 325 mg DAILY MARY LOU Administration Atorvastatin Calcium 20 mg 06/10/19 21:00 06/10/19 21:48 Lipitor PO 20 mg HS MARY LOU Administration Carvedilol 12.5 mg 06/10/19 21:00 06/11/19 09:23 Coreg PO 12.5 mg BID MARY LOU Administration Lisinopril 20 mg 06/10/19 21:00 06/11/19 09:23 Zestril PO 20 mg BID MARY LOU Administration - Exam Eye: PERRL Heart: RRR, no murmur, no gallops, no rubs, normal peripheral pulses Respiratory: CTAB, no wheezes, no rales, no ronchi, normal chest expansion, no tachypnea, normal percussion Gastrointestinal: soft, non-tender, non-distended, normal bowel sounds, no palpable masses, no hepatomegaly Extremities: no cyanosis, no clubbing, no edema Hosp A/P (1) Atypical chest pain Code(s): R07.89 - OTHER CHEST PAIN Status: Acute (2) HTN (hypertension) Code(s): I10 - ESSENTIAL (PRIMARY) HYPERTENSION Status: Chronic - Plan * Chest pain- the description of his pain is atypical and not likely due to coronary artery disease. However he has had multiple hospital admission for this , and will therfore consult Cardiology for evaluation * Echo results noted * HTN- blood pressure is stable * Hopefully home later today
--- NOTE | 2019-06-11 16:29 | CON ---
DATE OF CONSULTATION: 06/11/2019 REASON FOR CONSULTATION: Chest pain. HISTORY OF PRESENT ILLNESS: Mr. Treviño is a 64-year-old gentleman, who comes to the hospital for chest pain. Chest pain is right-sided with inspiration. In the ER, his blood pressure was 160/100. He continues to smoke. He had a heart catheterization that showed no evidence of coronary artery disease in 05/2017. He has had several admissions for chest pain, which is noncardiac. He had an aortic valve replacement. He has never had bypass surgery. This has been perpetuated in his chart. PAST MEDICAL HISTORY: 1. NO HISTORY OF CORONARY ARTERY DISEASE. 2. NO HISTORY OF BYPASS GRAFTING. 3. History of aortic valve replacement in 2018. 4. Hypertension. PAST SURGICAL HISTORY: Aortic valve replacement without CABG. SOCIAL HISTORY: Smokes a pack a day. Occasional alcohol use. Uses cocaine. FAMILY HISTORY: Noncontributory. ALLERGIES: NO KNOWN ALLERGIES. OUTPATIENT MEDICATIONS: Reviewed. REVIEW OF SYSTEMS: Negative x12. PHYSICAL EXAMINATION: VITAL SIGNS: Reviewed in the EMR. Blood pressure 123/59. GENERAL: Awake, alert, and oriented x3, in no distress. HEENT: Normocephalic and atraumatic. NECK: Supple. LUNGS: Clear. CARDIOVASCULAR: S1 and S2. There is a grade 2/6 systolic murmur at the right upper sternal border. ABDOMEN: Soft. Positive bowel sounds. EXTREMITIES: No edema. SKIN: Warm and dry. LABORATORY DATA: Laboratory work was reviewed. ASSESSMENT AND PLAN: 1. Noncardiac chest pain. Discharge home from the cardiac perspective at any point. 2. No coronary artery disease on heart catheterization in 2018. He had aortic valve replacement only. We will sign off. Please call with questions. Job ID: [id number]
--- NOTE | 2019-06-12 02:05 | DIS ---
DATE OF ADMISSION: 06/10/2019 DATE OF DISCHARGE: 06/11/2019 DISCHARGE DISPOSITION: Home. DISCHARGE DIAGNOSES: 1. Chest pain, probable non cardiac. 2. Probable chronic obstructive pulmonary disease. 3. Tobacco abuse. 4. Hypertension. DISCHARGE MEDICATIONS: Include: 1. Tramadol 50 mg p.o. t.i.d. as needed for pain. 2. Lisinopril 10 mg daily. 3. Carvedilol 6.25 mg twice daily. 4. Aspirin 325 mg daily. IMAGING DONE DURING THE HOSPITAL STAY: The patient had an echocardiogram, which demonstrated an ejection fraction of 65% to 70%, grade 1/3 diastolic dysfunction. There was mild concentric left ventricular hypertrophy. A bioprosthetic aortic valve, well seated. No regurgitation. CODE STATUS: Full code. ALLERGIES: NO KNOWN DRUG ALLERGIES. HOSPITAL COURSE: Mr. Treviño is a pleasant 64-year-old gentleman, who was admitted to the hospital due to chest pain. He has had several admissions in the past for similar complaints. He was placed in observation, ruled out and echocardiogram was obtained. Due to his multiple admissions for similar complaints, Cardiology was also consulted. It was felt that his pain was not cardiac. It was reproducible on exam. Worse with movement of his arm and therefore, he will be discharged home on tramadol for pain and he should have close outpatient followup with his primary care physician and encouraged to quit smoking. Job ID: [id number]
== END 2019-06-11 18:06 | disposition home or self-care (01) ==
LOC: ERS 13:35 → 2SW 17:53
PROVIDERS: ADMIT Internal Medicine; ATTEND Internal Medicine
DX: R07.89 Other chest pain (principal); I25.10 Atherosclerotic heart disease of native coronary artery without angina pectoris; I10 Essential (primary) hypertension; E78.5 Hyperlipidemia, unspecified; F17.210 Nicotine dependence, cigarettes, uncomplicated; Z79.82 Long term (current) use of aspirin; Z79.899 Other long term (current) drug therapy; Z91.14 Patient's other noncompliance with medication regimen; Z95.1 Presence of aortocoronary bypass graft; Z95.4 Presence of other heart-valve replacement
CPT/HCPCS: 71045; 80048; 80053; 80061; 84484 ×2; 85025 ×2; 93005; 93306; 99285; G0378 ×2; 36415

== ENCOUNTER 2019-06-15 18:00 | Emergency (ER) | payer MEDICARE ==
[~2019-06-15 18:00] MED LIST changes: -ISOVUE-370 76%-LOCM 1 ML ONE; +Iopamidol-370 76% 500 ML 1 ML ONE
[2019-06-15] MEDS ORDERED: Nitroglycerin 2% Ointment 1 INCH/1 GM Packet ONE (18:38)
[2019-06-15 18:46] LABS: #Basophils 0.1 thou/uL (0.0-0.2); #Eosinphils 0.1 thou/uL (0.0-0.7); #Lymphocytes 1.5 thou/uL (1.20-3.40); #Monocytes 0.3 thou/uL (0.11-0.59); #Neutrophils 2.9 thou/uL (1.40-6.50); %Basophils 1.3 % (0.0-1.0); %Eosinophils 2.7 % (0.0-10.0); %Lymphocytes 30.3 % (21.0-51.0); %Monocytes 6.7 % (0.0-10.0); %Neutrophils 59.2 % (42.0-75.0); Hemoglobin 14.2 g/dL (14.0-18.0); Mean Corpuscular HGB CONC 33.7 g/dL (32.0-36.0); Mean Corpuscular Hemoglobin 34.4 pg (27.0-31.0); Mean Platelet Volume 6.7 fL (7.4-10.4); Platelet Count 180 thou/uL (130-400); RBC Distribution Width 11.3 % (11.5-14.5); Red Blood Cell (RBC) Count 4.11 mill/uL (4.70-6.10); White Blood Cell (WBC) Count 4.9 thou/uL (4.8-10.8)
--- NOTE | 2019-06-15 18:58 | RAD ---
XR Chest 1 View Portable HISTORY: Chest pain COMPARISON: None FINDINGS: The heart size is normal. Changes of median sternotomy are again seen. The lungs are well e xpanded with mild emphysematous changes and without focal areas of consolidation, pneumothorax or pleural effusions. IMPRESSION: No radiographic evidence of acute cardiopulmonary process.
[2019-06-15 19:07] LABS: ALT (SGPT) 14 U/L (8-55); AST (SGOT) 19 U/L (5-34); Albumin 3.5 g/dL (3.4-4.8); Alkaline Phosphatase 104 U/L (40-110); Anion Gap 15 mmol/L (10-20); BUN (Urea Nitrogen) 20 mg/dL (8.4-25.7); Bilirubin, Total 0.3 mg/dL (0.2-1.2); CK (CPK) 97 U/L (30-200); Calc. Creatinine Clearance 0 mL/min (70-130); Calcium 8.9 mg/dL (7.8-10.44); Carbon Dioxide 24 mmol/L (23-31); Chloride 106 mmol/L (98-107); Estimated GFR-MDRD 46; Glucose 87 mg/dL (80-115); Potassium 4.7 mmol/L (3.5-5.1); Protein, Total 6.5 g/dL (5.8-8.1); Sodium 140 mmol/L (136-145)
--- NOTE | 2019-06-15 20:24 | CT ---
CT PULMONARY ANGIOGRAM WITH IV CONTRAST AND 3D POSTPROCESSIN06/15/19 HISTORY: Chest pain, elevated D-dimer. FINDINGS: There is good contrast opacification with pulmonary arterial vasculature without filling defects to s uggest pulmonary embolism. There are vascular calcifications without aneurysmal dilatation of the tho racic aorta. No fluid or pericardial effusions are seen. There are mild emphysematous changes bilater ally. There are dependent changes in the lung bases. IMPRESSION: No CT evidence of pulmonary embolism. POS: OFF
== END 2019-06-15 21:59 | disposition home or self-care (01) ==
LOC: ERS 18:00
DX: R07.89 Other chest pain (principal); I10 Essential (primary) hypertension; F17.210 Nicotine dependence, cigarettes, uncomplicated
CPT/HCPCS: 36415; 71045; 71275; 80053; 82550; 84484; 85025; 85379; 87804; 93005

== ENCOUNTER 2019-06-15 23:24 | Emergency (ER) | payer MEDICARE | END 2019-06-16 02:41 | disposition home or self-care (01) | LOC: ERS 23:24 | DX: Z76.5 Malingerer [conscious simulation] (principal); R07.9 Chest pain, unspecified; I10 Essential (primary) hypertension; F17.210 Nicotine dependence, cigarettes, uncomplicated; Z79.82 Long term (current) use of aspirin; Z79.899 Other long term (current) drug therapy | CPT/HCPCS: 36415; 71045; 71275; 80053; 82550; 84484; 85025; 85379; 87804; 93005; Q9967 ==

== ENCOUNTER 2019-06-21 19:34 | Emergency (ER) | payer MEDICARE ==
[2019-06-21] MEDS ORDERED: Nitroglycerin 2% Ointment 1 INCH/1 GM Packet ONE (20:08)
--- NOTE | 2019-06-21 20:13 | RAD ---
Portable frontal chest radiograph: 06/21/2019 COMPARISON: 06/15/2019 HISTORY: Chest pain, right-sided chest pain radiating to the left FINDINGS: Prominent upper lobe emphysematous changes are noted, right greater than left. Perihilar an d bibasilar interstitial prominence noted. Heart and mediastinal contours are stable. Midline sternotomy wires again noted. No focal consolidation or alveolar edema. IMPRESSION: No acute findings-stable appearance of the chest. Lung parenchyma is better evaluated on CT angiogram of the chest performed 06/15/2019.
[2019-06-21 20:25] LABS: #Eosinphils 0.1 thou/uL (0.0-0.7); #Lymphocytes 2.1 thou/uL (1.20-3.40); #Monocytes 0.5 thou/uL (0.11-0.59); #Neutrophils 5.7 thou/uL (1.40-6.50); %Basophils 0.2 % (0.0-1.0); %Eosinophils 1.7 % (0.0-10.0); %Lymphocytes 24.5 % (21.0-51.0); %Monocytes 6.1 % (0.0-10.0); %Neutrophils 67.5 % (42.0-75.0); Hemoglobin 14.1 g/dL (14.0-18.0); Mean Corpuscular HGB CONC 35.5 g/dL (32.0-36.0); Mean Corpuscular Hemoglobin 36.1 pg (27.0-31.0); Mean Platelet Volume 6.5 fL (7.4-10.4); Platelet Count 198 thou/uL (130-400); RBC Distribution Width 11.8 % (11.5-14.5); Red Blood Cell (RBC) Count 3.91 mill/uL (4.70-6.10); White Blood Cell (WBC) Count 8.5 thou/uL (4.8-10.8)
[2019-06-21 20:47] LABS: ALT (SGPT) 14 U/L (8-55); AST (SGOT) 17 U/L (5-34); Albumin 3.7 g/dL (3.4-4.8); Alkaline Phosphatase 103 U/L (40-110); Anion Gap 12 mmol/L (10-20); BUN (Urea Nitrogen) 23 mg/dL (8.4-25.7); Bilirubin, Total 0.2 mg/dL (0.2-1.2); Calc. Creatinine Clearance 0 mL/min (70-130); Calcium 8.9 mg/dL (7.8-10.44); Carbon Dioxide 24 mmol/L (23-31); Chloride 105 mmol/L (98-107); Estimated GFR-MDRD 44; Globulin 2.8 g/dL (2.4-3.5); Glucose 96 mg/dL (80-115); Protein, Total 6.5 g/dL (5.8-8.1); Sodium 137 mmol/L (136-145)
[2019-06-21 21:06] LABS: Medtox Reader # READER 4
[2019-06-21 21:07] LABS: Amphetamine Not Detected (NotDetected); Barbiturates Screen Not Detected (NotDetected); Benzodiazepine Screen Not Detected (NotDetected); Cocaine Metabolite Screen Not Detected (NotDetected); Medtox Control Line Valid? VALID (VALID); Methadone Not Detected (NotDetected); Methamphetamine Not Detected (NotDetected); Opiate Screen Not Detected (NotDetected); Oxycodone Screen Not Detected (NotDetected); Phencyclidine (PCP) Not Detected (NotDetected); THC/Cannabinoid Screen Not Detected (NotDetected); Tricyclic Screen Not Detected (NotDetected)
== END 2019-06-21 23:50 | disposition home or self-care (01) ==
LOC: ERS 19:34
DX: M94.0 Chondrocostal junction syndrome [Tietze] (principal); I10 Essential (primary) hypertension; F17.210 Nicotine dependence, cigarettes, uncomplicated; Z79.82 Long term (current) use of aspirin; Z79.899 Other long term (current) drug therapy
CPT/HCPCS: 36415; 71045; 80053; 80306; 84484; 85025; 93005

== ENCOUNTER 2019-06-22 08:30 | Emergency (ER) | payer MEDICARE ==
[2019-06-22] MEDS ORDERED: Ibuprofen 200 MG TAB ONE (09:13)
[2019-06-22] MEDS ORDERED: Acetaminophen 500 MG TAB ONE (09:13)
== END 2019-06-22 10:40 | disposition home or self-care (01) ==
LOC: ERS 08:30
DX: R07.9 Chest pain, unspecified (principal); E78.5 Hyperlipidemia, unspecified; I10 Essential (primary) hypertension; Z79.82 Long term (current) use of aspirin; Z79.899 Other long term (current) drug therapy
CPT/HCPCS: 36415; 84484; 93005

== ENCOUNTER 2019-07-21 19:28 | Emergency (ER) | payer MEDICARE, SELFPAY ==
[2019-07-21 20:02] LABS: #Eosinphils 0.1 thou/uL (0.0-0.7); #Lymphocytes 1.6 thou/uL (1.20-3.40); #Monocytes 0.4 thou/uL (0.11-0.59); #Neutrophils 2.8 thou/uL (1.40-6.50); %Basophils 0.6 % (0.0-1.0); %Eosinophils 1.3 % (0.0-10.0); %Lymphocytes 31.7 % (21.0-51.0); %Monocytes 8.8 % (0.0-10.0); %Neutrophils 57.6 % (42.0-75.0); Hemoglobin 15.8 g/dL (14.0-18.0); Mean Corpuscular HGB CONC 33.2 g/dL (32.0-36.0); Mean Corpuscular Hemoglobin 34.6 pg (27.0-31.0); Platelet Count 156 thou/uL (130-400); RBC Distribution Width 12.8 % (11.5-14.5); Red Blood Cell (RBC) Count 4.57 mill/uL (4.70-6.10); White Blood Cell (WBC) Count 4.9 thou/uL (4.8-10.8)
--- NOTE | 2019-07-21 20:10 | RAD ---
RADIOGRAPH CHEST 2 VIEW: DATE: 07/21/2019 TIME: 7:46 PM HISTORY: 64-year-old male with chest pain COMPARISON: 06/21/2019 FINDINGS: Severe biapical bullae, right more extensive and more severe than left. Chronic mild haziness of the rest of the visualized mid and lower lung lozano, Unchanged. Scar at right mid-lower lung zone. Sternotomy wires. No cardiomegaly. Ectasia and tortuosi ty of thoracic aorta. No new consolidation. No interval change. IMPRESSION: 1) severe paraseptal emphysema. 2) chronic lung changes. 3) no acute findings
[2019-07-21 20:24] LABS: ALT (SGPT) 8 U/L (8-55); AST (SGOT) 15 U/L (5-34); Alkaline Phosphatase 94 U/L (40-110); Anion Gap 15 mmol/L (10-20); BUN (Urea Nitrogen) 18 mg/dL (8.4-25.7); Bilirubin, Total 0.4 mg/dL (0.2-1.2); Calc. Creatinine Clearance 0 mL/min (70-130); Calcium 9.2 mg/dL (7.8-10.44); Carbon Dioxide 22 mmol/L (23-31); Chloride 109 mmol/L (98-107); Estimated GFR-MDRD 51; Globulin 2.6 g/dL (2.4-3.5); Glucose 85 mg/dL (80-115); Lipase 19 U/L (8-78); Potassium 4.1 mmol/L (3.5-5.1); Protein, Total 6.6 g/dL (5.8-8.1); Sodium 142 mmol/L (136-145)
== END 2019-07-21 23:05 | disposition home or self-care (01) ==
LOC: ERS 19:28
DX: R07.9 Chest pain, unspecified (principal); E78.5 Hyperlipidemia, unspecified; I10 Essential (primary) hypertension; F17.210 Nicotine dependence, cigarettes, uncomplicated
CPT/HCPCS: 36415; 71045; 80053; 83690; 84484; 85025; 93005

== ENCOUNTER 2019-07-22 00:05 | Emergency (ER) | payer MEDICARE, SELFPAY | END 2019-07-22 00:21 | disposition home or self-care (01) | LOC: ERS 00:05 | DX: R07.9 Chest pain, unspecified (principal); G89.29 Other chronic pain | CPT/HCPCS: 99281 ==

== ENCOUNTER 2019-07-30 20:51 | Emergency (ER) | payer MEDICARE ==
[2019-07-30 21:37] LABS: ALT (SGPT) 8 U/L (8-55); AST (SGOT) 16 U/L (5-34); Albumin 4.5 g/dL (3.4-4.8); Alkaline Phosphatase 103 U/L (40-110); Anion Gap 16 mmol/L (10-20); BUN (Urea Nitrogen) 19 mg/dL (8.4-25.7); Bilirubin, Total 0.7 mg/dL (0.2-1.2); CK (CPK) 65 U/L (30-200); Calc. Creatinine Clearance 0 mL/min (70-130); Calcium 9.9 mg/dL (7.8-10.44); Carbon Dioxide 24 mmol/L (23-31); Chloride 104 mmol/L (98-107); Estimated GFR-MDRD 47; Globulin 3.5 g/dL (2.4-3.5); Glucose 101 mg/dL (80-115); Potassium 4.1 mmol/L (3.5-5.1); Sodium 140 mmol/L (136-145)
[2019-07-30 21:39] LABS: #Lymphocytes 1.8 thou/uL (1.20-3.40); #Monocytes 0.5 thou/uL (0.11-0.59); #Neutrophils 4.4 thou/uL (1.40-6.50); %Basophils 0.7 % (0.0-1.0); %Eosinophils 0.5 % (0.0-10.0); %Lymphocytes 26.7 % (21.0-51.0); %Monocytes 6.9 % (0.0-10.0); %Neutrophils 65.2 % (42.0-75.0); Hemoglobin 17.8 g/dL (14.0-18.0); Lymphocytes 17 % (21-51); MDiff Complete? YES; Macrocytosis SLIGHT = 6-15 cells (100X) (0-5/hpf); Mean Corpuscular HGB CONC 32.7 g/dL (32.0-36.0); Mean Corpuscular Hemoglobin 34.3 pg (27.0-31.0); Monocytes 1 % (0-10); Neutrophil 81 % (42-75); Platelet Count 186 thou/uL (130-400); Platelet Morphology Comment Appears Adequate; RBC Distribution Width 12.8 % (11.5-14.5); Reactive Lymphocytes 1 % (0-10); Red Blood Cell (RBC) Count 5.21 mill/uL (4.70-6.10); White Blood Cell (WBC) Count 6.8 thou/uL (4.8-10.8)
--- NOTE | 2019-07-30 21:39 | RAD ---
PORTABLE CHEST: 07/30/19 HISTORY: Chest pain. COMPARISON: 07/21/19 exam. Heart size is within normal limits. Postop sternotomy changes and aortic valve stent are noted. Chron ic interstitial changes are present. IMPRESSION: Chronic lung change. No acute process. POS: VINCE
[2019-07-30] MEDS ORDERED: HYDROcodone/Acetaminophen 5/325 mg Tablet ONE (22:48)
== END 2019-07-30 22:55 | disposition home or self-care (01) ==
LOC: ERS 20:51
DX: G89.18 Other acute postprocedural pain (principal); R07.89 Other chest pain; I10 Essential (primary) hypertension; E78.5 Hyperlipidemia, unspecified; F17.210 Nicotine dependence, cigarettes, uncomplicated; Z95.1 Presence of aortocoronary bypass graft
CPT/HCPCS: 71045; 80053; 82550; 84484; 85025; 93005

== ENCOUNTER 2019-08-10 14:34 | Emergency (ER) | payer MEDICARE ==
[2019-08-10 15:15] LABS: #Lymphocytes 1.4 thou/uL (1.20-3.40); #Monocytes 0.5 thou/uL (0.11-0.59); #Neutrophils 3.4 thou/uL (1.40-6.50); %Basophils 0.1 % (0.0-1.0); %Eosinophils 0.7 % (0.0-10.0); %Lymphocytes 25.9 % (21.0-51.0); %Monocytes 8.8 % (0.0-10.0); %Neutrophils 64.5 % (42.0-75.0); Hemoglobin 16.1 g/dL (14.0-18.0); Mean Corpuscular HGB CONC 33.7 g/dL (32.0-36.0); Mean Corpuscular Hemoglobin 35.3 pg (27.0-31.0); Platelet Count 147 thou/uL (130-400); RBC Distribution Width 12.4 % (11.5-14.5); Red Blood Cell (RBC) Count 4.56 mill/uL (4.70-6.10); White Blood Cell (WBC) Count 5.3 thou/uL (4.8-10.8)
[2019-08-10] MEDS ORDERED: Aspirin Chewable 81 MG TAB ONE (15:24)
--- NOTE | 2019-08-10 15:29 | RAD ---
PORTABLE CHEST: Date: 08/10/2019 PROVIDED CLINICAL HISTORY: Chest pain. FINDINGS: Comparison with 07/30/2019. Cardiac and mediastinal silhouette is unchanged in appearance. Median sternotomy changes are again se en. Conspicuous bolus change involving both lung apices is redemonstrated. No focal consolidation, pl eural fluid, or pneumothorax apparent. IMPRESSION: No evidence for an acute cardiopulmonary process. POS: KAMALJIT
[2019-08-10 15:32] LABS: ALT (SGPT) 9 U/L (8-55); AST (SGOT) 14 U/L (5-34); Albumin 3.9 g/dL (3.4-4.8); Alkaline Phosphatase 94 U/L (40-110); Anion Gap 10 mmol/L (10-20); BUN (Urea Nitrogen) 14 mg/dL (8.4-25.7); Bilirubin, Total 0.6 mg/dL (0.2-1.2); CK (CPK) 64 U/L (30-200); Calc. Creatinine Clearance 0 mL/min (70-130); Calcium 9.1 mg/dL (7.8-10.44); Carbon Dioxide 29 mmol/L (23-31); Chloride 101 mmol/L (98-107); Estimated GFR-MDRD 65; Globulin 2.9 g/dL (2.4-3.5); Glucose 70 mg/dL (80-115); Potassium 3.9 mmol/L (3.5-5.1); Protein, Total 6.8 g/dL (5.8-8.1); Sodium 136 mmol/L (136-145)
--- NOTE | 2019-08-14 09:49 | EKG ---
Test Reason : Blood Pressure : / mmHG Vent. Rate : 083 BPM Atrial Rate : 083 BPM P-R Int : 130 ms QRS Dur : 096 ms QT Int : 374 ms P-R-T Axes : 050 -51 105 degrees QTc Int : 439 ms Normal sinus rhythm Possible Left atrial enlargement Left anterior fascicular block T wave abnormality, consider lateral ischemia Abnormal ECG Confirmed by MARTA GREEN DO ([id number]), editor publications SATURNNIO HINTON ([id number]) on 08/14/2019 9:49:17 AM Referred By: Confirmed By:MARTA GREEN DO
== END 2019-08-10 19:00 | disposition home or self-care (01) ==
LOC: ERS 14:34
DX: R07.89 Other chest pain (principal); E78.5 Hyperlipidemia, unspecified; I10 Essential (primary) hypertension; F17.210 Nicotine dependence, cigarettes, uncomplicated
CPT/HCPCS: 36415; 71045; 80053; 82550; 84484; 85025; 93005

== ENCOUNTER 2019-12-21 21:13 | Observation (INO) | payer MEDICARE, OTHER ==
[2019-12-21] MEDS ORDERED: Nitroglycerin 2% Ointment 1 INCH/1 GM Packet ONE (21:18)
--- NOTE | 2019-12-21 21:40 | RAD ---
EXAM: Single view of the chest HISTORY: Intermittent chest pain COMPARISON: 08/10/2019 FINDINGS: Single view of the chest shows a normal sized cardiomediastinal silhouette. The patient is status post sternotomy. Emphysematous changes are seen, greatest in the right upper lobe. Scarring is seen in the mid right thorax. There is no evidence of consolidation, mass, or pleural effusion. No acute osseous abnormality. IMPRESSION: No evidence of acute cardiopulmonary disease
[2019-12-21 21:48] LABS: #Eosinphils 0.1 thou/uL (0.0-0.7); #Lymphocytes 1.4 thou/uL (1.20-3.40); #Monocytes 0.4 thou/uL (0.11-0.59); #Neutrophils 3.7 thou/uL (1.40-6.50); %Basophils 0.6 % (0.0-1.0); %Eosinophils 1.3 % (0.0-10.0); %Lymphocytes 24.6 % (21.0-51.0); %Monocytes 7.8 % (0.0-10.0); %Neutrophils 65.7 % (42.0-75.0); Hemoglobin 15.8 g/dL (14.0-18.0); Mean Corpuscular HGB CONC 34.3 g/dL (32.0-36.0); Mean Corpuscular Hemoglobin 35.4 pg (27.0-31.0); Mean Platelet Volume 8.1 fL (7.4-10.4); Platelet Count 157 thou/uL (130-400); RBC Distribution Width 12.2 % (11.5-14.5); Red Blood Cell (RBC) Count 4.46 mill/uL (4.70-6.10); White Blood Cell (WBC) Count 5.7 thou/uL (4.8-10.8)
[2019-12-21 22:25] LABS: Bacteria/HPF None Seen HPF (None Seen); Bilirubin Negative (Negative); Blood, Urine Negative (Negative); Calcium Oxalate Crystals 2+ HPF (None Seen); Clarity Clear (Clear); Glucose, Urine (Dipstick) Normal (Negative); Ketone, Urine Trace mg/dL (Negative); Leukocyte Negative Leu/uL (Negative); Mucous/LPF 2+ LPF (<2+); Nitrite Negative (Negative); Protein, Urine (Dipstick) 30 mg/dL (Neg-Trace); Specific Gravity, Urine 1.031 (1.002-1.036); Squamous Epithelial 0-3 HPF (0-3); Urobilinogen 3 mg/dL (Less than 2); WBC/HPF 0-3 HPF (0-3)
[2019-12-21] MEDS ORDERED: Morphine 4 MG/ML VIAL ONE (22:36)
[2019-12-21 23:07] LABS: Albumin 3.5 g/dL (3.4-4.8)
[2019-12-21 23:08] LABS: Calcium 8.5 mg/dL (7.8-10.44); Chloride 106 mmol/L (98-107); Potassium 4.3 mmol/L (3.5-5.1); Sodium 140 mmol/L (136-145)
[2019-12-21 23:09] LABS: Glucose 101 mg/dL (80-115)
[2019-12-21 23:10] LABS: Globulin 2.7 g/dL (2.4-3.5); Protein, Total 6.2 g/dL (5.8-8.1)
[2019-12-21 23:11] LABS: Anion Gap 10 mmol/L (10-20); Bilirubin, Total 0.3 mg/dL (0.2-1.2); Carbon Dioxide 28 mmol/L (23-31)
[2019-12-21 23:12] LABS: Alkaline Phosphatase 99 U/L (40-110)
[2019-12-21 23:13] LABS: Calc. Creatinine Clearance 0 mL/min (70-130); Estimated GFR-MDRD 47
[2019-12-21 23:14] LABS: AST (SGOT) 13 U/L (5-34); BUN (Urea Nitrogen) 26 mg/dL (8.4-25.7)
[2019-12-21 23:15] LABS: ALT (SGPT) Less than 7 U/L (8-55); CK (CPK) 50 U/L (30-200)
[2019-12-22] MEDS ORDERED: Ondansetron PF 4 MG/2 ML Vial IVP PRN ×2 (00:15→01:10)
[2019-12-22] MEDS ORDERED: Ondansetron ODT 4 MG TAB SL PRN (00:15)
[2019-12-22 00:32] VITALS: BMI 19.2
[2019-12-22 01:06] LABS: Troponin I 0.027 ng/mL (< 0.028)
[2019-12-22] MEDS ORDERED: Promethazine HCl 12.5 MG in Sodium Chloride 0.9% 50 ML IVPB PRN (01:10)
[2019-12-22] MEDS ORDERED: Labetalol HCl 100 MG/20 ML VIAL SLOW IVP PRN (01:10)
[2019-12-22] MEDS ORDERED: cloNIDine 0.1 MG TAB PO PRN (01:10)
[2019-12-22] MEDS ORDERED: Guaifenesin DM 100-10/5 ML UDCUP PO PRN (01:10)
[2019-12-22] MEDS ORDERED: Electrolyte Replacement Protocol FS SCH (01:15)
--- NOTE | 2019-12-22 01:22 | PDOC.HHP ---
Hospitalist HPI - History of Present Illness Chest pain History of Present Illness: Patient is a 64 year old male with PMH CAD, CABG last march, bioprosthetic aortic valve, HLD, HTN who presents to ED for chest pain x 1 day. Chest pain is intermittent, started earlier today, not pleuritic, pressure like, 8/10 R sided. He reports it is off and on since his CABG in march. In ED, EKG rate 100 w/ nonspecific T wave changes and no significant changes from previous. Cr 1.77 which is elevated above baseline. CXR without acute findings. Of note, on my exam, there is an area of significant chest wall tenderness on the R anterior chest wall. patient recieved morphine, nitropaste in ED which relieved pain. BP markedly elevated, does not take any BP meds at home. Patient has a history of CABG not done here, he reports this was last March. He had an echo in 05/2019 revealed EF 65%, grade 1 diastolic dysfunction, LVF, bioprosthetic aortic valve. The bioprosthetic aortic valve was placed here 2017. Patient does not take any medications at home. He uses marijuana, drinks several times a week, smokes several cigarettes a day. Last admission in May, patient discharged on coreg, lisinopril, asa but again does not take these. He had a heart cath here in 2017 with no coronary disease. Hospitalist ROS - Review of Systems Constitutional: denies: fever, chills, sweats, weakness, malaise, other Eyes: denies: pain, vision change, conjunctivae inflammation, eyelid inflammation, redness, other ENT: denies: ear pain, ear discharge, nose pain, nose discharge, nose congestion , mouth pain, mouth swelling, throat pain, throat swelling, other Respiratory: denies: cough, dry, shortness of breath, hemoptysis, SOB with excertion, pleuritic pain, sputum, wheezing, other Cardiovascular: reports: chest pain. denies: palpitations, orthopnea, paroxysmal noc. dyspnea, edema, light headedness, other Gastrointestinal: denies: nausea, vomiting, abdominal pain, diarrhea, constipation, melena, hematochezia, other Genitourinary: denies: dysuria, frequency, incontinence, hematuria, retention, other Musculoskeletal: denies: neck pain, shoulder pain, arm pain, back pain, hand pain, leg pain, foot pain, other Skin: denies: rash, lesions, luann, bruising, other Neurological: denies: weakness, numbness, incoordination, change in speech, confusion, seizures, other All other systems reviewed; all pertinent +/- noted in HPI/Subj - Medication Medications: not on any medications, old d/c med list reviewed, asa, lisinopril, coreg resumed Hospitalist History - Past Medical History Renal/: reports: Chronic renal insuff. denies: Chronic renal failure Other Medical History: HTN, HLD, CABG - Past Surgical History Past Surgical History: reports: CABG, Other, Tonsillectomy - Family History Other Family History: father with PE - Social History Alcohol: reports: Occassional Drugs: reports: cocaine (Currently denies), marijuana Other Social History: Patient currently uses drugs, abuses marijuana, Social drug use, Last used: "couple days ago" Patient drinks two to three times per week, more than 2 drinks per sitting, Alcohol history notes: 1/2 pink of vodka each sitting , Patient currently uses tobacco, smokes cigarettes, daily, Patient has smoked for 30 years, Patient smokes 2-3 cigarettes per day, No current residence. - Exam General Appearance: NAD, awake alert Eye: PERRL, anicteric sclera ENT: normocephalic atraumatic, no oropharyngeal lesions, moist mucosa Neck: supple, symmetric, no JVD, no thyromegaly, no lymphadenopathy, no carotid bruit Heart: RRR, no murmur, no gallops, no rubs, normal peripheral pulses Heart - other findings: chest wall tenderness R anterior chest wall, healed surgical scar from CABG Respiratory: CTAB, no wheezes, no rales, no ronchi, normal chest expansion, no tachypnea, normal percussion Gastrointestinal: soft, non-tender, non-distended, normal bowel sounds, no palpable masses, no hepatomegaly, no splenomegaly, no bruit Extremities: no cyanosis, no clubbing, no edema Skin: normal turgor, no lesions, no rashes Neurological: cranial nerve grossly intact, normal sensation to touch, no weakness, no focal deficits, no new deficit Musculoskeletal: normal tone, normal strength, no muscle wasting Psychiatric: normal affect, normal behavior, A&O x 3 Hospitalist Results - Labs Result Diagrams: 12/21/19 21:37 12/21/19 22:35 Lab results: WBC 5.7 thou/uL (4.8-10.8) 12/21/19 21:37 Hgb 15.8 g/dL (14.0-18.0) 12/21/19 21:37 Hct 46.1 % (42.0-52.0) 12/21/19 21:37 MCV 103.0 fL (78.0-98.0) H 12/21/19 21:37 Plt Count 157 thou/uL (130-400) 12/21/19 21:37 Neutrophils % 65.7 % (42.0-75.0) 12/21/19 21:37 Sodium 140 mmol/L (136-145) 12/21/19 22:35 Potassium 4.3 mmol/L (3.5-5.1) 12/21/19 22:35 Chloride 106 mmol/L (98-107) 12/21/19 22:35 Carbon Dioxide 28 mmol/L (23-31) 12/21/19 22:35 BUN 26 mg/dL (8.4-25.7) H 12/21/19 22:35 Creatinine 1.77 mg/dL (0.7-1.3) H 12/21/19 22:35 Glucose 101 mg/dL (80-115) 12/21/19 22:35 Calcium 8.5 mg/dL (7.8-10.44) 12/21/19 22:35 Total Bilirubin 0.3 mg/dL (0.2-1.2) 12/21/19 22:35 AST 13 U/L (5-34) 12/21/19 22:35 ALT Less than 7 U/L (8-55) L 12/21/19 22:35 Alkaline Phosphatase 99 U/L (40-110) 12/21/19 22:35 Creatine Kinase 50 U/L (30-200) 12/21/19 22:35 Troponin I 0.027 ng/mL (< 0.028) 12/22/19 00:27 Serum Total Protein 6.2 g/dL (5.8-8.1) 12/21/19 22:35 Albumin 3.5 g/dL (3.4-4.8) 12/21/19 22:35 Urine Ketones Trace mg/dL (Negative) A 12/21/19 22:02 Urine Blood Negative (Negative) 12/21/19 22:02 Urine Nitrite Negative (Negative) 12/21/19 22:02 Ur Leukocyte Esterase Negative Elizabeth/uL (Negative) 12/21/19 22:02 Urine RBC 4-6 HPF (0-3) A 12/21/19 22:02 Urine WBC 0-3 HPF (0-3) 12/21/19 22:02 Ur Squamous Epith Cells 0-3 HPF (0-3) 12/21/19 22:02 Urine Bacteria None Seen HPF (None Seen) 12/21/19 22:02 Additional comment: Imaging reports reviewed, labs and EKG reviewed - EKG Interpretation EKG: EKG NSR, 99 bpm, nonspecific t wave changes, LVH criteria Hospitalist H&P A/P - Plan Plan: Patient is a 64 year old male with PMH CAD, CABG last march, bioprosthetic aortic valve, HLD, HTN who presents to ED for chest pain x 1 day. # chest wall tenderness - no trauma reported, tenderness R chest wall, perhaps chostocondritis but will need to rule out OH before diagnosis finalized # CAD, history of CABG outside facility 03/2019 - reported, no records here # bioprosthetic aortic valve - placed 05/2017 # chronic diastolic heart failure echo in 05/2019 revealed EF 65%, grade 1 diastolic dysfunction, LVF, bioprosthetic aortic valve. here, EKG rate 100 w/ nonspecific T wave changes and no significant changes from previous. Cr 1.77 which is elevated above baseline. CXR without acute findings. Patient does not take any medications at home. Last admission in May, patient discharged on coreg, lisinopril, asa but again does not take these. He had a heart cath here in 2017 with no coronary disease. - admit to telemetry observation - stress test in AM - tylenol/tramadol for pain - resume asa, coreg, statin - consult cardiology # HTN urgency - noncompliant with medications at home - resume asa, coreg, lisinopril # HLD - statin # history of substance use - monitor for withdrawal symptoms DVT/GI ppx
[2019-12-22] MEDS: Acetaminophen 500 MG TAB PO SCH ×3 (01:38→17:25)
[2019-12-22] MEDS: hydrALAZINE 20 MG/ML VIAL SLOW IVP PRN (01:38)
[2019-12-22] MEDS ORDERED: traMADol HCl 50 MG TAB PO PRN (01:54)
[2019-12-22] MEDS ORDERED: Aspirin 325 MG TAB PO SCH (02:15)
[2019-12-22 04:35] LABS: #Eosinphils 0.1 thou/uL (0.0-0.7); #Lymphocytes 1.8 thou/uL (1.20-3.40); #Monocytes 0.4 thou/uL (0.11-0.59); %Basophils 0.2 % (0.0-1.0); %Eosinophils 1.4 % (0.0-10.0); %Lymphocytes 33.9 % (21.0-51.0); %Neutrophils 56.5 % (42.0-75.0); Hemoglobin 14.7 g/dL (14.0-18.0); Mean Corpuscular HGB CONC 33.1 g/dL (32.0-36.0); Mean Corpuscular Hemoglobin 34.1 pg (27.0-31.0); Mean Platelet Volume 7.5 fL (7.4-10.4); Platelet Count 151 thou/uL (130-400); RBC Distribution Width 11.9 % (11.5-14.5); White Blood Cell (WBC) Count 5.3 thou/uL (4.8-10.8)
[2019-12-22 04:54] LABS: Anion Gap 10 mmol/L (10-20); BUN (Urea Nitrogen) 21 mg/dL (8.4-25.7); Calc. Creatinine Clearance 44 mL/min (70-130); Calcium 8.3 mg/dL (7.8-10.44); Carbon Dioxide 25 mmol/L (23-31); Chloride 107 mmol/L (98-107); Estimated GFR-MDRD 58; Glucose 93 mg/dL (80-115); Magnesium 1.9 mg/dL (1.6-2.6); Potassium 3.5 mmol/L (3.5-5.1); Sodium 138 mmol/L (136-145)
[2019-12-22 04:58] LABS: Troponin I 0.023 ng/mL (< 0.028)
[2019-12-22] MEDS ORDERED: Magnesium 2 GM/50 ML 2 GM in Premix Bag 1 BAG IVPB SCH (06:30)
[2019-12-22] MEDS ORDERED: Potassium Chloride 20 MEQ TAB PO SCH (06:45)
[2019-12-22] MEDS: Polyethylene Glycol 3350 17 GM Packet PO SCH (08:09)
[2019-12-22] MEDS: Famotidine 20 MG TAB PO SCH (08:10)
[2019-12-22] MEDS: Lisinopril 10 MG TAB PO SCH (08:10)
[2019-12-22] MEDS ORDERED: Aspirin Chewable 81 MG TAB PO SCH (09:00)
[2019-12-22] MEDS ORDERED: Metoprolol Tartrate 25 MG TAB PO SCH (09:00)
[2019-12-22] MEDS ORDERED: Regadenoson 0.4 MG/5 ML SYRINGE ONE (09:02)
[2019-12-22] MEDS: Carvedilol 6.25 MG TAB PO SCH ×2 (11:27→17:23)
[2019-12-22 12:30] LABS: SARS-CoV-2 MS2 Positive; SARS-CoV-2 N Gene Negative; SARS-CoV-2 S Gene Negative; SARS-CoV-2 by NAA Not Detected (NotDetected); SARS-CoV-2 orf1ab Negative
[2019-12-22] MEDS: Enoxaparin Sodium 40 MG/0.4 ML SYRINGE SC SCH (15:49)
--- NOTE | 2019-12-22 16:32 | NM ---
"PRELIMINARY REPORT" CLINICAL HISTORY: 64-year-old male with chest pain, coronary artery disease, CABG, hypertension, and smoker. TECHNIQUE: A myocardial perfusion scan was performed using the single isotope one day protocol with technetium-9 9m sestamibi. 10 mCi were injected intravenously for the rest exam followed by 31 mCi for the stress exam. Pharmacologic stress with Lexiscan was monitored and interpreted by Dr. Red. FINDINGS: Homogeneous tracer distribution is seen in the myocardial segments on stress and rest images without fixed or reversible defects. GATED SPECT LVEF: 52%. WALL MOTION EXAM: Normal. IMPRESSION: Normal myocardial perfusion scan. Transcribed Date/Time: 12/22/2019 4:31 PM
[2019-12-22] MEDS ORDERED: Atorvastatin Calcium 40 MG TAB PO SCH (21:00)
[2019-12-23] MEDS: Acetaminophen 500 MG TAB PO SCH ×2 (01:47→10:20)
[2019-12-23] MEDS: hydrALAZINE 20 MG/ML VIAL SLOW IVP PRN (01:50)
[2019-12-23] MEDS ORDERED: Bupivacaine 0.25% HCL 30 ML VIAL ONE (06:44)
[2019-12-23 07:23] VITALS: TEMP 98.6
[2019-12-23] MEDS: Carvedilol 6.25 MG TAB PO SCH (08:01)
[2019-12-23] MEDS: Polyethylene Glycol 3350 17 GM Packet PO SCH (08:02)
[2019-12-23] MEDS: Famotidine 20 MG TAB PO SCH (08:02)
[2019-12-23] MEDS: Lisinopril 10 MG TAB PO SCH (08:02)
[2019-12-23] MEDS: Enoxaparin Sodium 40 MG/0.4 ML SYRINGE SC SCH (08:03)
--- NOTE | 2019-12-23 08:11 | CON ---
DATE OF CONSULTATION: 12/22/2019 REASON FOR CONSULTATION: Chest pain. HISTORY OF PRESENT ILLNESS: Mr. Treviño is a 64-year-old gentleman, who comes to the hospital for chest pain. He has chronic episodes of chest pain that are usually noncardiac in nature. He comes in for same episode of chest pain, it is mostly in the mid to right side of the chest, it is worse on palpation. He states that he has had bypass surgery in March of last year; however, when asking him where he had it done, he said he had it here at [facility], because this is the only hospital he goes to and there is no evidence of CABG done in May. In fact, his open-heart surgery was actually a valve replacement that he had back in 2018 and he had a normal heart catheterization right before that, so he has never had any bypass surgery. He has only had an aortic valve replacement. He had a stress test earlier today after being ruled out with three negative enzymes and the stress test was completely normal. PAST MEDICAL HISTORY: 1. Normal coronaries on heart catheterization in 2018 before open-heart surgery. 2. No history of coronary bypass grafting. The story that Mr. Treviño has given is not consistent with what the chart says as he gives me a name of a physician here in this hospital, who does not work here. He said it is Dr. Mckoy and he got this name from his wrist identifier and he points to his medical record number that has an M and 3 zeros, and he interprets that as being Dr. Mckoy. 3. History of aortic valve replacement in 2018. 4. Hypertension. 5. Chronic pain, noncardiac. PAST SURGICAL HISTORY: Aortic valve replacement. SOCIAL HISTORY: Smokes a pack a day. Occasional alcohol use. Cocaine use in the past. No UDS was done this time. I ordered earlier today, but has not been sent yet. He is apparently homeless and recently was discharged from where he was staying because of social issues. FAMILY HISTORY: Noncontributory. ALLERGIES: NO KNOWN DRUG ALLERGIES. OUTPATIENT MEDICATIONS: 1. Lisinopril 10 mg a day. 2. Carvedilol 6.25 b.i.d. 3. Atorvastatin 40 mg at bedtime, but he is noncompliant. REVIEW OF SYSTEMS: A 12-point review of systems was done and was found to be negative other than stated in the history of present illness. PHYSICAL EXAMINATION: VITAL SIGNS: Temperature 97.5, pulse 74, respiratory rate 16, sats 99% on room air, blood pressure 119/84 on all his medications, 187/115 earlier today without medications. GENERAL: Awake, alert, and oriented x3, in no distress. HEENT: Normocephalic and atraumatic. NECK: Supple. LUNGS: Clear. CARDIOVASCULAR: S1 and S2. No S3 or S4. There is a grade 3/6 systolic murmur at the right upper sternal border consistent with a history of aortic valve replacement. His chest pain is reproducible on palpation. ABDOMEN: Soft and nontender. EXTREMITIES: No edema. SKIN: Warm and dry. LABORATORY DATA: Laboratory work was reviewed. White count of 4, hemoglobin of 15, hematocrit 46, platelet count of 157. Chemistries were unremarkable except for creatinine 1.77 down to 1.48 with IV fluid. Troponin was negative x3. UA was reviewed: COVID-19 PCR was not detected. Nuclear stress was normal with normal LV function. Evaluation of his valve was in May of this year, at which point he had an admission for similar findings and his valve looked normal function. ASSESSMENT/PLAN: 1. Noncardiac chest pain. 2. History of aortic valve replacement. 3. History of normal coronary arteries on left heart catheterization in 2018 right before his valve replacement. 4. No further cardiac evaluation is warranted at this time. 5. If he ever comes back to the hospital with chest pain, he does not need a stress test or heart catheterization unless his troponins become positive. 6. Should always have a urine drug screen when admitted as well. Thank you for letting us participate in the care of the patient. We will sign off. Please call with any questions. Job ID: [id number]
[2019-12-23 10:50] VITALS: BP 153/92
--- NOTE | 2019-12-23 12:20 | DIS ---
DATE OF ADMISSION: 12/21/2019 DATE OF DISCHARGE: 12/22/2019 DISCHARGE DIAGNOSES: 1. Chest pain. 2. Hypertension. 3. Drug abuse. 4. Bioprosthetic aortic valve. HOSPITAL COURSE: The patient is a 64-year-old male, who initially presented to the hospital with chest pain. His chest pain appeared to be atypical in nature. He only has a history of bipolar aortic valve replacement. The patient has never had a CABG in the past. I spoke with the head cashier. We looked through all the records, and the patient has never had a bypass surgery before. The patient underwent a stress test. His stress test was normal. He was seen by Cardiology here. He was discharged home. PHYSICAL EXAMINATION: VITAL SIGNS: The patient vital signs on discharge were as of the following; temperature of 98.6, pulse 77, respiratory rate 18, oxygen saturation 99% on room air, and blood pressure 156/98. GENERAL: He is awake, alert, and oriented x3. Does not appear in distress. CV: S1 and S2 present. No murmurs, rubs, or gallops. ABDOMEN: Soft and nontender. Bowel sounds are present x2. He is noncompliant with his medication. He does have history of hypertension. Lisinopril 10 mg Coreg b.i.d., and atorvastatin has been called into his pharmacy and also, we will continue the aspirin. The patient again is noncompliant with his medication and he has been asked to at least take this prescribed medications, which are usually on the four dollar program. Since he gets money from the government, he is not eligible for any of our resources. The patient will be discharged home. Job ID: [id number]
--- NOTE | 2019-12-25 14:35 | EKG ---
Test Reason : CP Blood Pressure : / mmHG Vent. Rate : 099 BPM Atrial Rate : 099 BPM P-R Int : 132 ms QRS Dur : 096 ms QT Int : 364 ms P-R-T Axes : 066 -64 097 degrees QTc Int : 467 ms Normal sinus rhythm Left atrial enlargement Left anterior fascicular block T wave abnormality, consider lateral ischemia Prolonged QT Left ventricular hypertrophy Abnormal ECG Confirmed by ROSSY LEONE, LISBETH Mcleod ([id number]), loan expeditor SATURNINO HINTON ([id number]) on 12/25/2019 2:35:01 PM Referred By: ROSSY Confirmed By:LISBETH BLAIR MD
== END 2019-12-23 10:34 | disposition home or self-care (01) ==
LOC: ERS 21:13 → 2SW 23:32
PROVIDERS: ADMIT Internal Medicine; ATTEND Internal Medicine
DX: R07.89 Other chest pain (principal); I16.0 Hypertensive urgency; I25.10 Atherosclerotic heart disease of native coronary artery without angina pectoris; I13.0 Hypertensive heart and chronic kidney disease with heart failure and stage 1 through stage 4 chronic kidney disease, or unspecified chronic kidney disease; N18.9 Chronic kidney disease, unspecified; I50.32 Chronic diastolic (congestive) heart failure; E78.5 Hyperlipidemia, unspecified; F17.210 Nicotine dependence, cigarettes, uncomplicated; F19.10 Other psychoactive substance abuse, uncomplicated; Z91.14 Patient's other noncompliance with medication regimen; Z95.1 Presence of aortocoronary bypass graft; Z95.2 Presence of prosthetic heart valve
CPT/HCPCS: 71045; 78452; 80048; 80053; 82550; 83735; 84484 ×3; 85025 ×2; 93005; 93017; 96374; 99285; A9500; U0003; 36415; 81003; 81015; 87635; 96372; 96375; 96376; G0378; J0360; J1650; J2270; J2785; J3475; S0020

== ENCOUNTER 2019-12-28 20:25 | Emergency (ER) | payer MEDICARE ==
[2019-12-28 20:58] LABS: #Eosinphils 0.1 thou/uL (0.0-0.7); #Lymphocytes 1.7 thou/uL (1.20-3.40); #Monocytes 0.4 thou/uL (0.11-0.59); %Basophils 0.7 % (0.0-1.0); %Eosinophils 3.1 % (0.0-10.0); %Lymphocytes 40.1 % (21.0-51.0); %Monocytes 8.7 % (0.0-10.0); %Neutrophils 47.5 % (42.0-75.0); Mean Corpuscular HGB CONC 33.9 g/dL (32.0-36.0); Mean Corpuscular Hemoglobin 35.1 pg (27.0-31.0); Mean Platelet Volume 7.2 fL (7.4-10.4); Platelet Count 148 thou/uL (130-400); RBC Distribution Width 11.9 % (11.5-14.5); Red Blood Cell (RBC) Count 3.98 mill/uL (4.70-6.10); White Blood Cell (WBC) Count 4.2 thou/uL (4.8-10.8)
--- NOTE | 2019-12-28 21:19 | RAD ---
Exam: Chest one view HISTORY:Chest pain Comparison: 12/21/2019 FINDINGS: Cardiac silhouette:Stable cardiac silhouette, sternotomy wires and prosthetic aortic valve. Aorta: At the cirrhosis and elongation, unchanged Pulmonary vessels: Normal Costophrenic angles: Clear LUNGS: Stable emphysematous changes with predominantly bullous change involving the right and to less er extent left upper lobe. Pneumothorax: None Osseous abnormalities: None IMPRESSION: No significant interval change.
[2019-12-28 21:20] LABS: ALT (SGPT) 8 U/L (8-55); AST (SGOT) 14 U/L (5-34); Albumin 3.6 g/dL (3.4-4.8); Alkaline Phosphatase 92 U/L (40-110); Anion Gap 16 mmol/L (10-20); BUN (Urea Nitrogen) 18 mg/dL (8.4-25.7); Bilirubin, Total 0.4 mg/dL (0.2-1.2); CK (CPK) 81 U/L (30-200); Calc. Creatinine Clearance 0 mL/min (70-130); Calcium 8.4 mg/dL (7.8-10.44); Carbon Dioxide 20 mmol/L (23-31); Chloride 113 mmol/L (98-107); Estimated GFR-MDRD 54; Globulin 2.5 g/dL (2.4-3.5); Glucose 88 mg/dL (80-115); Lipase 32 U/L (8-78); Potassium 3.6 mmol/L (3.5-5.1); Protein, Total 6.1 g/dL (5.8-8.1); Sodium 145 mmol/L (136-145)
== END 2019-12-28 21:53 | disposition home or self-care (01) ==
LOC: ERS 20:25
DX: I20.8 Other forms of angina pectoris (principal); E78.5 Hyperlipidemia, unspecified; I10 Essential (primary) hypertension; Z95.1 Presence of aortocoronary bypass graft; F17.210 Nicotine dependence, cigarettes, uncomplicated
CPT/HCPCS: 36415; 71045; 80053; 82550; 83690; 83880; 84484; 85025; 93005

== ENCOUNTER 2020-01-18 19:29 | Observation (INO) | payer MEDICARE, OTHER ==
--- NOTE | 2020-01-18 19:59 | RAD ---
PORTABLE CHEST: 01/18/20 PROVIDED CLINICAL HISTORY: Chest pain. FINDINGS: Comparison 12/28/19. Cardiac and mediastinal silhouette is unchanged in appearance. Median sternotomy changes and conspicu ous emphysema are redemonstrated. No focal consolidation, pleural fluid or pneumothorax apparent. Pro static cardiac valve redemonstrated. IMPRESSION: Conspicuous emphysematous change without evidence for an acute cardiopulmonary process. POS: KAMALJIT
[2020-01-18 20:13] LABS: Hemoglobin 15.8 g/dL (14.0-18.0); Mean Corpuscular HGB CONC 33.3 g/dL (32.0-36.0); Mean Corpuscular Hemoglobin 34.8 pg (27.0-31.0); Mean Platelet Volume 7.1 fL (7.4-10.4); Platelet Count 161 thou/uL (130-400); RBC Distribution Width 12.5 % (11.5-14.5); Red Blood Cell (RBC) Count 4.54 mill/uL (4.70-6.10)
[2020-01-18 20:17] LABS: #Lymphocytes 1.6 thou/uL (1.20-3.40); #Monocytes 0.4 thou/uL (0.11-0.59); #Neutrophils 2.9 thou/uL (1.40-6.50); %Basophils 0.2 % (0.0-1.0); %Lymphocytes 31.9 % (21.0-51.0); %Monocytes 7.8 % (0.0-10.0); %Neutrophils 59.1 % (42.0-75.0); White Blood Cell (WBC) Count 4.9 thou/uL (4.8-10.8)
[2020-01-18 20:34] LABS: ALT (SGPT) 10 U/L (8-55); AST (SGOT) 20 U/L (5-34); Alkaline Phosphatase 98 U/L (40-110); Anion Gap 16 mmol/L (10-20); BUN (Urea Nitrogen) 16 mg/dL (8.4-25.7); Bilirubin, Total 0.5 mg/dL (0.2-1.2); Calc. Creatinine Clearance 0 mL/min (70-130); Calcium 8.9 mg/dL (7.8-10.44); Carbon Dioxide 23 mmol/L (23-31); Chloride 105 mmol/L (98-107); Estimated GFR-MDRD 59; Globulin 2.6 g/dL (2.4-3.5); Potassium 3.6 mmol/L (3.5-5.1); Protein, Total 6.6 g/dL (5.8-8.1); Sodium 140 mmol/L (136-145)
[2020-01-18 20:39] LABS: Glucose 42 mg/dL (80-115)
--- NOTE | 2020-01-19 00:48 | PDOC.HHP ---
Hospitalist HPI - History of Present Illness Chest pain History of Present Illness: Mr. Treviño is a 64M with a PMHx of aortic valve replacement, HTN, HLD, CKD, tobacco dependence, ethoh dependence, chronic chest pain who presents for chest pain. Pt reports that since his heart surgery he has had chronic intermittent chest pain that is worse with movement. Denies SOB, palpitations. Denies dizziness, lightheadedness. Denies any other symptoms. Pt hypertensive when evaluated by EMS and recieved nitro spray, nitropaste, and ASA. on chart review, patient has had multiple ER visits for chest pain and has been worked-up multiple times by cardiology for atypical chest pain with no cardiac cause. Of note patient was arrested yesterday for public intoxication. Reports his last drink was yesterday evening. Drinks 1/2 pint of vodka >4x/week. In ED EKG showed NSR, non-specific t-wave changes. Initial troponin 0.01. Repeat troponin 0.03. BUN/Cr 16/1.45, H/H 15.8/47.5, WBC 4.0. CXR with no acute findings. Hospitalist ROS - Review of Systems Constitutional: denies: fever, chills, sweats, weakness, malaise, other Eyes: denies: pain, vision change, conjunctivae inflammation, eyelid inflammation, redness, other ENT: denies: ear pain, ear discharge, nose pain, nose discharge, nose congestio n, mouth pain, mouth swelling, throat pain, throat swelling, other Respiratory: denies: cough, dry, shortness of breath, hemoptysis, SOB with excertion, pleuritic pain, sputum, wheezing, other Cardiovascular: reports: chest pain. denies: palpitations, orthopnea, paroxysmal noc. dyspnea, edema, light headedness, other Gastrointestinal: denies: nausea, vomiting, abdominal pain, diarrhea, constipation, melena, hematochezia, other Genitourinary: denies: dysuria, frequency, incontinence, hematuria, retention, other Musculoskeletal: denies: neck pain, shoulder pain, arm pain, back pain, hand pain, leg pain, foot pain, other Skin: denies: rash, lesions, luann, bruising, other Neurological: denies: weakness, numbness, incoordination, change in speech, confusion, seizures, other - Medication Medications: Pt prescribed coreg and lisinopril, but does not take any home medications cur rently. NKDA. Hospitalist History - Past Medical History Renal/: reports: Chronic renal insuff. denies: Chronic renal failure Other Medical History: Medical history of HTN, HLD, CKD, chronic chest pain. - Past Surgical History Past Surgical History: reports: Tonsillectomy, Other Other Surgical History: Aortic valve replacement in 2018 - Family History Family History: reports: no pertinent history - Social History Smoking Status: Current every day smoker Tobacco Type: cigarettes Alcohol: reports: Heavy Drugs: reports: cocaine (Currently denies), marijuana Living Situation: Homeless Activity level: independent ambulation Hospitalist Results - Labs Result Diagrams: 01/19/20 02:44 01/19/20 02:44 Lab results: WBC 4.9 thou/uL (4.8-10.8) 01/18/20 19:49 Hgb 15.8 g/dL (14.0-18.0) 01/18/20 19:49 Hct 47.5 % (42.0-52.0) 01/18/20 19:49 MCV 104.0 fL (78.0-98.0) H 01/18/20 19:49 Plt Count 161 thou/uL (130-400) 01/18/20 19:49 Neutrophils % 59.1 % (42.0-75.0) 01/18/20 19:49 Sodium 140 mmol/L (136-145) 01/18/20 19:49 Potassium 3.6 mmol/L (3.5-5.1) 01/18/20 19:49 Chloride 105 mmol/L (98-107) 01/18/20 19:49 Carbon Dioxide 23 mmol/L (23-31) 01/18/20 19:49 BUN 16 mg/dL (8.4-25.7) 01/18/20 19:49 Creatinine 1.45 mg/dL (0.7-1.3) H 01/18/20 19:49 Glucose 42 mg/dL (80-115) L* 01/18/20 19:49 Calcium 8.9 mg/dL (7.8-10.44) 01/18/20 19:49 Total Bilirubin 0.5 mg/dL (0.2-1.2) 01/18/20 19:49 AST 20 U/L (5-34) 01/18/20 19:49 ALT 10 U/L (8-55) 01/18/20 19:49 Alkaline Phosphatase 98 U/L (40-110) 01/18/20 19:49 Troponin I 0.030 ng/mL (< 0.028) H 01/18/20 21:18 Serum Total Protein 6.6 g/dL (5.8-8.1) 01/18/20 19:49 Albumin 4.0 g/dL (3.4-4.8) 01/18/20 19:49 Hospitalist H&P A/P - Problem (1) Atypical chest pain Code(s): R07.89 - OTHER CHEST PAIN Status: Acute (2) Alcohol abuse Code(s): F10.10 - ALCOHOL ABUSE, UNCOMPLICATED Status: Chronic (3) CKD (chronic kidney disease) stage 2, GFR 60-89 ml/min Code(s): N18.2 - CHRONIC KIDNEY DISEASE, STAGE 2 (MILD) Status: Chronic (4) HTN (hypertension) Code(s): I10 - ESSENTIAL (PRIMARY) HYPERTENSION Status: Chronic (5) Tobacco abuse Code(s): Z72.0 - TOBACCO USE Status: Chronic - Plan Plan: Atypical Chest Pain: 64M with hx of aortic valve replacement in 2018 with chronic intermittent atypical chest pain. EKG showed NSR with non-specific t-wave changes. Initial troponin 0.01, repeat troponin 0.03. Patient received nitro paste and ASA via EMS. CXR with no acute findings. Pain is reproducible on exam. Pt does have hx of CKD with baseline Cr of 1.4, which may be contributing to mildly elevated troponin. Patient with recent stress test in November which was normal. PLAN: -Trend troponins -Telemetry -Continue to monitor Etoh dependence: Hx of etoh dependence. Arrested for public intoxication. Pt reports he drinks 1/2 pint of vodka most days of the week. Last drink was 01/18/20. Denies history of withdrawal symptoms, hospitalizations for withdrawals, or seizures. PLAN: -ASE protocol -Thiamine, folate, Mg Hypoglycemia: Hypoglycemic to 42 on admission. Pt denies hx of diabetes. Will check HgA1c CKD: Baseline Cr 1.4. BUN/Cr 16/1.45. PLAN: -Trend Cr -Avoid nephrotoxic agents when possible HTN: Hx of HTN, non-compliant with any medications. Prescribed coreg and lisinopril. Will restart these during admission. PLAN: -Re-start home lisinopril, coreg -Monitor BP HLD: Re-start home statin Tobacco Depdendence: 1.5 ppd smoker, pt reports he recently has decreased his cigarette usage to 5/day. Counseled on smoking cessation. DVT prophylaxis: SCD boots, encourage ambulation FULL CODE
[2020-01-19] MEDS ORDERED: Lisinopril 10 MG TAB ONE (00:59)
[2020-01-19 01:08] LABS: Troponin I 0.034 ng/mL (< 0.028)
[2020-01-19 01:25] VITALS: TEMP 98.1
[2020-01-19 02:23] LABS: Amphetamine Not Detected (NotDetected); Barbiturates Screen Not Detected (NotDetected); Benzodiazepine Screen Not Detected (NotDetected); Cocaine Metabolite Screen Detected (NotDetected); Medtox Control Line Valid? VALID (VALID); Medtox Reader # READER 4; Methadone Not Detected (NotDetected); Methamphetamine Detected (NotDetected); Opiate Screen Not Detected (NotDetected); Oxycodone Screen Not Detected (NotDetected); Phencyclidine (PCP) Not Detected (NotDetected); THC/Cannabinoid Screen Detected (NotDetected); Tricyclic Screen Not Detected (NotDetected)
[2020-01-19 03:02] LABS: #Eosinphils 0.1 thou/uL (0.0-0.7); #Lymphocytes 1.4 thou/uL (1.20-3.40); #Monocytes 0.4 thou/uL (0.11-0.59); #Neutrophils 2.6 thou/uL (1.40-6.50); %Basophils 0.5 % (0.0-1.0); %Eosinophils 2.1 % (0.0-10.0); %Lymphocytes 30.4 % (21.0-51.0); %Monocytes 8.5 % (0.0-10.0); %Neutrophils 58.4 % (42.0-75.0); Hemoglobin 15.2 g/dL (14.0-18.0); Mean Corpuscular HGB CONC 33.7 g/dL (32.0-36.0); Mean Corpuscular Hemoglobin 35.1 pg (27.0-31.0); Mean Platelet Volume 7.2 fL (7.4-10.4); Platelet Count 143 thou/uL (130-400); RBC Distribution Width 12.5 % (11.5-14.5); Red Blood Cell (RBC) Count 4.33 mill/uL (4.70-6.10); White Blood Cell (WBC) Count 4.5 thou/uL (4.8-10.8)
[2020-01-19 03:35] LABS: Anion Gap 14 mmol/L (10-20); BUN (Urea Nitrogen) 17 mg/dL (8.4-25.7); Calc. Creatinine Clearance 52 mL/min (70-130); Calcium 8.7 mg/dL (7.8-10.44); Carbon Dioxide 23 mmol/L (23-31); Chloride 106 mmol/L (98-107); Estimated GFR-MDRD 66; Glucose 114 mg/dL (80-115); Magnesium 1.9 mg/dL (1.6-2.6); Sodium 139 mmol/L (136-145)
[2020-01-19 03:38] LABS: Troponin I 0.023 ng/mL (< 0.028)
[2020-01-19 03:45] LABS: CKMB 3.7 ng/mL (0-6.6)
[2020-01-19] MEDS ORDERED: hydrALAZINE 20 MG/ML VIAL SLOW IVP SCH (03:45)
[2020-01-19] MEDS ORDERED: Amlodipine 5 MG TAB PO SCH (04:00)
[2020-01-19] MEDS ORDERED: Carvedilol 6.25 MG TAB PO SCH ×2 (08:00→17:00)
[2020-01-19] MEDS ORDERED: cloNIDine 0.1 MG TAB PO PRN (08:21)
[2020-01-19] MEDS ORDERED: Lisinopril 10 MG TAB PO SCH (09:00)
[2020-01-19] MEDS ORDERED: Aspirin Chewable 81 MG TAB PO SCH (09:00)
[2020-01-19] MEDS ORDERED: Thiamine 100 MG TAB PO SCH (09:00)
[2020-01-19] MEDS ORDERED: Cyanocobalamin (Vitamin B-12) 1,000 MCG TAB PO SCH (09:00)
[2020-01-19] MEDS ORDERED: Lidocaine 5% Patch TD SCH (10:00)
[2020-01-19 12:00] VITALS: BP 165/101
[2020-01-19 12:02] LABS: SARS-CoV-2 MS2 Positive; SARS-CoV-2 N Gene Negative; SARS-CoV-2 S Gene Negative; SARS-CoV-2 by NAA Not Detected (NotDetected); SARS-CoV-2 orf1ab Negative
[2020-01-19] MEDS ORDERED: Atorvastatin Calcium 40 MG TAB PO SCH (21:00)
[2020-01-19] MEDS ORDERED: Lidocaine Patch Removal 1 EACH TOP SCH (22:00)
--- NOTE | 2020-01-20 01:20 | DIS ---
DATE OF ADMISSION: 01/19/2020 DATE OF DISCHARGE: 01/19/2020 DISCHARGE DIAGNOSES: 1. Atypical chest pain. 2. Hypertension. 3. Substance abuse. 4. Bioprosthetic aortic valve replacement. HOSPITAL COURSE: The patient is a 64-year-old male, who presents to the hospital with complaint of chest pain. His chest pain is very reproducible. He had one mildly indeterminate troponin. The rest of them were normal. He had recently had a stress test in November, which was negative. He was seen by Cardiology in his previous admission, which was a month ago since I . The patient at this time since the pain is reproducible, no significant changes, I will discharge him back to custodial. The patient has been encouraged to take his home medications and refrain from any substance abuse. He is going to continue home medications. 1. Lisinopril 40 mg daily. 2. Carvedilol 6.25 twice a day. 3. Atorvastatin 40 mg daily. 4. Aspirin 81 mg daily. PHYSICAL EXAMINATION: VITAL SIGNS: Temperature of 98.1, pulse 79, respirations 16, 97% on room air. His blood pressure has been significantly elevated at 172/101. GENERAL: He is awake, alert, and oriented x3. Does not appear in distress. CV: S1, S2 present. No murmurs, rubs, or gallops. ABDOMEN: Soft, nontender. Bowel sounds are present x2. I have advised the nurse to give him his home medication. Recheck the blood pressure and if it is stable, the patient may be discharged. Job ID: [id number]
--- NOTE | 2020-02-02 13:05 | EKG ---
Test Reason : CP Blood Pressure : / mmHG Vent. Rate : 092 BPM Atrial Rate : 092 BPM P-R Int : 134 ms QRS Dur : 096 ms QT Int : 376 ms P-R-T Axes : 053 -64 108 degrees QTc Int : 464 ms Normal sinus rhythm Possible Left atrial enlargement Left anterior fascicular block T wave abnormality, consider lateral ischemia Prolonged QT Abnormal ECG When compared with ECG of 28-DEC-2019 No significant change was found Confirmed by JANIE SANTACRUZ DO ([id number]), editor in chief newspaper ALF GERARD ([id number]) on 02/02/2020 1:04:54 PM Referred By: MARKIE Confirmed By:JANIE SANTACRUZ DO
== END 2020-01-19 11:55 ==
LOC: ERS 19:29 → 2SW 01-19 00:04
PROVIDERS: ADMIT Internal Medicine; ATTEND Internal Medicine
DX: R07.89 Other chest pain (principal); I12.9 Hypertensive chronic kidney disease with stage 1 through stage 4 chronic kidney disease, or unspecified chronic kidney disease; N18.9 Chronic kidney disease, unspecified; F10.20 Alcohol dependence, uncomplicated; F17.210 Nicotine dependence, cigarettes, uncomplicated; E78.5 Hyperlipidemia, unspecified; E16.2 Hypoglycemia, unspecified; Z79.82 Long term (current) use of aspirin; Z79.899 Other long term (current) drug therapy; Z95.1 Presence of aortocoronary bypass graft; Z95.2 Presence of prosthetic heart valve; Z20.828 Contact with and (suspected) exposure to other viral communicable diseases
CPT/HCPCS: 71045; 80048; 80053; 80306; 82553; 82962; 83036; 83735; 84484 ×4; 85025 ×2; 93005; 99285; G0378 ×2; U0003; 36415; 36416; 87635

== ENCOUNTER 2020-03-27 15:58 | Observation (INO) | payer MEDICARE, OTHER ==
--- NOTE | 2020-03-27 16:45 | RAD ---
PORTABLE CHEST: Date: 03/27/2200 INDICATION: Chest pain. COMPARISON: 01/19/2020. FINDINGS: Emphysematous changes with bullous changes prominent in the upper lobes. Crowding of lung markings in the mid and lower lungs similar to the prior exam. I cannot exclude new infiltrate or atelectasis in the right mid lung. Heart and mediastinum unremarkable with postop sternotomy change. IMPRESSION: Emphysematous changes again noted. Probable stable chest findings. However, I cannot completely exclu de new infiltrate in the right mid lung. Follow-up as clinically indicated. POS: OFF
[2020-03-27 16:51] LABS: #Eosinphils 0.1 thou/uL (0.0-0.7); #Lymphocytes 1.9 thou/uL (1.20-3.40); #Monocytes 0.5 thou/uL (0.11-0.59); %Basophils 0.1 % (0.0-1.0); %Lymphocytes 25.5 % (21.0-51.0); %Monocytes 7.2 % (0.0-10.0); %Neutrophils 66.2 % (42.0-75.0); Hemoglobin 16.5 g/dL (14.0-18.0); Mean Corpuscular HGB CONC 33.3 g/dL (32.0-36.0); Mean Corpuscular Hemoglobin 35.1 pg (27.0-31.0); Mean Platelet Volume 7.3 fL (7.4-10.4); Platelet Count 134 thou/uL (130-400); Red Blood Cell (RBC) Count 4.69 mill/uL (4.70-6.10); White Blood Cell (WBC) Count 7.5 thou/uL (4.8-10.8)
[2020-03-27 17:11] LABS: ALT (SGPT) 10 U/L (8-55); AST (SGOT) 24 U/L (5-34); Albumin 3.9 g/dL (3.4-4.8); Alkaline Phosphatase 103 U/L (40-110); Anion Gap 17 mmol/L (10-20); BUN (Urea Nitrogen) 31 mg/dL (8.4-25.7); Bilirubin, Total 0.2 mg/dL (0.2-1.2); CK (CPK) 199 U/L (30-200); Calc. Creatinine Clearance 0 mL/min (70-130); Calcium 9.1 mg/dL (7.8-10.44); Carbon Dioxide 21 mmol/L (23-31); Chloride 105 mmol/L (98-107); Estimated GFR-MDRD 45; Globulin 3.1 g/dL (2.4-3.5); Glucose 69 mg/dL (80-115); Potassium 3.8 mmol/L (3.5-5.1); Sodium 139 mmol/L (136-145)
[2020-03-27] MEDS ORDERED: Aspirin 325 MG TAB ONE (17:15)
[2020-03-27 17:18] LABS: CKMB 8.1 ng/mL (0-6.6)
[2020-03-27 18:22] LABS: Bilirubin Negative (Negative); Blood, Urine Negative (Negative); Clarity Clear (Clear); Glucose, Urine (Dipstick) Normal (Negative); Ketone, Urine Negative (Negative); Leukocyte Negative Leu/uL (Negative); Nitrite Negative (Negative); Protein, Urine (Dipstick) Negative (Neg-Trace); Specific Gravity, Urine 1.004 (1.002-1.036); Urobilinogen Normal mg/dL (Less than 2); pH, Urine 5.5 (5.0-9.0)
[2020-03-27 18:33] LABS: Amphetamine Not Detected (NotDetected); Barbiturates Screen Not Detected (NotDetected); Benzodiazepine Screen Not Detected (NotDetected); Cocaine Metabolite Screen Not Detected (NotDetected); Medtox Control Line Valid? VALID (VALID); Medtox Reader # READER 4; Methadone Not Detected (NotDetected); Methamphetamine Not Detected (NotDetected); Opiate Screen Not Detected (NotDetected); Oxycodone Screen Not Detected (NotDetected); Phencyclidine (PCP) Not Detected (NotDetected); THC/Cannabinoid Screen Not Detected (NotDetected); Tricyclic Screen Not Detected (NotDetected)
[2020-03-27] MEDS ORDERED: Albuterol 200 PUFF (6.7GM INHALER) ONE (18:34)
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
[2020-03-27] MEDS ORDERED: methylPREDNISolone Sod Succ/PF 125 MG/2 ML VIAL ONE (18:39)
--- NOTE | 2020-03-27 18:39 | CT ---
CTA Angio Chest W WO Con 03/27/2020 6:12 PM Indication: Sudden onset of chest pain after alcohol and marijuana use Technique: Multiple CTA images were obtained of the thorax with IV contrast. 3-D rendering: MIP hans nstructed images were created and reviewed. Comparison: Prior CT PE examination dated June 15, 2019 and December 25, 2018. Findings: Pulmonary arteries: No central or segmental pulmonary embolus is evident. Heart and Aorta: There is postprocedural change of an aortic valvular replacement which appears wendy lar. There are mild vascular calcifications seen involving the visualized vasculature. Mediastinum:Normal appearing. No enlarged lymph nodes. Lungs:There is severe emphysema that is stable. There are 2 separate enlarging pulmonary nodules with in the peripheral left upper lobe measuring 6.5 and 4.3 mm respectively on image 55 of series 3. There are areas of subsegmental volume loss involving both lower lobes. Pleural space: Clear. Upper Abdomen: There is stable atrophy of the visualized left kidney. Osseous Structures: There are stable sternotomy changes. No acute fracture or subluxation demonstrat ed. There is scattered degenerative and osteoarthritic change present. Soft tissues:No abnormality. Other findings:None. Impression: 1. No central or segmental pulmonary embolus. 2. 2 separate enlarging subcentimeter pulmonary nodules in the left lower lobe require follow-up. Fol low-up CT evaluation in 3-6 months to document stability is recommended. 3. Stable severe emphysema.
[2020-03-27] MEDS ORDERED: Morphine 4 MG/ML VIAL ONE (18:40)
[2020-03-27] MEDS ORDERED: Acetaminophen 325 MG TAB PO PRN (18:58)
[2020-03-27] MEDS ORDERED: Ondansetron ODT 4 MG TAB PO PRN (18:58)
[2020-03-27] MEDS ORDERED: Ondansetron PF 4 MG/2 ML Vial IVP PRN (18:58)
[2020-03-27] MEDS ORDERED: Calcium Carbonate 500 MG ChewTAB PO PRN (18:58)
[2020-03-27] MEDS ORDERED: Acetaminophen 650 MG Suppository PR PRN (18:58)
[2020-03-27 19:02] LABS: Acetaminophen Less than 6.0 mcg/mL (10.0-30.0); Alcohol 236 mg/dL (Less than 10); Salicylate Less than 8.0 mg/dL (15.0-30.0)
[2020-03-27 19:59] LABS: Troponin I 0.035 ng/mL (< 0.028)
[2020-03-27] MEDS ORDERED: Famotidine 20 MG TAB PO SCH (21:00)
[2020-03-27] MEDS ORDERED: Nitroglycerin 0.4 MG TAB (25 Tab Bottle) SL PRN (21:04)
[2020-03-27] MEDS: Lactated Ringer's 1,000 ML IV SCH (21:46)
[2020-03-27 22:51] LABS: Troponin I 0.031 ng/mL (< 0.028)
[2020-03-27] MEDS ORDERED: Enoxaparin Sodium 80 MG/0.8 ML SYRINGE ONE (23:15)
[2020-03-28] MEDS ORDERED: Thiamine 100 MG TAB PO SCH ×2 (01:30→09:00)
[2020-03-28] MEDS ORDERED: Thiamine 100 MG TAB ONE ×2 (04:26→08:57)
--- NOTE | 2020-03-28 06:52 | PDOC.FM ---
- Subjective Subjective: Patient reports chest pain has improved but is still present, rating it as a 7/10, occurring once every hour. It is worse when he breaths in deep. - Objective Vital Signs & Weight: Vital Signs (12 hours) Pulse Resp Pulse Ox 03/28/20 04:39 77 16 95 Result Diagrams: 03/28/20 06:27 03/28/20 06:27 Phys Exam - Physical Examination Constitutional: NAD HEENT: moist MMs, sclera anicteric Neck: full ROM Respiratory: no wheezing, clear to auscultation bilateral Cardiovascular: RRR, no significant murmur Gastrointestinal: soft, non-tender Musculoskeletal: no edema, pulses present tenderness to palpation of chest Neurological: moves all 4 limbs Psychiatric: normal affect, A&O x 3 Skin: no rash Dx/Plan - Plan Plan: Atypical chest pain - Given exam findings, most likely 2/2 MSK cause, normal stress test in November - Significant CAD hx, heart score 6 - minor ST elevation in V1-3 - trop 0.035, 0.031 - Consider stress test this AM given patient's significant CAD history Polysubstance abuse - Endorses MJ and crack use - UDS negative - serum drug screen - Crack likely contributing to chest pain if still using, patient unclear on last use of crack - ASE protocol - Thiamine and Folate supplements Severe emphysema - likely 2/2 lifetime of smoking - Duonebs Q4h PRN Code: Full PCP: none DVT ppx: Lovenox GI ppx: Pepcid Dispo: Tele obs, LOS likely < 48 hrs Addendum - Attending - Attending Attestation Date/Time: 03/28/20 1242 I personally evaluated the patient and discussed the management with Dr. Roldan. I agree with the History, Examination, Assessment and Plan documented above with any addition or exceptions noted below. I almost feel certainly that he has sternal msk pain at site of sternotomy. Recent negative stress. The team ordered a stress and Dr. Hogan called and noted that Dr. Sotelo had previously said no further stress tests. Ok for ashli.
[2020-03-28 07:04] LABS: Hemoglobin 15.3 g/dL (14.0-18.0); Mean Corpuscular HGB CONC 33.4 g/dL (32.0-36.0); Mean Corpuscular Hemoglobin 35.1 pg (27.0-31.0); Mean Platelet Volume 7.4 fL (7.4-10.4); Platelet Count 144 thou/uL (130-400); Red Blood Cell (RBC) Count 4.37 mill/uL (4.70-6.10); White Blood Cell (WBC) Count 5.9 thou/uL (4.8-10.8)
[2020-03-28 07:12] LABS: Cardiac Risk 2.5 (Less than 4.5)
[2020-03-28 07:13] LABS: ALT (SGPT) 8 U/L (8-55); AST (SGOT) 16 U/L (5-34); Albumin 3.6 g/dL (3.4-4.8); Alkaline Phosphatase 97 U/L (40-110); Anion Gap 13 mmol/L (10-20); BUN (Urea Nitrogen) 25 mg/dL (8.4-25.7); Bilirubin, Total 0.3 mg/dL (0.2-1.2); Calc. Creatinine Clearance 0 mL/min (70-130); Calcium 9.2 mg/dL (7.8-10.44); Carbon Dioxide 26 mmol/L (23-31); Chloride 107 mmol/L (98-107); Estimated GFR-MDRD 55; Globulin 2.9 g/dL (2.4-3.5); Glucose 134 mg/dL (80-115); Protein, Total 6.5 g/dL (5.8-8.1); Sodium 141 mmol/L (136-145)
[2020-03-28] MEDS: Lactated Ringer's 1,000 ML IV SCH (07:34)
[2020-03-28 07:44] LABS: #Lymphocytes 0.7 thou/uL (1.20-3.40); #Monocytes 0.2 thou/uL (0.11-0.59); #Neutrophils 5.1 thou/uL (1.40-6.50); %Eosinophils 0.1 % (0.0-10.0); %Lymphocytes 11.8 % (21.0-51.0); %Monocytes 2.7 % (0.0-10.0); %Neutrophils 85.4 % (42.0-75.0); MDiff Complete? YES; Macrocytosis SLIGHT = 6-15 cells (100X) (0-5/hpf); Platelet Morphology Comment Appears Adequate; Polychromasia SLIGHT = 2-3 cells (100X) (0-2/hpf)
[2020-03-28 08:49] LABS: SARS-CoV-2 MS2 Positive; SARS-CoV-2 N Gene Negative; SARS-CoV-2 S Gene Negative; SARS-CoV-2 by NAA Not Detected (NotDetected); SARS-CoV-2 orf1ab Negative
[2020-03-28] MEDS ORDERED: Enoxaparin Sodium 40 MG/0.4 ML SYRINGE ONE (08:57)
[2020-03-28] MEDS ORDERED: Folic Acid 1 MG TAB ONE (08:57)
[2020-03-28] MEDS ORDERED: Aspirin 325 MG TAB ONE (08:57)
[2020-03-28] MEDS ORDERED: Folic Acid 1 MG TAB PO SCH ×2 (09:00→21:30)
[2020-03-28] MEDS ORDERED: Enoxaparin Sodium 40 MG/0.4 ML SYRINGE SC SCH (09:00)
[2020-03-28] MEDS ORDERED: Aspirin Chewable 81 MG TAB PO SCH (09:00)
[2020-03-28] MEDS ORDERED: Aspirin Chewable 81 MG TAB ONE (09:03)
--- NOTE | 2020-03-29 07:08 | EKG ---
Test Reason : Blood Pressure : / mmHG Vent. Rate : 090 BPM Atrial Rate : 090 BPM P-R Int : 136 ms QRS Dur : 100 ms QT Int : 386 ms P-R-T Axes : -09 129 -51 degrees QTc Int : 472 ms Normal sinus rhythm Left posterior fascicular block Possible Inferior infarct , age undetermined T wave abnormality, consider lateral ischemia anterior ST elevation cannot r/o acute IN Abnormal ECG Confirmed by DR. Austyn CLINTON ([id number]) on 03/29/2020 7:08:23 AM Referred By: LIDIA woo Confirmed By:DR. Austyn CLINTON
--- NOTE | 2020-03-29 07:09 | EKG ---
Test Reason : Blood Pressure : / mmHG Vent. Rate : 085 BPM Atrial Rate : 085 BPM P-R Int : 132 ms QRS Dur : 102 ms QT Int : 386 ms P-R-T Axes : 060 -62 121 degrees QTc Int : 459 ms Normal sinus rhythm Possible Left atrial enlargement Left anterior fascicular block anterior ST elevation cannot r/o acute OR Abnormal ECG Confirmed by DR. Austyn CLINTON ([id number]) on 03/29/2020 7:09:12 AM Referred By: RAUL woo Confirmed By:DR. Austyn CLINTON
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
--- NOTE | 2020-04-01 11:23 | EKG ---
Test Reason : Blood Pressure : / mmHG Vent. Rate : 093 BPM Atrial Rate : 093 BPM P-R Int : 132 ms QRS Dur : 102 ms QT Int : 388 ms P-R-T Axes : 068 -61 096 degrees QTc Int : 482 ms Normal sinus rhythm Left anterior fascicular block T wave abnormality, consider lateral ischemia Prolonged QT Abnormal ECG #1 Confirmed by MARY JO HULL ([id number]), news editor SATURNINO HINTON ([id number]) on 04/01/2020 11:22:30 AM Referred By: Confirmed By:MARY JO HULL
== END 2020-03-28 13:39 | disposition home or self-care (01) ==
LOC: ERS 15:58 → ERHOLD 18:46
PROVIDERS: ADMIT Family Medicine; ATTEND Family Medicine
DX: R07.89 Other chest pain (principal); F19.10 Other psychoactive substance abuse, uncomplicated; F17.210 Nicotine dependence, cigarettes, uncomplicated; J43.9 Emphysema, unspecified; I25.10 Atherosclerotic heart disease of native coronary artery without angina pectoris; E78.5 Hyperlipidemia, unspecified; Z79.82 Long term (current) use of aspirin; Z79.899 Other long term (current) drug therapy; Z95.1 Presence of aortocoronary bypass graft; Z20.828 Contact with and (suspected) exposure to other viral communicable diseases
CPT/HCPCS: 71045; 71275; 80053; 80061; 80306; 80307; 81003; 82550; 82553; 82607; 82746; 83605; 83690; 83880; 84145; 84484 ×2; 85025; 85379; 87040; 93005 ×2; 94640; 94760; 96365; 96366; 96372; 96375; 99285; U0003; 36415; 84443; 87635; 93010; G0378; J1650; J1956; J2270; J2930; J7620; Q9967

== ENCOUNTER 2020-04-07 15:14 | Emergency (ER) | payer MEDICARE, SELFPAY ==
--- NOTE | 2020-04-07 15:44 | RAD ---
XR Chest 1 View Portable HISTORY: Right-sided chest pain COMPARISON: 03/27/2020 FINDINGS: The heart size is normal. Changes of median sternotomy and emphysema are again seen. The jed ngs are well expanded without focal areas of consolidation, pneumothorax or pleural effusions. IMPRESSION: No radiographic evidence of acute cardiopulmonary process.
[2020-04-07 15:51] LABS: #Eosinphils 0.1 thou/uL (0.0-0.7); #Lymphocytes 1.5 thou/uL (1.20-3.40); #Monocytes 0.4 thou/uL (0.11-0.59); #Neutrophils 3.8 thou/uL (1.40-6.50); %Eosinophils 1.2 % (0.0-10.0); %Lymphocytes 26.5 % (21.0-51.0); %Neutrophils 65.2 % (42.0-75.0); Hemoglobin 15.3 g/dL (14.0-18.0); Mean Corpuscular HGB CONC 33.8 g/dL (32.0-36.0); Platelet Count 152 thou/uL (130-400); Red Blood Cell (RBC) Count 4.24 mill/uL (4.70-6.10); White Blood Cell (WBC) Count 5.8 thou/uL (4.8-10.8)
[2020-04-07 16:07] LABS: ALT (SGPT) 21 U/L (8-55); AST (SGOT) 22 U/L (5-34); Albumin 3.6 g/dL (3.4-4.8); Alkaline Phosphatase 93 U/L (40-110); Anion Gap 15 mmol/L (10-20); BUN (Urea Nitrogen) 26 mg/dL (8.4-25.7); Bilirubin, Total 0.4 mg/dL (0.2-1.2); CK (CPK) 95 U/L (30-200); Calc. Creatinine Clearance 0 mL/min (70-130); Calcium 8.7 mg/dL (7.8-10.44); Carbon Dioxide 26 mmol/L (23-31); Chloride 103 mmol/L (98-107); Globulin 2.9 g/dL (2.4-3.5); Glucose 82 mg/dL (80-115); Lipase 37 U/L (8-78); Potassium 4.6 mmol/L (3.5-5.1); Protein, Total 6.5 g/dL (5.8-8.1); Sodium 139 mmol/L (136-145)
[2020-04-07] MEDS ORDERED: Aspirin Chewable 81 MG TAB ONE (16:42)
== END 2020-04-07 17:33 | disposition home or self-care (01) ==
LOC: ERS 15:14
DX: I12.9 Hypertensive chronic kidney disease with stage 1 through stage 4 chronic kidney disease, or unspecified chronic kidney disease (principal); N18.9 Chronic kidney disease, unspecified; R07.89 Other chest pain; E78.5 Hyperlipidemia, unspecified; Z95.1 Presence of aortocoronary bypass graft
CPT/HCPCS: 71045; 80053; 82550; 83690; 84484; 85025; 93005

== ENCOUNTER 2020-04-20 18:23 | Emergency (ER) | payer SELFPAY ==
--- NOTE | 2020-04-20 19:04 | RAD ---
CHEST ONE VIEW: 04/20/20 INDICATION: Chest pain. COMPARISON: Prior exam dated 04/07/20. FINDINGS: There is increased interstitial and air space disease involving both lower lobes, left greater than r ight. This is superimposed on severe emphysematous change. There is bullous changes seen involving petr th upper lobes. There are postsurgical change of an aortic valvular replacement. No acute osseous abn ormality is evident. IMPRESSION: 1. Slight increased interstitial and air space opacities involving both lower lobes may reflect an atypical pneumonia. Recommend correlation with COVID testing. 2. Severe emphysema. POS: BH
[2020-04-20 19:08] LABS: #Eosinphils 0.1 thou/uL (0.0-0.7); #Lymphocytes 1.6 thou/uL (1.20-3.40); #Monocytes 0.5 thou/uL (0.11-0.59); #Neutrophils 4.4 thou/uL (1.40-6.50); %Basophils 0.2 % (0.0-1.0); %Eosinophils 1.8 % (0.0-10.0); %Lymphocytes 24.2 % (21.0-51.0); %Monocytes 7.9 % (0.0-10.0); %Neutrophils 65.9 % (42.0-75.0); Mean Corpuscular Hemoglobin 34.7 pg (27.0-31.0); Platelet Count 177 thou/uL (130-400); Red Blood Cell (RBC) Count 4.32 mill/uL (4.70-6.10); White Blood Cell (WBC) Count 6.8 thou/uL (4.8-10.8)
[2020-04-20 19:19] LABS: ALT (SGPT) 13 U/L (8-55); AST (SGOT) 16 U/L (5-34); Albumin 3.8 g/dL (3.4-4.8); Alkaline Phosphatase 98 U/L (40-110); Anion Gap 16 mmol/L (10-20); BUN (Urea Nitrogen) 26 mg/dL (8.4-25.7); Bilirubin, Total 0.4 mg/dL (0.2-1.2); Calc. Creatinine Clearance 0 mL/min (70-130); Calcium 8.8 mg/dL (7.8-10.44); Carbon Dioxide 22 mmol/L (23-31); Chloride 104 mmol/L (98-107); Glucose 102 mg/dL (80-115); Protein, Total 6.8 g/dL (5.8-8.1); Sodium 138 mmol/L (136-145)
[2020-04-21 03:02] LABS: SARS-CoV-2 MS2 Positive; SARS-CoV-2 N Gene Negative; SARS-CoV-2 S Gene Negative; SARS-CoV-2 by NAA Not Detected (NotDetected); SARS-CoV-2 orf1ab Negative
== END 2020-04-20 20:15 | disposition home or self-care (01) ==
LOC: ERS 18:23
DX: R07.89 Other chest pain (principal); I10 Essential (primary) hypertension; G89.29 Other chronic pain; M25.562 Pain in left knee; M25.561 Pain in right knee; E78.5 Hyperlipidemia, unspecified; I25.810 Atherosclerosis of coronary artery bypass graft(s) without angina pectoris; F17.210 Nicotine dependence, cigarettes, uncomplicated; Z79.82 Long term (current) use of aspirin
CPT/HCPCS: 36415; 71045; 80053; 84484; 85025; 87635; 93005; U0003

== ENCOUNTER 2020-04-29 18:40 | Emergency (ER) | payer SELFPAY ==
--- NOTE | 2020-04-29 19:22 | RAD ---
EXAM: Two views chest PROVIDED CLINICAL HISTORY: Chest pain. COMPARISON: 04/20/2020 FINDINGS: Postoperative changes related to median sternotomy and cardiac valve replacement are again seen. Thor acic aorta is ectatic and partially calcified. Bullous emphysematous changes are again seen in the lungs bilaterally greater in the upper lobes. Scattered areas of scarring are again seen greater on t he right. No new area of consolidation or pleural fluid is seen. Chest is overall stable when compared to prior exam. IMPRESSION: 1. No acute cardiopulmonary process. 2. Stable chronic findings including COPD.
[2020-04-29 19:45] LABS: #Eosinphils 0.1 thou/uL (0.0-0.7); #Lymphocytes 1.7 thou/uL (1.20-3.40); #Monocytes 0.5 thou/uL (0.11-0.59); #Neutrophils 4.5 thou/uL (1.40-6.50); %Basophils 0.2 % (0.0-1.0); %Eosinophils 1.5 % (0.0-10.0); %Lymphocytes 25.6 % (21.0-51.0); %Monocytes 6.7 % (0.0-10.0); %Neutrophils 66.1 % (42.0-75.0); Hemoglobin 15.4 g/dL (14.0-18.0); Mean Corpuscular HGB CONC 33.8 g/dL (32.0-36.0); Mean Corpuscular Hemoglobin 35.8 pg (27.0-31.0); Mean Platelet Volume 7.3 fL (7.4-10.4); Platelet Count 140 thou/uL (130-400); RBC Distribution Width 11.8 % (11.5-14.5); White Blood Cell (WBC) Count 6.7 thou/uL (4.8-10.8)
[2020-04-29 20:07] LABS: ALT (SGPT) 17 U/L (8-55); AST (SGOT) 26 U/L (5-34); Albumin 3.7 g/dL (3.4-4.8); Alkaline Phosphatase 102 U/L (40-110); Anion Gap 13 mmol/L (10-20); BUN (Urea Nitrogen) 31 mg/dL (8.4-25.7); Bilirubin, Total 0.3 mg/dL (0.2-1.2); Calc. Creatinine Clearance 0 mL/min (70-130); Calcium 8.8 mg/dL (7.8-10.44); Carbon Dioxide 29 mmol/L (23-31); Chloride 101 mmol/L (98-107); Glucose 94 mg/dL (80-115); Potassium 5.6 mmol/L (3.5-5.1); Protein, Total 6.7 g/dL (5.8-8.1); Sodium 137 mmol/L (136-145)
== END 2020-04-29 20:36 | disposition home or self-care (01) ==
LOC: ERS 18:40
DX: R07.89 Other chest pain (principal); E78.5 Hyperlipidemia, unspecified; I10 Essential (primary) hypertension; F17.210 Nicotine dependence, cigarettes, uncomplicated
CPT/HCPCS: 36415; 71046; 80053; 84484; 85025; 93005

== ENCOUNTER 2020-06-06 17:27 | Emergency (ER) | payer SELFPAY ==
--- NOTE | 2020-06-06 18:08 | RAD ---
Portable frontal chest radiograph: 06/06/2020 COMPARISON: 04/29/2020 HISTORY: Intermittent chest pain FINDINGS: Prominent emphysematous changes noted in bilateral lung apices, right more prominent than l eft. No discrete pneumothorax is seen on either side. Midline sternotomy wires are noted. No pleural fluid, focal consolidation, or alveolar edema. No significant interval change when compare d to the 04/29/2020 examination. IMPRESSION: Chronic findings as detailed above. No focal consolidation or alveolar edema.
[2020-06-06 18:16] LABS: #Eosinphils 0.1 thou/uL (0.0-0.7); #Lymphocytes 1.4 thou/uL (1.20-3.40); #Monocytes 0.4 thou/uL (0.11-0.59); #Neutrophils 3.3 thou/uL (1.40-6.50); %Basophils 0.1 % (0.0-1.0); %Eosinophils 1.4 % (0.0-10.0); %Lymphocytes 26.6 % (21.0-51.0); %Monocytes 6.9 % (0.0-10.0); %Neutrophils 65.1 % (42.0-75.0); Hemoglobin 16.4 g/dL (14.0-18.0); Mean Corpuscular HGB CONC 33.8 g/dL (32.0-36.0); Mean Platelet Volume 7.2 fL (7.4-10.4); Platelet Count 146 thou/uL (130-400); RBC Distribution Width 12.3 % (11.5-14.5); Red Blood Cell (RBC) Count 4.55 mill/uL (4.70-6.10); White Blood Cell (WBC) Count 5.1 thou/uL (4.8-10.8)
[2020-06-06] MEDS ORDERED: Lisinopril 10 MG TAB ONE (18:31)
[2020-06-06] MEDS ORDERED: Labetalol HCl 100 MG/20 ML VIAL ONE ×2 (18:31→18:33)
[2020-06-06 18:34] LABS: ALT (SGPT) 15 U/L (8-55); AST (SGOT) 21 U/L (5-34); Albumin 4.2 g/dL (3.4-4.8); Alkaline Phosphatase 100 U/L (40-110); Anion Gap 14 mmol/L (10-20); BUN (Urea Nitrogen) 24 mg/dL (8.4-25.7); Bilirubin, Total 0.3 mg/dL (0.2-1.2); CK (CPK) 81 U/L (30-200); Calc. Creatinine Clearance 0 mL/min (70-130); Calcium 9.1 mg/dL (7.8-10.44); Carbon Dioxide 27 mmol/L (23-31); Chloride 105 mmol/L (98-107); Globulin 3.4 g/dL (2.4-3.5); Glucose 91 mg/dL (80-115); Potassium 4.4 mmol/L (3.5-5.1); Protein, Total 7.6 g/dL (5.8-8.1); Sodium 142 mmol/L (136-145)
[2020-06-06] MEDS ORDERED: Carvedilol 6.25 MG TAB PO SCH (18:45)
== END 2020-06-06 21:18 | disposition home or self-care (01) ==
LOC: ERS 17:27
DX: R07.89 Other chest pain (principal); G89.29 Other chronic pain; M25.561 Pain in right knee; M25.562 Pain in left knee; E78.5 Hyperlipidemia, unspecified; I10 Essential (primary) hypertension; Z95.1 Presence of aortocoronary bypass graft; F17.210 Nicotine dependence, cigarettes, uncomplicated
CPT/HCPCS: 71045; 80053; 82550; 84484; 85025; 93005; 96374

== ENCOUNTER 2020-10-03 21:07 | Emergency (ER) | payer SELFPAY ==
[2020-10-03 21:44] LABS: Hemoglobin 14.6 g/dL (14.0-18.0); Mean Corpuscular HGB CONC 34.6 g/dL (32.0-36.0); Mean Corpuscular Hemoglobin 36.5 pg (27.0-31.0); Mean Platelet Volume 7.1 fL (7.4-10.4); Platelet Count 145 thou/uL (130-400); RBC Distribution Width 11.6 % (11.5-14.5); Red Blood Cell (RBC) Count 3.98 mill/uL (4.70-6.10); White Blood Cell (WBC) Count 5.5 thou/uL (4.8-10.8)
[2020-10-03 22:00] LABS: #Basophils 0.1 thou/uL (0.0-0.2); #Eosinphils 0.1 thou/uL (0.0-0.7); #Lymphocytes 1.7 thou/uL (1.20-3.40); #Monocytes 0.5 thou/uL (0.11-0.59); #Neutrophils 3.2 thou/uL (1.40-6.50); %Basophils 1.3 % (0.0-1.0); %Eosinophils 1.9 % (0.0-10.0); %Monocytes 8.8 % (0.0-10.0); %Neutrophils 57.1 % (42.0-75.0)
[2020-10-03 22:01] LABS: ALT (SGPT) 13 U/L (8-55); AST (SGOT) 19 U/L (5-34); Albumin 3.5 g/dL (3.4-4.8); Alkaline Phosphatase 85 U/L (40-110); Anion Gap 12 mmol/L (10-20); BUN (Urea Nitrogen) 24 mg/dL (8.4-25.7); Bilirubin, Total 0.3 mg/dL (0.2-1.2); Calc. Creatinine Clearance 0 mL/min (70-130); Calcium 8.6 mg/dL (7.8-10.44); Carbon Dioxide 25 mmol/L (23-31); Chloride 110 mmol/L (98-107); Globulin 2.6 g/dL (2.4-3.5); Glucose 105 mg/dL (80-115); Protein, Total 6.1 g/dL (5.8-8.1); Sodium 143 mmol/L (136-145)
== END 2020-10-03 22:35 | disposition home or self-care (01) ==
LOC: ERS 21:07
DX: R07.89 Other chest pain (principal); E78.5 Hyperlipidemia, unspecified; I10 Essential (primary) hypertension; F17.210 Nicotine dependence, cigarettes, uncomplicated
CPT/HCPCS: 71045; 80053; 84484; 85025; 93005

== ENCOUNTER 2020-10-28 19:00 | Emergency (ER) | payer MEDICARE ==
[2020-10-28 19:34] LABS: #Eosinphils 0.1 thou/uL (0.0-0.7); #Lymphocytes 1.7 thou/uL (1.20-3.40); #Monocytes 0.4 thou/uL (0.11-0.59); #Neutrophils 2.9 thou/uL (1.40-6.50); %Basophils 0.4 % (0.0-1.0); %Eosinophils 1.4 % (0.0-10.0); %Lymphocytes 33.8 % (21.0-51.0); %Monocytes 7.6 % (0.0-10.0); %Neutrophils 56.8 % (42.0-75.0); Hemoglobin 14.2 g/dL (14.0-18.0); Mean Corpuscular Hemoglobin 36.7 pg (27.0-31.0); Mean Platelet Volume 7.1 fL (7.4-10.4); Platelet Count 157 thou/uL (130-400); RBC Distribution Width 11.2 % (11.5-14.5); Red Blood Cell (RBC) Count 3.87 mill/uL (4.70-6.10); White Blood Cell (WBC) Count 5.1 thou/uL (4.8-10.8)
[2020-10-28 19:50] LABS: ALT (SGPT) 12 U/L (8-55); AST (SGOT) 16 U/L (5-34); Albumin 3.4 g/dL (3.4-4.8); Alkaline Phosphatase 88 U/L (40-110); Anion Gap 14 mmol/L (10-20); BUN (Urea Nitrogen) 17 mg/dL (8.4-25.7); Bilirubin, Total 0.2 mg/dL (0.2-1.2); Calc. Creatinine Clearance 0 mL/min (70-130); Calcium 8.8 mg/dL (7.8-10.44); Carbon Dioxide 21 mmol/L (23-31); Chloride 107 mmol/L (98-107); Globulin 2.7 g/dL (2.4-3.5); Glucose 79 mg/dL (80-115); Potassium 3.8 mmol/L (3.5-5.1); Protein, Total 6.1 g/dL (5.8-8.1); Sodium 138 mmol/L (136-145)
[2020-10-28 22:12] LABS: Troponin I 0.016 ng/mL (< 0.028)
== END 2020-10-28 22:30 | disposition home or self-care (01) ==
LOC: ERS 19:00
DX: R07.9 Chest pain, unspecified (principal); E78.5 Hyperlipidemia, unspecified; I10 Essential (primary) hypertension; F17.210 Nicotine dependence, cigarettes, uncomplicated
CPT/HCPCS: 36415; 71045; 80053; 84484; 85025; 93005; 94760

== ENCOUNTER 2020-10-30 15:13 | Emergency (ER) | payer MEDICARE ==
[2020-10-30 17:05] LABS: #Eosinphils 0.1 thou/uL (0.0-0.7); #Lymphocytes 1.9 thou/uL (1.20-3.40); #Monocytes 0.5 thou/uL (0.11-0.59); #Neutrophils 3.1 thou/uL (1.40-6.50); %Basophils 0.4 % (0.0-1.0); %Eosinophils 1.8 % (0.0-10.0); %Lymphocytes 33.9 % (21.0-51.0); %Monocytes 8.6 % (0.0-10.0); %Neutrophils 55.3 % (42.0-75.0); Mean Corpuscular HGB CONC 34.8 g/dL (32.0-36.0); Mean Corpuscular Hemoglobin 36.4 pg (27.0-31.0); Mean Platelet Volume 6.9 fL (7.4-10.4); Platelet Count 161 thou/uL (130-400); RBC Distribution Width 11.3 % (11.5-14.5); Red Blood Cell (RBC) Count 4.13 mill/uL (4.70-6.10); White Blood Cell (WBC) Count 5.6 thou/uL (4.8-10.8)
[2020-10-30 17:19] LABS: ALT (SGPT) 11 U/L (8-55); AST (SGOT) 14 U/L (5-34); Albumin 3.6 g/dL (3.4-4.8); Alkaline Phosphatase 93 U/L (40-110); Anion Gap 14 mmol/L (10-20); BUN (Urea Nitrogen) 17 mg/dL (8.4-25.7); Bilirubin, Total 0.4 mg/dL (0.2-1.2); Calc. Creatinine Clearance 0 mL/min (70-130); Calcium 8.9 mg/dL (7.8-10.44); Carbon Dioxide 24 mmol/L (23-31); Chloride 104 mmol/L (98-107); Globulin 2.5 g/dL (2.4-3.5); Glucose 88 mg/dL (80-115); Potassium 3.8 mmol/L (3.5-5.1); Protein, Total 6.1 g/dL (5.8-8.1); Sodium 138 mmol/L (136-145)
== END 2020-10-30 17:37 | disposition home or self-care (01) ==
LOC: ERS 15:13
DX: R07.89 Other chest pain (principal); I10 Essential (primary) hypertension; E78.5 Hyperlipidemia, unspecified; F17.210 Nicotine dependence, cigarettes, uncomplicated
CPT/HCPCS: 36415; 71045; 80053; 84484; 85025; 93005

== ENCOUNTER 2020-10-31 19:57 | Emergency (ER) | payer MEDICARE | END 2020-10-31 21:30 | disposition home or self-care (01) | LOC: ERS 19:57 | DX: I10 Essential (primary) hypertension (principal); R07.2 Precordial pain; E78.5 Hyperlipidemia, unspecified; F17.210 Nicotine dependence, cigarettes, uncomplicated; Z59.0 Homelessness | CPT/HCPCS: 36415; 84484; 93005 ==

== ENCOUNTER 2020-11-03 13:30 | Emergency (ER) | payer MEDICARE ==
[2020-11-03 14:41] LABS: #Lymphocytes 1.2 thou/uL (1.20-3.40); #Monocytes 0.4 thou/uL (0.11-0.59); #Neutrophils 3.2 thou/uL (1.40-6.50); %Basophils 0.5 % (0.0-1.0); %Lymphocytes 24.2 % (21.0-51.0); %Monocytes 7.8 % (0.0-10.0); %Neutrophils 66.5 % (42.0-75.0); Hemoglobin 15.2 g/dL (14.0-18.0); Mean Corpuscular HGB CONC 32.5 g/dL (32.0-36.0); Mean Corpuscular Hemoglobin 34.4 pg (27.0-31.0); Mean Platelet Volume 7.1 fL (7.4-10.4); Platelet Count 171 thou/uL (130-400); RBC Distribution Width 11.3 % (11.5-14.5); Red Blood Cell (RBC) Count 4.41 mill/uL (4.70-6.10); White Blood Cell (WBC) Count 4.9 thou/uL (4.8-10.8)
[2020-11-03 14:57] LABS: MDiff Complete? YES; Macrocytosis SLIGHT = 6-15 cells (100X) (0-5/hpf); Platelet Morphology Comment Appears Adequate
[2020-11-03 15:04] LABS: ALT (SGPT) 10 U/L (8-55); AST (SGOT) 13 U/L (5-34); Albumin 3.6 g/dL (3.4-4.8); Alkaline Phosphatase 96 U/L (40-110); Anion Gap 10 mmol/L (10-20); BUN (Urea Nitrogen) 20 mg/dL (8.4-25.7); Bilirubin, Total 0.5 mg/dL (0.2-1.2); Calc. Creatinine Clearance 0 mL/min (70-130); Calcium 8.9 mg/dL (7.8-10.44); Carbon Dioxide 26 mmol/L (23-31); Chloride 106 mmol/L (98-107); Globulin 2.9 g/dL (2.4-3.5); Glucose 122 mg/dL (80-115); Protein, Total 6.5 g/dL (5.8-8.1); Sodium 138 mmol/L (136-145)
[2020-11-03 17:25] LABS: Troponin I Less than 0.010 ng/mL (< 0.028)
== END 2020-11-03 18:30 | disposition home or self-care (01) ==
LOC: ERS 13:30
DX: R07.89 Other chest pain (principal); E78.5 Hyperlipidemia, unspecified; I10 Essential (primary) hypertension; F17.210 Nicotine dependence, cigarettes, uncomplicated
CPT/HCPCS: 36415; 71045; 80053; 84484; 85025; 93005

== ENCOUNTER 2020-11-24 12:09 | Emergency (ER) | payer MEDICARE ==
[2020-11-24 12:36] LABS: #Eosinphils 0.1 thou/uL (0.0-0.7); #Lymphocytes 1.2 thou/uL (1.20-3.40); #Monocytes 0.3 thou/uL (0.11-0.59); #Neutrophils 3.8 thou/uL (1.40-6.50); %Basophils 0.2 % (0.0-1.0); %Monocytes 5.4 % (0.0-10.0); %Neutrophils 71.4 % (42.0-75.0); Hemoglobin 15.6 g/dL (14.0-18.0); Mean Corpuscular HGB CONC 33.8 g/dL (32.0-36.0); Mean Corpuscular Hemoglobin 35.7 pg (27.0-31.0); Mean Platelet Volume 7.5 fL (7.4-10.4); Platelet Count 144 thou/uL (130-400); RBC Distribution Width 11.6 % (11.5-14.5); Red Blood Cell (RBC) Count 4.36 mill/uL (4.70-6.10); White Blood Cell (WBC) Count 5.3 thou/uL (4.8-10.8)
[2020-11-24] MEDS ORDERED: Ibuprofen 800 MG TAB ONE (12:47)
[2020-11-24 13:00] LABS: ALT (SGPT) 13 U/L (8-55); AST (SGOT) 25 U/L (5-34); Albumin 3.7 g/dL (3.4-4.8); Alkaline Phosphatase 94 U/L (40-110); Anion Gap 13 mmol/L (10-20); BUN (Urea Nitrogen) 18 mg/dL (8.4-25.7); Bilirubin, Total 0.8 mg/dL (0.2-1.2); Calc. Creatinine Clearance 0 mL/min (70-130); Calcium 8.9 mg/dL (7.8-10.44); Carbon Dioxide 26 mmol/L (23-31); Chloride 104 mmol/L (98-107); Globulin 3.2 g/dL (2.4-3.5); Glucose 179 mg/dL (80-115); Potassium 4.8 mmol/L (3.5-5.1); Protein, Total 6.9 g/dL (5.8-8.1); Sodium 138 mmol/L (136-145)
== END 2020-11-24 13:21 ==
LOC: ERS 12:09
DX: R07.89 Other chest pain (principal); I10 Essential (primary) hypertension; E78.5 Hyperlipidemia, unspecified; F17.210 Nicotine dependence, cigarettes, uncomplicated
CPT/HCPCS: 71045; 80053; 84484; 85025; 93005

== ENCOUNTER 2020-12-22 16:04 | Emergency (ER) | payer MEDICARE, OTHER ==
[2020-12-22 16:56] LABS: #Eosinphils 0.2 thou/uL (0.0-0.7); #Lymphocytes 2.1 thou/uL (1.20-3.40); #Monocytes 0.5 thou/uL (0.11-0.59); #Neutrophils 3.8 thou/uL (1.40-6.50); %Basophils 0.2 % (0.0-1.0); %Eosinophils 2.4 % (0.0-10.0); %Lymphocytes 32.2 % (21.0-51.0); %Monocytes 7.8 % (0.0-10.0); %Neutrophils 57.4 % (42.0-75.0); Hemoglobin 16.5 g/dL (14.0-18.0); Mean Corpuscular HGB CONC 33.6 g/dL (32.0-36.0); Mean Corpuscular Hemoglobin 33.7 pg (27.0-31.0); Mean Platelet Volume 7.1 fL (7.4-10.4); Platelet Count 159 thou/uL (130-400); RBC Distribution Width 11.1 % (11.5-14.5); Red Blood Cell (RBC) Count 4.88 mill/uL (4.70-6.10); White Blood Cell (WBC) Count 6.6 thou/uL (4.8-10.8)
[2020-12-22 17:19] LABS: ALT (SGPT) 19 U/L (8-55); AST (SGOT) 17 U/L (5-34); Albumin 3.7 g/dL (3.4-4.8); Alkaline Phosphatase 130 U/L (40-110); Anion Gap 14 mmol/L (10-20); BUN (Urea Nitrogen) 19 mg/dL (8.4-25.7); Bilirubin, Total 0.4 mg/dL (0.2-1.2); Calc. Creatinine Clearance 0 mL/min (70-130); Calcium 9.3 mg/dL (7.8-10.44); Carbon Dioxide 25 mmol/L (23-31); Chloride 103 mmol/L (98-107); Globulin 3.4 g/dL (2.4-3.5); Glucose 94 mg/dL (80-115); Potassium 4.5 mmol/L (3.5-5.1); Protein, Total 7.1 g/dL (5.8-8.1); Sodium 137 mmol/L (136-145)
== END 2020-12-22 19:15 | disposition home or self-care (01) ==
LOC: ERS 16:04
DX: R07.89 Other chest pain (principal); I10 Essential (primary) hypertension; E78.5 Hyperlipidemia, unspecified; F17.210 Nicotine dependence, cigarettes, uncomplicated; Z95.1 Presence of aortocoronary bypass graft; Z79.899 Other long term (current) drug therapy
CPT/HCPCS: 36415; 71045; 71275; 80053; 84484; 85025; 85379; 93005; 94760; Q9967

== ENCOUNTER 2021-01-11 00:26 | Emergency (ER) | payer OTHER, MEDICARE ==
[2021-01-11] MEDS ORDERED: Boostrix 0.5 ML (Tdap) VIAL ONE (01:33)
== END 2021-01-11 03:41 | disposition home or self-care (01) ==
LOC: ERS 00:26
DX: S02.2XXA Fracture of nasal bones, initial encounter for closed fracture (principal); S00.81XA Abrasion of other part of head, initial encounter; S00.511A Abrasion of lip, initial encounter; Z23 Encounter for immunization; W01.0XXA Fall on same level from slipping, tripping and stumbling without subsequent striking against object, initial encounter; Y93.01 Activity, walking, marching and hiking; E78.5 Hyperlipidemia, unspecified; I10 Essential (primary) hypertension; F17.210 Nicotine dependence, cigarettes, uncomplicated; Z95.1 Presence of aortocoronary bypass graft; Z79.899 Other long term (current) drug therapy
CPT/HCPCS: 70450; 70486; 72125; 90471; 90715

== ENCOUNTER 2021-02-01 15:47 | Emergency (ER) | payer MEDICARE ==
[2021-02-01 17:01] LABS: #Eosinphils 0.1 thou/uL (0.0-0.7); #Lymphocytes 1.4 thou/uL (1.20-3.40); #Monocytes 0.3 thou/uL (0.11-0.59); #Neutrophils 2.5 thou/uL (1.40-6.50); %Basophils 0.9 % (0.0-1.0); %Eosinophils 2.1 % (0.0-10.0); %Lymphocytes 32.8 % (21.0-51.0); %Monocytes 6.5 % (0.0-10.0); %Neutrophils 57.7 % (42.0-75.0); Hemoglobin 16.9 g/dL (14.0-18.0); Mean Corpuscular HGB CONC 33.2 g/dL (32.0-36.0); Mean Corpuscular Hemoglobin 34.5 pg (27.0-31.0); Mean Platelet Volume 7.1 fL (7.4-10.4); Platelet Count 154 thou/uL (130-400); RBC Distribution Width 13.1 % (11.5-14.5); White Blood Cell (WBC) Count 4.2 thou/uL (4.8-10.8)
[2021-02-01 17:06] LABS: Actual Bicarbonate (HCO3v) 26 mEq/L (22-28); Analyzer IN Cardio ER; Base Excess -1.3 mEq/L (-2.0 to +3.0); Calcium, Ionized (venous) 1.18 mmol/L (1.16-1.32); Chloride (VBG) 103 mmol/L (98-106); Hemoglobin (Hb) 17.6 g/dL (12.6-17.4); Potassium (VBG) 4.27 mmol/L (3.70-5.30); Sodium 139.6 mmol/L (133-146)
[2021-02-01 17:31] LABS: Acetaminophen Less than 6.0 mcg/mL (10.0-30.0); Alcohol 41 mg/dL (Less than 10); Magnesium 2.2 mg/dL (1.6-2.6); Salicylate Less than 8.0 mg/dL (15.0-30.0)
[2021-02-01 17:38] LABS: ALT (SGPT) 9 U/L (8-55); AST (SGOT) 16 U/L (5-34); Albumin 4.1 g/dL (3.4-4.8); Alkaline Phosphatase 118 U/L (40-110); Anion Gap 15 mmol/L (10-20); BUN (Urea Nitrogen) 13 mg/dL (8.4-25.7); Bilirubin, Total 0.7 mg/dL (0.2-1.2); Calc. Creatinine Clearance 0 mL/min (70-130); Calcium 9.5 mg/dL (7.8-10.44); Carbon Dioxide 25 mmol/L (23-31); Chloride 104 mmol/L (98-107); Globulin 3.3 g/dL (2.4-3.5); Glucose 85 mg/dL (80-115); Lipase 18 U/L (8-78); Potassium 4.4 mmol/L (3.5-5.1); Protein, Total 7.4 g/dL (5.8-8.1); Sodium 140 mmol/L (136-145)
[2021-02-01 18:33] LABS: Bilirubin Negative (Negative); Blood, Urine Negative (Negative); Clarity Clear (Clear); Glucose, Urine (Dipstick) Normal (Negative); Ketone, Urine Negative (Negative); Leukocyte Negative Leu/uL (Negative); Nitrite Negative (Negative); Protein, Urine (Dipstick) 20 mg/dL (Neg-Trace); Specific Gravity, Urine 1.023 (1.002-1.036)
[2021-02-01 18:43] LABS: Amphetamine Not Detected (NotDetected); Barbiturates Screen Not Detected (NotDetected); Benzodiazepine Screen Not Detected (NotDetected); Cocaine Metabolite Screen Not Detected (NotDetected); Methadone Not Detected (NotDetected); Methamphetamine Not Detected (NotDetected); Opiate Screen Not Detected (NotDetected); Oxycodone Screen Not Detected (NotDetected); Phencyclidine (PCP) Not Detected (NotDetected); THC/Cannabinoid Screen Detected (NotDetected); Tricyclic Screen Not Detected (NotDetected)
== END 2021-02-01 19:22 | disposition home or self-care (01) ==
LOC: ERS 15:47
DX: R07.89 Other chest pain (principal); I10 Essential (primary) hypertension; E78.5 Hyperlipidemia, unspecified; F17.210 Nicotine dependence, cigarettes, uncomplicated; Z79.899 Other long term (current) drug therapy
CPT/HCPCS: 36415; 70450; 71045; 80053; 80306; 80307; 81003; 82805; 83690; 83735; 83880; 84484; 85025; 93005

== ENCOUNTER 2021-02-09 19:03 | Emergency (ER) | payer MEDICARE ==
[2021-02-09] MEDS ORDERED: Amlodipine 5 MG TAB ONE (19:56)
[2021-02-09] MEDS ORDERED: Lisinopril 10 MG TAB ONE (19:56)
[2021-02-09 20:13] LABS: #Eosinphils 0.1 thou/uL (0.0-0.7); #Lymphocytes 1.9 thou/uL (1.20-3.40); #Monocytes 0.6 thou/uL (0.11-0.59); #Neutrophils 3.6 thou/uL (1.40-6.50); %Basophils 0.2 % (0.0-1.0); %Eosinophils 1.5 % (0.0-10.0); %Lymphocytes 30.4 % (21.0-51.0); %Monocytes 9.9 % (0.0-10.0); %Neutrophils 58.1 % (42.0-75.0); Hemoglobin 16.5 g/dL (14.0-18.0); Mean Corpuscular HGB CONC 33.3 g/dL (32.0-36.0); Mean Corpuscular Hemoglobin 34.6 pg (27.0-31.0); Mean Platelet Volume 7.2 fL (7.4-10.4); Platelet Count 179 thou/uL (130-400); RBC Distribution Width 12.6 % (11.5-14.5); Red Blood Cell (RBC) Count 4.77 mill/uL (4.70-6.10); White Blood Cell (WBC) Count 6.2 thou/uL (4.8-10.8)
[2021-02-09 20:28] LABS: ALT (SGPT) 11 U/L (8-55); AST (SGOT) 15 U/L (5-34); Albumin 3.9 g/dL (3.4-4.8); Alkaline Phosphatase 117 U/L (40-110); Anion Gap 13 mmol/L (10-20); BUN (Urea Nitrogen) 28 mg/dL (8.4-25.7); Bilirubin, Total 0.3 mg/dL (0.2-1.2); Calc. Creatinine Clearance 0 mL/min (70-130); Calcium 9.4 mg/dL (7.8-10.44); Carbon Dioxide 29 mmol/L (23-31); Chloride 104 mmol/L (98-107); Glucose 98 mg/dL (80-115); Potassium 4.1 mmol/L (3.5-5.1); Protein, Total 6.9 g/dL (5.8-8.1); Sodium 142 mmol/L (136-145)
[2021-02-09 22:44] LABS: Troponin I Less than 0.010 ng/mL (< 0.028)
== END 2021-02-09 23:40 ==
LOC: ERS 19:03
DX: R07.9 Chest pain, unspecified (principal); I10 Essential (primary) hypertension; E78.5 Hyperlipidemia, unspecified; F17.210 Nicotine dependence, cigarettes, uncomplicated; Z79.899 Other long term (current) drug therapy
CPT/HCPCS: 36415; 71045; 80053; 84484; 85025; 93005

== ENCOUNTER 2021-06-04 12:33 | Emergency (ER) | payer MEDICARE, OTHER ==
[2021-06-04 13:40] LABS: #Basophils 0.1 thou/uL (0.0-0.2); #Eosinphils 0.1 thou/uL (0.0-0.7); #Lymphocytes 1.3 thou/uL (1.20-3.40); #Monocytes 0.6 thou/uL (0.11-0.59); #Neutrophils 2.6 thou/uL (1.40-6.50); %Basophils 1.1 % (0.0-1.0); %Eosinophils 2.3 % (0.0-10.0); %Lymphocytes 28.5 % (21.0-51.0); %Monocytes 12.1 % (0.0-10.0); %Neutrophils 56.1 % (42.0-75.0); Hemoglobin 15.2 g/dL (14.0-18.0); Mean Corpuscular HGB CONC 33.6 g/dL (32.0-36.0); Mean Corpuscular Hemoglobin 33.7 pg (27.0-31.0); Mean Platelet Volume 6.7 fL (7.4-10.4); Platelet Count 148 thou/uL (130-400); RBC Distribution Width 11.4 % (11.5-14.5); Red Blood Cell (RBC) Count 4.51 mill/uL (4.70-6.10); White Blood Cell (WBC) Count 4.7 thou/uL (4.8-10.8)
[2021-06-04] MEDS ORDERED: Aspirin 325 MG TAB ONE (13:56)
[2021-06-04 14:53] LABS: Alkaline Phosphatase 114 U/L (40-110)
[2021-06-04 14:59] LABS: ALT (SGPT) 13 U/L (8-55); AST (SGOT) 20 U/L (5-34); Albumin 3.7 g/dL (3.4-4.8); Anion Gap 14 mmol/L (10-20); BUN (Urea Nitrogen) 17 mg/dL (8.4-25.7); Bilirubin, Total 0.4 mg/dL (0.2-1.2); Calc. Creatinine Clearance 0 mL/min (70-130); Calcium 9.1 mg/dL (7.8-10.44); Carbon Dioxide 26 mmol/L (23-31); Chloride 104 mmol/L (98-107); Globulin 3.6 g/dL (2.4-3.5); Glucose 69 mg/dL (80-115); Lipase 32 U/L (8-78); Protein, Total 7.3 g/dL (5.8-8.1); Sodium 139 mmol/L (136-145)
[2021-06-04 15:13] LABS: Amphetamine Not Detected (NotDetected); Barbiturates Screen Not Detected (NotDetected); Benzodiazepine Screen Not Detected (NotDetected); Cocaine Metabolite Screen Not Detected (NotDetected); Methadone Not Detected (NotDetected); Methamphetamine Not Detected (NotDetected); Opiate Screen Not Detected (NotDetected); Oxycodone Screen Not Detected (NotDetected); Phencyclidine (PCP) Not Detected (NotDetected); THC/Cannabinoid Screen Not Detected (NotDetected); Tricyclic Screen Not Detected (NotDetected)
[2021-06-04 15:30] LABS: Bilirubin Negative (Negative); Blood, Urine Negative (Negative); Clarity Clear (Clear); Glucose, Urine (Dipstick) Normal (Negative); Ketone, Urine Negative (Negative); Leukocyte Negative Leu/uL (Negative); Nitrite Negative (Negative); Protein, Urine (Dipstick) Negative (Neg-Trace); Specific Gravity, Urine 1.018 (1.002-1.036)
[2021-06-04 17:03] LABS: Troponin I 0.012 ng/mL (< 0.028)
== END 2021-06-04 17:41 ==
LOC: ERS 12:33
DX: R07.9 Chest pain, unspecified (principal); I44.4 Left anterior fascicular block; I10 Essential (primary) hypertension; E78.5 Hyperlipidemia, unspecified; F17.210 Nicotine dependence, cigarettes, uncomplicated; Z95.1 Presence of aortocoronary bypass graft
CPT/HCPCS: 71045; 80053; 80306; 81003; 83690; 84484; 85025; 93005

== ENCOUNTER 2021-06-13 16:09 | Observation (INO) | payer MEDICARE ==
[2021-06-13] MEDS ORDERED: Aspirin 325 MG TAB ONE (16:29)
[2021-06-13 16:43] LABS: #Eosinphils 0.2 thou/uL (0.0-0.7); #Lymphocytes 2.2 thou/uL (1.20-3.40); #Monocytes 0.6 thou/uL (0.11-0.59); #Neutrophils 3.7 thou/uL (1.40-6.50); %Basophils 0.3 % (0.0-1.0); %Eosinophils 2.3 % (0.0-10.0); %Lymphocytes 32.6 % (21.0-51.0); %Monocytes 8.6 % (0.0-10.0); %Neutrophils 56.2 % (42.0-75.0); Hemoglobin 14.9 g/dL (14.0-18.0); Mean Corpuscular HGB CONC 33.7 g/dL (32.0-36.0); Mean Corpuscular Hemoglobin 33.9 pg (27.0-31.0); Mean Platelet Volume 6.5 fL (7.4-10.4); Platelet Count 185 thou/uL (130-400); RBC Distribution Width 12.2 % (11.5-14.5); White Blood Cell (WBC) Count 6.6 thou/uL (4.8-10.8)
[2021-06-13 17:12] LABS: ALT (SGPT) 16 U/L (8-55); AST (SGOT) 18 U/L (5-34); Albumin 3.8 g/dL (3.4-4.8); Alkaline Phosphatase 94 U/L (40-110); Anion Gap 16 mmol/L (10-20); BUN (Urea Nitrogen) 27 mg/dL (8.4-25.7); Bilirubin, Total 0.4 mg/dL (0.2-1.2); Calc. Creatinine Clearance 0 mL/min (70-130); Calcium 8.9 mg/dL (7.8-10.44); Carbon Dioxide 19 mmol/L (23-31); Chloride 108 mmol/L (98-107); Globulin 2.8 g/dL (2.4-3.5); Glucose 69 mg/dL (80-115); Potassium 3.9 mmol/L (3.5-5.1); Protein, Total 6.6 g/dL (5.8-8.1); Sodium 139 mmol/L (136-145)
[2021-06-13] MEDS ORDERED: Acetaminophen 325 MG TAB PO PRN (17:56)
[2021-06-13] MEDS ORDERED: Ondansetron ODT 4 MG TAB PO PRN (17:56)
[2021-06-13] MEDS ORDERED: Acetaminophen 650 MG Suppository PR PRN (17:56)
[2021-06-13] MEDS ORDERED: Ondansetron PF 4 MG/2 ML Vial IVP PRN (17:56)
[2021-06-13 18:19] LABS: Bilirubin Negative (Negative); Blood, Urine Negative (Negative); Clarity Clear (Clear); Glucose, Urine (Dipstick) Normal (Negative); Ketone, Urine Negative (Negative); Leukocyte Negative Leu/uL (Negative); Nitrite Negative (Negative); Protein, Urine (Dipstick) Negative (Neg-Trace); Specific Gravity, Urine 1.021 (1.002-1.036); Urobilinogen Normal mg/dL (Less than 2); pH, Urine 5.5 (5.0-9.0)
[2021-06-13 20:23] LABS: Troponin I 0.014 ng/mL (< 0.028)
[2021-06-13 21:26] VITALS: BMI 22.2
[2021-06-13] MEDS: Atorvastatin Calcium 40 MG TAB PO SCH (21:39)
[2021-06-13 22:59] LABS: Troponin I 0.014 ng/mL (< 0.028)
[2021-06-14 05:08] LABS: #Eosinphils 0.2 thou/uL (0.0-0.7); #Lymphocytes 1.9 thou/uL (1.20-3.40); #Monocytes 0.6 thou/uL (0.11-0.59); #Neutrophils 3.1 thou/uL (1.40-6.50); %Basophils 0.2 % (0.0-1.0); %Eosinophils 3.7 % (0.0-10.0); %Lymphocytes 33.2 % (21.0-51.0); %Monocytes 9.8 % (0.0-10.0); %Neutrophils 53.1 % (42.0-75.0); Hemoglobin 14.3 g/dL (14.0-18.0); Mean Corpuscular HGB CONC 33.4 g/dL (32.0-36.0); Mean Corpuscular Hemoglobin 33.9 pg (27.0-31.0); Mean Platelet Volume 6.8 fL (7.4-10.4); Platelet Count 170 thou/uL (130-400); RBC Distribution Width 12.3 % (11.5-14.5); Red Blood Cell (RBC) Count 4.21 mill/uL (4.70-6.10); White Blood Cell (WBC) Count 5.7 thou/uL (4.8-10.8)
[2021-06-14 05:31] LABS: Anion Gap 11 mmol/L (10-20); BUN (Urea Nitrogen) 27 mg/dL (8.4-25.7); Calc. Creatinine Clearance 50 mL/min (70-130); Calcium 8.8 mg/dL (7.8-10.44); Carbon Dioxide 23 mmol/L (23-31); Cardiac Risk 3.7 (Less than 4.5); Chloride 109 mmol/L (98-107); Cholesterol 149 mg/dl (< 200 Desired); Glucose 83 mg/dL (80-115); HDL Cholesterol 40 mg/dL (>60 Neg Risk); LDL Cholesterol, Calculated 96 mg/dL; Potassium 3.9 mmol/L (3.5-5.1); Sodium 139 mmol/L (136-145); Triglycerides 66 mg/dL (Less than 150)
[2021-06-14 07:22] LABS: Amphetamine Not Detected (NotDetected); Barbiturates Screen Not Detected (NotDetected); Benzodiazepine Screen Not Detected (NotDetected); Cocaine Metabolite Screen Not Detected (NotDetected); Methadone Not Detected (NotDetected); Methamphetamine Not Detected (NotDetected); Opiate Screen Not Detected (NotDetected); Oxycodone Screen Not Detected (NotDetected); Phencyclidine (PCP) Not Detected (NotDetected); THC/Cannabinoid Screen Not Detected (NotDetected); Tricyclic Screen Not Detected (NotDetected)
[2021-06-14] MEDS ORDERED: Iopamidol 370 76% 100 ML VIAL ONE (09:06)
[2021-06-14] MEDS ORDERED: ADENOSINE 60 MG/20 ML VIAL ONE (09:31)
[2021-06-14 12:13] LABS: SARS-CoV-2 PCR by NAA Not Detected (NotDetected)
[2021-06-14] MEDS: Aspirin Chewable 81 MG TAB PO SCH (14:55)
[2021-06-14] MEDS: Carvedilol 6.25 MG TAB PO SCH ×2 (14:56)
[2021-06-14] MEDS: Atorvastatin Calcium 40 MG TAB PO SCH (19:49)
[2021-06-15 05:12] LABS: #Eosinphils 0.2 thou/uL (0.0-0.7); #Lymphocytes 1.9 thou/uL (1.20-3.40); #Monocytes 0.5 thou/uL (0.11-0.59); #Neutrophils 2.5 thou/uL (1.40-6.50); %Basophils 0.3 % (0.0-1.0); %Eosinophils 3.5 % (0.0-10.0); %Lymphocytes 36.7 % (21.0-51.0); %Monocytes 10.2 % (0.0-10.0); %Neutrophils 49.3 % (42.0-75.0); Hemoglobin 14.4 g/dL (14.0-18.0); Mean Corpuscular HGB CONC 33.3 g/dL (32.0-36.0); Mean Corpuscular Hemoglobin 34.1 pg (27.0-31.0); Mean Platelet Volume 7.1 fL (7.4-10.4); Platelet Count 171 thou/uL (130-400); RBC Distribution Width 12.2 % (11.5-14.5); Red Blood Cell (RBC) Count 4.23 mill/uL (4.70-6.10); White Blood Cell (WBC) Count 5.1 thou/uL (4.8-10.8)
[2021-06-15 05:33] LABS: Anion Gap 11 mmol/L (10-20); BUN (Urea Nitrogen) 22 mg/dL (8.4-25.7); Calc. Creatinine Clearance 47 mL/min (70-130); Calcium 8.6 mg/dL (7.8-10.44); Carbon Dioxide 24 mmol/L (23-31); Chloride 107 mmol/L (98-107); Glucose 91 mg/dL (80-115); Sodium 138 mmol/L (136-145)
[2021-06-15 07:10] VITALS: BP 175/104; TEMP 98
[2021-06-15] MEDS: Carvedilol 6.25 MG TAB PO SCH (07:11)
[2021-06-15] MEDS: Aspirin Chewable 81 MG TAB PO SCH (07:11)
[2021-06-16] MEDS ORDERED: FLU VACC QS2021-22(65YR UP)/PF 240 MCG/0.7 ML SYRINGE IM ONE (09:00)
== END 2021-06-15 11:31 | disposition home or self-care (01) ==
LOC: ERS 16:09 → 2SW 17:34
PROVIDERS: ADMIT Hospitalist; ATTEND Internal Medicine
DX: R07.89 Other chest pain (principal); R91.1 Solitary pulmonary nodule; J43.9 Emphysema, unspecified; I12.9 Hypertensive chronic kidney disease with stage 1 through stage 4 chronic kidney disease, or unspecified chronic kidney disease; N18.9 Chronic kidney disease, unspecified; E78.5 Hyperlipidemia, unspecified; F17.210 Nicotine dependence, cigarettes, uncomplicated; F10.10 Alcohol abuse, uncomplicated; F14.11 Cocaine abuse, in remission; Z59.00 Homelessness unspecified; Z79.82 Long term (current) use of aspirin; Z79.899 Other long term (current) drug therapy; Z95.2 Presence of prosthetic heart valve; Z20.822 Contact with and (suspected) exposure to COVID-19; Y90.0 Blood alcohol level of less than 20 mg/100 ml
CPT/HCPCS: 71045; 71275; 78452; 80048 ×2; 80053; 80061; 80306; 80307; 81003; 83880; 84484 ×2; 85025 ×3; 85379; 93005; 93017; 94760 ×2; 99285; A9500; U0003; U0005; 36415; G0378; J0153; Q9967

== ENCOUNTER 2021-06-15 20:45 | Emergency (ER) | payer MEDICARE, SELFPAY ==
[2021-06-15] MEDS ORDERED: Nitroglycerin 0.4 MG TAB 1 EACH ONE (21:30)
[2021-06-15 21:31] LABS: #Eosinphils 0.1 thou/uL (0.0-0.7); #Lymphocytes 1.7 thou/uL (1.20-3.40); #Monocytes 0.4 thou/uL (0.11-0.59); %Basophils 0.7 % (0.0-1.0); %Eosinophils 2.3 % (0.0-10.0); %Monocytes 6.8 % (0.0-10.0); %Neutrophils 63.2 % (42.0-75.0); Hemoglobin 14.8 g/dL (14.0-18.0); Mean Corpuscular HGB CONC 33.9 g/dL (32.0-36.0); Mean Corpuscular Hemoglobin 34.3 pg (27.0-31.0); Mean Platelet Volume 6.6 fL (7.4-10.4); Platelet Count 183 thou/uL (130-400); RBC Distribution Width 12.3 % (11.5-14.5); Red Blood Cell (RBC) Count 4.32 mill/uL (4.70-6.10); White Blood Cell (WBC) Count 6.4 thou/uL (4.8-10.8)
[2021-06-15 21:53] LABS: ALT (SGPT) 13 U/L (8-55); AST (SGOT) 15 U/L (5-34); Albumin 3.8 g/dL (3.4-4.8); Alkaline Phosphatase 100 U/L (40-110); Anion Gap 13 mmol/L (10-20); BUN (Urea Nitrogen) 20 mg/dL (8.4-25.7); Bilirubin, Total 0.6 mg/dL (0.2-1.2); Calc. Creatinine Clearance 0 mL/min (70-130); Calcium 9.1 mg/dL (7.8-10.44); Carbon Dioxide 23 mmol/L (23-31); Chloride 106 mmol/L (98-107); Globulin 3.1 g/dL (2.4-3.5); Glucose 89 mg/dL (80-115); Lipase 24 U/L (8-78); Potassium 4.1 mmol/L (3.5-5.1); Protein, Total 6.9 g/dL (5.8-8.1); Sodium 138 mmol/L (136-145)
[2021-06-16 00:44] LABS: Troponin I Less than 0.010 ng/mL (< 0.028)
== END 2021-06-16 01:00 | disposition home or self-care (01) ==
LOC: ERS 20:45
DX: R07.9 Chest pain, unspecified (principal); I44.4 Left anterior fascicular block; I10 Essential (primary) hypertension; E78.5 Hyperlipidemia, unspecified; F17.210 Nicotine dependence, cigarettes, uncomplicated; Z95.1 Presence of aortocoronary bypass graft
CPT/HCPCS: 36415; 71045; 83690; 84484; 93005

== ENCOUNTER 2021-06-20 13:55 | Observation (INO) | payer MEDICARE ==
[2021-06-20 14:21] LABS: #Eosinphils 0.1 thou/uL (0.0-0.7); #Lymphocytes 1.3 thou/uL (1.20-3.40); #Monocytes 0.3 thou/uL (0.11-0.59); %Basophils 0.4 % (0.0-1.0); %Lymphocytes 27.4 % (21.0-51.0); %Monocytes 6.8 % (0.0-10.0); %Neutrophils 63.3 % (42.0-75.0); Hemoglobin 15.6 g/dL (14.0-18.0); Mean Corpuscular HGB CONC 34.5 g/dL (32.0-36.0); Mean Corpuscular Hemoglobin 35.6 pg (27.0-31.0); Mean Platelet Volume 6.6 fL (7.4-10.4); Platelet Count 181 thou/uL (130-400); RBC Distribution Width 12.7 % (11.5-14.5); Red Blood Cell (RBC) Count 4.38 mill/uL (4.70-6.10); White Blood Cell (WBC) Count 4.8 thou/uL (4.8-10.8)
[2021-06-20 14:47] LABS: ALT (SGPT) 11 U/L (8-55); AST (SGOT) 16 U/L (5-34); Albumin 3.7 g/dL (3.4-4.8); Alkaline Phosphatase 104 U/L (40-110); Anion Gap 16 mmol/L (10-20); BUN (Urea Nitrogen) 18 mg/dL (8.4-25.7); Bilirubin, Total 0.4 mg/dL (0.2-1.2); Calc. Creatinine Clearance 0 mL/min (70-130); Calcium 8.8 mg/dL (7.8-10.44); Carbon Dioxide 22 mmol/L (23-31); Chloride 106 mmol/L (98-107); Globulin 3.2 g/dL (2.4-3.5); Glucose 89 mg/dL (80-115); Lipase 36 U/L (8-78); Potassium 3.6 mmol/L (3.5-5.1); Protein, Total 6.9 g/dL (5.8-8.1); Sodium 140 mmol/L (136-145)
[2021-06-20] MEDS ORDERED: Ondansetron PF 4 MG/2 ML Vial IVP PRN (16:02)
[2021-06-20] MEDS ORDERED: Acetaminophen 325 MG TAB PO PRN (16:02)
[2021-06-20] MEDS ORDERED: Enoxaparin Sodium 40 MG/0.4 ML SYRINGE SC SCH (16:15)
[2021-06-20 16:30] LABS: Acetaminophen Less than 6.0 mcg/mL (10.0-30.0); Alcohol 25 mg/dL (Less than 10); Salicylate Less than 8.0 mg/dL (15.0-30.0)
[2021-06-20] MEDS ORDERED: Nitroglycerin 0.4 MG TAB (25 Tab Bottle) SL PRN (16:31)
[2021-06-20] MEDS ORDERED: Lorazepam 2 MG/ML VIAL SLOW IVP PRN (16:34)
[2021-06-20] MEDS ORDERED: hydrALAZINE 20 MG/ML VIAL SLOW IVP PRN (16:52)
[2021-06-20 18:01] VITALS: BMI 20.3
[2021-06-20] MEDS: Carvedilol 6.25 MG TAB PO SCH (18:21)
[2021-06-20 18:54] LABS: Amphetamine Not Detected (NotDetected); Barbiturates Screen Not Detected (NotDetected); Benzodiazepine Screen Not Detected (NotDetected); Cocaine Metabolite Screen Not Detected (NotDetected); Methadone Not Detected (NotDetected); Methamphetamine Not Detected (NotDetected); Opiate Screen Not Detected (NotDetected); Oxycodone Screen Not Detected (NotDetected); Phencyclidine (PCP) Not Detected (NotDetected); THC/Cannabinoid Screen Not Detected (NotDetected); Tricyclic Screen Not Detected (NotDetected)
[2021-06-20] MEDS: Famotidine 20 MG TAB PO SCH (20:04)
[2021-06-20 22:13] LABS: SARS-CoV-2 PCR by NAA Not Detected (NotDetected)
[2021-06-21 04:35] LABS: #Eosinphils 0.2 thou/uL (0.0-0.7); #Lymphocytes 1.7 thou/uL (1.20-3.40); #Monocytes 0.4 thou/uL (0.11-0.59); %Basophils 0.2 % (0.0-1.0); %Eosinophils 4.5 % (0.0-10.0); %Lymphocytes 39.2 % (21.0-51.0); %Monocytes 9.9 % (0.0-10.0); %Neutrophils 46.1 % (42.0-75.0); Hemoglobin 14.2 g/dL (14.0-18.0); Mean Corpuscular HGB CONC 33.8 g/dL (32.0-36.0); Mean Corpuscular Hemoglobin 34.7 pg (27.0-31.0); Mean Platelet Volume 6.8 fL (7.4-10.4); Platelet Count 185 thou/uL (130-400); RBC Distribution Width 12.6 % (11.5-14.5); Red Blood Cell (RBC) Count 4.08 mill/uL (4.70-6.10); White Blood Cell (WBC) Count 4.4 thou/uL (4.8-10.8)
[2021-06-21 04:56] LABS: Anion Gap 11 mmol/L (10-20); BUN (Urea Nitrogen) 17 mg/dL (8.4-25.7); Calc. Creatinine Clearance 51 mL/min (70-130); Calcium 8.3 mg/dL (7.8-10.44); Carbon Dioxide 22 mmol/L (23-31); Chloride 107 mmol/L (98-107); Glucose 95 mg/dL (80-115); Potassium 3.7 mmol/L (3.5-5.1); Sodium 136 mmol/L (136-145)
[2021-06-21] MEDS: Carvedilol 6.25 MG TAB PO SCH (07:53)
[2021-06-21] MEDS: Famotidine 20 MG TAB PO SCH (07:53)
[2021-06-21] MEDS ORDERED: Thiamine 100 MG TAB PO SCH (09:00)
[2021-06-21] MEDS ORDERED: Multivit, Therapeutic 1 TAB PO SCH (09:00)
[2021-06-21] MEDS ORDERED: Aspirin Chewable 81 MG TAB PO SCH (09:00)
[2021-06-21] MEDS ORDERED: Folic Acid 1 MG TAB PO SCH (09:00)
[2021-06-21] MEDS ORDERED: Enoxaparin Sodium 40 MG/0.4 ML SYRINGE SC SCH (09:00)
[2021-06-21] MEDS ORDERED: Lisinopril 20 MG TAB PO SCH (09:00)
[2021-06-21 12:34] VITALS: BP 137/103; TEMP 97.7
[2021-06-21] MEDS ORDERED: FLU VACC QS2021-22(65YR UP)/PF 240 MCG/0.7 ML SYRINGE IM ONE (18:30)
== END 2021-06-21 15:08 | disposition home or self-care (01) ==
LOC: ERS 13:55 → 2SW 16:12
PROVIDERS: ADMIT Internal Medicine; ATTEND Physician Assistant Medical
DX: R07.89 Other chest pain (principal); F10.10 Alcohol abuse, uncomplicated; F17.210 Nicotine dependence, cigarettes, uncomplicated; I12.9 Hypertensive chronic kidney disease with stage 1 through stage 4 chronic kidney disease, or unspecified chronic kidney disease; N18.9 Chronic kidney disease, unspecified; E78.5 Hyperlipidemia, unspecified; F14.11 Cocaine abuse, in remission; Z59.02 Unsheltered homelessness; Z91.19 Patient's noncompliance with other medical treatment and regimen; Z95.2 Presence of prosthetic heart valve; Z20.822 Contact with and (suspected) exposure to COVID-19; Y90.1 Blood alcohol level of 20-39 mg/100 ml
CPT/HCPCS: 71045; 80048; 80053; 80306; 80307; 83690; 83880; 84484 ×2; 85025 ×2; 93005; 94760; 96372 ×2; 99285; G0378 ×3; U0003; U0005; 36415; J1650

== ENCOUNTER 2021-12-19 14:48 | Emergency (ER) | payer MEDICARE ==
[2021-12-19 15:50] LABS: #Eosinphils 0.1 thou/uL (0.0-0.7); #Lymphocytes 1.8 thou/uL (1.20-3.40); #Monocytes 0.4 thou/uL (0.11-0.59); #Neutrophils 3.3 thou/uL (1.40-6.50); %Basophils 0.4 % (0.0-1.0); %Eosinophils 1.5 % (0.0-10.0); %Monocytes 7.4 % (0.0-10.0); %Neutrophils 58.7 % (42.0-75.0); Hemoglobin 16.8 g/dL (14.0-18.0); Mean Corpuscular HGB CONC 32.8 g/dL (32.0-36.0); Mean Platelet Volume 7.7 fL (7.4-10.4); Platelet Count 146 thou/uL (130-400); RBC Distribution Width 12.3 % (11.5-14.5); Red Blood Cell (RBC) Count 4.93 mill/uL (4.70-6.10); White Blood Cell (WBC) Count 5.6 thou/uL (4.8-10.8)
[2021-12-19 16:07] LABS: ALT (SGPT) 9 U/L (8-55); AST (SGOT) 15 U/L (5-34); Albumin 3.7 g/dL (3.4-4.8); Alkaline Phosphatase 102 U/L (40-110); Anion Gap 12 mmol/L (10-20); BUN (Urea Nitrogen) 25 mg/dL (8.4-25.7); Bilirubin, Total 0.5 mg/dL (0.2-1.2); Calc. Creatinine Clearance 0 mL/min (70-130); Calcium 9.3 mg/dL (7.8-10.44); Carbon Dioxide 27 mmol/L (23-31); Chloride 106 mmol/L (98-107); Estimated GFR 52; Globulin 3.2 g/dL (2.4-3.5); Glucose 92 mg/dL (80-115); Lipase 22 U/L (8-78); Potassium 4.2 mmol/L (3.5-5.1); Protein, Total 6.9 g/dL (5.8-8.1); Sodium 141 mmol/L (136-145)
== END 2021-12-19 18:06 | disposition home or self-care (01) ==
LOC: ERS 14:48
DX: I20.9 Angina pectoris, unspecified (principal); I10 Essential (primary) hypertension; E78.5 Hyperlipidemia, unspecified; F17.210 Nicotine dependence, cigarettes, uncomplicated
CPT/HCPCS: 36415; 71045; 80053; 83690; 84484; 85025; 93005; 94760

== ENCOUNTER 2021-12-20 15:57 | Emergency (ER) | payer MEDICARE, MEDICAID ==
[2021-12-20 16:46] LABS: #Eosinphils 0.1 thou/uL (0.0-0.7); #Lymphocytes 1.3 thou/uL (1.20-3.40); #Monocytes 0.4 thou/uL (0.11-0.59); #Neutrophils 3.8 thou/uL (1.40-6.50); %Basophils 0.5 % (0.0-1.0); %Eosinophils 1.5 % (0.0-10.0); %Lymphocytes 22.7 % (21.0-51.0); %Monocytes 7.8 % (0.0-10.0); %Neutrophils 67.5 % (42.0-75.0); Hemoglobin 16.1 g/dL (14.0-18.0); Mean Corpuscular HGB CONC 32.5 g/dL (32.0-36.0); Mean Corpuscular Hemoglobin 34.5 pg (27.0-31.0); Mean Platelet Volume 7.2 fL (7.4-10.4); Platelet Count 177 thou/uL (130-400); RBC Distribution Width 12.3 % (11.5-14.5); Red Blood Cell (RBC) Count 4.66 mill/uL (4.70-6.10); White Blood Cell (WBC) Count 5.6 thou/uL (4.8-10.8)
[2021-12-20 17:07] LABS: MDiff Complete? YES; Macrocytosis SLIGHT = 6-15 cells (100X) (0-5/hpf); Platelet Morphology Comment Appears Adequate
[2021-12-20 17:11] LABS: ALT (SGPT) 18 U/L (8-55); AST (SGOT) 24 U/L (5-34); Alkaline Phosphatase 101 U/L (40-110); Anion Gap 17 mmol/L (10-20); BUN (Urea Nitrogen) 26 mg/dL (8.4-25.7); Calc. Creatinine Clearance 0 mL/min (70-130); Calcium 9.7 mg/dL (7.8-10.44); Carbon Dioxide 23 mmol/L (23-31); Chloride 105 mmol/L (98-107); Estimated GFR 51; Globulin 2.9 g/dL (2.4-3.5); Glucose 77 mg/dL (80-115); Potassium 4.1 mmol/L (3.5-5.1); Protein, Total 6.9 g/dL (5.8-8.1); Sodium 141 mmol/L (136-145)
[2021-12-20] MEDS ORDERED: Acetaminophen 325 MG TAB ONE (17:41)
[2021-12-20] MEDS ORDERED: Lisinopril 10 MG TAB ONE (17:41)
== END 2021-12-20 17:45 | disposition home or self-care (01) ==
LOC: ERS 15:57
DX: R07.9 Chest pain, unspecified (principal); E78.5 Hyperlipidemia, unspecified; I10 Essential (primary) hypertension; F17.210 Nicotine dependence, cigarettes, uncomplicated
CPT/HCPCS: 36415; 71045; 71275; 80053; 84484; 85025; 93005; Q9967

== ENCOUNTER 2022-06-02 10:46 | Emergency (ER) | payer MEDICARE, MEDICAID ==
[2022-06-02 12:05] LABS: ALT (SGPT) 11 U/L (8-55); AST (SGOT) 17 U/L (5-34); Albumin 4.2 g/dL (3.4-4.8); Alkaline Phosphatase 105 U/L (40-110); Anion Gap 12 mmol/L (10-20); BUN (Urea Nitrogen) 18 mg/dL (8.4-25.7); Bilirubin, Total 0.7 mg/dL (0.2-1.2); Calc. Creatinine Clearance 0 mL/min (70-130); Calcium 9.8 mg/dL (7.8-10.44); Carbon Dioxide 27 mmol/L (23-31); Chloride 101 mmol/L (98-107); Estimated GFR 55; Globulin 3.7 g/dL (2.4-3.5); Glucose 101 mg/dL (80-115); Potassium 4.1 mmol/L (3.5-5.1); Protein, Total 7.9 g/dL (5.8-8.1); Sodium 136 mmol/L (136-145)
[2022-06-02 12:16] LABS: #Eosinphils 0.1 thou/uL (0.0-0.7); #Lymphocytes 1.6 thou/uL (1.20-3.40); #Monocytes 0.4 thou/uL (0.11-0.59); #Neutrophils 2.9 thou/uL (1.40-6.50); %Basophils 0.4 % (0.0-1.0); %Eosinophils 2.2 % (0.0-10.0); %Lymphocytes 31.5 % (21.0-51.0); %Monocytes 7.8 % (0.0-10.0); %Neutrophils 58.1 % (42.0-75.0); Hemoglobin 17.3 g/dL (14.0-18.0); MDiff Complete? YES; Macrocytosis SLIGHT = 6-15 cells (100X) (0-5/hpf); Mean Corpuscular HGB CONC 33.7 g/dL (32.0-36.0); Mean Corpuscular Hemoglobin 36.1 pg (27.0-31.0); Mean Platelet Volume 7.6 fL (7.4-10.4); Platelet Count 146 10x3/uL (130-400); Platelet Morphology Comment Appears Adequate; RBC Distribution Width 12.4 % (11.5-14.5)
== END 2022-06-02 13:20 | disposition home or self-care (01) ==
LOC: ERS 10:46
DX: R07.89 Other chest pain (principal); I10 Essential (primary) hypertension; E78.5 Hyperlipidemia, unspecified; F17.210 Nicotine dependence, cigarettes, uncomplicated
CPT/HCPCS: 36415; 71045; 80053; 83880; 84484; 85025; 93005

== ENCOUNTER 2022-10-03 11:40 | Inpatient (IN) | payer MEDICARE, MEDICAID ==
[2022-10-03 12:51] LABS: #Eosinphils 0.2 thou/uL (0.0-0.7); #Monocytes 0.5 thou/uL (0.11-0.59); #Neutrophils 3.7 thou/uL (1.40-6.50); %Basophils 0.5 % (0.0-1.0); %Eosinophils 3.2 % (0.0-10.0); %Lymphocytes 25.8 % (21.0-51.0); %Neutrophils 62.3 % (42.0-75.0); Hemoglobin 16.1 g/dL (14.0-18.0); Mean Corpuscular HGB CONC 34.5 g/dL (32.0-36.0); Mean Corpuscular Hemoglobin 36.1 pg (27.0-31.0); Mean Corpuscular Volume 104.5 fl (78.0-98.0); Mean Platelet Volume 9.8 fL (7.4-10.4); Platelet Count 126 10x3/uL (130-400); RBC Distribution Width 13.2 % (11.5-14.5); Red Blood Cell (RBC) Count 4.46 mill/uL (4.70-6.10)
[2022-10-03 13:12] LABS: ALT (SGPT) 9 U/L (8-55); AST (SGOT) 15 U/L (5-34); Albumin 3.6 g/dL (3.4-4.8); Alkaline Phosphatase 101 U/L (40-110); Anion Gap 13 mmol/L (10-20); BUN (Urea Nitrogen) 18 mg/dL (8.4-25.7); Bilirubin, Total 0.6 mg/dL (0.2-1.2); Calc. Creatinine Clearance 0 mL/min (70-130); Calcium 8.9 mg/dL (7.8-10.44); Carbon Dioxide 23 mmol/L (23-31); Chloride 105 mmol/L (98-107); Estimated GFR 54; Globulin 3.1 g/dL (2.4-3.5); Glucose 99 mg/dL (80-115); Lipase 17 U/L (8-78); Potassium 4.1 mmol/L (3.5-5.1); Protein, Total 6.7 g/dL (5.8-8.1); Sodium 137 mmol/L (136-145)
[2022-10-03] MEDS ORDERED: HYDROcodone/Acetaminophen 5/325 mg Tablet PO PRN (15:33)
[2022-10-03] MEDS ORDERED: Acetaminophen 325 MG TAB PO PRN (15:33)
[2022-10-03] MEDS ORDERED: Ondansetron PF 4 MG/2 ML Vial IVP PRN (15:33)
[2022-10-03 16:46] LABS: Troponin I Less than 0.010 ng/mL (< 0.028)
[2022-10-03] MEDS ORDERED: Carvedilol 6.25 MG TAB PO SCH (17:00)
[2022-10-03 17:13] VITALS: BMI 19.9
[2022-10-03 19:15] LABS: Troponin I 0.013 ng/mL (< 0.028)
[2022-10-04] MEDS ORDERED: Lisinopril 20 MG TAB PO SCH (04:45)
[2022-10-04 05:11] LABS: #Eosinphils 0.2 thou/uL (0.0-0.7); #Monocytes 0.4 thou/uL (0.11-0.59); #Neutrophils 2.9 thou/uL (1.40-6.50); %Basophils 0.4 % (0.0-1.0); %Eosinophils 3.9 % (0.0-10.0); %Lymphocytes 28.1 % (21.0-51.0); %Monocytes 8.1 % (0.0-10.0); %Neutrophils 59.3 % (42.0-75.0); Hemoglobin 14.5 g/dL (14.0-18.0); Mean Corpuscular HGB CONC 34.3 g/dL (32.0-36.0); Mean Corpuscular Hemoglobin 34.8 pg (27.0-31.0); Mean Corpuscular Volume 101.4 fl (78.0-98.0); Mean Platelet Volume 9.6 fL (7.4-10.4); Platelet Count 108 10x3/uL (130-400); Red Blood Cell (RBC) Count 4.17 mill/uL (4.70-6.10); White Blood Cell (WBC) Count 4.9 10x3/uL (4.8-10.8)
[2022-10-04 05:23] LABS: Manual Diff?? YES
[2022-10-04 05:32] LABS: Anion Gap 11 mmol/L (10-20); BUN (Urea Nitrogen) 22 mg/dL (8.4-25.7); Calc. Creatinine Clearance 49 mL/min (70-130); Calcium 8.7 mg/dL (7.8-10.44); Carbon Dioxide 23 mmol/L (23-31); Chloride 106 mmol/L (98-107); Estimated GFR 59; Glucose 97 mg/dL (80-115); Potassium 4.3 mmol/L (3.5-5.1); Sodium 136 mmol/L (136-145)
[2022-10-04 06:00] LABS: Band 1 % (5-11); Eosinophils 3 % (0-10); Lymphocytes 13 % (21-51); Macrocytosis SLIGHT = 6-15 cells HPF (0-5); Monocytes 4 % (0-10); Neutrophil 78 % (42-75); Ovalocytes SLIGHT = 2-5 cells HPF (0-1); Platelet Adequacy Comment Platelets Decreased; Total Cell Count 99
[2022-10-04] MEDS: Carvedilol 6.25 MG TAB PO SCH ×2 (08:30→17:57)
[2022-10-04] MEDS: Aspirin Chewable 81 MG TAB PO SCH (08:30)
[2022-10-04] MEDS: Thiamine 100 MG TAB PO SCH (08:31)
[2022-10-04] MEDS: Folic Acid 1 MG TAB PO SCH (08:31)
[2022-10-04] MEDS: Lisinopril 20 MG TAB PO SCH (08:31)
[2022-10-04] MEDS: hydrALAZINE 20 MG/ML VIAL SLOW IVP PRN (21:55)
[2022-10-05] MEDS: hydrALAZINE 20 MG/ML VIAL SLOW IVP PRN (04:17)
[2022-10-05 05:40] LABS: Anion Gap 10 mmol/L (10-20); BUN (Urea Nitrogen) 22 mg/dL (8.4-25.7); Calc. Creatinine Clearance 51 mL/min (70-130); Calcium 9.1 mg/dL (7.8-10.44); Carbon Dioxide 25 mmol/L (23-31); Chloride 106 mmol/L (98-107); Estimated GFR 61; Glucose 101 mg/dL (80-115); Potassium 4.2 mmol/L (3.5-5.1); Sodium 137 mmol/L (136-145)
[2022-10-05] MEDS: Carvedilol 6.25 MG TAB PO SCH ×2 (08:04→18:00)
[2022-10-05] MEDS: Lisinopril 20 MG TAB PO SCH (08:04)
[2022-10-05] MEDS: Folic Acid 1 MG TAB PO SCH (08:04)
[2022-10-05] MEDS: Aspirin Chewable 81 MG TAB PO SCH (08:04)
[2022-10-05] MEDS: Thiamine 100 MG TAB PO SCH (08:05)
[2022-10-06 05:41] LABS: Anion Gap 11 mmol/L (10-20); BUN (Urea Nitrogen) 24 mg/dL (8.4-25.7); Calc. Creatinine Clearance 48 mL/min (70-130); Calcium 8.9 mg/dL (7.8-10.44); Carbon Dioxide 22 mmol/L (23-31); Chloride 107 mmol/L (98-107); Estimated GFR 58; Glucose 102 mg/dL (80-115); Potassium 4.1 mmol/L (3.5-5.1); Sodium 136 mmol/L (136-145)
[2022-10-06 08:45] VITALS: TEMP 98.1
[2022-10-06] MEDS: Carvedilol 6.25 MG TAB PO SCH (09:13)
[2022-10-06] MEDS: Aspirin Chewable 81 MG TAB PO SCH (09:13)
[2022-10-06] MEDS: Thiamine 100 MG TAB PO SCH ×2 (09:13→09:14)
[2022-10-06] MEDS: Folic Acid 1 MG TAB PO SCH (09:14)
[2022-10-06] MEDS: Lisinopril 20 MG TAB PO SCH (09:14)
[2022-10-06 09:19] VITALS: BP 184/97
== END 2022-10-06 11:45 | disposition home or self-care (01) | DRG 305 ==
LOC: ERS 11:40 → SUATTDRO 11:40 → 2SW 15:35 → OBSVTOIN 10-04 17:05
PROVIDERS: ADMIT Internal Medicine; ATTEND Internal Medicine
DX: I16.0 Hypertensive urgency (principal); I12.9 Hypertensive chronic kidney disease with stage 1 through stage 4 chronic kidney disease, or unspecified chronic kidney disease; E78.5 Hyperlipidemia, unspecified; F17.210 Nicotine dependence, cigarettes, uncomplicated; F10.10 Alcohol abuse, uncomplicated; F14.10 Cocaine abuse, uncomplicated; I25.10 Atherosclerotic heart disease of native coronary artery without angina pectoris; G89.29 Other chronic pain; F12.10 Cannabis abuse, uncomplicated; Z95.2 Presence of prosthetic heart valve; Z95.1 Presence of aortocoronary bypass graft; Z79.899 Other long term (current) drug therapy; Z79.82 Long term (current) use of aspirin; Z71.6 Tobacco abuse counseling; Z91.199 Patient's noncompliance with other medical treatment and regimen due to unspecified reason
CPT/HCPCS: 36415; 71045; 80048; 80053; 83690; 84484; 85025; 93005; 93010; 93306; 94760; 96372; G0378; J0360; J1650

== ENCOUNTER 2022-10-07 13:48 | Emergency (ER) | payer MEDICARE, OTHER ==
[2022-10-07 14:26] LABS: #Eosinphils 0.2 thou/uL (0.0-0.7); #Monocytes 0.6 thou/uL (0.11-0.59); #Neutrophils 3.1 thou/uL (1.40-6.50); %Basophils 0.4 % (0.0-1.0); %Eosinophils 3.5 % (0.0-10.0); %Lymphocytes 27.6 % (21.0-51.0); %Monocytes 10.4 % (0.0-10.0); %Neutrophils 57.7 % (42.0-75.0); Hemoglobin 14.9 g/dL (14.0-18.0); Mean Corpuscular HGB CONC 33.3 g/dL (32.0-36.0); Mean Corpuscular Hemoglobin 35.8 pg (27.0-31.0); Mean Corpuscular Volume 107.5 fl (78.0-98.0); Mean Platelet Volume 9.3 fL (7.4-10.4); Platelet Count 127 10x3/uL (130-400); RBC Distribution Width 13.6 % (11.5-14.5); Red Blood Cell (RBC) Count 4.16 mill/uL (4.70-6.10); White Blood Cell (WBC) Count 5.4 10x3/uL (4.8-10.8)
[2022-10-07] MEDS ORDERED: Amlodipine 5 mg/Benazepril 20 mg CAP PO SCH (14:30)
[2022-10-07] MEDS ORDERED: Lisinopril 20 MG TAB PO SCH (14:45)
[2022-10-07] MEDS ORDERED: Amlodipine 10 MG TAB PO SCH (14:45)
[2022-10-07] MEDS ORDERED: Lisinopril 10 MG TAB ONE ×2 (14:53)
[2022-10-07 15:00] LABS: ALT (SGPT) 19 U/L (8-55); AST (SGOT) 23 U/L (5-34); Albumin 3.6 g/dL (3.4-4.8); Alkaline Phosphatase 84 U/L (40-110); Anion Gap 8 mmol/L (10-20); BUN (Urea Nitrogen) 24 mg/dL (8.4-25.7); Bilirubin, Total 0.5 mg/dL (0.2-1.2); Calc. Creatinine Clearance 0 mL/min (70-130); Carbon Dioxide 26 mmol/L (23-31); Chloride 108 mmol/L (98-107); Estimated GFR 50; Globulin 2.6 g/dL (2.4-3.5); Glucose 91 mg/dL (80-115); Potassium 4.5 mmol/L (3.5-5.1); Protein, Total 6.2 g/dL (5.8-8.1); Sodium 137 mmol/L (136-145)
== END 2022-10-07 16:13 | disposition home or self-care (01) ==
LOC: ERS 13:48
DX: R07.9 Chest pain, unspecified (principal); E78.5 Hyperlipidemia, unspecified; I10 Essential (primary) hypertension; F17.210 Nicotine dependence, cigarettes, uncomplicated; Z79.899 Other long term (current) drug therapy
CPT/HCPCS: 36415; 71045; 80053; 83880; 84484; 85025; 93005

== ENCOUNTER 2022-10-11 11:29 | Observation (INO) | payer MEDICARE, MEDICAID ==
[2022-10-11 12:12] LABS: #Eosinphils 0.2 thou/uL (0.0-0.7); #Monocytes 0.4 thou/uL (0.11-0.59); #Neutrophils 2.9 thou/uL (1.40-6.50); %Basophils 0.6 % (0.0-1.0); %Eosinophils 3.4 % (0.0-10.0); %Lymphocytes 34.3 % (21.0-51.0); %Monocytes 7.9 % (0.0-10.0); %Neutrophils 53.4 % (42.0-75.0); Hemoglobin 16.7 g/dL (14.0-18.0); Mean Corpuscular HGB CONC 34.4 g/dL (32.0-36.0); Mean Corpuscular Hemoglobin 36.1 pg (27.0-31.0); Mean Corpuscular Volume 104.8 fl (78.0-98.0); Mean Platelet Volume 9.2 fL (7.4-10.4); Platelet Count 159 10x3/uL (130-400); RBC Distribution Width 12.7 % (11.5-14.5); Red Blood Cell (RBC) Count 4.63 mill/uL (4.70-6.10); White Blood Cell (WBC) Count 5.3 10x3/uL (4.8-10.8)
[2022-10-11 12:47] LABS: ALT (SGPT) 13 U/L (8-55); AST (SGOT) 19 U/L (5-34); Albumin 4.2 g/dL (3.4-4.8); Alkaline Phosphatase 103 U/L (40-110); Anion Gap 10 mmol/L (10-20); BUN (Urea Nitrogen) 20 mg/dL (8.4-25.7); Bilirubin, Total 0.3 mg/dL (0.2-1.2); CK (CPK) 36 U/L (30-200); Calc. Creatinine Clearance 0 mL/min (70-130); Calcium 9.9 mg/dL (7.8-10.44); Carbon Dioxide 27 mmol/L (23-31); Chloride 107 mmol/L (98-107); Estimated GFR 54; Globulin 3.1 g/dL (2.4-3.5); Glucose 76 mg/dL (80-115); Protein, Total 7.3 g/dL (5.8-8.1); Sodium 140 mmol/L (136-145)
[2022-10-11] MEDS ORDERED: Nitroglycerin 2% Ointment 1 INCH/1 GM Packet ONE (13:39)
[2022-10-11] MEDS ORDERED: Ondansetron PF 4 MG/2 ML Vial IVP PRN (15:04)
[2022-10-11] MEDS ORDERED: Acetaminophen 325 MG TAB PO PRN (15:04)
[2022-10-11 15:32] VITALS: BMI 19.9
[2022-10-11 15:43] LABS: Troponin I Less than 0.010 ng/mL (< 0.028)
[2022-10-11] MEDS ORDERED: Lorazepam 1 MG TAB PO PRN (16:17)
[2022-10-11] MEDS ORDERED: Lorazepam 2 MG/ML VIAL IM PRN (16:17)
[2022-10-11] MEDS ORDERED: Ondansetron ODT 4 MG TAB PO PRN (16:17)
[2022-10-11] MEDS ORDERED: Thiamine HCl 200 MG/2 ML VIAL SLOW IVP SCH (16:30)
[2022-10-11] MEDS ORDERED: Folic Acid 1 MG TAB PO SCH (16:30)
[2022-10-11] MEDS ORDERED: Electrolyte Replacement Protocol 1 EACH FS SCH (16:30)
[2022-10-11] MEDS ORDERED: Multivit, Therapeutic 1 TAB PO SCH (16:30)
[2022-10-11] MEDS ORDERED: Electrolyte Replacement Protocol FS PRN (16:30)
[2022-10-11] MEDS: Lorazepam 1 MG TAB PO SCH (18:02)
[2022-10-11] MEDS: Carvedilol 6.25 MG TAB PO SCH (18:02)
[2022-10-11 19:01] LABS: Troponin I Less than 0.010 ng/mL (< 0.028)
[2022-10-11] MEDS: Famotidine/PF 20 mg/2ml Vial SLOW IVP SCH (20:04)
[2022-10-11] MEDS ORDERED: Atorvastatin Calcium 40 MG TAB PO SCH (21:00)
[2022-10-12] MEDS: Lorazepam 1 MG TAB PO SCH ×3 (00:29→13:12)
[2022-10-12 05:07] LABS: #Eosinphils 0.3 thou/uL (0.0-0.7); #Monocytes 0.5 thou/uL (0.11-0.59); #Neutrophils 2.9 thou/uL (1.40-6.50); %Basophils 0.4 % (0.0-1.0); %Lymphocytes 28.1 % (21.0-51.0); %Monocytes 9.8 % (0.0-10.0); %Neutrophils 56.3 % (42.0-75.0); Hemoglobin 14.6 g/dL (14.0-18.0); Mean Corpuscular HGB CONC 34.6 g/dL (32.0-36.0); Mean Corpuscular Hemoglobin 35.4 pg (27.0-31.0); Mean Corpuscular Volume 102.2 fl (78.0-98.0); Mean Platelet Volume 8.8 fL (7.4-10.4); Platelet Count 135 10x3/uL (130-400); RBC Distribution Width 12.5 % (11.5-14.5); Red Blood Cell (RBC) Count 4.13 mill/uL (4.70-6.10); White Blood Cell (WBC) Count 5.2 10x3/uL (4.8-10.8)
[2022-10-12 05:33] LABS: Anion Gap 7 mmol/L (10-20); BUN (Urea Nitrogen) 22 mg/dL (8.4-25.7); Calc. Creatinine Clearance 56 mL/min (70-130); Calcium 8.9 mg/dL (7.8-10.44); Carbon Dioxide 24 mmol/L (23-31); Cardiac Risk 3.1 (Less than 4.5); Chloride 108 mmol/L (98-107); Cholesterol 155 mg/dl (< 200 Desired); Estimated GFR 69; Glucose 103 mg/dL (80-115); HDL Cholesterol 50 mg/dL (>60 Neg Risk); LDL Cholesterol, Calculated 93 mg/dL; Potassium 4.2 mmol/L (3.5-5.1); Sodium 135 mmol/L (136-145); Triglycerides 61 mg/dL (Less than 150)
[2022-10-12] MEDS: Carvedilol 6.25 MG TAB PO SCH (07:50)
[2022-10-12] MEDS ORDERED: Multivit, Therapeutic 1 TAB PO SCH (09:00)
[2022-10-12] MEDS ORDERED: Aspirin Chewable 81 MG TAB PO SCH (09:00)
[2022-10-12] MEDS ORDERED: Folic Acid 1 MG TAB PO SCH (09:00)
[2022-10-12] MEDS ORDERED: Lisinopril 20 MG TAB PO SCH (09:00)
[2022-10-12] MEDS: hydrALAZINE 20 MG/ML VIAL SLOW IVP PRN ×2 (09:14→13:55)
[2022-10-12] MEDS: Famotidine/PF 20 mg/2ml Vial SLOW IVP SCH (09:15)
[2022-10-12 13:06] VITALS: BP 170/95; TEMP 98.4
[2022-10-12] MEDS ORDERED: ADENOSINE 60 MG/20 ML SDV ONE (14:49)
[2022-10-12] MEDS ORDERED: Lorazepam 1 MG TAB PO PRN (16:17)
[2022-10-13] MEDS ORDERED: Lorazepam 1 MG TAB PO PRN (16:17)
[2022-10-13] MEDS ORDERED: Lorazepam 0.5 MG TAB PO SCH (18:00)
[2022-10-14] MEDS ORDERED: Lorazepam 0.5 MG TAB PO PRN (16:17)
[2022-10-14] MEDS ORDERED: Thiamine 100 MG TAB PO SCH (16:30)
== END 2022-10-12 15:55 | disposition home or self-care (01) ==
LOC: ERS 11:29 → 2SW 15:21
PROVIDERS: ADMIT Internal Medicine; ATTEND Family Medicine
DX: R07.9 Chest pain, unspecified (principal); I25.810 Atherosclerosis of coronary artery bypass graft(s) without angina pectoris; I35.0 Nonrheumatic aortic (valve) stenosis; I12.9 Hypertensive chronic kidney disease with stage 1 through stage 4 chronic kidney disease, or unspecified chronic kidney disease; N18.30 Chronic kidney disease, stage 3 unspecified; F10.10 Alcohol abuse, uncomplicated; F17.210 Nicotine dependence, cigarettes, uncomplicated; F12.10 Cannabis abuse, uncomplicated; Z90.89 Acquired absence of other organs; Z79.82 Long term (current) use of aspirin; Y90.6 Blood alcohol level of 120-199 mg/100 ml
CPT/HCPCS: 71045; 78452; 80048; 80053; 80061; 80307; 82550; 84484 ×2; 85025 ×2; 93005; 93017; 96372; 96374; 96375 ×2; 96376; 99285; A9500; G0378 ×3; J0360; 36415; J0153; J1650; J3411; S0028

== ENCOUNTER 2023-09-15 16:49 | Inpatient (IN) | payer MEDICARE, MEDICAID ==
[2023-09-15 18:21] LABS: #Basophils 0.03 10x3/uL (0.0-0.2); %Basophils 0.5 % (0.0-1.0); %Eosinophils 2.4 % (0.0-10.0); %Lymphocytes 21.1 % (21.0-51.0); %Monocytes 10.2 % (0.0-10.0); %Neutrophils 65.6 % (42.0-75.0); Hematocrit 43.9 % (42.0-52.0); Hemoglobin 14.8 g/dL (14.0-18.0); Mean Corpuscular HGB CONC 33.7 g/dL (32.0-36.0); Mean Corpuscular Hemoglobin 33.9 pg (27.0-31.0); Mean Corpuscular Volume 100.7 fL (78.0-98.0); Mean Platelet Volume 9.5 fL (7.4-10.4); Platelet Count 136 10x3/uL (130-400); RBC Distribution Width 12.6 % (11.5-14.5); Red Blood Cell (RBC) Count 4.36 mill/uL (4.70-6.10)
[2023-09-15 18:42] LABS: ALT (SGPT) 11 U/L (8-55); AST (SGOT) 16 U/L (5-34); Albumin 3.5 g/dL (3.4-4.8); Alkaline Phosphatase 90 U/L (40-110); Anion Gap 15 mmol/L (10-20); BUN (Urea Nitrogen) 25 mg/dL (8.4-25.7); Bilirubin, Total 0.7 mg/dL (0.2-1.2); Calc. Creatinine Clearance 0 mL/min (70-130); Calcium 9.2 mg/dL (7.8-10.44); Carbon Dioxide 23 mmol/L (23-31); Chloride 109 mmol/L (98-107); Estimated GFR 38; Globulin 2.8 g/dL (2.4-3.5); Glucose 97 mg/dL (80-115); Lipase 23 U/L (8-78); Magnesium 1.9 mg/dL (1.6-2.6); Protein, Total 6.3 g/dL (5.8-8.1); Sodium 142 mmol/L (136-145)
[2023-09-15 18:44] LABS: Troponin I 0.017 ng/mL (< 0.028)
[2023-09-15] MEDS ORDERED: Nitroglycerin 2% Ointment 1 INCH/1 GM Packet ONE (19:04)
[2023-09-15] MEDS ORDERED: hydrALAZINE 20 MG/ML VIAL ONE ×2 (19:40→23:27)
[2023-09-15 21:46] VITALS: BMI 20.2
[2023-09-15] MEDS ORDERED: Atorvastatin Calcium 40 MG TAB ONE (22:06)
[2023-09-15] MEDS: Atorvastatin Calcium 40 MG TAB PO SCH (22:08)
[2023-09-15 22:19] LABS: Acetaminophen Less than 10 mcg/mL (10.0-30.0); Alcohol Less than 10.0 mg/dL (Less than 10); Cardiac Risk 4.5 (Less than 4.5); Cholesterol 162 mg/dl (< 200 Desired); HDL Cholesterol 36 mg/dL (>60 Neg Risk); LDL Cholesterol, Calculated 113 mg/dL; Salicylate Less than 8.0 mg/dL (15.0-30.0); Triglycerides 66 mg/dL (Less than 150)
[2023-09-15] MEDS: hydrALAZINE 20 MG/ML VIAL SLOW IVP SCH (23:29)
[2023-09-16 00:06] LABS: Amphetamine Not Detected (NotDetected); Barbiturates Screen Not Detected (NotDetected); Benzodiazepine Screen Not Detected (NotDetected); Cocaine Metabolite Screen Not Detected (NotDetected); Methadone Not Detected (NotDetected); Methamphetamine Not Detected (NotDetected); Opiate Screen Not Detected (NotDetected); Oxycodone Screen Not Detected (NotDetected); Phencyclidine (PCP) Not Detected (NotDetected); THC/Cannabinoid Screen Detected (NotDetected); Tricyclic Screen Not Detected (NotDetected)
[2023-09-16 01:27] LABS: Troponin I 0.022 ng/mL (< 0.028)
[2023-09-16 07:48] LABS: Anion Gap 14 mmol/L (10-20); BUN (Urea Nitrogen) 23 mg/dL (8.4-25.7); Calc. Creatinine Clearance 44 mL/min (70-130); Calcium 9.5 mg/dL (7.8-10.44); Carbon Dioxide 24 mmol/L (23-31); Chloride 108 mmol/L (98-107); Estimated GFR 51; Glucose 99 mg/dL (80-115); Potassium 4.2 mmol/L (3.5-5.1); Sodium 142 mmol/L (136-145)
[2023-09-16 07:53] LABS: Troponin I 0.028 ng/mL (< 0.028)
[2023-09-16] MEDS ORDERED: Thiamine 100 MG TAB ONE (08:28)
[2023-09-16] MEDS ORDERED: hydrALAZINE 20 MG/ML VIAL ONE ×3 (08:28→11:58)
[2023-09-16] MEDS ORDERED: Aspirin Chewable 81 MG TAB ONE (08:28)
[2023-09-16] MEDS ORDERED: Aspirin 81 mg Enteric Coated Tablet ONE (08:28)
[2023-09-16] MEDS ORDERED: Enoxaparin 40 MG (0.4 mL) SYRINGE ONE (08:28)
[2023-09-16] MEDS ORDERED: Folic Acid 1 MG TAB ONE (08:28)
[2023-09-16] MEDS: Aspirin 81 mg Enteric Coated Tablet PO SCH (08:31)
[2023-09-16] MEDS: Enoxaparin 40 MG (0.4 mL) SYRINGE SC SCH (08:31)
[2023-09-16] MEDS: Folic Acid 1 MG TAB PO SCH (08:31)
[2023-09-16] MEDS: Thiamine 100 MG TAB PO SCH (08:31)
[2023-09-16] MEDS: hydrALAZINE 20 MG/ML VIAL SLOW IVP PRN (08:32)
[2023-09-16] MEDS ORDERED: Regadenoson 0.4 MG/5 ML SYRINGE ONE (10:22)
[2023-09-16] MEDS: Losartan 25 MG TAB PO SCH (15:03)
[2023-09-16] MEDS: Carvedilol 3.125 MG TAB PO SCH (20:06)
[2023-09-16] MEDS ORDERED: Labetalol HCl 100 MG/20 ML VIAL SLOW IVP PRN (21:44)
[2023-09-17] MEDS: Lorazepam 0.5 MG TAB PO PRN (00:17)
[2023-09-17 05:00] LABS: Anion Gap 15 mmol/L (10-20); BUN (Urea Nitrogen) 24 mg/dL (8.4-25.7); Calc. Creatinine Clearance 44 mL/min (70-130); Calcium 9.3 mg/dL (7.8-10.44); Carbon Dioxide 24 mmol/L (23-31); Chloride 108 mmol/L (98-107); Estimated GFR 51; Glucose 112 mg/dL (80-115); Potassium 3.8 mmol/L (3.5-5.1); Sodium 143 mmol/L (136-145)
[2023-09-17] MEDS: Carvedilol 3.125 MG TAB PO SCH (08:14)
[2023-09-17] MEDS: Losartan 25 MG TAB PO SCH ×2 (08:14→13:06)
[2023-09-17 10:09] VITALS: BMI 20.2
[2023-09-17] MEDS: Acetaminophen 325 MG TAB PO PRN (16:32)
[2023-09-18 05:23] LABS: Anion Gap 11 mmol/L (10-20); BUN (Urea Nitrogen) 31 mg/dL (8.4-25.7); Calc. Creatinine Clearance 44 mL/min (70-130); Carbon Dioxide 22 mmol/L (23-31); Chloride 109 mmol/L (98-107); Estimated GFR 50; Glucose 109 mg/dL (80-115); Potassium 3.9 mmol/L (3.5-5.1); Sodium 138 mmol/L (136-145)
[2023-09-18] MEDS: Losartan 25 MG TAB PO SCH (09:24)
[2023-09-19 04:30] LABS: Anion Gap 12 mmol/L (10-20); BUN (Urea Nitrogen) 27 mg/dL (8.4-25.7); Calc. Creatinine Clearance 44 mL/min (70-130); Calcium 8.7 mg/dL (7.8-10.44); Carbon Dioxide 22 mmol/L (23-31); Chloride 107 mmol/L (98-107); Estimated GFR 51; Glucose 96 mg/dL (80-115); Sodium 137 mmol/L (136-145)
[2023-09-19 12:09] VITALS: BP 164/97; TEMP 97.2
== END 2023-09-19 15:22 | disposition home health service (06) | DRG 305 ==
LOC: ERS 16:49 → ERHOLD 19:33 → 2NO 09-16 12:28 → OBSVTOIN 09-17 09:22
PROVIDERS: ADMIT Emergency Medicine; ATTEND Emergency Medicine
DX: I16.0 Hypertensive urgency (principal); I50.32 Chronic diastolic (congestive) heart failure; N17.9 Acute kidney failure, unspecified; I13.0 Hypertensive heart and chronic kidney disease with heart failure and stage 1 through stage 4 chronic kidney disease, or unspecified chronic kidney disease; E78.5 Hyperlipidemia, unspecified; N18.30 Chronic kidney disease, stage 3 unspecified; F19.10 Other psychoactive substance abuse, uncomplicated; F17.210 Nicotine dependence, cigarettes, uncomplicated; I45.10 Unspecified right bundle-branch block; F03.90 Unspecified dementia, unspecified severity, without behavioral disturbance, psychotic disturbance, mood disturbance, and anxiety; Z91.148 Patient's other noncompliance with medication regimen for other reason
CPT/HCPCS: 36415; 71045; 78452; 80048; 80053; 80061; 80306; 80307; 83690; 83735; 83880; 84484; 85025; 93005; 93017; 94760; 96374; A9502; J0360; J1650; J2785